=== PATIENT | female | born 1975 | race Caucasian/White ===

== ENCOUNTER 2022-11-07 12:28 | Outpatient (OUT) | payer MEDICARE, OTHER, SELFPAY ==
[2022-11-07 13:04] LABS: Basophils Absolute Auto 0.1 10^3/uL (0.0-0.1); Basophils Percent Auto 0.6 % (0.2-2.0); Eosinophils Absolute Auto 0.1 10^3/uL (0.0-0.7); Eosinophils Percent Auto 1.5 % (0.9-7.0); Hematocrit 42.4 % (36.0-48.0); Hemoglobin 13.4 g/dL (12.0-16.0); Immature Granulocytes Abs Auto 0.03 10^3/uL (0.00-0.03); Immature Granulocytes Pct Auto 0.4 % (0.0-0.5); Lymphocytes Absolute Auto 2.4 10^3/uL (1.2-3.8); Lymphocytes Percent Auto 30.2 % (20.5-60.0); Mean Corpuscular HGB Conc 31.6 g/dL (29.9-35.2); Mean Corpuscular Hemoglobin 27.7 pg (26.7-34.0); Mean Corpuscular Volume 87.6 fL (81.0-99.0); Mean Platelet Volume 9.4 fL (9.5-13.5); Monocytes Absolute Auto 0.6 10^3/uL (0.3-0.8); Neutrophils Absolute Auto 4.8 10^3/uL (1.4-6.5); Neutrophils Percent Auto 59.3 % (43.0-75.0); Platelet Count 272 10^3/uL (150-450); Red Blood Count 4.84 10^6/uL (4.20-5.40); Red Cell Distribution Width 13.1 % (11.0-15.0); White Blood Count 8.1 10^3/uL (4.0-11.0)
[2022-11-07 13:19] LABS: INR 0.94
== END 2022-11-07 12:29 | disposition home or self-care (01) ==
LOC: LAB 12:34
PROVIDERS: PCP Family Medicine; Visit Provider Personal Emergency Response Attendant
DX: D64.9 Anemia, unspecified (principal)
CPT/HCPCS: 36415; 85025; 85610

== ENCOUNTER 2023-03-06 16:30 | Outpatient (OUT) | payer OTHER, SELFPAY ==
--- NOTE | 2023-03-06 | MM_ITS ---
Patient Name: HARINDER CARROLL MR#: [id number] : 1975 Exam Date: 03/06/2023 Ordering Doctor: DR OLIVER BURROWS RADIOLOGY REPORT PROCEDURE: MM TOMOSYNTHESIS SCREENING BI COMPARISON: MG MAMM SCREEN 3D BHANU CAD, 06/03/2021. INDICATIONS: Screening for malignant neoplasm Calculator Name NCI Breast Cancer Risk Assessment Tool 5 Year Breast Cancer Risk 0.90% Lifetime Breast Cancer Risk 9.20% Personal Breast Cancer No Personal Ovarian Cancer No Treatments None Family Cancers None LOCATION: [facility] BREAST COMPOSITION: Scattered areas fibroglandular density. FINDINGS: DIAGNOSTIC CATEGORY 2--BENIGN FINDING. NO CHANGE FROM COMPARISON. Scattered benign-appearing calcifications are present. Scattered benign-appearing lymph nodes are present. RIGHT BREAST: No significant suspicious finding. LEFT BREAST: No significant suspicious finding. RECOMMENDATIONS: ROUTINE MAMMOGRAM AND CLINICAL EVALUATION IN 12 MONTHS. PLEASE NOTE: A NORMAL MAMMOGRAM DOES NOT EXCLUDE THE POSSIBILITY OF BREAST CANCER. A CLINICALLY SUSPICIOUS PALPABLE LUMP SHOULD BE BIOPSIED. Dictated by: Cl Mustafa MD on 03/07/2023 at 08:04 Approved by: Cl Mustafa MD on 03/07/2023 at 08:06
== END 2023-03-06 16:31 | disposition home or self-care (01) ==
LOC: MAMMO 16:30
PROVIDERS: PCP Family Medicine; Visit Provider Family Medicine
DX: Z12.31 Encounter for screening mammogram for malignant neoplasm of breast (principal)
CPT/HCPCS: 77063; 77067

== ENCOUNTER 2023-10-14 02:18 | Emergency (ER) | payer OTHER, SELFPAY ==
[2023-10-14 02:27] VITALS: BP 154/74; PULSE 99; TEMP 36.7; O2SAT 100; BMI 30.9
--- OUTSIDE RECORDS SUMMARY | 2023-10-14 02:27 | XMS_ITS ---
Patient Summarization (C-CDA 2.1 CCD) Created on: October 14, 2023 Harinder Carroll : 1975 Sex: Female Author Organization Sample organization Care Team Providers Care Director E Learning Name Role Phone Lakia Rizo Unavailable Unavailable Unavailable Tariq Sánchez Unavailable Jose Pena Unavailable Tariq Sánchez Unavailable Long Service - General Unavailable Unavail able Alexandria Encinas Unavailable Endoscopy Service-Surgery Unavailable Unavai Abel Nguyen Unavailable Unavailable Unavailable PAY, DR GIRARD Attending Unavailable PAY, DR GIRARD Admitting Unavailable NADERESid, DR TARIQ Raimres Primary Care Unavailable ROD, ODESSA SILVERMAN Consulting Unavailable GIULIANO RITTER Consulting Unavailable NADERESid, DR TARIQ Ramires Primary Care Unavailable GARCIA, DR EVANS Admitting Unavailable GARCIA, DR EVANS Attending Unavailable GARCIA, DR EVANS Consulting Unavailable NADERER, DR TARIQ Ramires Admitting Unavailable NADERER, DR TARIQ Ramires Attending Unavailable NADERER, DR TARIQ Ramires Consulting Unavailable NADERER, DR TARIQ Ramires Primary Care Unavailable NADERER, DR TARIQ Ramires Admitting Unavailable NADERER, DR TARIQ Ramires Attending Unavailable NADERER, DR TARIQ Ramires Consulting Unavailable NADERER, DR TARIQ Ramires Primary Care Unavailable Stanfield, DR Smallwood Consulting Unavailable NADERER, DR TARIQ Ramires Admitting Unavailable NADERER, DR TARIQ Ramires Attending Unavailable NADERER, DR TARIQ Ramires Primary Care Unavailable NADERER, DR TARIQ Ramires Consulting Unavailable NADERER, DR TARIQ Ramires Primary Care Unavailable GARCIA, DR EVANS Admitting Unavailable GARCIA, DR EVANS Attending Unavailable GARCIA, DR EVANS Consulting Unavailable KHADRA, DR GAGE Lau Consulting Unavailable NADERER, DR TARIQ Ramires Primary Care Unavailable MARSHALL ECHEVERRIA Admitting Unavailable MARSHALL ECHEVERRIA Attending Unavailable GREODESSA WALLACE Consulting Unavailable Luiza Khan Unavailable JERARDO HARDING Attending Unavailable [facility] Referring Lionel Mar Attending Lionel Mar Admitting Sarah radha OsirissidTariq Primary Care Unavailable Allergies Allergy Classification Reported Allergen(s) Allergy Type Date of Onset Reaction(s) Facility (12 sources) Cefaclor; Translations: [Ceclor] Drug Allergy RU-Uwbhbau-Gmry ell 2100 Work Phone: (13 sources) diazePAM; Translations: [Valium] Drug Allergy stop breathing RE-Ajhrprr-Lupp ell 2100 Work Phone: (20 sources) Penicillins; Translations: [Penicillins] Allergy to drug (finding) 05-14-19 Unknown, Anaphylaxis VL-Inpnees-Puqh ell 2100 Work Phone: Comment on above: Patient has had card iac arrest after penicillin admiistration (9 sources) Cefaclor Drug Allergy 05-14-19 Unknown, stop breathing, Anaphylaxis [facility] (7 sources) diazePAM Drug Allergy Unknown [facility] (1 source) Cefaclor Drug Allergy 03-10-20 19 [facility] (1 source) diazePAM Drug Allergy 03-10-20 19 [facility] (1 source) Penicillin Drug Allergy 03-10-20 19 [facility] (1 source) Penicillin G Drug Allergy stop breathing [facility] Other (1 source) Celcor Propensity to adverse reactions stop breathing [facility] Other (2 sources) diazePAM; Translations: [diazepam] Drug Allergy 05-14-19 Anaphylaxis [facility] (1 source) Cefaclor Drug Allergy 05-14-19 [facility] (1 source) Penicillins Drug allergy (disorder) 05-14-19 [facility] Encounters Encounter Date Encounter Type Care Provider Facility Start: 05-15-2023 End: 05-15-2023 ambulatory Lionel Figueroa Facility:[facility] Start: 05-15-2023 Non-patient / Non-visit [facility] Work Phone: Start: 04-12-2023 End: 04-12-2023 ambulatory JERARDO HARDING Not Available Start: 04-03-2022 End: 04-03-2022 ambulatory Luiza Bill Other [facility] Other Start: 04-03-2022 Office outpatient vi sit 15 minutes Luiza Khan [facility] Start: 02-10-2022 Patient encounter procedure Abel Ice Work Phone: SU-Sghjberjin-Lbyejv 13 MD Work Phone: Start: 12-30-2021 Encounter for preprocedural laboratory examination DR CRISTINA GARCIA [facility] Start: 12-27-2021 End: 12-28-[address] TARIQ SÁNCHEZ Facility:[facility] Start: 12-27-2021 End: 12-28-2021 Encounter for preprocedural laboratory examination DR TARIQ SÁNCHEZ Facility:[facility] Start: 12-15-2021 End: 12-16-[address] TARIQ SÁNCHEZ Facility:[facility] Start: 12-09-2021 Office outpatient vi sit 25 minutes Abel Ice Work Phone: BI-Udesvksimx-Ccobjw 13 MD Work Phone: Start: 10-21-2021 Office outpatient vi sit 25 minutes Abel Ice Work Phone: QR-Gmzkzhgmot-Nmhems 13th MD Work Phone: Start: 08-15-2021 Chart Update Abel Ice Work Phone: [address] Work Phone: Start: 06-13-2021 End: 06-13-[address] GAGE GAVIRIA Facility:[facility] Start: 06-10-2021 End: 06-11-[address] JOSE CABALLERO Facility:[facility] Start: 06-03-2021 End: 06-04-[address] Cl Mustafa Facility:[facility] Start: 06-02-2021 Office outpatient ne w 45 minutes Abel Ice Work Phone: [facility] 1057 Work Phone: Start: 05-30-2021 End: 05-31-[address] TARIQ SÁNCHEZ Facility:[facility] Start: 05-20-2021 [facility], Provider: Jose Pena, Status: Pen, Time: 11:00 AM Tariq Sánchez Work Phone: [facility] Work Phone: Start: 05-17-2021 AUDIT Tariq Sánchez Work Phone: [facility] Work Phone: Start: 05-16-2021 End: 05-24-2021 Evaluation and management of inpatient Jose Pena [facility]06 Rm [id number] Start: 04-19-2021 [facility], Provider: Jose Pena, Status: Pen, Time: 8:00 AM Tariq Sánchez Work Phone: [facility] [address] [facility] Work Phone: Start: 04-18-2021 End: 04-21-2021 Evaluation and management of inpatient Jose Puckett 5 Rm [id number] Start: 04-18-2021 Postop follow up vis it related to original px Tariq Sánchez Work Phone: [facility] [address] [facility] Work Phone: Start: 03-28-2021 End: 04-05-2021 Evaluation and management of inpatient Jose Puckett 5 Rm [id number] Start: 03-25-2021 AUDIT Tariq Sánchez Work Phone: TX-Dthbfrm-Xpwcojg 2100 Work Phone: Start: 03-20-2021 End: 03-25-2021 Evaluation and management of inpatient Jose Pena [facility]06 Rm [id number] Start: 03-07-2021 Postop follow up vis it related to original px Tariq Sánchez Work Phone: [facility] DO NOT USE Work Phone: Start: 02-18-2021 End: 02-25-2021 Evaluation and management of inpatient Jose Pool TT03 Rm [id number] Start: 02-15-2021 End: 02-15-[address] TARIQ SÁNCHEZ Facility:[facility]1 Start: 02-11-2021 AUDIT Lakia Rizo Work Phone: VR-Jklofwbbstdtlp-Urx for Perioperative Med Work Phone: Start: 12-16-2020 Office outpatient vi sit 40 minutes Lakia Rizo Work Phone: QA-Txmlbnj-Ybqgdsp 2100 Work Phone: Start: 11-03-2020 AUDIT Lakia Rizo Work Phone: [facility] Work Phone: Start: 10-28-2020 Patient encounter procedure Lakia Rizo Work Phone: YS-Yokzccu-Zvcfece 2100 Work Phone: Start: 10-28-2020 Phys/qhp telephone evaluation 21-30 min Lakia Rizo Work Phone: OX-Iitilhm-Nrskprm 2100 Work Phone: Medical Equipment Procedure Code Equipment Code Equipment Original Text Equipment Identifier Dates EGD, with Kaplan pH monitoring device placement Gastrointestinal telemetric monitoring system [id number] [facility] Start: 12-01-2020 Immunizations Immunization Date Immunization Notes Care Provider Fa [facility] 04-03-2022 tetanus toxoid, reduced diphtheria toxoid, and acellular pertussis vaccine, adsorbed Luiza Khan Other [employer] Other 05-23-2021 influenza, injectabl e, quadrivalent, preservative free Tariq Sánchez Other Phone: [facility] 06-27-2019 tetanus toxoid, reduced diphtheria toxoid, and acellular pertussis vaccine, adsorbed Lakia Rizo Work Phone: SD-Ahlymsj-Djrbhvd 2100 Work Phone: Medications Current Medications Medication Drug Class(es) Dates Sig (Normalized) Sig (Original) acetaminophen 650 mg oral tablet (12 sources) Start: 04-05-2021 take 650 mg by mouth every six hours as needed acetaminophen ; 650 milligram(s) orally every 6 hours, As Needed mild pain Quantity: 0 Refills: 0 Ordered: 18-Apr-2021 Bereket Kaur Start: 05-Apr-2021 Generic Substitution Allowed Start: 04-05-2021 take 650 mg by mouth every four hours acetaminophen ; 650 milligram(s) orally every 4 hours Quantity: 0 Refills: 0 Ordered: 05-Apr-2021 Herve Longo Start: 05-Apr-2021 Generic Substitution Allowed Start: 02-25-2021 End: 03-01-2021 take 20.31 mL by mouth every six hours acetaminophen 160 mg/5 mL oral liquid ; 20.31 milliliter(s) orally every 6 hours -.Meds to Beds Quantity: 450 Refills: 0 Ordered: 25-Feb-2021 Debbie Antonio Start: 25-Feb-2021 End: 01-Mar-2021 Status: Discontinued Generic Substitution Allowed amLODIPine 5 mg oral tablet (7 sources) Dihydropyridine Calcium Channel Ashley take 1 tablet by mouth once daily Norvasc 5 mg oral tablet ; 1 tab(s) oral once a day Quantity: 0 Refills: 0 Ordered: 10-Feb-2021 Luiza Billings Status: Discontinued Generic Substitution Allowed atorvastatin 20 mg oral tablet (7 sources) HMG-CoA Reductase Inhibitor take 1 tablet by mouth once daily Lipitor 20 mg oral tablet ; 1 tab(s) oral once a day Quantity: 0 Refills: 0 Ordered: 10-Feb-2021 Luiza Billings Status: Discontinued Generic Substitution Allowed CT abdomen and pelvis with oral contrast (6 sources) Start: CT abdomen and pelvis with oral contrast ; 1 each orally once Quantity: 1 Refills: 0 Ordered: 25-Mar-2021 Herve Longo Start: 25-Mar-2021 Status: Discontinued Generic Substitution Allowed dexlansoprazole 60 mg delayed release oral capsule (7 sources) Proton Pump Inhibitor take 1 tablet by mouth once daily Dexilant 60 mg oral delayed release capsule ; 1 tab(s) oral once a day Quantity: 0 Refills: 0 Ordered: 10-Feb-2021 Luiza Billings Status: Discontinued Generic Substitution Allowed doxycycline monohydrate 100 mg oral capsule (1 source) Tetracycline-class Drug Start: take 1 capsule by mouth every twelve hours Doxycycline Monohydrate 100 MG 1 tablet Orally Twice a day for 7 days Mar, Active gemfibrozil 600 mg oral tablet (7 sources) Peroxisome Proliferator Receptor alpha Agonist take 1 tablet by mouth once daily gemfibrozil 600 mg oral tablet ; 1 tab(s) oral once a day Quantity: 0 Refills: 0 Ordered: 10-Feb-2021 Luiza Billings Status: Discontinued Generic Substitution Allowed hydrocortisone 5 mg/ml topical cream (6 sources) Corticosteroid Start: hydrocortisone 0.5% topical cream ; Apply topically to affected area 2 times a day, As Needed -Itching - .Meds to Beds Quantity: 1 Refills: 0 Ordered: 24-May-2021 Rosa Hurst Start: 24-May-2021 Generic Substitution Allowed Start: 03-25-2021 hydrocortisone 0.5% topical cream ; 1 application topically 2 times a day, As needed, Itching - to Arm Quantity: 1 Refills: 0 Ordered: 25-Mar-2021 Herve Longo Start: 25-Mar-2021 Generic Substitution Allowed Lidocaine (1 source) Antiarrhythmic, Amide Local Anesthetic Lidocaine Active 24 hr metoprolol succinate 50 mg extended release oral tablet (7 sources) beta-Adrenergic Ashley take 1 tablet by mouth once daily Toprol-XL 50 mg oral tablet, extended release ; 1 tab(s) oral once a day Quantity: 0 Refills: 0 Ordered: 10-Feb-2021 Luiza Billings Status: Discontinued Generic Substitution Allowed Multivitamin preparation (7 sources) take 1 tablet by mouth once daily multivitamin Multiple Vitamins oral capsule ; 1 tab(s) oral once a day Quantity: 0 Refills: 0 Ordered: 10-Feb-2021 Luiza Billings Generic Substitution Allowed ondansetron 4 mg oral tablet (6 sources) Serotonin-3 Receptor Antagonist Start: 05-14-19 Ondansetron Hcl Active 4 MG PO every 6 to 8 hours May 14, 2023 12:00am Start: 05-24-2021 End: 06-06-2021 take 1 tablet by mouth twice daily as needed for nausea Zofran 8 mg oral tablet ; 1 tab(s) orall y 2 times a day only as needed for nausea/vomiting)-.Meds to Beds Quantity: 28 Refills: 0 Ordered: 24-May-2021 Rosa Hurst Start: 24-May-2021 End: 06-Jun-2021 Generic Substitution Allowed Start: 04-21-2021 End: 05-04-2021 take 1 tablet by mouth twice daily Zofran 8 mg oral tablet ; 1 tab(s) orall y 2 times a day Quantity: 28 Refills: 0 Ordered: 21-Apr-2021 Daija Lawson Start: 21-Apr-2021 End: 04-May-2021 Generic Substitution Allowed Zofran 4 MG TABS Quantity: 0 Refills: 0 Ordered: 18-Apr-2021 DO Active pantoprazole 40 mg delayed release oral tablet (17 sources) Proton Pump Inhibitor Start: 05-24-2021 End: 07-22-2021 take 1 tablet by mouth once daily pantoprazole 40 mg oral delayed release tablet ; 1 tab(s) orally once a day -.Meds to Beds for 6 weeks. Quantity: 30 Refills: 1 Ordered: 24-May-2021 Rosa Hurst Start: 24-May-2021 End: 22-Jul-2021 Generic Substitution Allowed Start: 02-25-2021 Pantoprazole S odium 40 MG Oral Tablet Delayed Release Quantity: 30 Refills: 0 Ordered: 25-Feb-2021 DO Start : 25-Feb-2021 Active Start: 02-25-2021 End: 04-25-2021 take 1 tablet by mouth once daily pantoprazole 40 mg oral delayed release tablet ; 1 tab(s) orally once a day for 6 weeks. Quantity: 30 Refills: 1 Ordered: 25-Feb-2021 Debbie Antonio Start: 25-Feb-2021 End: 25-Apr-2021 Generic Substitution Allowed polyethylene glycol 3350 57260 mg powder for oral solution (1 source) Osmotic Laxative Start: 05-24-2021 polyethylene glycol 3350 oral powder for reconstitution ; 17 gram(s) orally 1 to 3 times a day as needed in order to have one bowel movement a day -.Meds to Beds Quantity: 714 Refills: 0 Ordered: 24-May-2021 Rosa Hurst Start: 24-May-2021 Generic Substitution Allowed predniSONE (1 source) predniSONE Activ e 0.5 ml SUMAtriptan 12 mg/ml auto-injector (20 sources) Serotonin-1b and Serotonin-1d Receptor Agonist Start: 09-16-2020 Sumatriptan Succinat e (Imitrex Statdose Pen) 6 mg/0.5 mL pen injector Active 6 MG SUBCUT Daily November 28, 2020 11:00pm SUMAtriptan Acti ve SUMAtriptan 6 mg /0.5 mL subcutaneous solution ; 1 dose subcutaneous prn Quantity: 0 Refills: 0 Ordered: 11-Feb-2021 Luiza Billings Generic Substitution Allowed traZODone (1 source) Serotonin Reuptake Inhibitor traZODone HCl Active 24 hr venlafaxine 75 mg extended release oral capsule (7 sources) Serotonin and Norepinephrine Reuptake Inhibitor take 1 tablet by mouth once daily Effexor XR 75 mg oral capsule, extended release ; 1 tab(s) oral once a day Quantity: 0 Refills: 0 Ordered: 10-Feb-2021 Luiza Billings Status: Discontinued Generic Substitution Allowed Completed/Discontinued Medications Medication Drug Class(es) Dates Sig (Normalized) Sig (Original) [id number] 200 actuat albuterol 0.09 mg/actuat metered dose inhaler (7 sources) beta2-Adrenergic Agonist Start: 05-05-2021 Albuterol Sulfate HFA 108 (90 Base) MCG/ACT Inhalation Aerosol Solution Quantity: 6 Refills: 0 Ordered: 05-May-2021 DO Start : 05-May-2021 Active Start: 05-05-2021 Albuterol Sulf ate HFA 108 (90 Base) MCG/ACT Inhalation Aerosol Solution Quantity: 6 Refills: 0 Ordered: 05-May-2021 DO Start : 05-May-2021 Active chlorhexidine gluconate 40 mg/ml medicated liquid soap (2 sources) Start: 02-11-2021 End: 03-07-2021 Jeerlmateusz 4 % External Liquid USE DIRECTED as preop shower Quantity: 1 Refills: 0 Ordered: 11-Feb-2021 beau NUNU Christina Start : 11-Feb-2021 End : 07-Mar-2021 Complete escitalopram 5 mg oral tablet (4 sources) Serotonin Reuptake Inhibitor Start: 09-29-2021 take 1 tablet by mouth once daily Escitalopram Oxalate 5 MG Oral Tablet TAKE ONE TABLET BY MOUTH EVERY DAY Quantity: 30 Refills: 2 Ordered: 09-Dec-2021 Alexandria Encinas MD Start : 29-Sep-2021 Active gabapentin 50 mg/ml oral solution (9 sources) Anti-epileptic Agent Start: 04-21-2021 End: 05-04-2021 take 2 mL by mouth every eight hours gabapentin 250 mg/5 mL oral solution ; 2 milliliter(s) orally every 8 hours Quantity: 84 Refills: 0 Ordered: 21-Apr-2021 Daija Lawson Start: 21-Apr-2021 End: 04-May-2021 Generic Substitution Allowed Start: 03-25-2021 End: 03-29-2021 take 2 mL by mouth every eight hours gabapentin 250 mg/5 mL oral solution ; 2 milliliter(s) orally every 8 hours Quantity: 30 Refills: 0 Ordered: 25-Mar-2021 Cherry Turpin Start: 25-Mar-2021 End: 29-Mar-2021 Generic Substitution Allowed Start: 02-25-2021 Gabapentin 250 MG/5ML Oral Solution Quantity: 30 Refills: 0 Ordered: 28-Feb-2021 DO Start : 25-Feb-2021 Active Start: 02-25-2021 End: 03-01-2021 take 2 mL by mouth every eight hours gabapentin 250 mg/5 mL oral solution ; 2 milliliter(s) orally every 8 hours -.Meds to Beds Quantity: 30 Refills: 0 Ordered: 25-Feb-2021 Debbie Antonio Start: 25-Feb-2021 End: 01-Mar-2021 Generic Substitution Allowed ibuprofen 20 mg/ml oral suspension (11 sources) Nonsteroidal Anti-inflammatory Drug Start: 02-25-2021 Ibuprofen 100 MG/5ML Oral Suspension Quantity: 450 Refills: 0 Ordered: 25-Feb-2021 DO Start : 25-Feb-2021 Active Start: 02-25-2021 End: 03-01-2021 take 30 mL by mouth every eight hours ibuprofen 100 mg/5 mL oral suspension ; 30 milliliter(s) orally every 8 hours -.Meds to Beds Quantity: 450 Refills: 0 Ordered: 25-Feb-2021 Debbie Antonio Start: 25-Feb-2021 End: 01-Mar-2021 Status: Discontinued Generic Substitution Allowed levothyroxine sodium 0.15 mg oral tablet (20 sources) l-Thyroxine Start: 11-29-2020 Euthyrox 150 M CG Oral Tablet Quantity: 30 Refills: 0 Ordered: 30-Nov-2020 DO Start : 29-Nov-2020 Active Start: 11-29-2020 take 1 tablet by peace th once daily Levothyroxine (Synthroid) 125 mcg Tablet Active 125 MCG PO Daily November 28, 2020 11:00pm Levothyroxine So dium Active take 1 tablet by peace th once daily Synthroid 150 mcg (0.15 mg) oral tablet ; 1 tab(s) oral once a day Quantity: 0 Refills: 0 Ordered: 11-Feb-2021 Luiza Billings Generic Substitution Allowed metoclopramide 10 mg oral tablet (3 sources) Dopamine-2 Receptor Antagonist Start: 09-05-2021 Metoclopramide HCl - 10 MG Oral Tablet Quantity: 120 Refills: 0 Ordered: 03-Oct-2021 DO Start : 05-Sep-2021 Active mirtazapine 15 mg oral tablet (3 sources) Start: 10-21-2021 take 1 tablet by mouth once daily at bedtime Mirtazapine 15 MG Oral Tablet TAKE 1 TABLET BY MOUTH EVERY NIGHT AT BEDTIME Quantity: 30 Refills: 2 Ordered: 09-Dec-2021 Alexandria Encinas MD Start : 21-Oct-2021 Active Start: 10-21-2021 take 1 tablet by peace th at bedtime Mirtazapine 7.5 MG Oral Tablet TAKE 1 TABLET AT BEDTIME. Quantity: 30 Refills: 2 Ordered: 21-Oct-2021 Alexandria Encinas MD Start : 21-Oct-2021 Active mupirocin 0.02 mg/mg topical ointment (2 sources) RNA Synthetase Inhibitor Antibacterial Start: 02-11-2021 End: 03-07-2021 Mupirocin 2 % External Ointment Use intranasally twice daily 5 days prior to surgery. Quantity: 1 Refills: 0 Ordered: 11-Feb-2021 Yanique CASTANEDAMONTYChristina Start : 11-Feb-2021 End : 07-Mar-2021 Complete omeprazole 40 mg delayed release oral capsule (1 source) Proton Pump Inhibitor Start: 11-29-2020 End: 05-14-2023 take 40 mg by mouth once daily Omeprazole Discontinued 40 MG PO Daily November 28, 2020 11:00pm May 14, 2023 1:54pm oxyCODONE hydrochloride 1 mg/ml oral solution (11 sources) Opioid Agonist Start: 03-25-2021 End: 03-29-2021 take 15 mL by mouth every four hours as needed oxyCODONE 5 mg/5 mL oral solution ; 15 milliliter(s) orally every 4 hours, As Needed -Pain - Severe (7-10) Quantity: 450 Refills: 0 Ordered: 25-Mar-2021 Herve Longo Start: 25-Mar-2021 End: 29-Mar-2021 Status: Discontinued Generic Substitution Allowed Start: 02-25-2021 oxyCODONE HCl - 5 MG/5ML Oral Solution Quantity: 450 Refills: 0 Ordered: 25-Feb-2021 DO Start : 25-Feb-2021 Active Start: 02-25-2021 End: 03-01-2021 take 15 mL by mouth every four hours as needed oxyCODONE 5 mg/5 mL oral solution ; 15 milliliter(s) orally every 4 hours, As Needed -Pain - Severe (7-10) - .Meds to Beds Quantity: 450 Refills: 0 Ordered: 25-Feb-2021 Debbie Antonio Start: 25-Feb-2021 End: 01-Mar-2021 Generic Substitution Allowed prochlorperazine 5 mg oral tablet (6 sources) Phenothiazine Start: 04-21-2021 End: 05-04-2021 take 1 tablet by mouth every six hours prochlorperazine 5 mg oral tablet ; 1 tab(s) orally every 6 hours Quantity: 56 Refills: 0 Ordered: 21-Apr-2021 Daija Lawson Start: 21-Apr-2021 End: 04-May-2021 Generic Substitution Allowed Comments: Avoid prolonged or excessive exposure to direct and/or artificial sunlight while taking this medication.It is very important that you take or use this exactly as directed. Do not skip doses or discontinue unless directed by your doctor.May cause drowsiness or dizziness.Obtain medical advice before taking any non-prescription drugs as some may affect the action of this medication. Start: 03-25-2021 End: 04-13-2021 take 1 tablet by mouth every six hours prochlorperazine 5 mg oral tablet ; 1 tab(s) orally every 6 hours Quantity: 80 Refills: 0 Ordered: 25-Mar-2021 Herve Longo Start: 25-Mar-2021 End: 13-Apr-2021 Generic Substitution Allowed Comments: Avoid prolonged or excessive exposure to direct and/or artificial sunlight while taking this medication.It is very important that you take or use this exactly as directed. Do not skip doses or discontinue unless directed by your doctor.May cause drowsiness or dizziness.Obtain medical advice before taking any non-prescription drugs as some may affect the action of this medication. Comment on above: Avoid prolonged or e xcessive exposure to direct and/or artificial sunlight while taking this medication.It is very important that you take or use this exactly as directed. Do not skip doses or discontinue unless directed by your doctor.May cause drowsiness or dizziness.Obtain medical advice before taking any non-prescription drugs as some may affect the action of this medication. rimegepant 75 mg disintegrating oral tablet (6 sources) Start: 022 take 1 tablet by mouth every twenty-four hours as needed Nurtec 75 MG Oral Tablet Disintegrating TAKE 1 TABLET BY MOUTH AT AN ONSET OF A HEADACHE EVERY 24 HOURS NEEDED Quantity: 8 Refills: 1 Ordered: 02-Jun-2021 Abel Santacruz DO Start : 02-Jun-2021 Active semaglutide (7 sources) Ozempic (0.25 mg or 0.5 mg dose) 2 mg/1.5 mL subcutaneous solution ; 1 dose subcutaneous once a week Quantity: 0 Refills: 0 Ordered: 10-Feb-2021 Luiza Billings Status: Discontinued Generic Substitution Allowed simethicone 80 mg chewable tablet (12 sources) Start: End: 022 [facility] Gas Relief 80 MG Oral Tablet Chewable Quantity: 56 Refills: 0 Ordered: 23-Apr-2021 DO Start : 21-Apr-2021 Active Start: 04-05-2021 take 1 tablet by peace th four times daily at bedtime simethicone 80 mg oral tablet, chewable ; 1 tab(s) orally 4 times a day (after meals and at bedtime) Quantity: 0 Refills: 0 Ordered: 05-Apr-2021 Herve Longo Start: 05-Apr-2021 Generic Substitution Allowed sucralfate 100 mg/ml oral suspension (1 source) Aluminum Complex Start: 05-24-2021 take 10 mL by mouth once daily after mealtime Carafate 1 g/10 mL oral suspension ; 10 milliliter(s) orally once a day for 5 days -.Meds to Beds Quantity: 50 Refills: 0 Ordered: 24-May-2021 Rosa Hurst Start: 24-May-2021 Generic Substitution Allowed Comments: Do not take dairy products, antacids, or iron preparations within one hour of this medication.It is very important that you take or use this exactly as directed. Do not skip doses or discontinue unless directed by your doctor.Shake well before use.Take medication on an empty stomach 1 hour before or 2 to 3 hours after a meal unless otherwise directed by your doctor. Comment on above: Do not take dairy pr oducts, antacids, or iron preparations within one hour of this medication.It is very important that you take or use this exactly as directed. Do not skip doses or discontinue unless directed by your doctor.Shake well before use.Take medication on an empty stomach 1 hour before or 2 to 3 hours after a meal unless otherwise directed by your doctor. Payers Date Payer Category Payer Lilliana fajardo [facility] [facility] and others) [id number] 3.19 2023 Self-pay [id number] 2023 Unknown [id number] 2009 Unknown 1975 Unknown [id number] 1975 Unknown [id number] 1975 Unknown [id number] 1975 Unknown [id number] 1975 Unknown [id number] 1975 Unknown [id number] 1975 Unknown [id number] 1975 Unknown [id number] 1959 Department of [facility] e ( and others) [id number] 1959 Medicare [id number] Unknown [id number] Plan of Treatment Date Care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 above: Performed By: #### C BC ####[id number] [place] [address] RBC 4.01 x10E12/L Normal 4.00 - 5.20 [facility] Comment on above: Performed By: #### C BC ####[id number] [place] [address] WBC (Bld) [#/Vol] 7.5 10*3/uL Normal 4.4 - 11.3 [facility] Comment on above: Performed By: #### C BC ####[id number] [place] [address] Daily Progress Note-Surgeryo n 05-23-2021 Daily Progress Note-Surgery Normal [facility] Discharge [id number] 022 Discharge Profile2 Normal [facility] Laboratory - Hematology and Cell countson 05-23-2021 Erythrocyte distribution width (RBC) [Ratio] 16.2 % above high threshold See Below MP-[facility] [address] Work Phone: Comment on above: Reference Range: 11. 5 - 14.5 Hematocrit (Bld) [Volume fraction] 36.2 % See Below [place] [address] Work Phone: Comment on above: Reference Range: 36. 0 - 46.0 Hemoglobin (Bld) [Mass/Vol] 11.3 g/dL below low threshold See Below [address] [place] [address] Work Phone: Comment on above: Reference Range: 12. 0 - 16.0 MCHC (RBC) [Mass/Vol] 31.2 g/dL below low threshold See Below [address] [place] [address] Work Phone: Comment on above: Reference Range: 32. 0 - 36.0 MCV (RBC) [Entitic vol] 90 fL 80 - 100 [address] [place] [address] Work Phone: Platelets (Bld) [#/Vol] 262 10*3/uL 150 - 450 [address] [place] [address] Work Phone: RBC (Bld) [#/Vol] 4.01 {x10E12/L} See Below [address] [address] Work Phone: Comment on above: Reference Range: 4.0 0 - 5.20 WBC (Bld) [#/Vol] 7.5 10*3/uL 4.4 - 11.3 [address] [place] [address] Work Phone: MAGNESIUMon 05-23-2021 Magnesium [Mass/Vol] 2.10 mg/dL Normal 1.60 - 2.40 [facility] Comment on above: Performed By: #### M G ####[id number] [place] [address] Magnesium, Serumon 2 Magnesium [Mass/Vol] 2.10 mg/dL [address] [address] Work Phone: Comment on above: Reference Range: 1.6 0 - 2.40 No Panel Informationon 05-23 0.0 {/100_WBC} 0.0-0.0 [facility] [address] Work Phone: Order Reconciliationon 05-23 Order Reconciliation Normal [facility] PT Evaluation v2-physical th erapyon 05-23-2021 PT Evaluation v2-physical therapy Normal [facility] RENAL FUNCTION PANELon 05-23 Albumin [Mass/Vol] 3.3 g/dL Low 3.4 - 5.0 [facility] Comment on above: Performed By: #### R ENAL ####[id number] [place] [address] Anion gap [Moles/Vol] 11 mmol/L Normal 10 - 20 [facility] Comment on above: Performed By: #### R ENAL ####[id number] [place] [address] Calcium [Mass/Vol] 7.9 mg/dL Low 8.6 - 10.6 [facility] Comment on above: Performed By: #### R ENAL ####[id number] [place] [address] Chloride [Moles/Vol] 100 mmol/L Normal 98 - 107 [facility] Comment on above: Performed By: #### R ENAL ####[id number] [place] [address] Creatinine [Mass/Vol] 0.87 mg/dL Normal 0.50 - 1.05 [facility] Comment on above: Performed By: #### R ENAL ####[id number] [place] [address] GFR/1.73 sq M.predicted among non-blacks MDRD (S/P/Bld) [Vol rate/Area] 83 mL/min/{1.73_m2} Normal >90 [facility] Comment on above: Result Comment: CALC ULATIONS OF ESTIMATED GFR ARE PERFORMED USING THE 2020 CKD-EPI STUDY REFIT EQUATION WITHOUT THE RACE VARIABLE FOR THE IDMS-TRACEABLE CREATININE METHODS.https://jasn.asnjournals.org/content/early//ASN .0682063845 Performed By: #### R ENAL ####[id number] [place] [address] Glucose [Mass/Vol] 117 mg/dL High 74 - 99 [facility] Comment on above: Performed By: #### R ENAL ####[id number] [place] [address] HCO3 (Bld) [Moles/Vol] 25 mmol/L Normal 21 - 32 [facility] Comment on above: Performed By: #### R ENAL ####[id number] [place] [address] Phosphate [Mass/Vol] 2.8 mg/dL Normal 2.5 - 4.9 [facility] Comment on above: Result Comment: The performance characteristics of phosphorus testing in heparinized plasma have been validated by the individual laboratory site where testing is performed. Testing on heparinized plasma is not approved by the FDA; however, such approval is not necessary. Performed By: #### R ENAL ####[id number] [place] [address] Potassium [Moles/Vol] 3.4 mmol/L Low 3.5 - 5.3 [facility] Comment on above: Performed By: #### R ENAL ####[id number] [place] [address] Sodium [Moles/Vol] 133 mmol/L Low 136 - 145 [facility] Comment on above: Performed By: #### R ENAL ####[id number] [place] [address] Urea nitrogen [Mass/Vol] 9 mg/dL Normal 6 - 23 [facility] Comment on above: Performed By: #### R ENAL ####[id number] [place] [address] Renal Function Panelon 05-23 Albumin BCP dye [Mass/Vol] 3.3 g/dL below low threshold 3.4 - 5.0 -[facility] [address] Work Phone: Anion gap [Moles/Vol] 11 mmol/L 10 - 20 [place] [address] Work Phone: Calcium [Mass/Vol] 7.9 mg/dL below low threshold 8.6 - 10.6 [address] [place] [address] Work Phone: Chloride [Moles/Vol] 100 mmol/L 98 - 107 [address] [address] Work Phone: CO2 [Moles/Vol] 25 mmol/L 21 - 32 [address] [place] [address] Work Phone: Creatinine [Mass/Vol] 0.87 mg/dL See Below [address] [place] [address] Work Phone: Comment on above: Reference Range: 0.5 0 - 1.05 Glucose [Mass/Vol] 117 mg/dL above high threshold 74 - 99 [address] [place] [address] Work Phone: Phosphate [Mass/Vol] 2.8 mg/dL 2.5 - 4.9 [address] [place] [address] Work Phone: Comment on above: The performance leonel acteristics of phosphorus testing in heparinized plasma have been validated by the individual laboratory site where testing is performed. Testing on heparinized plasma is not approved by the FDA; however, such approval is not necessary. Potassium [Moles/Vol] 3.4 mmol/L below low threshold 3.5 - 5.3 [address] [place] [address] Work Phone: Sodium [Moles/Vol] 133 mmol/L below low threshold 136 - 145 [address] [place] [address] Work Phone: Urea nitrogen [Mass/Vol] 9 mg/dL 6 - 23 [address] [place] [address] Work Phone: Renal Function Panel 83 {mL/min/1.73m2} >90 [address] [place] [address] Work Phone: Comment on above: CALCULATIONS OF IZZY MATED GFR ARE PERFORMED USING THE 2020 CKD-EPI STUDY REFIT EQUATION WITHOUT THE RACE VARIABLE FOR THE IDMS-TRACEABLE CREATININE METHODS.https://jasn.asnjournals.org/content//ASN .9889422100 Daily Progress Note-Surgeryo n 05-22-2021 Daily Progress Note-Surgery Normal [facility] CBCon 05-21-2021 Erythrocyte distribution width (RBC) [Ratio] 15.9 % High 11.5 - 14.5 [facility] Comment on above: Performed By: #### C BC ####[id number] [place] [address] HCT Canceled Normal 36.0 - 46.0 [facility] Comment on above: Order Comment: TEST CBC WAS CANCELLED, 05/21/2021 08:25 QNS, PLEASE RESUBMIT.. Result Comment: This is a corrected result. Previous value was 47.6, verified at 208:20 Performed By: #### C BC ####[id number] [place] [address] Hematocrit (Bld) [Volume fraction] 39.2 % Normal 36.0 - 46.0 [facility] Comment on above: Performed By: #### C BC ####[id number] [place] [address] Hemoglobin (Bld) [Mass/Vol] 12.3 g/dL Normal 12.0 - 16.0 [facility] Comment on above: Performed By: #### C BC ####[id number] [place] [address] HGB Canceled Normal 12.0 - 16.0 [facility] Comment on above: Order Comment: TEST CBC WAS CANCELLED, 05/21/2021 08:25 QNS, PLEASE RESUBMIT.. Result Comment: This is a corrected result. Previous value was 14.1, verified at :20 Performed By: #### C BC ####[id number] [place] [address] MCHC Canceled Normal 32.0 - 36.0 [facility] Comment on above: Order Comment: TEST CBC WAS CANCELLED, 05/21/2021 08:25 QNS, PLEASE RESUBMIT.. Result Comment: This is a corrected result. Previous value was 29.6, verified at :20 Performed By: #### C BC ####[id number] [place] [address] MCHC (RBC) [Mass/Vol] 31.4 g/dL Low 32.0 - 36.0 [facility] Comment on above: Performed By: #### C BC ####[id number] [place] [address] MCV Canceled Normal 80 - 100 [facility] Comment on above: Order Comment: TEST CBC WAS CANCELLED, 05/21/2021 08:25 QNS, PLEASE RESUBMIT.. Result Comment: This is a corrected result. Previous value was 96, verified at :20 Performed By: #### C BC ####[id number] [place] [address] MCV (RBC) [Entitic vol] 89 fL Normal 80 - 100 [facility] Comment on above: Performed By: #### C BC ####[id number] [place] [address] NUCLEATED RBC Canceled Normal 0.0-0.0 [facility] Comment on above: Order Comment: TEST CBC WAS CANCELLED, 05/21/2021 08:25 QNS, PLEASE RESUBMIT.. Result Comment: This is a corrected result. Previous value was 0.0, verified at :20 Performed By: #### C BC ####[id number] [place] [address] NUCLEATED RBC 0.0 /100 WBC Normal 0.0-0.0 [facility] Comment on above: Performed By: #### C BC ####[id number] [place] [address] Platelets (Bld) [#/Vol] 322 10*3/uL Normal 150 - 450 [facility] Comment on above: Performed By: #### C BC ####[id number] [place] [address] PLT Canceled Normal 150 - 450 [facility] Comment on above: Order Comment: TEST CBC WAS CANCELLED, 05/21/2021 08:25 QNS, PLEASE RESUBMIT.. Result Comment: This is a corrected result. Previous value was 255, verified at :20 Performed By: #### C BC ####[id number] [place] [address] RBC Canceled Normal 4.00 - 5.20 [facility] Comment on above: Order Comment: TEST CBC WAS CANCELLED, 05/21/2021 08:25 QNS, PLEASE RESUBMIT.. Result Comment: This is a corrected result. Previous value was 4.95, verified at :20 Performed By: #### C BC ####[id number] [place] [address] RBC 4.41 x10E12/L Normal 4.00 - 5.20 [facility] Comment on above: Performed By: #### C BC ####[id number] [place] [address] RDW-CV Canceled Normal 11.5 - 14.5 [facility] Comment on above: Order Comment: TEST CBC WAS CANCELLED, 05/21/2021 08:25 QNS, PLEASE RESUBMIT.. Result Comment: This is a corrected result. Previous value was 15.9, verified at :20 Performed By: #### C BC ####[id number] [place] [address] WBC Canceled Normal 4.4 - 11.3 [facility] Comment on above: Order Comment: TEST CBC WAS CANCELLED, 05/21/2021 08:25 QNS, PLEASE RESUBMIT.. Result Comment: This is a corrected result. Previous value was 13.6, verified at :20 Performed By: #### C BC ####[id number] [place] [address] WBC (Bld) [#/Vol] 11.7 10*3/uL High 4.4 - 11.3 [facility] [place] Comment on above: Performed By: #### C BC ####[id number] [place] [address] Daily Progress Note-Surgeryo n 05-21-2021 Daily Progress Note-Surgery Normal [facility] Laboratory - Hematology and Cell countson 05-21-2021 Erythrocyte distribution width (RBC) [Ratio] 15.9 % above high threshold See Below [place] [address] Work Phone: Comment on above: Reference Range: 11. 5 - 14.5 Hematocrit (Bld) [Volume fraction] Canceled See Below [address] [place] [address] Work Phone: Comment on above: Reference Range: 36. 0 - 46.0This is a corrected result. Previous value was 47.6, verified at 05/21/2021 08:20 Hematocrit (Bld) [Volume fraction] 39.2 % See Below [address] [place] [address] Work Phone: Comment on above: Reference Range: 36. 0 - 46.0 Hemoglobin (Bld) [Mass/Vol] Canceled See Below [address] [place] [address] Work Phone: Comment on above: Reference Range: 12. 0 - 16.0This is a corrected result. Previous value was 14.1, verified at 05/21/2021 08:20 Hemoglobin (Bld) [Mass/Vol] 12.3 g/dL See Below [address] [place] [address] Work Phone: Comment on above: Reference Range: 12. 0 - 16.0 MCHC (RBC) [Mass/Vol] 31.4 g/dL below low threshold See Below [address] [place] [address] Work Phone: Comment on above: Reference Range: 32. 0 - 36.0 MCV (RBC) [Entitic vol] 89 fL 80 - 100 [place] [address] Work Phone: Platelets (Bld) [#/Vol] Canceled 150 - 450 [place] [address] Work Phone: Comment on above: This is a corrected result. Previous value was 255, verified at 05/21/2021 08:20 Platelets (Bld) [#/Vol] 322 10*3/uL 150 - 450 [place] [address] Work Phone: RBC (Bld) [#/Vol] Canceled See Below [address] [place] [address] Work Phone: Comment on above: Reference Range: 4.0 0 - 5.20This is a corrected result. Previous value was 4.95, verified at 05/21/2021 08:20 RBC (Bld) [#/Vol] 4.41 {x10E12/L} See Below [address] [place] [address] Work Phone: Comment on above: Reference Range: 4.0 0 - 5.20 WBC (Bld) [#/Vol] 11.7 10*3/uL above high threshold 4.4 - 11.3 [place] [address] Work Phone: MAGNESIUMon 05-21-2021 Magnesium [Mass/Vol] 2.30 mg/dL Normal 1.60 - 2.40 [facility] Comment on above: Performed By: #### M G ####[id number] [place] [address] Magnesium, Serumon 2 Magnesium [Mass/Vol] 2.30 mg/dL See Below [address] [place] [address] Work Phone: Comment on above: Reference Range: 1.6 0 - 2.40 No Panel Informationon 05-21 Canceled 4.4 - 11.3 [place] [address] Work Phone: Comment on above: Reference Range: 11. 5 - 14.5This is a corrected result. Previous value was 15.9, verified at 05/21/2021 08:20 Reference Range: 32. 0 - 36.0This is a corrected result. Previous value was 29.6, verified at 05/21/2021 08:20 This is a corrected result. Previous value was 96, verified at 05/21/2021 08:20 This is a corrected result. Previous value was 0.0, verified at 05/21/2021 08:20 This is a corrected result. Previous value was 13.6, verified at 05/21/2021 08:20 0.0 {/100_WBC} 0.0-0.0 [facility] [address] Work Phone: RENAL FUNCTION PANELon 05-21 Albumin [Mass/Vol] 3.8 g/dL Normal 3.4 - 5.0 [facility] Comment on above: Performed By: #### R ENAL ####[id number] [place] [address] Anion gap [Moles/Vol] 26 mmol/L High 10 - 20 [facility] Comment on above: Performed By: #### R ENAL ####[id number] [place] [address] Calcium [Mass/Vol] 8.9 mg/dL Normal 8.6 - 10.6 [facility] Comment on above: Performed By: #### R ENAL ####[id number] [place] [address] Chloride [Moles/Vol] 101 mmol/L Normal 98 - 107 [facility] Comment on above: Performed By: #### R ENAL ####[id number] [place] [address] Creatinine [Mass/Vol] 0.97 mg/dL Normal 0.50 - 1.05 [facility] Comment on above: Performed By: #### R ENAL ####[id number] [place] [address] GFR/1.73 sq M.predicted among non-blacks MDRD (S/P/Bld) [Vol rate/Area] 73 mL/min/{1.73_m2} Normal >90 [facility] Comment on above: Result Comment: CALC ULATIONS OF ESTIMATED GFR ARE PERFORMED USING THE 2020 CKD-EPI STUDY REFIT EQUATION WITHOUT THE RACE VARIABLE FOR THE IDMS-TRACEABLE CREATININE METHODS.https://jasn.asnjournals.org/content//ASN .9131238459 Performed By: #### R ENAL ####[id number] [place] [address] Glucose [Mass/Vol] 87 mg/dL Normal 74 - 99 [facility] Comment on above: Performed By: #### R ENAL ####[id number] [place] [address] HCO3 (Bld) [Moles/Vol] 14 mmol/L Low 21 - 32 [facility] Comment on above: Performed By: #### R ENAL ####[id number] [place] [address] Phosphate [Mass/Vol] 4.4 mg/dL Normal 2.5 - 4.9 [facility] Comment on above: Result Comment: The performance characteristics of phosphorus testing in heparinized plasma have been validated by the individual laboratory site where testing is performed. Testing on heparinized plasma is not approved by the FDA; however, such approval is not necessary.MILD HEMOLYSIS DETECTED. The result may be falsely elevated due tohemolysis or other interferents. Clinical correlation is recommended.Repeat testing may be considered. Performed By: #### R ENAL ####[id number] [place] [address] Potassium [Moles/Vol] 4.1 mmol/L Normal 3.5 - 5.3 [facility] Comment on above: Result Comment: MILD HEMOLYSIS DETECTED. The result may be falsely elevated due tohemolysis or other interferents. Clinical correlation is recommended.Repeat testing may be considered. Performed By: #### R ENAL ####[id number] [place] [address] Sodium [Moles/Vol] 137 mmol/L Normal 136 - 145 [facility] Comment on above: Performed By: #### R ENAL ####[id number] [place] [address] Urea nitrogen [Mass/Vol] 8 mg/dL Normal 6 - 23 [facility] Comment on above: Performed By: #### R ENAL ####[id number] [place] [address] Renal Function Panelon 05-21 Albumin BCP dye [Mass/Vol] 3.8 g/dL 3.4 - 5.0 [place] [address] Work Phone: Anion gap [Moles/Vol] 26 mmol/L above high threshold 10 - 20 [place] [address] Work Phone: Calcium [Mass/Vol] 8.9 mg/dL 8.6 - 10.6 [place] [address] Work Phone: Chloride [Moles/Vol] 101 mmol/L 98 - 107 -[place] [address] Work Phone: CO2 [Moles/Vol] 14 mmol/L below low threshold 21 - 32 [place] [address] Work Phone: Creatinine [Mass/Vol] 0.97 mg/dL See Below [place] [address] Work Phone: Comment on above: Reference Range: 0.5 0 - 1.05 Glucose [Mass/Vol] 87 mg/dL 74 - 99 [place] [address] Work Phone: Phosphate [Mass/Vol] 4.4 mg/dL 2.5 - 4.9 -[facility] [place] [address] Work Phone: Comment on above: The performance leonel acteristics of phosphorus testing in heparinized plasma have been validated by the individual laboratory site where testing is performed. Testing on heparinized plasma is not approved by the FDA; however, such approval is not necessary.MILD HEMOLYSIS DETECTED. The result may be falsely elevated due tohemolysis or other interferents. Clinical correlation is recommended.Repeat testing may be considered. Potassium [Moles/Vol] 4.1 mmol/L 3.5 - 5.3 [place] [address] Work Phone: Comment on above: MILD HEMOLYSIS DETEC DA. The result may be falsely elevated due tohemolysis or other interferents. Clinical correlation is recommended.Repeat testing may be considered. Sodium [Moles/Vol] 137 mmol/L 136 - 145 [place] [address] Work Phone: Urea nitrogen [Mass/Vol] 8 mg/dL 6 - 23 [place] [address] Work Phone: Renal Function Panel 73 {mL/min/1.73m2} >90 [place] [address] Work Phone: Comment on above: CALCULATIONS OF IZZY MATED GFR ARE PERFORMED USING THE 2020 CKD-EPI STUDY REFIT EQUATION WITHOUT THE RACE VARIABLE FOR THE IDMS-TRACEABLE CREATININE METHODS.https://jasn.asnjournals.org/content//ASN .3428232685 [facility] Erythrocyte distribution width (RBC) [Ratio] 15.9 % High 11.5 - 14.5 [place] [address] Work Phone: Comment on above: Reference Range: 11. 5 - 14.5 Performed By: #### C BC ####[id number] [place] [address] Hematocrit (Bld) [Volume fraction] 39.9 % Normal 36.0 - 46.0 [place] [address] Work Phone: Comment on above: Reference Range: 36. 0 - 46.0 Performed By: #### C BC ####[id number] [place] [address] Hemoglobin (Bld) [Mass/Vol] 12.6 g/dL Normal 12.0 - 16.0 [place] [address] Work Phone: Comment on above: Reference Range: 12. 0 - 16.0 Performed By: #### C BC ####[id number] [place] [address] MCHC (RBC) [Mass/Vol] 31.6 g/dL Low 32.0 - 36.0 [place] [address] Work Phone: Comment on above: Reference Range: 32. 0 - 36.0 Performed By: #### C BC ####[id number] [place] [address] MCV (RBC) [Entitic vol] 87 fL Normal 80 - 100 [place] [address] Work Phone: Comment on above: Performed By: #### C BC ####[id number] [address] NUCLEATED RBC 0.0 /100 WBC Normal 0.0-0.0 [facility] Comment on above: Performed By: #### C BC ####[id number] [place] [address] Platelets (Bld) [#/Vol] 303 10*3/uL Normal 150 - 450 [place] [address] Work Phone: Comment on above: Performed By: #### C BC ####[id number] [place] [address] RBC 4.57 x10E12/L Normal 4.00 - 5.20 [facility] Comment on above: Performed By: #### C BC ####[id number] [place] [address] WBC (Bld) [#/Vol] 9.7 10*3/uL Normal 4.4 - 11.3 [place] [address] Work Phone: Comment on above: Performed By: #### C BC ####[id number] [place] [address] COAGULATION SCREENon 022 APTT Canceled Normal [facility] Comment on above: Order Comment: TEST COAGULATION SCREEN WAS CANCELLED, 05/20/2021 10:14 QNS, PLEASE RESUBMIT.. Result Comment: Note new reference range as of 03/22/2021 at 10:00am. Performed By: #### C OAGS ####[id number] [place] [address] PROTHROMBIN TIME Canceled Normal [facility] Comment on above: Order Comment: TEST COAGULATION SCREEN WAS CANCELLED, 05/20/2021 10:14 QNS, PLEASE RESUBMIT.. Result Comment: Note new reference range as of 03/22/2021 at 10:00am. Performed By: #### C OAGS ####[id number] [place] [address] PT, INR Canceled Normal [facility] Comment on above: Order Comment: TEST COAGULATION SCREEN WAS CANCELLED, 05/20/2021 10:14 QNS, PLEASE RESUBMIT.. Performed By: #### C OAGS ####[id number] [place] [address] Laboratory - Blood bankon ABO group Nom (Bld) O [place] [address] Work Phone: Blood group antibody screen Ql Negative [place] [address] Work Phone: Rh immune globulin screen (Bld) [Interp] Positive [place] [address] Work Phone: Laboratory - Coagulationon 0 05-20-2021 aPTT Coag (PPP) [Time] Canceled [place] [address] Work Phone: Comment on above: Note new reference r deon as of 03/22/2021 at 10:00am. INR Coag (PPP) [Relative time] Canceled [place] [address] Work Phone: PT Coag (PPP) [Time] Canceled [place] [address] Work Phone: Comment on above: Note new reference sid chavarria as of 03/22/2021 at 10:00am. Laboratory - Hematology and Cell countson 05-20-2021 RBC (Bld) [#/Vol] 4.57 {x10E12/L} See Below [place] [address] Work Phone: Comment on above: Reference Range: 4.0 0 - 5.20 MAGNESIUMon 05-20-2021 Magnesium [Mass/Vol] 2.12 mg/dL Normal 1.60 - 2.40 [facility] Comment on above: Performed By: #### M G ####[id number] [place] [address] Magnesium, Serumon Magnesium [Mass/Vol] 2.12 mg/dL See Below [place] [address] Work Phone: Comment on above: Reference Range: 1.6 0 - 2.40 No Panel Informationon 05-20 0.0 {/100_WBC} 0.0-0.0 [place] [address] Work Phone: Operative Reports - CMCon Operative Reports - CMC Normal [facility] Order Reconciliationon 05-20 Order Reconciliation Normal [facility] Preop Checkliston 05-20-2021 Preop Checklist Normal [facility] RENAL FUNCTION PANELon 05-20 Albumin [Mass/Vol] 3.7 g/dL Normal 3.4 - 5.0 [facility] Comment on above: Performed By: #### R ENAL ####[id number] [place] [address] Anion gap [Moles/Vol] 19 mmol/L Normal 10 - 20 [facility] Comment on above: Performed By: #### R ENAL ####[id number] [place] [address] Calcium [Mass/Vol] 8.5 mg/dL Low 8.6 - 10.6 [facility] Comment on above: Performed By: #### R ENAL ####[id number] [place] [address] Chloride [Moles/Vol] 100 mmol/L Normal 98 - 107 [facility] Comment on above: Performed By: #### R ENAL ####[id number] [place] [address] Creatinine [Mass/Vol] 0.99 mg/dL Normal 0.50 - 1.05 [facility] Comment on above: Performed By: #### R ENAL ####[id number] [place] [address] GFR/1.73 sq M.predicted among non-blacks MDRD (S/P/Bld) [Vol rate/Area] 71 mL/min/{1.73_m2} Normal >90 [facility] Comment on above: Result Comment: CALC ULATIONS OF ESTIMATED GFR ARE PERFORMED USING THE 2020 CKD-EPI STUDY REFIT EQUATION WITHOUT THE RACE VARIABLE FOR THE IDMS-TRACEABLE CREATININE METHODS.https://jasn.asnjournals.org/content//ASN .0649187099 Performed By: #### R ENAL ####[id number] [place] [address] Glucose [Mass/Vol] 78 mg/dL Normal 74 - 99 [facility] Comment on above: Performed By: #### R ENAL ####[id number] [place] [address] HCO3 (Bld) [Moles/Vol] 21 mmol/L Normal 21 - 32 [facility] Comment on above: Performed By: #### R ENAL ####[id number] [place] [address] Phosphate [Mass/Vol] 3.6 mg/dL Normal 2.5 - 4.9 [facility] Comment on above: Result Comment: The performance characteristics of phosphorus testing in heparinized plasma have been validated by the individual laboratory site where testing is performed. Testing on heparinized plasma is not approved by the FDA; however, such approval is not necessary. Performed By: #### R ENAL ####[id number] [place] [address] Potassium [Moles/Vol] 3.6 mmol/L Normal 3.5 - 5.3 [facility] Comment on above: Performed By: #### R ENAL ####[id number] [place] [address] Sodium [Moles/Vol] 136 mmol/L Normal 136 - 145 [facility] Comment on above: Performed By: #### R ENAL ####[id number] [place] [address] Urea nitrogen [Mass/Vol] 8 mg/dL Normal 6 - 23 [facility] Comment on above: Performed By: #### R ENAL ####[id number] [place] [address] Renal Function Panelon 05-20 Albumin BCP dye [Mass/Vol] 3.7 g/dL 3.4 - 5.0 [place] [address] Work Phone: Anion gap [Moles/Vol] 19 mmol/L 10 - 20 [place] [address] Work Phone: Calcium [Mass/Vol] 8.5 mg/dL below low threshold 8.6 - 10.6 [place] [address] Work Phone: Chloride [Moles/Vol] 100 mmol/L 98 - 107 -[place] [address] Work Phone: CO2 [Moles/Vol] 21 mmol/L 21 - 32 [place] [address] Work Phone: Creatinine [Mass/Vol] 0.99 mg/dL See Below [place] [address] Work Phone: Comment on above: Reference Range: 0.5 0 - 1.05 Glucose [Mass/Vol] 78 mg/dL 74 - 99 [place] [address] Work Phone: Phosphate [Mass/Vol] 3.6 mg/dL 2.5 - 4.9 -[place] [address] Work Phone: Comment on above: The performance leonel acteristics of phosphorus testing in heparinized plasma have been validated by the individual laboratory site where testing is performed. Testing on heparinized plasma is not approved by the FDA; however, such approval is not necessary. Potassium [Moles/Vol] 3.6 mmol/L 3.5 - 5.3 [place] [address] Work Phone: Sodium [Moles/Vol] 136 mmol/L 136 - 145 [place] [address] Work Phone: Urea nitrogen [Mass/Vol] 8 mg/dL 6 - 23 [place] [address] Work Phone: Renal Function Panel 71 {mL/min/1.73m2} >90 [place] [address] Work Phone: Comment on above: CALCULATIONS OF IZZY MATED GFR ARE PERFORMED USING THE 2020 CKD-EPI STUDY REFIT EQUATION WITHOUT THE RACE VARIABLE FOR THE IDMS-TRACEABLE CREATININE METHODS.https://jasn.asnjournals.org/content/early/ASN .7893126615 TYPE + SCREENon 05-20-2021 ABO TYPE O Normal [facility] Comment on above: Performed By: #### T +S ####[id number] [place] [address] RH TYPE Positive Normal [facility] Comment on above: Performed By: #### T +S ####[id number] [place] [address] BASIC METABOLIC PANELon 04-24 Anion gap [Moles/Vol] 23 mmol/L High 10 - 20 [facility] Comment on above: Order Comment: GLU C LULA TO RB CYNDIE RODRIGUEZ , 05/19/2021 13:30 Performed By: #### B MP ####[id number] [place] [address] Calcium [Mass/Vol] 8.9 mg/dL Normal 8.6 - 10.6 [facility] Comment on above: Order Comment: GLU C ALLED TO RB CYNDIE KASPUTIS , 05/19/2021 13:30 Performed By: #### B MP ####[id number] [place] [address] Chloride [Moles/Vol] 99 mmol/L Normal 98 - 107 [facility] Comment on above: Order Comment: GLU C ALLED TO RB CYNDIE KASPUTIS , 05/19/2021 13:30 Performed By: #### B MP ####[id number] [place] [address] Creatinine [Mass/Vol] 1.10 mg/dL High 0.50 - 1.05 [facility] Comment on above: Order Comment: GLU C ALLED TO RB CYNDIE KASPUTIS , 05/19/2021 13:30 Performed By: #### B MP ####[id number] [place] [address] GFR/1.73 sq M.predicted among non-blacks MDRD (S/P/Bld) [Vol rate/Area] 63 mL/min/{1.73_m2} Normal >90 [facility] Comment on above: Order Comment: GLU C ALLED TO RB CYNDIE KASPUTIS , 05/19/2021 13:30 Result Comment: CALC ULATIONS OF ESTIMATED GFR ARE PERFORMED USING THE 2020 CKD-EPI STUDY REFIT EQUATION WITHOUT THE RACE VARIABLE FOR THE IDMS-TRACEABLE CREATININE METHODS.https://jasn.asnjournals.org/content/early/ASN .3396623711 Performed By: #### B MP ####[id number] [place] [address] Glucose [Mass/Vol] 51 mg/dL Critically low 74 - 99 [facility] Comment on above: Order Comment: GLU C ALLED TO RB CYNDIE KASPUTIS , 05/19/2021 13:30 Result Comment: GLU CALLED TO RB CYNDIE KASPUTIS , 05/19/2021 13:30 Performed By: #### B MP ####[id number] [place] [address] HCO3 (Bld) [Moles/Vol] 14 mmol/L Low 21 - 32 [facility] Comment on above: Order Comment: GLU C ALLED TO RB CYNDIE KASPUTIS , 05/19/2021 13:30 Performed By: #### B MP ####[id number] [place] [address] Potassium [Moles/Vol] 3.7 mmol/L Normal 3.5 - 5.3 [facility] Comment on above: Order Comment: GLU C ALLED TO RB CYNDIE KASPUTIS , 05/19/2021 13:30 Performed By: #### B MP ####[id number] [place] [address] Sodium [Moles/Vol] 132 mmol/L Low 136 - 145 [facility] Comment on above: Order Comment: GLU C ALLED TO RB CYNDIE KASPUTIS , 05/19/2021 13:30 Performed By: #### B MP ####[id number] [place] [address] Urea nitrogen [Mass/Vol] 11 mg/dL Normal 6 - 23 [facility] Comment on above: Order Comment: GLU C ALLED TO RB CYNDIE KASPUTIS , 05/19/2021 13:30 Performed By: #### B MP ####[id number] [place] [address] CBCon 05-19-2021 Erythrocyte distribution width (RBC) [Ratio] 15.7 % High 11.5 - 14.5 [facility] Comment on above: Performed By: #### C BC ####[id number] [place] [address] Hematocrit (Bld) [Volume fraction] 40.6 % Normal 36.0 - 46.0 [facility] Comment on above: Performed By: #### C BC ####[id number] [place] [address] Hemoglobin (Bld) [Mass/Vol] 13.3 g/dL Normal 12.0 - 16.0 [facility] Comment on above: Performed By: #### C BC ####[id number] [place] [address] MCHC (RBC) [Mass/Vol] 32.8 g/dL Normal 32.0 - 36.0 [facility] Comment on above: Performed By: #### C BC ####[id number] [place] [address] MCV (RBC) [Entitic vol] 85 fL Normal 80 - 100 [facility] Comment on above: Performed By: #### C BC ####[id number] [place] [address] NUCLEATED RBC 0.0 /100 WBC Normal 0.0-0.0 [facility] Comment on above: Performed By: #### C BC ####[id number] [place] [address] Platelets (Bld) [#/Vol] 249 10*3/uL Normal 150 - 450 [facility] Comment on above: Performed By: #### C BC ####[id number] [place] [address] RBC 4.78 x10E12/L Normal 4.00 - 5.20 [facility] Comment on above: Performed By: #### C BC ####[id number] [place] [address] WBC (Bld) [#/Vol] 8.7 10*3/uL Normal 4.4 - 11.3 [facility] Comment on above: Performed By: #### C BC ####[id number] [place] [address] Clinical Event Note-Gastric Emptying Study Resultson 05-19-2021 Clinical Event Note-Gastric Emptying Study Results Normal [facility] Daily Progress Note-Surgeryo n 05-19-2021 Daily Progress Note-Surgery Normal [facility] GASTRIC EMPTY SOLID ONLYon 0 05-19-2021 GASTRIC EMPTY SOLID ONLY Normal [facility] GLUCOSE-POCTon 05-19-2021 Glucose [Mass/Vol] 58 mg/dL Low 74 - 99 [facility] Comment on above: Performed By: #### G JOSSELINE ####[id number] [place] [address] Glucose [Mass/Vol] 53 mg/dL Low 74 - 99 [facility] Comment on above: Performed By: #### G JOSSELINE ####[id number] [place] [address] Glucose [Mass/Vol] 155 mg/dL High 74 - 99 [facility] Comment on above: Performed By: #### G JOSSELINE ####[id number] [place] [address] Laboratory - Chemistry and C hemistry - challengeon 05-19-2021 Anion gap [Moles/Vol] 23 mmol/L above high threshold 10 - 20 [facility] Work Phone: [phone] Calcium [Mass/Vol] 8.9 mg/dL 8.6 - 10.6 [facility] Work Phone: Chloride [Moles/Vol] 99 mmol/L 98 - 107 [facility] Work Phone: [phone] CO2 [Moles/Vol] 14 mmol/L below low threshold 21 - 32 [facility] Work Phone: Creatinine [Mass/Vol] 1.10 mg/dL above high threshold See Below [facility] Work Phone: Comment on above: Reference Range: 0.5 0 - 1.05 Glucose [Mass/Vol] 51 mg/dL Critically low 74 - 99 [facility] Work Phone: Comment on above: GLU CALLED TO TOMASZ RODRIGUEZ , 05/19/2021 13:30 Glucose [Mass/Vol] 58 mg/dL below low threshold 74 - 99 [facility] Work Phone: Glucose [Mass/Vol] 53 mg/dL below low threshold 74 - 99 [facility] Work Phone: [phone] Glucose [Mass/Vol] 155 mg/dL above high threshold 74 - 99 [facility] Work Phone: [phone] Potassium [Moles/Vol] 3.7 mmol/L 3.5 - 5.3 [facility] Work Phone: [phone] Sodium [Moles/Vol] 132 mmol/L below low threshold 136 - 145 [facility] Work Phone: [phone] Urea nitrogen [Mass/Vol] 11 mg/dL 6 - 23 [facility] Work Phone: [phone] Laboratory - Hematology and Cell countson 05-19-2021 Erythrocyte distribution width (RBC) [Ratio] 15.7 % above high threshold See Below [facility] Work Phone: [phone] Comment on above: Reference Range: 11. 5 - 14.5 Hematocrit (Bld) [Volume fraction] 40.6 % See Below [facility] Work Phone: [phone] Comment on above: Reference Range: 36. 0 - 46.0 Hemoglobin (Bld) [Mass/Vol] 13.3 g/dL See Below [facility] Work Phone: Comment on above: Reference Range: 12. 0 - 16.0 MCHC (RBC) [Mass/Vol] 32.8 g/dL See Below [facility] Work Phone: [phone] Comment on above: Reference Range: 32. 0 - 36.0 MCV (RBC) [Entitic vol] 85 fL 80 - 100 [facility] Work Phone: [phone] Platelets (Bld) [#/Vol] 249 10*3/uL 150 - 450 [facility] Work Phone: RBC (Bld) [#/Vol] 4.78 {x10E12/L} See Below [facility] Work Phone: [phone] Comment on above: Reference Range: 4.0 0 - 5.20 WBC (Bld) [#/Vol] 8.7 10*3/uL 4.4 - 11.3 [facility] Work Phone: [phone] Gastric Empty Solid Onlyo n 05-19-2021 NM Stomach Views for gastric emptying solid phase W Tc-99m SC PO Normal [facility] Work Phone: [phone] Panel Informationon 05-19 63 {mL/min/1.73m2} >90 [facility] Work Phone: Comment on above: CALCULATIONS OF IZZY MATED GFR ARE PERFORMED USING THE 2020 CKD-EPI STUDY REFIT EQUATION WITHOUT THE RACE VARIABLE FOR THE IDMS-TRACEABLE CREATININE METHODS.https://jasn.asnjournals.org/content/early/ASN .2094181072 0.0 {/100_WBC} 0.0-0.0 [facility] Work Phone: BASIC METABOLIC PANELon 04-24 Anion gap [Moles/Vol] 17 mmol/L Normal 10 - 20 [facility] Comment on above: Performed By: #### B MP ####[id number] [place] [address] Calcium [Mass/Vol] 8.5 mg/dL Low 8.6 - 10.6 [facility] Comment on above: Performed By: #### B MP ####[id number] [place] [address] Chloride [Moles/Vol] 103 mmol/L Normal 98 - 107 [facility] Comment on above: Performed By: #### B MP ####[id number] [place] [address] Creatinine [Mass/Vol] 1.06 mg/dL High 0.50 - 1.05 [facility] Comment on above: Performed By: #### B MP ####[id number] [place] [address] GFR/1.73 sq M.predicted among non-blacks MDRD (S/P/Bld) [Vol rate/Area] 66 mL/min/{1.73_m2} Normal >90 [facility] Comment on above: Result Comment: CALC ULATIONS OF ESTIMATED GFR ARE PERFORMED USING THE 2020 CKD-EPI STUDY REFIT EQUATION WITHOUT THE RACE VARIABLE FOR THE IDMS-TRACEABLE CREATININE METHODS.https://jasn.asnjournals.org/content/early/ASN .9261396758 Performed By: #### B MP ####[id number] [place] [address] Glucose [Mass/Vol] 67 mg/dL Low 74 - 99 [facility] Comment on above: Performed By: #### B MP ####[id number] [place] [address] HCO3 (Bld) [Moles/Vol] 21 mmol/L Normal 21 - 32 [facility] Comment on above: Performed By: #### B MP ####[id number] [place] [address] Potassium [Moles/Vol] 4.1 mmol/L Normal 3.5 - 5.3 [facility] Comment on above: Result Comment: MILD HEMOLYSIS DETECTED. The result may be falsely elevated due tohemolysis or other interferents. Clinical correlation is recommended.Repeat testing may be considered. Performed By: #### B MP ####[id number] [place] [address] Sodium [Moles/Vol] 137 mmol/L Normal 136 - 145 [facility] Comment on above: Performed By: #### B MP ####[id number] [place] [address] Urea nitrogen [Mass/Vol] 10 mg/dL Normal 6 - 23 [facility] Comment on above: Performed By: #### B MP ####[id number] [place] [address] CBCon 05-18-2021 Erythrocyte distribution width (RBC) [Ratio] 16.1 % High 11.5 - 14.5 [facility] Comment on above: Performed By: #### C BC ####[id number] [place] [address] Hematocrit (Bld) [Volume fraction] 37.5 % Normal 36.0 - 46.0 [facility] Comment on above: Performed By: #### C BC ####[id number] [place] [address] Hemoglobin (Bld) [Mass/Vol] 12.0 g/dL Normal 12.0 - 16.0 [facility] Comment on above: Performed By: #### C BC ####[id number] [place] [address] MCHC (RBC) [Mass/Vol] 32.0 g/dL Normal 32.0 - 36.0 [facility] Comment on above: Performed By: #### C BC ####[id number] [place] [address] MCV (RBC) [Entitic vol] 87 fL Normal 80 - 100 [facility] Comment on above: Performed By: #### C BC ####[id number] [place] [address] NUCLEATED RBC 0.5 /100 WBC Normal 0.0-0.0 [facility] Comment on above: Performed By: #### C BC ####[id number] [place] [address] Platelets (Bld) [#/Vol] 290 10*3/uL Normal 150 - 450 [facility] Comment on above: Performed By: #### C BC ####[id number] [place] [address] RBC 4.30 x10E12/L Normal 4.00 - 5.20 [facility] Comment on above: Performed By: #### C BC ####[id number] [place] [address] WBC (Bld) [#/Vol] 10.7 10*3/uL Normal 4.4 - 11.3 [facility] [place] Comment on above: Performed By: #### C BC ####[id number] [place] [address] Clinical Event Note-Post EGD and ERCP Noteon 05-18-2021 Clinical Event Note-Post EGD and ERCP Note Normal [facility] Daily Progress Note-Surgeryo n 05-18-2021 Daily Progress Note-Surgery Normal [facility] Laboratory - Chemistry and C hemistry - challengeon 05-18-2021 Anion gap [Moles/Vol] 17 mmol/L 10 - 20 [facility] Work Phone: Calcium [Mass/Vol] 8.5 mg/dL below low threshold 8.6 - 10.6 [facility] Work Phone: Chloride [Moles/Vol] 103 mmol/L 98 - 107 [facility] Work Phone: [phone] CO2 [Moles/Vol] 21 mmol/L 21 - 32 [facility] Work Phone: [phone] Creatinine [Mass/Vol] 1.06 mg/dL above high threshold See Below [facility] Work Phone: Comment on above: Reference Range: 0.5 0 - 1.05 Glucose [Mass/Vol] 67 mg/dL below low threshold 74 - 99 [facility] Work Phone: [phone] Potassium [Moles/Vol] 4.1 mmol/L 3.5 - 5.3 [facility] Work Phone: [phone] Comment on above: MILD HEMOLYSIS DETEC DA. The result may be falsely elevated due tohemolysis or other interferents. Clinical correlation is recommended.Repeat testing may be considered. Sodium [Moles/Vol] 137 mmol/L 136 - 145 [facility] Work Phone: Urea nitrogen [Mass/Vol] 10 mg/dL 6 - 23 [facility] Work Phone: [phone] Laboratory - Hematology and Cell countson 05-18-2021 Erythrocyte distribution width (RBC) [Ratio] 16.1 % above high threshold See Below [facility] Work Phone: Comment on above: Reference Range: 11. 5 - 14.5 Hematocrit (Bld) [Volume fraction] 37.5 % See Below [facility] Work Phone: Comment on above: Reference Range: 36. 0 - 46.0 Hemoglobin (Bld) [Mass/Vol] 12.0 g/dL See Below [facility] Work Phone: Comment on above: Reference Range: 12. 0 - 16.0 MCHC (RBC) [Mass/Vol] 32.0 g/dL See Below [facility] Work Phone: Comment on above: Reference Range: 32. 0 - 36.0 MCV (RBC) [Entitic vol] 87 fL 80 - 100 [facility] Work Phone: Platelets (Bld) [#/Vol] 290 10*3/uL 150 - 450 [facility] Work Phone: RBC (Bld) [#/Vol] 4.30 {x10E12/L} See Below Un [facility] Work Phone: Comment on above: Reference Range: 4.0 0 - 5.20 WBC (Bld) [#/Vol] 10.7 10*3/uL 4.4 - 11.3 [facility] Work Phone: No Panel Informationon 05-18 66 {mL/min/1.73m2} >90 [facility] Work Phone: Comment on above: CALCULATIONS OF IZZY MATED GFR ARE PERFORMED USING THE 2020 CKD-EPI STUDY REFIT EQUATION WITHOUT THE RACE VARIABLE FOR THE IDMS-TRACEABLE CREATININE METHODS.https://jasn.asnjournals.org/content/early//ASN .0554857991 0.5 {/100_WBC} 0.0-0.0 [facility] Work Phone: [email or web address] [facility] Work Phone: [facility] Work Phone: [facility] Surgical Pathology Depar tmenton 05-18-2021 [facility] Surgical Pathology Department Normal [facility] Comment on above: Performed By: #### U HCS ####[facility] Surgical Pathology [id number] [place] [address] URINALYSISon 05-18-2021 Appearance (U) CLEAR Normal CLEAR [facility] Comment on above: Performed By: #### U A ####[id number] [place] [address] Bilirubin Ql (U) Negative Normal NEGATIVE [facility] Comment on above: Performed By: #### U A ####[id number] [place] [address] Color (U) YELLOW Normal STRAW,YELLO W [facility] Comment on above: Performed By: #### U A ####[id number] [place] [address] Glucose Ql (U) Negative Normal NEGATIVE [facility] Comment on above: Performed By: #### U A ####[id number] [place] [address] Hemoglobin Ql (U) Negative Normal NEGATIVE [facility] Comment on above: Performed By: #### U A ####[id number] [place] [address] Ketones Ql (U) 5 (TRACE) Abnormal NEGATIVE [facility] Comment on above: Performed By: #### U A ####[id number] [place] [address] Leukocyte esterase Test strip Ql (U) Negative Normal NEGATIVE [facility] Comment on above: Performed By: #### U A ####[id number] [place] [address] Nitrite Ql (U) Negative Normal NEGATIVE [facility] Comment on above: Performed By: #### U A ####[id number] [place] [address] pH (U) 5.0 [pH] Normal 5.0 - 8.0 [facility] Comment on above: Performed By: #### U A ####[id number] [place] [address] Protein Ql (U) Negative Normal NEGATIVE [facility] Comment on above: Performed By: #### U A ####[id number] [place] [address] Specific gravity (U) [Rel density] 1.023 Normal 1.005 - 1.035 [facility] Comment on above: Performed By: #### U A ####[id number] [place] [address] Urobilinogen (U) [Mass/Vol] mg/dL Normal 0.0 - 1.9 [facility] Comment on above: Performed By: #### U A ####[id number] [place] [address] Urinalysison 05-18-2021 Color (U) YELLOW See Below [facility] Work Phone: Comment on above: Reference Range: STR AW,YELLOW Glucose Ql (U) Negative NEGATIVE [facility] Work Phone: [phone] Ketones Ql (U) 5 (TRACE) Abnormal NEGATIVE [facility] Work Phone: [phone] Leukocyte esterase Test strip Ql (U) Negative NEGATIVE [facility] Work Phone: [phone] pH (U) 5.0 [pH] 5.0 - 8.0 [facility] Work Phone: [phone] Protein (U) [Mass/Vol] Negative NEGATIVE [facility] Work Phone: [phone] RBC (U) [#/Vol] Negative NEGATIVE [facility] Work Phone: [phone] Specific gravity (U) [Rel density] 1.023 1 See Below [facility] Work Phone: [phone] Comment on above: Reference Range: 1.0 05 - 1.035 Urinalysis Negative NEGATIVE [facility] Work Phone: [phone] Urinalysis <2.0 0.0 - 1.9 [facility] Work Phone: [phone] Urinalysis CLEAR CLEAR [facility] Work Phone: [phone] Admission Risk Screen - Adul ton 05-17-2021 Admission Risk Screen - Adult Normal [facility] Clinical Event Note-PICC- bl ood cultures pendingon 05-17-2021 Clinical Event Note-PICC- blood cultures pending Normal [facility] Daily Progress Note-Surgeryo n 05-17-2021 Daily Progress Note-Surgery Normal [facility] Discharge Planning [id number] 0 05-17-2021 Discharge Planning Note2 Normal [facility] LACTATEon 05-17-2021 LACTATE Canceled Normal [facility] Comment on above: Order Comment: TEST LACTATE WAS CANCELLED, 05/17/2021 20:13 NO SPECIMEN RECEIVED IN LAB. Result Comment: Radha puncture immediately after or during the administration of Metamizole may lead to falsely low results. Testing should be performed immediately prior to Metamizole dosing. Performed By: #### L ACT ####[id number] [place] [address] Nutrition Therapy-Assessment on 05-17-2021 Nutrition Therapy-Assessment Normal [facility] Patient Profile - Adult v2on 05-17-2021 Patient Profile - Adult v2 Normal [facility] TH CHEST 1 VIEWon 05-17-2021 TH CHEST 1 VIEW Normal [facility] URINALYSIS WITH CULTURE IF I NDICATEDon 05-17-2021 Appearance (U) Canceled Normal [facility] Comment on above: Order Comment: TEST URINALYSIS WITH CULTURE IF INDICATED WAS CANCELLED, 05/17/2021 09:57 NOSPECIMEN RECEIVED IN LAB. Performed By: #### U ARFX ####[id number] [place] [address] ASCORBIC ACID Canceled Normal [facility] Comment on above: Order Comment: TEST URINALYSIS WITH CULTURE IF INDICATED WAS CANCELLED, 05/17/2021 09:57 NOSPECIMEN RECEIVED IN LAB. Result Comment: Conc entrations > = 20 mg/dL of ascorbic acid can be expected to cause stronginterference in the reactions testing for glucose, nitrite and blood. It isrecommended to discontinue Vitamin C administration and retest in 10 hours. Performed By: #### U ARFX ####[id number] [place] [address] Bilirubin Ql (U) Canceled Normal [facility] Comment on above: Order Comment: TEST URINALYSIS WITH CULTURE IF INDICATED WAS CANCELLED, 05/17/2021 09:57 NOSPECIMEN RECEIVED IN LAB. Performed By: #### U ARFX ####[id number] [place] [address] Color (U) Canceled Normal [facility] Comment on above: Order Comment: TEST URINALYSIS WITH CULTURE IF INDICATED WAS CANCELLED, 05/17/2021 09:57 NOSPECIMEN RECEIVED IN LAB. Performed By: #### U ARFX ####[id number] [place] [address] Glucose Ql (U) Canceled Normal [facility] Comment on above: Order Comment: TEST URINALYSIS WITH CULTURE IF INDICATED WAS CANCELLED, 05/17/2021 09:57 NOSPECIMEN RECEIVED IN LAB. Performed By: #### U ARFX ####[id number] [place] [address] Hemoglobin Ql (U) Canceled Normal [facility] Comment on above: Order Comment: TEST URINALYSIS WITH CULTURE IF INDICATED WAS CANCELLED, 05/17/2021 09:57 NOSPECIMEN RECEIVED IN LAB. Performed By: #### U ARFX ####[id number] [place] [address] Ketones Ql (U) Canceled Normal [facility] Comment on above: Order Comment: TEST URINALYSIS WITH CULTURE IF INDICATED WAS CANCELLED, 05/17/2021 09:57 NOSPECIMEN RECEIVED IN LAB. Performed By: #### U ARFX ####[id number] [place] [address] Leukocyte esterase Test strip Ql (U) Canceled Normal [facility] Comment on above: Order Comment: TEST URINALYSIS WITH CULTURE IF INDICATED WAS CANCELLED, 05/17/2021 09:57 NOSPECIMEN RECEIVED IN LAB. Performed By: #### U ARFX ####[id number] [place] [address] Nitrite Ql (U) Canceled Normal [facility] Comment on above: Order Comment: TEST URINALYSIS WITH CULTURE IF INDICATED WAS CANCELLED, 05/17/2021 09:57 NOSPECIMEN RECEIVED IN LAB. Performed By: #### U ARFX ####[id number] [place] [address] pH Canceled Normal [facility] Comment on above: Order Comment: TEST URINALYSIS WITH CULTURE IF INDICATED WAS CANCELLED, 05/17/2021 09:57 NOSPECIMEN RECEIVED IN LAB. Performed By: #### U ARFX ####[id number] [place] [address] Protein Ql (U) Canceled Normal [facility] Comment on above: Order Comment: TEST URINALYSIS WITH CULTURE IF INDICATED WAS CANCELLED, 05/17/2021 09:57 NOSPECIMEN RECEIVED IN LAB. Performed By: #### U ARFX ####[id number] [place] [address] Specific gravity (U) [Rel density] Canceled Normal [facility] Comment on above: Order Comment: TEST URINALYSIS WITH CULTURE IF INDICATED WAS CANCELLED, 05/17/2021 09:57 NOSPECIMEN RECEIVED IN LAB. Performed By: #### U ARFX ####[id number] [place] [address] UROBILINOGEN Canceled Normal [facility] Comment on above: Order Comment: TEST URINALYSIS WITH CULTURE IF INDICATED WAS CANCELLED, 05/17/2021 09:57 NOSPECIMEN RECEIVED IN LAB. Performed By: #### U ARFX ####[id number] [place] [address] CHEST ABDOMEN PELVIS W IV CONTRASTon 05-16-[address] CHEST ABDOMEN PELVIS W IV CONTRAST Normal [facility] BLOOD CULTURE, BACTERIALon 0 05-16-2021 BLOOD CULTURE, BACTERIAL Normal [facility] Comment on above: Performed By: #### B LDC ####[id number] [place] [address] CBC AND DIFFERENTIALon 05-16 % AUTOMATED IMMATURE GRAN 0.8 % Normal 0.0 - 0.9 [facility] Comment on above: Result Comment: Sheila ture Granulocyte Count (IG) includes promyelocytes, myelocytes and metamyelocytes but does not include bands. Percent differential counts (%) should be interpreted in the context of the absolute cell counts (cells/L). Performed By: #### C BCDF ####[id number] [place] [address] Basophils (Bld) [#/Vol] 0.04 10*3/uL Normal 0.00 - 0.10 [facility] Comment on above: Performed By: #### C BCDF ####[id number] [place] [address] Basophils/100 WBC (Bld) 0.4 % Normal 0.0 - 2.0 [facility] Comment on above: Performed By: #### C BCDF ####[id number] [place] [address] Eosinophils (Bld) [#/Vol] 0.00 10*3/uL Normal 0.00 - 0.70 [facility] Comment on above: Performed By: #### C BCDF ####[id number] [place] [address] Eosinophils/100 WBC (Bld) 0.0 % Normal 0.0 - 6.0 [facility] Comment on above: Performed By: #### C BCDF ####[id number] [place] [address] Erythrocyte distribution width (RBC) [Ratio] 15.9 % High 11.5 - 14.5 [facility] Comment on above: Performed By: #### C BCDF ####[id number] [place] [address] Hematocrit (Bld) [Volume fraction] 38.2 % Normal 36.0 - 46.0 [facility] Comment on above: Performed By: #### C BCDF ####[id number] [place] [address] Hemoglobin (Bld) [Mass/Vol] 12.7 g/dL Normal 12.0 - 16.0 [facility] Comment on above: Performed By: #### C BCDF ####[id number] [place] [address] Lymphocytes (Bld) [#/Vol] 1.95 10*3/uL Normal 1.20 - 4.80 [facility] Comment on above: Performed By: #### C BCDF ####[id number] [place] [address] Lymphocytes/100 WBC (Bld) 18.5 % Normal 13.0 - 44.0 [facility] Comment on above: Performed By: #### C BCDF ####[id number] [place] [address] MCHC (RBC) [Mass/Vol] 33.2 g/dL Normal 32.0 - 36.0 [facility] Comment on above: Performed By: #### C BCDF ####[id number] [place] [address] MCV (RBC) [Entitic vol] 83 fL Normal 80 - 100 [facility] Comment on above: Performed By: #### C BCDF ####[id number] [place] [address] Monocytes (Bld) [#/Vol] 0.77 10*3/uL Normal 0.10 - 1.00 [facility] Comment on above: Performed By: #### C BCDF ####[id number] [place] [address] Monocytes/100 WBC (Bld) 7.3 % Normal 2.0 - 10.0 [facility] Comment on above: Performed By: #### C BCDF ####[id number] [place] [address] Neutrophils (Bld) [#/Vol] 7.71 10*3/uL High 1.20 - 7.70 [facility] Comment on above: Performed By: #### C BCDF ####[id number] [place] [address] Neutrophils/100 WBC (Bld) 73.0 % Normal 40.0 - 80.0 [facility] Comment on above: Performed By: #### C BCDF ####[id number] [place] [address] NUCLEATED RBC 0.0 /100 WBC Normal 0.0-0.0 [facility] Comment on above: Performed By: #### C BCDF ####[id number] [place] [address] Platelets (Bld) [#/Vol] 361 10*3/uL Normal 150 - 450 [facility] Comment on above: Performed By: #### C BCDF ####[id number] [place] [address] RBC 4.60 x10E12/L Normal 4.00 - 5.20 [facility] Comment on above: Performed By: #### C BCDF ####[id number] [place] [address] WBC (Bld) [#/Vol] 10.6 10*3/uL Normal 4.4 - 11.3 [facility] [place] Comment on above: Performed By: #### C BCDF ####[id number] [place] [address] COMPREHENSIVE PANELon 2021 Albumin [Mass/Vol] 4.9 g/dL Normal 3.4 - 5.0 [facility] Comment on above: Performed By: #### C MP ####[id number] [place] [address] ALP [Catalytic activity/Vol] 86 U/L Normal 33 - 110 [facility] Comment on above: Performed By: #### C MP ####[id number] [place] [address] ALT [Catalytic activity/Vol] 20 U/L Normal 7 - 45 [facility] Comment on above: Result Comment: Isabel ents treated with Sulfasalazine may generate falsely decreased results for ALT. Performed By: #### C MP ####[id number] [place] [address] Anion gap [Moles/Vol] 21 mmol/L High 10 - 20 [facility] Comment on above: Performed By: #### C MP ####[id number] [place] [address] AST [Catalytic activity/Vol] 29 U/L Normal 9 - 39 [facility] Comment on above: Result Comment: MILD HEMOLYSIS DETECTED. The result may be falsely elevated due tohemolysis or other interferents. Clinical correlation is recommended.Repeat testing may be considered. Performed By: #### C MP ####[id number] [place] [address] Bilirubin [Mass/Vol] 1.8 mg/dL High 0.0 - 1.2 [facility] Comment on above: Performed By: #### C MP ####[id number] [place] [address] Calcium [Mass/Vol] 9.7 mg/dL Normal 8.6 - 10.6 [facility] Comment on above: Performed By: #### C MP ####[id number] [place] [address] Chloride [Moles/Vol] 102 mmol/L Normal 98 - 107 [facility] Comment on above: Performed By: #### C MP ####[id number] [place] [address] Creatinine [Mass/Vol] 1.01 mg/dL Normal 0.50 - 1.05 [facility] Comment on above: Performed By: #### C MP ####[id number] [place] [address] GFR/1.73 sq M.predicted among non-blacks MDRD (S/P/Bld) [Vol rate/Area] 70 mL/min/{1.73_m2} Normal >90 [facility] Comment on above: Result Comment: CALC ULATIONS OF ESTIMATED GFR ARE PERFORMED USING THE 2020 CKD-EPI STUDY REFIT EQUATION WITHOUT THE RACE VARIABLE FOR THE IDMS-TRACEABLE CREATININE METHODS.https://jasn.asnjournals.org/content//ASN .9674017070 Performed By: #### C MP ####[id number] [place] [address] Glucose [Mass/Vol] 114 mg/dL High 74 - 99 [facility] Comment on above: Performed By: #### C MP ####[id number] [place] [address] HCO3 (Bld) [Moles/Vol] 18 mmol/L Low 21 - 32 [facility] Comment on above: Performed By: #### C MP ####[id number] [place] [address] Potassium [Moles/Vol] 4.2 mmol/L Normal 3.5 - 5.3 [facility] Comment on above: Result Comment: MILD HEMOLYSIS DETECTED. The result may be falsely elevated due tohemolysis or other interferents. Clinical correlation is recommended.Repeat testing may be considered. Performed By: #### C MP ####[id number] [place] [address] Protein [Mass/Vol] 8.1 g/dL Normal 6.4 - 8.2 [facility] Comment on above: Performed By: #### C MP ####[id number] [id number] Sodium [Moles/Vol] 137 mmol/L Normal 136 - 145 [facility] Comment on above: Performed By: #### C MP ####[id number] [id number] Urea nitrogen [Mass/Vol] 14 mg/dL Normal 6 - 23 [facility] Comment on above: Performed By: #### C MP ####[id number] [id number] CORONAVIRUS 2019 BY PCRon DATE OF SYMPTOM ONSET [YYYYMMDD]? [id number] Normal [facility] Comment on above: Performed By: #### C OV19 ####[id number] [id number] Lab Specimen Source Nasal, Nasopharyngeal Normal [facility] Comment on above: Performed By: #### C OV19 ####[id number] [id number] SARS-CoV-2 (COVID-19) RNA REGINA+probe Ql (Unsp spec) Not detected Normal Not Detected [facility] Comment on above: Result Comment: .Thi s test has received FDA Emergency Use Authorization (EUA) and has beenverified by [facility] ([facility]). This testis only authorized for the duration of time that circumstances exist tojustify the authorization of the emergency use of in vitro diagnostic testsfor the detection of SARS-CoV-2 virus and/or diagnosis of COVID-19 infectionunder section 564(b)(1) of the Act, 21 U.S.C. 360bbb-3(b)(1), unless theauthorization is terminated or revoked sooner.[facility] is certified under CLIA-88 asqualified to perform high complexity testing. Testing is performed in [facility] located at [address] [place] [address].SARS-CoV-2/Flu/RSV Multiplex Test:Fact sheet for providers: https://www.fda.gov/media/607865/downloadFact sheet for patients: https://www.fda.gov/media/311971/download Performed By: #### C OV19 ####[id number] [place] [address] CT Chest Abdomen Pelvis with IV Contraston 05-16-2021 CT Chest and Abdomen and Pelvis W contrast IV Normal [facility] Work Phone: Complete Blood Count + Diffe rentialon 05-16-2021 Basophils/100 WBC (Bld) 0.4 % 0.0 - 2.0 [facility] Work Phone: [phone] Erythrocyte distribution width (RBC) [Ratio] 15.9 % above high threshold See Below [facility] Work Phone: [phone] Comment on above: Reference Range: 11. 5 - 14.5 Hematocrit (Bld) [Volume fraction] 38.2 % See Below [facility] Work Phone: Comment on above: Reference Range: 36. 0 - 46.0 Hemoglobin (Bld) [Mass/Vol] 12.7 g/dL See Below [facility] Work Phone: Comment on above: Reference Range: 12. 0 - 16.0 Lymphocytes/100 WBC (Bld) 18.5 % See Below [facility] Work Phone: Comment on above: Reference Range: 13. 0 - 44.0 MCHC (RBC) [Mass/Vol] 33.2 g/dL See Below [facility] Work Phone: Comment on above: Reference Range: 32. 0 - 36.0 MCV (RBC) [Entitic vol] 83 fL 80 - 100 [facility] Work Phone: [phone] Monocytes/100 WBC (Bld) 7.3 % 2.0 - 10.0 [facility] Work Phone: [phone] Neutrophils/100 WBC (Bld) 73.0 % See Below [facility] Work Phone: [phone] Comment on above: Reference Range: 40. 0 - 80.0 Platelets (Bld) [#/Vol] 361 10*3/uL 150 - 450 [facility] Work Phone: RBC (Bld) [#/Vol] 4.60 {x10E12/L} See Below [facility] Work Phone: [phone] Comment on above: Reference Range: 4.0 0 - 5.20 WBC (Bld) [#/Vol] 10.6 10*3/uL 4.4 - 11.3 [facility] Work Phone: Complete Blood Count + Differential 0.04 {x10E9/L} See Below [facility] Work Phone: Comment on above: Reference Range: 0.0 0 - 0.10 Complete Blood Count + Differential 0.00 {x10E9/L} See Below [facility] Work Phone: [phone] Comment on above: Reference Range: 0.0 0 - 0.70 Complete Blood Count + Differential 0.77 {x10E9/L} See Below [facility] Work Phone: Comment on above: Reference Range: 0.1 0 - 1.00 Complete Blood Count + Differential 1.95 {x10E9/L} See Below [facility] Work Phone: [phone] Comment on above: Reference Range: 1.2 0 - 4.80 Complete Blood Count + Differential 7.71 {x10E9/L} above high threshold See Below [facility] Work Phone: [phone] Comment on above: Reference Range: 1.2 0 - 7.70 Complete Blood Count + Differential 0.0 % 0.0 - 6.0 [facility] Work Phone: Complete Blood Count + Differential 0.8 % 0.0 - 0.9 [facility] Work Phone: Comment on above: Immature Granulocyte Count (IG) includes promyelocytes, myelocytes and metamyelocytes but does not include bands. Percent differential counts (%) should be interpreted in the context of the absolute cell counts (cells/L). Complete Blood Count + Differential 0.0 {/100_WBC} 0.0-0.0 [facility] Work Phone: Coronavirus 2019 RNA by PCR, Symptomaticon 05-16-2021 Date and time of symptom onset [id number] [facility] Work Phone: Coronavirus 2019 RNA by PCR, Symptomatic Not detected Normal See Below [facility] Work Phone: Comment on above: SOURCE: Nasal, Nasop haryngealReference Range: Not Detected.This test has received [facility] Emergency Use Authorization (EUA) and has been verified by [facility] ([facility]). This test is only authorized for the duration of time that circumstances exist to justify the authorization of the emergency use of in vitro diagnostic tests for the detection of SARS-CoV-2 virus and/or diagnosis of COVID-19 infection under section 564(b)(1) of the Act, 21 U.S.C. 360bbb-3(b)(1), unless the authorization is terminated or revoked sooner. [facility] is certified under CLIA-88 as qualified to perform high complexity testing. Testing is performed in the [facility] located at [address] [place] [address].SARS-CoV-2/Flu/RSV Multiplex Test: Fact sheet for providers: https://www.fda.gov/media/758946/downloadFact sheet for patients: https://www.fda.gov/media/194378/download Covid 19 Resultson 2 SARS-CoV-2 (COVID-19) RNA REGINA+probe Ql (Unsp spec) Normal [facility] Cult, Bloodon 05-16-2021 Bacteria identified Cx Nom (Bld) [facility] Work Phone: LACTATEon 05-16-2021 Lactate [Moles/Vol] 2.6 mmol/L High 0.4 - 2.0 [facility] [place] Comment on above: Result Comment: Radha puncture immediately after or during the administration of Metamizole may lead to falsely low results. Testing should be performed immediately prior to Metamizole dosing. Performed By: #### L ACT ####[id number] [place] [address] LIPASEon 05-16-2021 Lipase [Catalytic activity/Vol] 18 U/L Normal 9 - 82 [facility] Comment on above: Result Comment: Radha puncture immediately after or during the administration of Metamizole may lead to falsely low results. Testing should be performed immediately prior to Metamizole dosing. G-siigbf-q-benzoquinone imine (metabolite of Acetaminophen) will generate erroneously low results in samples for patients that have taken toxic doses of acetaminophen. Performed By: #### L IPAS ####[id number] [place] [address] Laboratory - Chemistry and C hemistry - challengeon 05-16-2021 Albumin BCP dye [Mass/Vol] 4.9 g/dL 3.4 - 5.0 [facility] Work Phone: [phone] ALP [Catalytic activity/Vol] 86 U/L 33 - 110 [facility] Work Phone: [phone] ALT With P-5'-P [Catalytic activity/Vol] 20 U/L 7 - 45 [facility] Work Phone: [phone] Comment on above: Patients treated wit h Sulfasalazine may generate falsely decreased results for ALT. Anion gap [Moles/Vol] 21 mmol/L above high threshold 10 - 20 [facility] Work Phone: AST With P-5'-P [Catalytic activity/Vol] 29 U/L 9 - 39 [facility] Work Phone: [phone] Comment on above: MILD HEMOLYSIS DETEC DA. The result may be falsely elevated due tohemolysis or other interferents. Clinical correlation is recommended.Repeat testing may be considered. Bilirubin [Mass/Vol] 1.8 mg/dL above high threshold 0.0 - 1.2 [facility] Work Phone: Calcium [Mass/Vol] 9.7 mg/dL 8.6 - 10.6 [facility] Work Phone: [phone] Chloride [Moles/Vol] 102 mmol/L 98 - 107 [facility] Work Phone: [phone] CO2 [Moles/Vol] 18 mmol/L below low threshold 21 - 32 [facility] Work Phone: [phone] Creatinine [Mass/Vol] 1.01 mg/dL See Below [facility] Work Phone: [phone] Comment on above: Reference Range: 0.5 0 - 1.05 Glucose [Mass/Vol] 114 mg/dL above high threshold 74 - 99 [facility] Work Phone: [phone] Potassium [Moles/Vol] 4.2 mmol/L 3.5 - 5.3 [facility] Work Phone: [phone] Comment on above: MILD HEMOLYSIS DETEC DA. The result may be falsely elevated due tohemolysis or other interferents. Clinical correlation is recommended.Repeat testing may be considered. Protein [Mass/Vol] 8.1 g/dL 6.4 - 8.2 [facility] Work Phone: [phone] Sodium [Moles/Vol] 137 mmol/L 136 - 145 [facility] Work Phone: [phone] Urea nitrogen [Mass/Vol] 14 mg/dL 6 - 23 [facility] Work Phone: [phone] Lactate, Levelon 05-16-2021 Lactate [Moles/Vol] 2.6 mmol/L above high threshold 0.4 - 2.0 [facility] Work Phone: [phone] Comment on above: Venipuncture immedia tely after or during the administration of Metamizole may lead to falsely low results. Testing should be performed immediately prior to Metamizole dosing. Lipase, Serumon 05-16-2021 Lipase [Catalytic activity/Vol] 18 U/L 9 - 82 [facility] Work Phone: Comment on above: Venipuncture immedia tely after or during the administration of Metamizole may lead to falsely low results. Testing should be performed immediately prior to Metamizole dosing. J-sprtoo-d-benzoquinone imine (metabolite of Acetaminophen) will generate erroneously low results in samples for patients that have taken toxic doses of acetaminophen. No Panel Informationon 05-16 Please click on the link to view the study images [facility] Work Phone: 70 {mL/min/1.73m2} >90 [facility] Work Phone: Comment on above: CALCULATIONS OF IZZY MATED GFR ARE PERFORMED USING THE 2020 CKD-EPI STUDY REFIT EQUATION WITHOUT THE RACE VARIABLE FOR THE IDMS-TRACEABLE CREATININE METHODS.https://jasn.asnjournals.org/content//ASN .9238100924 Order Reconciliationon 05-16 Order Reconciliation [facility] Post Op (General Surgery)on 05-16-2021 Post Op (General Surgery) Diagnoses/Problems Bile leak (576.9) (K83.9) Hiatal hernia (553.3) (K44.9) Orders Bile leak, Hiatal hernia Follow-up PRN Outpatient Follow-up Status: Active Requested for: [id number] Ordered Stat;For: Bile leak, Hiatal hernia; Ordered By: Jose Pena Performed: Due: [id number] Patient Discussion/Summary Due to the patient's inability to tolerate tube feedings and suspected dehydration, she was sent to ER for CT scan to rule out intra-abdominal pathology and to evaluate the prior biloma. Based on results of these studies, we will consider removal of the drain as well as eventual endoscopic removal of the biliary stent. I believe that some of her presenting symptoms are related to underlying supratentorial process and underlying anxiety related to her PTSD. Once organic sources have been treated for her symptoms, [facility] induced [facility]. Provider Impressions Due to the patient's inability to tolerate tube feedings and suspected dehydration, she was sent to ER for CT scan to rule out intra-abdominal pathology and to evaluate the prior biloma. Based on results of these studies, we will consider removal of the drain as well as eventual endoscopic removal of the biliary stent. I believe that some of her presenting symptoms are related to underlying supratentorial process and underlying anxiety related to her PTSD. Once organic sources have been treated for her symptoms, we will [facility] and treatment of [facility] induced symptoms. Chief Complaint POV History of Present IllnessMsSaira Carroll is here today s/p laparoscopic CAMILLA, reduction of paraesophageal hernia with Toupet fundoplication, reduction of incisional hernias and EGD on 02/18/21. She underwent ERCP with stent placement on 04/19/21 for a bile leak. The past 2 days she is not tolerating her tube feedings and has had bilious emesis as well as emesis of the PEG feeding she states. She also has significant abdominal pain. She reports having a fever. She has had minimal drainage out of the IR drain. Active Problems Bile leak (576.9) (K83.9) Dysphagia (787.20) (R13.10) GERD (gastroesophageal reflux disease) (530.81) (K21.9) Hiatal hernia (553.3) (K44.9) Surgical History History of Ankle surgery History of Appendectomy History of Eye surgery History of Gallbladder surgery History of Hernia repair History of Knee surgery History of Liver surgery History of Wrist surgery Social History No tobacco/smoke exposure Allergies Ceclor Recorded By: Sully Garces; 12/16/2020 12:21:59 PM Penicillins Recorded By: Sully Garces; 12/16/2020 12:21:59 PM Valium Recorded By: Sully Garces; 12/16/2020 12:21:59 PM Current Meds Medication NameInstruction Albuterol Sulfate HFA 108 (90 Base) MCG/ACT Inhalation Aerosol Solution [facility]S Gas Relief 80 MG Oral Tablet Chewable Euthyrox 150 MCG Oral Tablet Ibuprofen 100 MG/5ML Oral Suspension oxyCODONE HCl - 5 MG/5ML Oral Solution Pantoprazole Sodium 40 MG Oral Tablet Delayed Release SUMAtriptan Succinate 6 MG/0.5ML Subcutaneous Solution Auto-injector Vitals Vital Signs Recorded: 16May2021 12:07PM Yakzdjdlngu10.5 F Heart Rate70 Twzpindf833 Dykftqygl24 Metxwb022 lb 2 oz BMI Qnrqhaqlge54.58 kg/m2 BSA Calculated1.86 Tobacco Useb) No Fall Screeninga) No falls within the last year Pain Scale9 Physical Exam Patient appears uncomfortable and has an emesis basin with a small amount of bilious fluid in. She is afebrile with stable vital signs. There is no icterus or jaundice. Abdomen is nondistended. She has tenderness in the mid and right lower abdomen. There is no rectus spasm no evidence of peritonitis. There is a small amount of serous fluid in the drain. Signatures Electronically signed by : Jose Pena MD; May 17 2021 1:34AM EST (Author) [facility] Provider Note - ED Care Jackson sitionon 05-16-2021 Provider Note - ED Care Transition Normal [facility] Provider Note - ED v3on 04-24 Provider Note - ED v3 Normal [facility] Radiologyon 05-16-2021 XR Chest Single view Normal [facility] Work Phone: Risk Screen - Adult Emergenc yon 05-16-2021 Risk Screen - Adult Emergency Normal [facility] Tobacco Screening.on 022 Fall risk assessment a) No falls within the last year [facility] Work Phone: Tobacco use status CPHS b) No [facility] Work Phone: Triage - EDon 05-16-2021 Triage - ED Normal [facility] AMB - Narrative Note-Music T herapyon 05-10-2021 AMB - Narrative Note-Music Therapy Normal [facility] AMB - Narrative Note-Music T herapyon 05-03-2021 AMB - Narrative Note-Music Therapy Normal [facility] AMB - Narrative Note-Music T herapyon 04-29-2021 AMB - Narrative Note-Music Therapy Normal [facility] CBCon 04-21-2021 Erythrocyte distribution width (RBC) [Ratio] 14.9 % High 11.5 - 14.5 [facility] Comment on above: Performed By: #### C BC ####[id number] [place] [address] Hematocrit (Bld) [Volume fraction] 38.0 % Normal 36.0 - 46.0 [facility] Comment on above: Performed By: #### C BC ####[id number] [place] [address] Hemoglobin (Bld) [Mass/Vol] 11.1 g/dL Low 12.0 - 16.0 [facility] Comment on above: Performed By: #### C BC ####[id number] [place] [address] MCHC (RBC) [Mass/Vol] 29.2 g/dL Low 32.0 - 36.0 [facility] Comment on above: Performed By: #### C BC ####[id number] [place] [address] MCV (RBC) [Entitic vol] 95 fL Normal 80 - 100 [facility] Comment on above: Performed By: #### C BC ####[id number] [place] [address] NUCLEATED RBC 0.0 /100 WBC Normal 0.0-0.0 [facility] Comment on above: Performed By: #### C BC ####[id number] [place] [address] Platelets (Bld) [#/Vol] 257 10*3/uL Normal 150 - 450 [facility] Comment on above: Performed By: #### C BC ####[id number] [place] [address] RBC 4.02 x10E12/L Normal 4.00 - 5.20 [facility] Comment on above: Performed By: #### C BC ####[id number] [place] [address] WBC (Bld) [#/Vol] 10.8 10*3/uL Normal 4.4 - 11.3 [facility] [place] Comment on above: Performed By: #### C BC ####[id number] [place] [address] COMPREHENSIVE PANELon 2020 Albumin [Mass/Vol] 3.3 g/dL Low 3.4 - 5.0 [facility] Comment on above: Performed By: #### C MP ####[id number] [place] [address] ALP [Catalytic activity/Vol] 82 U/L Normal 33 - 110 [facility] Comment on above: Performed By: #### C MP ####[id number] [place] [address] ALT [Catalytic activity/Vol] 15 U/L Normal 7 - 45 [facility] Comment on above: Result Comment: Isabel ents treated with Sulfasalazine may generate falsely decreased results for ALT. Performed By: #### C MP ####[id number] [place] [address] Anion gap [Moles/Vol] 13 mmol/L Normal 10 - 20 [facility] Comment on above: Performed By: #### C MP ####[id number] [place] [address] AST [Catalytic activity/Vol] 19 U/L Normal 9 - 39 [facility] Comment on above: Performed By: #### C MP ####[id number] [place] [address] Bilirubin [Mass/Vol] 0.7 mg/dL Normal 0.0 - 1.2 [facility] Comment on above: Performed By: #### C MP ####[id number] [place] [address] Calcium [Mass/Vol] 8.6 mg/dL Normal 8.6 - 10.6 [facility] Comment on above: Performed By: #### C MP ####[id number] [place] [address] Chloride [Moles/Vol] 107 mmol/L Normal 98 - 107 [facility] Comment on above: Performed By: #### C MP ####[id number] [place] [address] Creatinine [Mass/Vol] 0.92 mg/dL Normal 0.50 - 1.05 [facility] Comment on above: Performed By: #### C MP ####[id number] [place] [address] GFR- AM. >60 Normal >60 [facility] Comment on above: Result Comment: CALC ULATIONS OF ESTIMATED GFR ARE PERFORMED USING THE MDRD STUDY EQUATION FOR THE IDMS-TRACEABLE CREATININE METHODS. CLIN CHEM 2007;53:766-72 Performed By: #### C MP ####[id number] [place] [address] GFR-NON AM. >60 Normal >60 [facility] [place] Comment on above: Performed By: #### C MP ####[id number] [place] [address] Glucose [Mass/Vol] 86 mg/dL Normal 74 - 99 [facility] Comment on above: Performed By: #### C MP ####[id number] [place] [address] HCO3 (Bld) [Moles/Vol] 19 mmol/L Low 21 - 32 [facility] Comment on above: Performed By: #### C MP ####[id number] [place] [address] Potassium [Moles/Vol] 3.5 mmol/L Normal 3.5 - 5.3 [facility] Comment on above: Performed By: #### C MP ####[id number] [place] [address] Protein [Mass/Vol] 5.4 g/dL Low 6.4 - 8.2 [facility] Comment on above: Performed By: #### C MP ####[id number] [place] [address] Sodium [Moles/Vol] 135 mmol/L Low 136 - 145 [facility] Comment on above: Performed By: #### C MP ####[id number] [place] [address] Urea nitrogen [Mass/Vol] 12 mg/dL Normal 6 - 23 [facility] Comment on above: Performed By: #### C MP ####[id number] [place] [address] Daily Progress Note-Surgeryo n 04-21-2021 Daily Progress Note-Surgery Normal [facility] Laboratory - Chemistry and C hemistry - challengeon 04-21-2021 Albumin BCP dye [Mass/Vol] 3.3 g/dL below low threshold 3.4 - 5.0 [facility] Work Phone: ALP [Catalytic activity/Vol] 82 U/L 33 - 110 [facility] Work Phone: [phone] ALT With P-5'-P [Catalytic activity/Vol] 15 U/L 7 - 45 [facility] Work Phone: [phone] Comment on above: Patients treated wit h Sulfasalazine may generate falsely decreased results for ALT. Anion gap [Moles/Vol] 13 mmol/L 10 - 20 [facility] Work Phone: [phone] AST With P-5'-P [Catalytic activity/Vol] 19 U/L 9 - 39 [facility] Work Phone: [phone] Bilirubin [Mass/Vol] 0.7 mg/dL 0.0 - 1.2 [facility] Work Phone: [phone] Calcium [Mass/Vol] 8.6 mg/dL 8.6 - 10.6 [facility] Work Phone: [phone] Chloride [Moles/Vol] 107 mmol/L 98 - 107 [facility] Work Phone: [phone] CO2 [Moles/Vol] 19 mmol/L below low threshold 21 - 32 [facility] Work Phone: [phone] Creatinine [Mass/Vol] 0.92 mg/dL See Below [facility] Work Phone: [phone] Comment on above: Reference Range: 0.5 0 - 1.05 Glucose [Mass/Vol] 86 mg/dL 74 - 99 [facility] Work Phone: [phone] Potassium [Moles/Vol] 3.5 mmol/L 3.5 - 5.3 [facility] Work Phone: [phone] Protein [Mass/Vol] 5.4 g/dL below low threshold 6.4 - 8.2 [facility] Work Phone: [phone] Sodium [Moles/Vol] 135 mmol/L below low threshold 136 - 145 [facility] Work Phone: [phone] Urea nitrogen [Mass/Vol] 12 mg/dL 6 - 23 [facility] Work Phone: [phone] Laboratory - Hematology and Cell countson 04-21-2021 Erythrocyte distribution width (RBC) [Ratio] 14.9 % above high threshold See Below [facility] Work Phone: [phone] Comment on above: Reference Range: 11. 5 - 14.5 Hematocrit (Bld) [Volume fraction] 38.0 % See Below [facility] Work Phone: [phone] Comment on above: Reference Range: 36. 0 - 46.0 Hemoglobin (Bld) [Mass/Vol] 11.1 g/dL below low threshold See Below [facility] Work Phone: [phone] Comment on above: Reference Range: 12. 0 - 16.0 MCHC (RBC) [Mass/Vol] 29.2 g/dL below low threshold See Below [facility] Work Phone: [phone] Comment on above: Reference Range: 32. 0 - 36.0 MCV (RBC) [Entitic vol] 95 fL 80 - 100 [facility] Work Phone: ) Platelets (Bld) [#/Vol] 257 10*3/uL 150 - 450 [facility] Work Phone: ) RBC (Bld) [#/Vol] 4.02 {x10E12/L} See Below [facility] Work Phone: [phone] Comment on above: Reference Range: 4.0 0 - 5.20 WBC (Bld) [#/Vol] 10.8 10*3/uL 4.4 - 11.3 [facility] Work Phone: [phone] MAGNESIUMon 04-21-2021 Magnesium [Mass/Vol] 2.14 mg/dL Normal 1.60 - 2.40 [facility] Comment on above: Performed By: #### M G ####[id number] [place] [address] Magnesium, Serumon Magnesium [Mass/Vol] 2.14 mg/dL See Below [facility] Work Phone: [phone] Comment on above: Reference Range: 1.6 0 - 2.40 No Panel Informationon 04-21 0.0 {/100_WBC} 0.0-0.0 [facility] Work Phone: >[phone] >60 [facility] Work Phone: Comment on above: CALCULATIONS OF IZZY MATED GFR ARE PERFORMED USING THE MDRD STUDY EQUATION FOR THE IDMS-TRACEABLE CREATININE METHODS. CLIN CHEM 2007;53:766-72 PHOSPHORUSon 04-21-2021 Phosphate [Mass/Vol] 3.5 mg/dL Normal 2.5 - 4.9 [facility] Comment on above: Result Comment: The performance characteristics of phosphorus testing in heparinized plasma have been validated by the individual laboratory site where testing is performed. Testing on heparinized plasma is not approved by the FDA; however, such approval is not necessary. Performed By: #### P HOS ####[id number] [place] [address] Phosphorus, Serumon 04-21-20 Phosphate [Mass/Vol] 3.5 mg/dL 2.5 - 4.9 [facility] Work Phone: Comment on above: The performance leonel acteristics of phosphorus testing in heparinized plasma have been validated by the individual laboratory site where testing is performed. Testing on heparinized plasma is not approved by the FDA; however, such approval is not necessary. BD CT ABDOMEN AND PELVIS W I V CONTRASTon 04-20-[address] ABDOMEN AND PELVIS W IV CONTRAST Normal [facility] CBCon 04-20-2021 Erythrocyte distribution width (RBC) [Ratio] 14.9 % High 11.5 - 14.5 [facility] Comment on above: Performed By: #### C BC ####[id number] [place] [address] Hematocrit (Bld) [Volume fraction] 32.3 % Low 36.0 - 46.0 [facility] Comment on above: Performed By: #### C BC ####[id number] [place] [address] Hemoglobin (Bld) [Mass/Vol] 10.9 g/dL Low 12.0 - 16.0 [facility] Comment on above: Performed By: #### C BC ####[id number] [place] [address] MCHC (RBC) [Mass/Vol] 33.7 g/dL Normal 32.0 - 36.0 [facility] Comment on above: Performed By: #### C BC ####[id number] [place] [address] MCV (RBC) [Entitic vol] 82 fL Normal 80 - 100 [facility] Comment on above: Performed By: #### C BC ####[id number] [place] [address] NUCLEATED RBC 0.0 /100 WBC Normal 0.0-0.0 [facility] Comment on above: Performed By: #### C BC ####[id number] [place] [address] Platelets (Bld) [#/Vol] 314 10*3/uL Normal 150 - 450 [facility] Comment on above: Performed By: #### C BC ####[id number] [place] [address] RBC 3.94 x10E12/L Low 4.00 - 5.20 [facility] Comment on above: Performed By: #### C BC ####[id number] [place] [address] WBC (Bld) [#/Vol] 11.4 10*3/uL High 4.4 - 11.3 [facility] [place] Comment on above: Performed By: #### C BC ####[id number] [place] [address] CT Abdomen and Pelvis with I V Contraston 04-20-2021 CT Abdomen and Pelvis W contrast IV Normal [facility] Work Phone: Daily Progress Note-Surgeryo n 04-20-2021 Daily Progress Note-Surgery Normal [facility] Discharge Obersve2bq 021 Discharge Profile2 Normal [facility] HEPATIC FUNCTION PANELon ALP [Catalytic activity/Vol] 85 U/L Normal 33 - 110 [facility] Comment on above: Performed By: #### H EPFP ####[id number] [place] [address] ALT [Catalytic activity/Vol] 20 U/L Normal 7 - 45 [facility] Comment on above: Result Comment: Isabel ents treated with Sulfasalazine may generate falsely decreased results for ALT. Performed By: #### H EPFP ####[id number] [place] [address] AST [Catalytic activity/Vol] 32 U/L Normal 9 - 39 [facility] Comment on above: Result Comment: MILD HEMOLYSIS DETECTED. The result may be falsely elevated due tohemolysis or other interferents. Clinical correlation is recommended.Repeat testing may be considered. Performed By: #### H EPFP ####[id number] [place] [address] Bilirubin [Mass/Vol] 1.1 mg/dL Normal 0.0 - 1.2 [facility] Comment on above: Performed By: #### H EPFP ####[id number] [place] [address] Bilirubin.indirect [Mass/Vol] 0.2 mg/dL Normal 0.0 - 0.3 [facility] Comment on above: Result Comment: MILD HEMOLYSIS DETECTED. The result may be falsely decreased due tohemolysis or other interferents. Clinical correlation is recommended.Repeat testing may be considered. Performed By: #### H EPFP ####[id number] [place] [address] Protein [Mass/Vol] 5.8 g/dL Low 6.4 - 8.2 [facility] Comment on above: Performed By: #### H EPFP ####[id number] [place] [address] Hepatic Function Panelon Albumin BCP dye [Mass/Vol] 3.5 g/dL 3.4 - 5.0 [facility] Work Phone: ALP [Catalytic activity/Vol] 85 U/L 33 - 110 [facility] Work Phone: ALT With P-5'-P [Catalytic activity/Vol] 20 U/L 7 - 45 [facility] Work Phone: Comment on above: Patients treated wit h Sulfasalazine may generate falsely decreased results for ALT. AST With P-5'-P [Catalytic activity/Vol] 32 U/L 9 - 39 [facility] Work Phone: Comment on above: MILD HEMOLYSIS DETEC DA. The result may be falsely elevated due tohemolysis or other interferents. Clinical correlation is recommended.Repeat testing may be considered. Bilirubin [Mass/Vol] 1.1 mg/dL 0.0 - 1.2 [facility] Work Phone: [phone] Bilirubin.direct [Mass/Vol] 0.2 mg/dL 0.0 - 0.3 [facility] Work Phone: [phone] Comment on above: MILD HEMOLYSIS DETEC DA. The result may be falsely decreased due tohemolysis or other interferents. Clinical correlation is recommended.Repeat testing may be considered. Protein [Mass/Vol] 5.8 g/dL below low threshold 6.4 - 8.2 [facility] Work Phone: [phone] Laboratory - Hematology and Cell countson 04-20-2021 Erythrocyte distribution width (RBC) [Ratio] 14.9 % above high threshold See Below [facility] Work Phone: [phone] Comment on above: Reference Range: 11. 5 - 14.5 Hematocrit (Bld) [Volume fraction] 32.3 % below low threshold See Below [facility] Work Phone: [phone] Comment on above: Reference Range: 36. 0 - 46.0 Hemoglobin (Bld) [Mass/Vol] 10.9 g/dL below low threshold See Below [facility] Work Phone: [phone] Comment on above: Reference Range: 12. 0 - 16.0 MCHC (RBC) [Mass/Vol] 33.7 g/dL See Below [facility] Work Phone: [phone] Comment on above: Reference Range: 32. 0 - 36.0 MCV (RBC) [Entitic vol] 82 fL 80 - 100 [facility] Work Phone: [phone] Platelets (Bld) [#/Vol] 314 10*3/uL 150 - 450 [facility] Work Phone: [phone] RBC (Bld) [#/Vol] 3.94 {x10E12/L} below low threshold See Below [facility] Work Phone: Comment on above: Reference Range: 4.0 0 - 5.20 WBC (Bld) [#/Vol] 11.4 10*3/uL above high threshold 4.4 - 11.3 [facility] Work Phone: MAGNESIUMon 04-20-2021 Magnesium [Mass/Vol] 2.07 mg/dL Normal 1.60 - 2.40 [facility] Comment on above: Performed By: #### M G ####[id number] [place] [address] Magnesium, Serumon Magnesium [Mass/Vol] 2.07 mg/dL See Below [facility] Work Phone: Comment on above: Reference Range: 1.6 0 - 2.40 No Panel Informationon 04-20 0.0 {/100_WBC} 0.0-0.0 [facility] Work Phone: Order Reconciliationon 04-20 Order Reconciliation Normal [facility] RENAL FUNCTION PANELon 04-20 Albumin [Mass/Vol] 3.5 g/dL Normal 3.4 - 5.0 [facility] Comment on above: Performed By: #### R ENAL ####[id number] [place] [address] Performed By: #### H EPFP ####[id number] [place] [address] Anion gap [Moles/Vol] 13 mmol/L Normal 10 - 20 [facility] Comment on above: Performed By: #### R ENAL ####[id number] [place] [address] Calcium [Mass/Vol] 9.0 mg/dL Normal 8.6 - 10.6 [facility] Comment on above: Performed By: #### R ENAL ####[id number] [place] [address] Chloride [Moles/Vol] 106 mmol/L Normal 98 - 107 [facility] Comment on above: Performed By: #### R ENAL ####[id number] [place] [address] Creatinine [Mass/Vol] 0.89 mg/dL Normal 0.50 - 1.05 [facility] Comment on above: Performed By: #### R ENAL ####[id number] [place] [address] GFR- AM. >60 Normal >60 [facility] Comment on above: Result Comment: CALC ULATIONS OF ESTIMATED GFR ARE PERFORMED USING THE MDRD STUDY EQUATION FOR THE IDMS-TRACEABLE CREATININE METHODS. CLIN CHEM 2007;53:766-72 Performed By: #### R ENAL ####[id number] [place] [address] GFR-NON AM. >60 Normal >60 [facility] [place] Comment on above: Performed By: #### R ENAL ####[id number] [place] [address] Glucose [Mass/Vol] 108 mg/dL High 74 - 99 [facility] Comment on above: Performed By: #### R ENAL ####[id number] [place] [address] HCO3 (Bld) [Moles/Vol] 21 mmol/L Normal 21 - 32 [facility] Comment on above: Performed By: #### R ENAL ####[id number] [place] [address] Phosphate [Mass/Vol] 4.2 mg/dL Normal 2.5 - 4.9 [facility] Comment on above: Result Comment: The performance characteristics of phosphorus testing in heparinized plasma have been validated by the individual laboratory site where testing is performed. Testing on heparinized plasma is not approved by the FDA; however, such approval is not necessary.MILD HEMOLYSIS DETECTED. The result may be falsely elevated due tohemolysis or other interferents. Clinical correlation is recommended.Repeat testing may be considered. Performed By: #### R ENAL ####[id number] [place] [address] Potassium [Moles/Vol] 4.0 mmol/L Normal 3.5 - 5.3 [facility] Comment on above: Result Comment: MILD HEMOLYSIS DETECTED. The result may be falsely elevated due tohemolysis or other interferents. Clinical correlation is recommended.Repeat testing may be considered. Performed By: #### R ENAL ####[id number] [place] [address] Sodium [Moles/Vol] 136 mmol/L Normal 136 - 145 [facility] Comment on above: Performed By: #### R ENAL ####[id number] [place] [address] Urea nitrogen [Mass/Vol] 16 mg/dL Normal 6 - 23 [facility] Comment on above: Performed By: #### R ENAL ####[id number] [place] [address] Renal Function Panelon 04-20 Anion gap [Moles/Vol] 13 mmol/L - 20 [facility] Work Phone: Calcium [Mass/Vol] 9.0 mg/dL 8.6 - 10.6 [facility] Work Phone: Chloride [Moles/Vol] 106 mmol/L 98 - 107 [facility] Work Phone: CO2 [Moles/Vol] 21 mmol/L 21 - 32 [facility] Work Phone: Creatinine [Mass/Vol] 0.89 mg/dL See Below [facility] Work Phone: Comment on above: Reference Range: 0.5 0 - 1.05 Glucose [Mass/Vol] 108 mg/dL above high threshold 74 - 99 [facility] Work Phone: Phosphate [Mass/Vol] 4.2 mg/dL 2.5 - 4.9 [facility] Work Phone: Comment on above: The performance leonel acteristics of phosphorus testing in heparinized plasma have been validated by the individual laboratory site where testing is performed. Testing on heparinized plasma is not approved by the FDA; however, such approval is not necessary.MILD HEMOLYSIS DETECTED. The result may be falsely elevated due tohemolysis or other interferents. Clinical correlation is recommended.Repeat testing may be considered. Potassium [Moles/Vol] 4.0 mmol/L 3.5 - 5.3 [facility] Work Phone: Comment on above: MILD HEMOLYSIS DETEC DA. The result may be falsely elevated due tohemolysis or other interferents. Clinical correlation is recommended.Repeat testing may be considered. Sodium [Moles/Vol] 136 mmol/L 136 - 145 [facility] Work Phone: Urea nitrogen [Mass/Vol] 16 mg/dL 6 - 23 [facility] Work Phone: Renal Function Panel >60 >60 [facility] Work Phone: Comment on above: CALCULATIONS OF IZZY MATED GFR ARE PERFORMED USING THE MDRD STUDY EQUATION FOR THE IDMS-TRACEABLE CREATININE METHODS. CLIN CHEM 2007;53:766-72 Admission Risk Screen - Adul ton 04-19-2021 Admission Risk Screen - Adult Normal [facility] COAGULATION SCREENon 021 APTT Canceled Normal [facility] Comment on above: Order Comment: TEST COAGULATION SCREEN WAS CANCELLED, 04/18/2021 23:02 Result Comment: Note new reference range as of 03/22/2021 at 10:00am. Performed By: #### C OAGS ####[id number] [place] [address] PROTHROMBIN TIME Canceled Normal [facility] Comment on above: Order Comment: TEST COAGULATION SCREEN WAS CANCELLED, 04/18/2021 23:02 Result Comment: Note new reference range as of 03/22/2021 at 10:00am. Performed By: #### C OAGS ####[id number] [place] [address] PT, INR Canceled Normal [facility] Comment on above: Order Comment: TEST COAGULATION SCREEN WAS CANCELLED, 04/18/2021 23:02 Performed By: #### C OAGS ####[id number] [place] [address] CORONAVIRUS 2019 BY PCRon Lab Specimen Source Nasal, Nasopharyngeal Normal [facility] Comment on above: Performed By: #### C OV19 ####[id number] [place] [address] SARS-CoV-2 (COVID-19) RNA REGINA+probe Ql (Unsp spec) Not detected Normal Not Detected [facility] Comment on above: Result Comment: .Thi s test has received FDA Emergency Use Authorization (EUA) and has beenverified by [facility] ([facility]). This testis only authorized for the duration of time that circumstances exist tojustify the authorization of the emergency use of in vitro diagnostic testsfor the detection of SARS-CoV-2 virus and/or diagnosis of COVID-19 infectionunder section 564(b)(1) of the Act, 21 U.S.C. 360bbb-3(b)(1), unless theauthorization is terminated or revoked sooner.[facility] is certified under CLIA-88 asqualified to perform high complexity testing. Testing is performed in [facility] located at [id number] [place] [address].SARS-CoV-2/Flu/RSV Multiplex Test:Fact sheet for providers: https://www.fda.gov/media/787508/downloadFact sheet for patients: https://www.fda.gov/media/199189/download Performed By: #### C OV19 ####[id number] [place] [address] Covid 19 Resultson SARS-CoV-2 (COVID-19) RNA REGINA+probe Ql (Unsp spec) Normal [facility] Daily Progress Note-Surgeryo n 04-19-2021 Daily Progress Note-Surgery Normal [facility] GI CHOLANG OPERATIVEon 04-19 GI CHOLANG OPERATIVE Normal [facility] LACTATEon 04-19-2021 Lactate [Moles/Vol] 0.8 mmol/L Normal 0.4 - 2.0 [facility] [place] Comment on above: Result Comment: Radha puncture immediately after or during the administration of Metamizole may lead to falsely low results. Testing should be performed immediately prior to Metamizole dosing. Performed By: #### L ACT ####[id number] [place] [address] No Panel Informationon 04-19 [facility] Work Phone: Nutrition Therapy-Assessment on 04-19-2021 Nutrition Therapy-Assessment Normal [facility] Operative Reports - CMCon Operative Reports - [facility] Normal [facility] Operative Reports - [facility] This report has been cancelled. Normal [facility] Patient Profile - Adult v2on 04-19-2021 Patient Profile - Adult v2 Normal [facility] Preop Checkliston 04-19-2021 Preop Checklist Normal [facility] URINALYSISon 04-19-2021 Appearance (U) Canceled Normal [facility] Comment on above: Order Comment: TEST URINALYSIS WAS CANCELLED, 04/19/2021 08:55 NO SPECIMEN RECEIVED IN LAB. Performed By: #### U A ####[id number] [place] [address] ASCORBIC ACID Canceled Normal [facility] Comment on above: Order Comment: TEST URINALYSIS WAS CANCELLED, 04/19/2021 08:55 NO SPECIMEN RECEIVED IN LAB. Result Comment: Conc entrations > = 20 mg/dL of ascorbic acid can be expected to cause stronginterference in the reactions testing for glucose, nitrite and blood. It isrecommended to discontinue Vitamin C administration and retest in 10 hours. Performed By: #### U A ####[id number] [place] [address] Bilirubin Ql (U) Canceled Normal [facility] Comment on above: Order Comment: TEST URINALYSIS WAS CANCELLED, 04/19/2021 08:55 NO SPECIMEN RECEIVED IN LAB. Performed By: #### U A ####[id number] [place] [address] Color (U) Canceled Normal [facility] Comment on above: Order Comment: TEST URINALYSIS WAS CANCELLED, 04/19/2021 08:55 NO SPECIMEN RECEIVED IN LAB. Performed By: #### U A ####[id number] [place] [address] Glucose Ql (U) Canceled Normal [facility] Comment on above: Order Comment: TEST URINALYSIS WAS CANCELLED, 04/19/2021 08:55 NO SPECIMEN RECEIVED IN LAB. Performed By: #### U A ####[id number] [place] [address] Hemoglobin Ql (U) Canceled Normal [facility] Comment on above: Order Comment: TEST URINALYSIS WAS CANCELLED, 04/19/2021 08:55 NO SPECIMEN RECEIVED IN LAB. Performed By: #### U A ####[id number] [place] [address] Ketones Ql (U) Canceled Normal [facility] Comment on above: Order Comment: TEST URINALYSIS WAS CANCELLED, 04/19/2021 08:55 NO SPECIMEN RECEIVED IN LAB. Performed By: #### U A ####[id number] [place] [address] Leukocyte esterase Test strip Ql (U) Canceled Normal [facility] Comment on above: Order Comment: TEST URINALYSIS WAS CANCELLED, 04/19/2021 08:55 NO SPECIMEN RECEIVED IN LAB. Performed By: #### U A ####[id number] [place] [address] Nitrite Ql (U) Canceled Normal [facility] Comment on above: Order Comment: TEST URINALYSIS WAS CANCELLED, 04/19/2021 08:55 NO SPECIMEN RECEIVED IN LAB. Performed By: #### U A ####[id number] [place] [address] pH Canceled Normal [facility] Comment on above: Order Comment: TEST URINALYSIS WAS CANCELLED, 04/19/2021 08:55 NO SPECIMEN RECEIVED IN LAB. Performed By: #### U A ####[id number] [place] [address] Protein Ql (U) Canceled Normal [facility] Comment on above: Order Comment: TEST URINALYSIS WAS CANCELLED, 04/19/2021 08:55 NO SPECIMEN RECEIVED IN LAB. Performed By: #### U A ####[id number] [place] [address] Specific gravity (U) [Rel density] Canceled Normal [facility] Comment on above: Order Comment: TEST URINALYSIS WAS CANCELLED, 04/19/2021 08:55 NO SPECIMEN RECEIVED IN LAB. Performed By: #### U A ####[id number] [place] [address] UROBILINOGEN Canceled Normal [facility] Comment on above: Order Comment: TEST URINALYSIS WAS CANCELLED, 04/19/2021 08:55 NO SPECIMEN RECEIVED IN LAB. Performed By: #### U A ####[id number] [id number] AMYLASEon 04-18-2021 Amylase [Catalytic activity/Vol] 35 U/L Normal 29 - 103 [facility] Comment on above: Performed By: #### A MY ####[id number] [id number] CBCon 04-18-2021 Erythrocyte distribution width (RBC) [Ratio] 15.8 % High 11.5 - 14.5 [facility] Comment on above: Performed By: #### C BC ####[id number] [place] [address] Hematocrit (Bld) [Volume fraction] 38.8 % Normal 36.0 - 46.0 [facility] Comment on above: Performed By: #### C BC ####LOBIT[address] [id number] [place] [id number] Hemoglobin (Bld) [Mass/Vol] 12.5 g/dL Normal 12.0 - 16.0 [facility] Comment on above: Performed By: #### C BC ####LO[address] [id number] [place] [id number] MCHC (RBC) [Mass/Vol] 32.2 g/dL Normal 32.0 - 36.0 [facility] Comment on above: Performed By: #### C BC ####LOBITO [id number] [address] [address] MCV (RBC) [Entitic vol] 85 fL Normal 80 - 100 [facility] Comment on above: Performed By: #### C BC ####CHAGABHINAV [id number] [address] [address] Platelets (Bld) [#/Vol] 397 10*3/uL Normal 150 - 450 [facility] Comment on above: Performed By: #### C BC ####LOBITO [id number] [address] [address] RBC 4.56 x10E12/L Normal 4.00 - 5.20 [facility] Comment on above: Performed By: #### C BC ####LOBITO [id number] [address] [address] WBC (Bld) [#/Vol] 11.7 10*3/uL High 4.4 - 11.3 [facility] [place] Comment on above: Performed By: #### C BC ####LOBITO [id number] [address] [address] CBC AND DIFFERENTIALon 04-18 % AUTOMATED IMMATURE GRAN 0.6 % Normal 0.0 - 0.9 [facility] Comment on above: Result Comment: Sheila ture Granulocyte Count (IG) includes promyelocytes, myelocytes and metamyelocytes but does not include bands. Percent differential counts (%) should be interpreted in the context of the absolute cell counts (cells/L). Performed By: #### C BCDF ####[id number] [place] [address] Basophils (Bld) [#/Vol] 0.03 10*3/uL Normal 0.00 - 0.10 [facility] Comment on above: Performed By: #### C BCDF ####[id number] [place] [address] Basophils/100 WBC (Bld) 0.2 % Normal 0.0 - 2.0 [facility] Comment on above: Performed By: #### C BCDF ####[id number] [place] [address] Eosinophils (Bld) [#/Vol] 0.01 10*3/uL Normal 0.00 - 0.70 [facility] Comment on above: Performed By: #### C BCDF ####[id number] [place] [address] Eosinophils/100 WBC (Bld) 0.1 % Normal 0.0 - 6.0 [facility] Comment on above: Performed By: #### C BCDF ####[id number] [place] [address] Erythrocyte distribution width (RBC) [Ratio] 15.2 % High 11.5 - 14.5 [facility] Comment on above: Performed By: #### C BCDF ####[id number] [place] [address] Hematocrit (Bld) [Volume fraction] 39.3 % Normal 36.0 - 46.0 [facility] Comment on above: Performed By: #### C BCDF ####[id number] [place] [address] Hemoglobin (Bld) [Mass/Vol] 13.8 g/dL Normal 12.0 - 16.0 [facility] Comment on above: Performed By: #### C BCDF ####[id number] [place] [address] Lymphocytes (Bld) [#/Vol] 2.71 10*3/uL Normal 1.20 - 4.80 [facility] Comment on above: Performed By: #### C BCDF ####[id number] [place] [address] Lymphocytes/100 WBC (Bld) 21.9 % Normal 13.0 - 44.0 [facility] Comment on above: Performed By: #### C BCDF ####[id number] [place] [address] MCHC (RBC) [Mass/Vol] 35.1 g/dL Normal 32.0 - 36.0 [facility] Comment on above: Performed By: #### C BCDF ####[id number] [place] [address] MCV (RBC) [Entitic vol] 82 fL Normal 80 - 100 [facility] Comment on above: Performed By: #### C BCDF ####[id number] [place] [address] Monocytes (Bld) [#/Vol] 0.95 10*3/uL Normal 0.10 - 1.00 [facility] Comment on above: Performed By: #### C BCDF ####[id number] [place] [address] Monocytes/100 WBC (Bld) 7.7 % Normal 2.0 - 10.0 [facility] Comment on above: Performed By: #### C BCDF ####[id number] [place] [address] Neutrophils (Bld) [#/Vol] 8.62 10*3/uL High 1.20 - 7.70 [facility] Comment on above: Performed By: #### C BCDF ####[id number] [place] [address] Neutrophils/100 WBC (Bld) 69.5 % Normal 40.0 - 80.0 [facility] Comment on above: Performed By: #### C BCDF ####[id number] [place] [address] NUCLEATED RBC 0.0 /100 WBC Normal 0.0-0.0 [facility] Comment on above: Performed By: #### C BCDF ####[id number] [place] [address] Platelets (Bld) [#/Vol] 391 10*3/uL Normal 150 - 450 [facility] Comment on above: Performed By: #### C BCDF ####[id number] [place] [address] RBC 4.82 x10E12/L Normal 4.00 - 5.20 [facility] Comment on above: Performed By: #### C BCDF ####[id number] [place] [address] WBC (Bld) [#/Vol] 12.4 10*3/uL High 4.4 - 11.3 [facility] [place] Comment on above: Performed By: #### C BCDF ####[id number] [place] [address] COAGULATION SCREENon 021 aPTT Coag (Bld) [Time] 27 s Normal 26 - 39 [facility] Comment on above: Result Comment: Note new reference range as of 03/22/2021 at 10:00am. Performed By: #### C OAGS ####[id number] [place] [address] PT Coag (PPP) [Time] 11.4 s Normal 9.8 - 13.4 [facility] Comment on above: Result Comment: Note new reference range as of 03/22/2021 at 10:00am. Performed By: #### C OAGS ####[id number] [place] [address] PT, INR 1.0 Normal 0.9 - 1.1 [facility] Comment on above: Performed By: #### C OAGS ####[id number] [place] [address] COMPREHENSIVE PANELon 2020 Albumin [Mass/Vol] 4.6 g/dL Normal 3.4 - 5.0 [facility] Comment on above: Performed By: #### C MP ####[id number] [place] [address] Albumin [Mass/Vol] 5.0 g/dL Normal 3.4 - 5.0 [facility] Comment on above: Performed By: #### C MP ####[id number] [place] [address] ALP [Catalytic activity/Vol] 89 U/L Normal 33 - 110 [facility] Comment on above: Performed By: #### C MP ####[id number] [place] [address] ALP [Catalytic activity/Vol] 100 U/L Normal 33 - 110 [facility] Comment on above: Performed By: #### C MP ####[id number] [place] [address] ALT [Catalytic activity/Vol] 14 U/L Normal 7 - 45 [facility] Comment on above: Result Comment: Isabel ents treated with Sulfasalazine may generate falsely decreased results for ALT. Performed By: #### C MP ####[id number] [place] [address] ALT [Catalytic activity/Vol] 14 U/L Normal 7 - 45 [facility] Comment on above: Result Comment: Isabel ents treated with Sulfasalazine may generate falsely decreased results for ALT. Performed By: #### C MP ####[id number] [place] [address] Anion gap [Moles/Vol] 21 mmol/L High 10 - 20 [facility] Comment on above: Performed By: #### C MP ####[id number] [place] [address] Anion gap [Moles/Vol] 21 mmol/L High 10 - 20 [facility] Comment on above: Performed By: #### C MP ####[id number] [place] [address] AST [Catalytic activity/Vol] 18 U/L Normal 9 - 39 [facility] Comment on above: Performed By: #### C MP ####[id number] [place] [address] AST [Catalytic activity/Vol] 17 U/L Normal 9 - 39 [facility] Comment on above: Performed By: #### C MP ####[id number] [place] [address] Bilirubin [Mass/Vol] 1.5 mg/dL High 0.0 - 1.2 [facility] Comment on above: Performed By: #### C MP ####[id number] [place] [address] Bilirubin [Mass/Vol] 2.0 mg/dL High 0.0 - 1.2 [facility] Comment on above: Performed By: #### C MP ####[id number] [place] [address] Calcium [Mass/Vol] 10.1 mg/dL Normal 8.6 - 10.6 [facility] Comment on above: Performed By: #### C MP ####[id number] [place] [address] Calcium [Mass/Vol] 10.3 mg/dL Normal 8.6 - 10.6 [facility] Comment on above: Performed By: #### C MP ####[id number] [place] [address] Chloride [Moles/Vol] 103 mmol/L Normal 98 - 107 [facility] Comment on above: Performed By: #### C MP ####[id number] [place] [address] Chloride [Moles/Vol] 101 mmol/L Normal 98 - 107 [facility] Comment on above: Performed By: #### C MP ####[id number] [place] [address] Creatinine [Mass/Vol] 0.93 mg/dL Normal 0.50 - 1.05 [facility] Comment on above: Performed By: #### C MP ####[id number] [place] [address] Creatinine [Mass/Vol] 0.96 mg/dL Normal 0.50 - 1.05 [facility] Comment on above: Performed By: #### C MP ####[id number] [place] [address] GFR- AM. >60 Normal >60 [facility] Comment on above: Result Comment: CALC ULATIONS OF ESTIMATED GFR ARE PERFORMED USING THE MDRD STUDY EQUATION FOR THE IDMS-TRACEABLE CREATININE METHODS. CLIN CHEM 2007;53:766-72 Performed By: #### C MP ####[id number] [place] [address] GFR- AM. >60 Normal >60 [facility] Comment on above: Result Comment: CALC ULATIONS OF ESTIMATED GFR ARE PERFORMED USING THE MDRD STUDY EQUATION FOR THE IDMS-TRACEABLE CREATININE METHODS. CLIN CHEM 2007;53:766-72 Performed By: #### C MP ####[id number] [place] [address] GFR-NON AM. >60 Normal >60 [facility] [place] Comment on above: Performed By: #### C MP ####[id number] [place] [address] GFR-NON AM. >60 Normal >60 [facility] [place] Comment on above: Performed By: #### C MP ####[id number] [place] [address] Glucose [Mass/Vol] 107 mg/dL High 74 - 99 [facility] Comment on above: Performed By: #### C MP ####[id number] [place] [address] Glucose [Mass/Vol] 96 mg/dL Normal 74 - 99 [facility] Comment on above: Performed By: #### C MP ####[id number] [place] [address] HCO3 (Bld) [Moles/Vol] 16 mmol/L Low 21 - 32 [facility] Comment on above: Performed By: #### C MP ####[id number] [place] [address] HCO3 (Bld) [Moles/Vol] 17 mmol/L Low 21 - 32 [facility] Comment on above: Performed By: #### C MP ####[id number] [place] [address] Potassium [Moles/Vol] 3.8 mmol/L Normal 3.5 - 5.3 [facility] Comment on above: Performed By: #### C MP ####[id number] [place] [address] Potassium [Moles/Vol] 3.4 mmol/L Low 3.5 - 5.3 [facility] Comment on above: Performed By: #### C MP ####[id number] [place] [address] Protein [Mass/Vol] 7.5 g/dL Normal 6.4 - 8.2 [facility] Comment on above: Performed By: #### C MP ####[id number] [place] [address] Protein [Mass/Vol] 8.2 g/dL Normal 6.4 - 8.2 [facility] Comment on above: Performed By: #### C MP ####[id number] [place] [address] Sodium [Moles/Vol] 136 mmol/L Normal 136 - 145 [facility] Comment on above: Performed By: #### C MP ####[id number] [place] [address] Sodium [Moles/Vol] 136 mmol/L Normal 136 - 145 [facility] Comment on above: Performed By: #### C MP ####[id number] [place] [address] Urea nitrogen [Mass/Vol] 12 mg/dL Normal 6 - 23 [facility] Comment on above: Performed By: #### C MP ####[id number] [place] [address] Urea nitrogen [Mass/Vol] 12 mg/dL Normal 6 - 23 [facility] Comment on above: Performed By: #### C MP ####[id number] [place] [address] CORONAVIRUS 2019 BY PCRon DATE OF SYMPTOM ONSET [YYYYMMDD]? [id number] Normal [facility] Comment on above: Performed By: #### C OV19 ####[id number] [place] [address] Complete Blood Count + Diffe rentialon 04-18-2021 Basophils/100 WBC (Bld) 0.2 % 0.0 - 2.0 [id number] Work Phone: Erythrocyte distribution width (RBC) [Ratio] 15.2 % above high threshold See Below [id number]-D [address] Work Phone: [phone] Comment on above: Reference Range: 11. 5 - 14.5 Hematocrit (Bld) [Volume fraction] 39.3 % See Below [address] Work Phone: [phone] Comment on above: Reference Range: 36. 0 - 46.0 Hemoglobin (Bld) [Mass/Vol] 13.8 g/dL See Below [address] Work Phone: [phone] Comment on above: Reference Range: 12. 0 - 16.0 Lymphocytes/100 WBC (Bld) 21.9 % See Below [address] Work Phone: [phone] Comment on above: Reference Range: 13. 0 - 44.0 MCHC (RBC) [Mass/Vol] 35.1 g/dL See Below [address] Work Phone: [phone] Comment on above: Reference Range: 32. 0 - 36.0 MCV (RBC) [Entitic vol] 82 fL 80 - [address] Work Phone: 65 Monocytes/100 WBC (Bld) 7.7 % 2.0 - 10.[address] Work Phone: [phone] Neutrophils/100 WBC (Bld) 69.5 % See Below [address] Work Phone: [phone] Comment on above: Reference Range: 40. 0 - 80.0 Platelets (Bld) [#/Vol] 391 10*3/uL 150 - [address] Work Phone: [phone] RBC (Bld) [#/Vol] 4.82 {x10E12/L} See Below [address] Work Phone: [phone] Comment on above: Reference Range: 4.0 0 - 5.20 WBC (Bld) [#/Vol] 12.4 10*3/uL above high threshold 4.4 - 11.[address] Work Phone: Complete Blood Count + Differential 0.03 {x10E9/L} See Below [address] Work Phone: Comment on above: Reference Range: 0.0 0 - 0.10 Complete Blood Count + Differential 0.01 {x10E9/L} See Below [address] Work Phone: Comment on above: Reference Range: 0.0 0 - 0.70 Complete Blood Count + Differential 0.95 {x10E9/L} See Below [address] Work Phone: Comment on above: Reference Range: 0.1 0 - 1.00 Complete Blood Count + Differential 2.71 {x10E9/L} See Below [address] Work Phone: Comment on above: Reference Range: 1.2 0 - 4.80 Complete Blood Count + Differential 8.62 {x10E9/L} above high threshold See Below [address] Work Phone: Comment on above: Reference Range: 1.2 0 - 7.70 Complete Blood Count + Differential 0.1 % 0.0 - 6.[address] Work Phone: Complete Blood Count + Differential 0.6 % 0.0 - 0.[address] Work Phone: Comment on above: Immature Granulocyte Count (IG) includes promyelocytes, myelocytes and metamyelocytes but does not include bands. Percent differential counts (%) should be interpreted in the context of the absolute cell counts (cells/L). Complete Blood Count + Differential 0.0 {/100_WBC} 0.0-0.0 [facility] [address] Work Phone: Coronavirus 2019 RNA by PCR, Symptomaticon 04-18-2021 Date and time of symptom onset [id number] [facility] Work Phone: [phone] Coronavirus 2019 RNA by PCR, Symptomatic Not detected Normal See Below [facility] Work Phone: [phone] Comment on above: SOURCE: Nasal, Nasop haryngealReference Range: Not Detected.This test has received FDA Emergency Use Authorization (EUA) and has been verified by [facility] ([facility]). This test is only authorized for the duration of time that circumstances exist to justify the authorization of the emergency use of in vitro diagnostic tests for the detection of SARS-CoV-2 virus and/or diagnosis of COVID-19 infection under section 564(b)(1) of the Act, 21 U.S.C. 360bbb-3(b)(1), unless the authorization is terminated or revoked sooner. [facility] is certified under CLIA-88 as qualified to perform high complexity testing. Testing is performed in the [facility] located at [address] [place] [address].SARS-CoV-2/Flu/RSV Multiplex Test: Fact sheet for providers: https://www.fda.gov/media/645369/downloadFact sheet for patients: https://www.fda.gov/media/952951/download LACTATEon 04-18-2021 Lactate [Moles/Vol] 2.5 mmol/L High 0.4 - 2.0 [facility] [place], [facility] Comment on above: Result Comment: Radha puncture immediately after or during the administration of Metamizole may lead to falsely low results. Testing should be performed immediately prior to Metamizole dosing. Performed By: #### L ACT ####[id number] [place] [address] LIPASEon 04-18-2021 Lipase [Catalytic activity/Vol] 25 U/L Normal 9 - 82 [facility] Comment on above: Result Comment: Radha puncture immediately after or during the administration of Metamizole may lead to falsely low results. Testing should be performed immediately prior to Metamizole dosing. Performed By: #### L IPAS ####[id number] [place] [address] Laboratory - Coagulationon 1 06-19-2020 INR Coag (PPP) [Relative time] 1.0 {INR} 0.9 - 1.1 GF-Zozimze-N [facility] [address] [facility] Work Phone: PT Coag (PPP) [Time] 11.8 s 9.8 - 13.4 [facility] [address] [facility] Work Phone: Comment on above: Note new reference r deon as of 03/22/2021 at 10:00am. Lactate, Levelon 04-18-2021 Lactate [Moles/Vol] 0.8 mmol/L 0.4 - 2.0 [facility] Work Phone: Comment on above: Venipuncture immedia tely after or during the administration of Metamizole may lead to falsely low results. Testing should be performed immediately prior to Metamizole dosing. Order Reconciliationon 04-18 Order Reconciliation Normal [facility] PREALBUMINon 04-18-2021 Prealbumin [Mass/Vol] 29.3 mg/dL Normal 18.0 - 40.0 [facility] Comment on above: Performed By: #### P REAL ####[id number] [place] [address] PT/INRon 04-18-2021 PT Coag (PPP) [Time] 11.8 s Normal 9.8 - 13.4 [facility] Comment on above: Result Comment: Note new reference range as of 03/22/2021 at 10:00am. Performed By: #### P TINR ####[id number] [place] [address] PT, INR 1.0 Normal 0.9 - 1.1 [facility] Comment on above: Performed By: #### P TINR ####[id number] [place] [address] Post Op (General Surgery)on 04-18-2021 Post Op (General Surgery) Diagnoses/Problems Bile leak (576.9) (K83.9) GERD (gastroesophageal reflux disease) (530.81) (K21.9) Hiatal hernia (553.3) (K44.9) Orders Bile leak Amylase, Serum; Status:In Progress - Specimen/Data Collected; Done: 18Apr2021 Perform:Lab Services - Lab To Draw (Blood Test); Due:17Jul2021;Ordered; Stat; For:Bile leak; Ordered By:Jose Pena; Coagulation Screen; Status:In Progress - Specimen/Data Collected; Done: 18Apr2021 Perform:Lab Services - Lab To Draw (Blood Test); Due:17Jul2021;Ordered; Stat; For:Bile leak; Ordered By:Jose Pena; Complete Blood Count; Status:Resulted - Requires Verification,Retrospective Authorization; Done: 18Apr2021 12:14PM Performed:CHAG; Due:17Jul2021;Ordered; Stat; For:Bile leak; Ordered By:Jose Pena; Comprehensive Metabolic Panel; Status:In Progress - Specimen/Data Collected; Done: 18Apr2021 Perform:Lab Services - Lab To Draw (Blood Test); Due:17Jul2021;Ordered; Stat; For:Bile leak; Ordered By:Jose Pena; Lipase, Serum; Status:In Progress - Specimen/Data Collected; Done: 18Apr2021 Perform:Lab Services - Lab To Draw (Blood Test); Due:17Jul2021;Ordered; For:Bile leak; Ordered By:Jose Pena; Prealbumin, Serum; Status:In Progress - Specimen/Data Collected; Done: 18Apr2021 Perform:Lab Services - Lab To Draw (Blood Test); Due:17Jul2021;Ordered; For:Bile leak; Ordered By:Jose Pena; Bile leak, GERD (gastroesophageal reflux disease), Hiatal hernia Follow-up PRN Outpatient Follow-up Status: Active Requested for: 18Apr2021 Ordered Stat;For: Bile leak, GERD (gastroesophageal reflux disease), Hiatal hernia; Ordered By: Jose Pena Performed: Due: 17Jul2021 Unlinked Stop: Gabapentin 250 MG/5ML Oral Solution Dispense: 5 Days ; #:30; Refill: 0; TONY = N; Record; Last Updated By: Sully Garces; 04/18/2021 11:26:33 AM Patient Discussion/Summary 45 year old Female w/ hx of migraines, PTSD, hypothyroidism, and PSHx of paraesophageal hernia repair with mesh c/b bile leak from liver as well as persistent nausea/vomiting. She will be sent to the ED for admission as she requires ERCP tomorrow for management of her persistent bile leak. We counseled her that her nausea may not improve with ERCP as it is unclear what the source is, especially given that it is initiated by the smell of tube feeds. She will go to the ED for labs, COVID testing, and IVF. Plan: Admit from ED to Long surgery Check CBC, BMP, LFTs COVID test for admission/procedure Fluid resuscitation Ok to continue tube feeds today but hold after MN Plan for ERCP in AM in OR Bereket Kaur MD MS Flexible Endoscopy/Foregut Surgery Fellow [facility] Provider Impressions 45 year old Female w/ hx of migraines, PTSD, hypothyroidism, and PSHx of paraesophageal hernia repair with mesh c/b bile leak from liver as well as persistent nausea/vomiting. She will be sent to the ED for admission as she requires ERCP tomorrow for management of her persistent bile leak. We counseled her that her nausea may not improve with ERCP as it is unclear what the source is, especially given that it is initiated by the smell of tube feeds. She will go to the ED for labs, COVID testing, and IVF. Plan: Admit from ED to Long surgery Check CBC, BMP, LFTs COVID test for admission/procedure Fluid resuscitation Ok to continue tube feeds today but hold after MN Plan for ERCP in AM in OR Bereket Kaur MD MS Flexible Endoscopy/Foregut Surgery Fellow [facility] Chief Complaint POV History of Present Jgtrcnu85 year old Female w/ hx of migraines, PTSD, hypothyroidism, and PSHx of paraesophageal hernia repair with mesh. She recently had surgery for recurrent paraesophageal hernia repair w/ toupet fundoplication with Dr. Pena 02/16/21. A drain was placed at that time as there was a necessary cutting of the liver capsule to separate the esophagus and fundus from the liver due to extensive dense adhesions. She was discharged on 02/25/21. Patient returned to ED on 03/20 with severe abdominal pain, dry heaves/retching and small volume of emesis. Pt was admitted and had esophagram to assess for leak and had CT scan revealing anterior abdominal fluid collection in which IR placed a drain with return of bile. PEG tube placed on 03/23 and started on tube feeds for nutritional supplementation. Patient discharged to home on 03/25. Patient did well post discharge for a few days when abdominal pain worsened, she felt feverish and began retching/having emesis. Patient reports she did not tolerate bolus tube feeds well and switched back to continuous. She was admitted for pain control and nutrition optimization at that time. Over that admission, she improved and was tolerating cyclical tube feeds at night. Her drain continued to have bilious output, however. Patient tolerated her feeds well enough to be discharged to home with home care for tube feed and drain management in (more content not included)... Normal [facility] Provider Note - ED v3on 03-24 Provider Note - ED v3 Normal [facility] TYPE + SCREENon 04-18-2021 ABO TYPE O Normal [facility] Comment on above: Performed By: #### T +S ####[id number] [place] [address] RH TYPE Positive Normal [facility] Comment on above: Performed By: #### T +S ####[id number] [place] [address] Tobacco Screening.on 021 Tobacco use status CPHS b) No VN-Vtnmzel-W [facility] [address] [facility] Work Phone: Triage - EDon 04-18-2021 Triage - ED Normal [facility] AMB - Narrative Note-Music T herapyon 04-13-2021 AMB - Narrative Note-Music Therapy Normal [facility] GLUCOSE-POCTon 04-05-2021 Glucose [Mass/Vol] 110 mg/dL High 74 - 99 [facility] Comment on above: Performed By: #### G JOSSELINE ####[id number] [place] [address] Glucose [Mass/Vol] 94 mg/dL Normal 74 - 99 [facility] Comment on above: Performed By: #### G JOSSELINE ####[id number] [place] [address] Laboratory - Chemistry and C hemistry - challengeon 04-05-2021 Glucose [Mass/Vol] 94 mg/dL 74 - 99 MG-Nayeli [facility] [address] [facility] Work Phone: Order Reconciliationon 04-05 Order Reconciliation Normal [facility] Rehab Note-attemptedon 04-05 Rehab Note-attempted Normal [facility] CBCon 04-04-2021 Erythrocyte distribution width (RBC) [Ratio] 15.2 % High 11.5 - 14.5 [facility] Comment on above: Performed By: #### C BC ####[id number] [place] [address] Hematocrit (Bld) [Volume fraction] 32.3 % Low 36.0 - 46.0 [facility] Comment on above: Performed By: #### C BC ####[id number] [place] [address] Hemoglobin (Bld) [Mass/Vol] 10.1 g/dL Low 12.0 - 16.0 [facility] Comment on above: Performed By: #### C BC ####[id number] [place] [address] MCHC (RBC) [Mass/Vol] 31.3 g/dL Low 32.0 - 36.0 [facility] Comment on above: Performed By: #### C BC ####[id number] [place] [address] MCV (RBC) [Entitic vol] 89 fL Normal 80 - 100 [facility] Comment on above: Performed By: #### C BC ####[id number] [place] [address] NUCLEATED RBC 0.0 /100 WBC Normal 0.0-0.0 [facility] Comment on above: Performed By: #### C BC ####[id number] [place] [address] Platelets (Bld) [#/Vol] 274 10*3/uL Normal 150 - 450 [facility] Comment on above: Performed By: #### C BC ####[id number] [place] [address] RBC 3.64 x10E12/L Low 4.00 - 5.20 [facility] Comment on above: Performed By: #### C BC ####[id number] [place] [address] WBC (Bld) [#/Vol] 8.6 10*3/uL Normal 4.4 - 11.3 [facility] Comment on above: Performed By: #### C BC ####[id number] [place] [address] Daily Progress Note-Surgeryo n 04-04-2021 Daily Progress Note-Surgery Normal [facility] Discharge Yieabvu3ly 021 Discharge Profile2 Normal [facility] GLUCOSE-POCTon 04-04-2021 Glucose [Mass/Vol] 127 mg/dL High 74 - 99 [facility] Comment on above: Performed By: #### G JOSSELINE ####[id number] [place] [address] Glucose [Mass/Vol] 146 mg/dL High 74 - 99 [facility] Comment on above: Performed By: #### G JOSSELINE ####[id number] [place] [address] Laboratory - Chemistry and C hemistry - challengeon 04-04-2021 Glucose [Mass/Vol] 127 mg/dL above high threshold 74 - 99 [facility] [address] [facility] Work Phone: Glucose [Mass/Vol] 146 mg/dL above high threshold 74 - 99 [facility] [address] [facility] Work Phone: Glucose [Mass/Vol] 110 mg/dL above high threshold 74 - 99 TV-Eixrjxg-P [address] Work Phone: [phone] Laboratory - Hematology and Cell countson 04-04-2021 Erythrocyte distribution width (RBC) [Ratio] 15.2 % above high threshold See Below CW-Udzyrnf-Z [address] Work Phone: [phone] Comment on above: Reference Range: 11. 5 - 14.5 Hematocrit (Bld) [Volume fraction] 32.3 % below low threshold See Below RY-Ywcsqqv-Q [address] Work Phone: [phone] Comment on above: Reference Range: 36. 0 - 46.0 Hemoglobin (Bld) [Mass/Vol] 10.1 g/dL below low threshold See Below WD-Ntygcho-Z [address] Work Phone: [phone] Comment on above: Reference Range: 12. 0 - 16.0 MCHC (RBC) [Mass/Vol] 31.3 g/dL below low threshold See Below WK-Dvfased-R [address] Work Phone: [phone] Comment on above: Reference Range: 32. 0 - 36.0 MCV (RBC) [Entitic vol] 89 fL 80 - 100 RU-Coswucd-X[address] Work Phone: [phone] Platelets (Bld) [#/Vol] 274 10*3/uL 150 - 450 CV-Etwmpjr-Z[address] Work Phone: [phone] RBC (Bld) [#/Vol] 3.64 {x10E12/L} below low threshold See Below BL-Trvanwf-L [address] Work Phone: [phone] Comment on above: Reference Range: 4.0 0 - 5.20 WBC (Bld) [#/Vol] 8.6 10*3/uL 4.4 - 11.3 MG-Nayeli marilynn[address] Work Phone: [phone] MAGNESIUMon 04-04-2021 Magnesium [Mass/Vol] 2.31 mg/dL Normal 1.60 - 2.40 [facility] Comment on above: Performed By: #### M G ####[id number] [place] [address] Magnesium, Serumon Magnesium [Mass/Vol] 2.31 mg/dL See Below MG-S urgery-C [facility] [address] [facility] Work Phone: Comment on above: Reference Range: 1.6 0 - 2.40 No Panel Informationon 04-04 0.0 {/100_WBC} 0.0-0.0 MG-Surgery -C [facility] [address] Work Phone: RENAL FUNCTION PANELon 04-04 Albumin [Mass/Vol] 3.1 g/dL Low 3.4 - 5.0 [facility] Comment on above: Performed By: #### R ENAL ####[id number] [place] [address] Anion gap [Moles/Vol] 10 mmol/L Normal 10 - 20 [facility] Comment on above: Performed By: #### R ENAL ####[id number] [place] [address] Calcium [Mass/Vol] 8.3 mg/dL Low 8.6 - 10.6 [facility] Comment on above: Performed By: #### R ENAL ####[id number] [place] [address] Chloride [Moles/Vol] 105 mmol/L Normal 98 - 107 [facility] Comment on above: Performed By: #### R ENAL ####[id number] [place] [address] Creatinine [Mass/Vol] 0.73 mg/dL Normal 0.50 - 1.05 [facility] Comment on above: Performed By: #### R ENAL ####[id number] [place] [address] GFR- AM. >60 Normal >60 [facility] Comment on above: Result Comment: CALC ULATIONS OF ESTIMATED GFR ARE PERFORMED USING THE MDRD STUDY EQUATION FOR THE IDMS-TRACEABLE CREATININE METHODS. CLIN CHEM 2007;53:766-72 Performed By: #### R ENAL ####[id number] [place] [address] GFR-NON AM. >60 Normal >60 [facility] [place] Comment on above: Performed By: #### R ENAL ####[id number] [place] [address] Glucose [Mass/Vol] 89 mg/dL Normal 74 - 99 [facility] Comment on above: Performed By: #### R ENAL ####[id number] [place] [address] HCO3 (Bld) [Moles/Vol] 26 mmol/L Normal 21 - 32 [facility] Comment on above: Performed By: #### R ENAL ####[id number] [place] [address] Phosphate [Mass/Vol] 4.0 mg/dL Normal 2.5 - 4.9 [facility] Comment on above: Result Comment: The performance characteristics of phosphorus testing in heparinized plasma have been validated by the individual laboratory site where testing is performed. Testing on heparinized plasma is not approved by the FDA; however, such approval is not necessary. Performed By: #### R ENAL ####[id number] [place] [address] Potassium [Moles/Vol] 4.3 mmol/L Normal 3.5 - 5.3 [facility] Comment on above: Performed By: #### R ENAL ####[id number] [place] [address] Sodium [Moles/Vol] 137 mmol/L Normal 136 - 145 [facility] Comment on above: Performed By: #### R ENAL ####[id number] [place] [address] Urea nitrogen [Mass/Vol] 15 mg/dL Normal 6 - 23 [facility] Comment on above: Performed By: #### R ENAL ####[id number] [place] [address] Renal Function Panelon 04-04 Albumin BCP dye [Mass/Vol] 3.1 g/dL below low threshold 3.4 - 5.0 LY-Nlxdvfj-T [address] Work Phone: [phone] Anion gap [Moles/Vol] 10 mmol/L 10 - 20 SJ-Yafvjoh-D [address] Work Phone: [phone] Calcium [Mass/Vol] 8.3 mg/dL below low threshold 8.6 - 10.6 OY-Rmcwqlc-S [address] Work Phone: [phone] Chloride [Moles/Vol] 105 mmol/L 98 - 107 MG-S urgery-[address] Work Phone: [phone] CO2 [Moles/Vol] 26 mmol/L 21 - 32 MG-Surger y-C [address] Work Phone: [phone] Creatinine [Mass/Vol] 0.73 mg/dL See Below PM-Tkjfmeo-B [address] Work Phone: [phone] Comment on above: Reference Range: 0.5 0 - 1.05 Glucose [Mass/Vol] 89 mg/dL 74 - 99 MG-Nayeli marilynn-[address] Work Phone: [phone] Phosphate [Mass/Vol] 4.0 mg/dL 2.5 - 4.9 MG-S urgery-[address] Work Phone: [phone] Comment on above: The performance leonel acteristics of phosphorus testing in heparinized plasma have been validated by the individual laboratory site where testing is performed. Testing on heparinized plasma is not approved by the FDA; however, such approval is not necessary. Potassium [Moles/Vol] 4.3 mmol/L 3.5 - 5.3 MU-Aqwgazq-I [address] Work Phone: Sodium [Moles/Vol] 137 mmol/L 136 - 145 MG-Nayeli marilynn-[facility] [address] [facility] Work Phone: [phone] Urea nitrogen [Mass/Vol] 15 mg/dL 6 - 23 VX-Qwhcede-Q [facility] [address] [facility] Work Phone: Renal Function Panel >60 >60 [facility] [address] [facility] Work Phone: Comment on above: CALCULATIONS OF IZZY MATED GFR ARE PERFORMED USING THE MDRD STUDY EQUATION FOR THE IDMS-TRACEABLE CREATININE METHODS. CLIN CHEM 2007;53:766-72 [facility] 04-03-2021 Erythrocyte distribution width (RBC) [Ratio] 15.1 % High 11.5 - 14.5 [facility] Comment on above: Performed By: #### C BC ####[id number] [place] [address] Hematocrit (Bld) [Volume fraction] 34.3 % Low 36.0 - 46.0 [facility] Comment on above: Performed By: #### C BC ####[id number] [place] [address] Hemoglobin (Bld) [Mass/Vol] 11.0 g/dL Low 12.0 - 16.0 [facility] Comment on above: Performed By: #### C BC ####[id number] [place] [address] MCHC (RBC) [Mass/Vol] 32.1 g/dL Normal 32.0 - 36.0 [facility] Comment on above: Performed By: #### C BC ####[id number] [place] [address] MCV (RBC) [Entitic vol] 85 fL Normal 80 - 100 [facility] Comment on above: Performed By: #### C BC ####[id number] [place] [address] NUCLEATED RBC 0.0 /100 WBC Normal 0.0-0.0 [facility] Comment on above: Performed By: #### C BC ####[id number] [place] [address] Platelets (Bld) [#/Vol] 323 10*3/uL Normal 150 - 450 [facility] Comment on above: Performed By: #### C BC ####[id number] [place] [address] RBC 4.05 x10E12/L Normal 4.00 - 5.20 [facility] Comment on above: Performed By: #### C BC ####[id number] [place] [address] WBC (Bld) [#/Vol] 9.8 10*3/uL Normal 4.4 - 11.3 [facility] Comment on above: Performed By: #### C BC ####[id number] [place] [address] Daily Progress Note-Surgeryo n 04-03-2021 Daily Progress Note-Surgery Normal [facility] GLUCOSE-POCTon 04-03-2021 Glucose [Mass/Vol] 126 mg/dL High 74 - 99 [facility] Comment on above: Performed By: #### G JOSSELINE ####[id number] [place] [address] Glucose [Mass/Vol] 145 mg/dL High 74 - 99 [facility] Comment on above: Performed By: #### G JOSSELINE ####[id number] [place] [address] Glucose [Mass/Vol] 131 mg/dL High 74 - 99 [facility] Comment on above: Performed By: #### G JOSSELINE ####[id number] [place] [address] Glucose [Mass/Vol] 96 mg/dL Normal 74 - 99 [facility] Comment on above: Performed By: #### G JOSSELINE ####[id number] [place] [address] Laboratory - Chemistry and C hemistry - challengeon 04-03-2021 Glucose [Mass/Vol] 145 mg/dL above high threshold 74 - 99 ZA-Lgedges-L[address] Work Phone: [phone] Glucose [Mass/Vol] 131 mg/dL above high threshold 74 - 99 PI-Icvhbhb-P[address] Work Phone: [phone] Glucose [Mass/Vol] 96 mg/dL 74 - 99 MG-Nayeli marilynn[address] Work Phone: [phone] Laboratory - Hematology and Cell countson 04-03-2021 Erythrocyte distribution width (RBC) [Ratio] 15.1 % above high threshold See Below RB-Mlljxyo-X[address] Work Phone: [phone] Comment on above: Reference Range: 11. 5 - 14.5 Hematocrit (Bld) [Volume fraction] 34.3 % below low threshold See Below ME-Mvdtfpg-M[address] Work Phone: [phone] Comment on above: Reference Range: 36. 0 - 46.0 Hemoglobin (Bld) [Mass/Vol] 11.0 g/dL below low threshold See Below ND-Weplugc-E[address] Work Phone: [phone] Comment on above: Reference Range: 12. 0 - 16.0 MCHC (RBC) [Mass/Vol] 32.1 g/dL See Below KW-Tadzoxa-W[address] Work Phone: [phone] Comment on above: Reference Range: 32. 0 - 36.0 MCV (RBC) [Entitic vol] 85 fL 80 - 100 IL-Epnnffm-W[address] Work Phone: [phone] Platelets (Bld) [#/Vol] 323 10*3/uL 150 - 450 KR-Cwfkpax-B[address] Work Phone: [phone] RBC (Bld) [#/Vol] 4.05 {x10E12/L} See Below [facility] Work Phone: Comment on above: Reference Range: 4.0 0 - 5.20 WBC (Bld) [#/Vol] 9.8 10*3/uL 4.4 - 11.3 MG-Nayeli marilynn-[facility] [address] [facility] Work Phone: Magnesium, Serumon Magnesium [Mass/Vol] 2.17 mg/dL Normal 1.60 - 2.40 - [facility] [address] [facility] Work Phone: Comment on above: Reference Range: 1.6 0 - 2.40 Performed By: #### M G ####[id number] [place] [address] No Panel Informationon 04-03 0.0 {/100_WBC} 0.0-0.0 MG-[facility] [address] [facility] Work Phone: RENAL FUNCTION PANELon 04-03 Albumin [Mass/Vol] 3.5 g/dL Normal 3.4 - 5.0 [facility] Comment on above: Performed By: #### R ENAL ####[id number] [place] [address] GFR- AM. >60 Normal >60 [facility] Comment on above: Result Comment: CALC ULATIONS OF ESTIMATED GFR ARE PERFORMED USING THE MDRD STUDY EQUATION FOR THE IDMS-TRACEABLE CREATININE METHODS. CLIN CHEM 2007;53:766-72 Performed By: #### R ENAL ####[id number] [place] [address] GFR-NON AM. >60 Normal >60 [facility] [place] Comment on above: Performed By: #### R ENAL ####[id number] [place] [address] HCO3 (Bld) [Moles/Vol] 24 mmol/L Normal 21 - 32 [facility] Comment on above: Performed By: #### R ENAL ####[id number] [place] [address] Renal Function Panelon 04-03 Albumin BCP dye [Mass/Vol] 3.5 g/dL 3.4 - 5.0 XY-Oytprsv-X [address] Work Phone: [phone] Anion gap [Moles/Vol] 13 mmol/L Normal 10 - 20 MU-Wyszgnw-G [address] Work Phone: [phone] Comment on above: Performed By: #### R ENAL ####[id number] [place] [address] Calcium [Mass/Vol] 8.3 mg/dL Low 8.6 - 10.6 MG-Nayeli marilynn[address] Work Phone: [phone] Comment on above: Performed By: #### R ENAL ####[id number] [place] [address] Chloride [Moles/Vol] 103 mmol/L Normal 98 - 107 MG-S urgery[address] Work Phone: [phone] Comment on above: Performed By: #### R ENAL ####[id number] [place] [address] CO2 [Moles/Vol] 24 mmol/L 21 - 32 MG-Surger yC [address] Work Phone: [phone] Creatinine [Mass/Vol] 0.75 mg/dL Normal 0.50 - 1.05 UO-Zkusbmy-W[address] Work Phone: [phone] Comment on above: Reference Range: 0.5 0 - 1.05 Performed By: #### R ENAL ####[id number] [place] [address] Glucose [Mass/Vol] 108 mg/dL High 74 - 99 MG-Nayeli marilynn[address] Work Phone: [phone] Comment on above: Performed By: #### R ENAL ####[id number] [place] [address] Phosphate [Mass/Vol] 4.1 mg/dL Normal 2.5 - 4.9 MG-S [address] Work Phone: Comment on above: The performance leonel acteristics of phosphorus testing in heparinized plasma have been validated by the individual laboratory site where testing is performed. Testing on heparinized plasma is not approved by the FDA; however, such approval is not necessary. Result Comment: The performance characteristics of phosphorus testing in heparinized plasma have been validated by the individual laboratory site where testing is performed. Testing on heparinized plasma is not approved by the FDA; however, such approval is not necessary. Performed By: #### R ENAL ####[id number] [place] [address] Potassium [Moles/Vol] 3.6 mmol/L Normal 3.5 - 5.3 KE-Roexuhq-H [address] Work Phone: Comment on above: Performed By: #### R ENAL ####[id number] [place] [address] Sodium [Moles/Vol] 136 mmol/L Normal 136 - 145 MG-Nayeli marilynn[address] Work Phone: Comment on above: Performed By: #### R ENAL ####[id number] [place] [address] Urea nitrogen [Mass/Vol] 12 mg/dL Normal 6 - 23 JS-Vewhwtw-Y [address] Work Phone: Comment on above: Performed By: #### R ENAL ####[id number] [place] [address] Renal Function Panel >60 >60 MG-S [address] Work Phone: Comment on above: CALCULATIONS OF IZZY MATED GFR ARE PERFORMED USING THE MDRD STUDY EQUATION FOR THE IDMS-TRACEABLE CREATININE METHODS. CLIN CHEM 2007;53:766-72 CBCon 12-11-2021 Erythrocyte distribution width (RBC) [Ratio] 15.2 % High 11.5 - 14.5 [facility] Comment on above: Performed By: #### C BC ####[id number] [place] [address] Hematocrit (Bld) [Volume fraction] 36.9 % Normal 36.0 - 46.0 [facility] Comment on above: Performed By: #### C BC ####[id number] [place] [address] Hemoglobin (Bld) [Mass/Vol] 12.1 g/dL Normal 12.0 - 16.0 [facility] Comment on above: Performed By: #### C BC ####[id number] [place] [address] MCHC (RBC) [Mass/Vol] 32.8 g/dL Normal 32.0 - 36.0 [facility] Comment on above: Performed By: #### C BC ####[id number] [place] [address] MCV (RBC) [Entitic vol] 84 fL Normal 80 - 100 [facility] Comment on above: Performed By: #### C BC ####[id number] [place] [address] NUCLEATED RBC 0.0 /100 WBC Normal 0.0-0.0 [facility] Comment on above: Performed By: #### C BC ####[id number] [place] [address] Platelets (Bld) [#/Vol] 397 10*3/uL Normal 150 - 450 [facility] Comment on above: Performed By: #### C BC ####[id number] [place] [address] RBC 4.39 x10E12/L Normal 4.00 - 5.20 [facility] Comment on above: Performed By: #### C BC ####[id number] [place] [address] WBC (Bld) [#/Vol] 13.2 10*3/uL High 4.4 - 11.3 [facility] [place] Comment on above: Performed By: #### C BC ####[id number] [place] [address] Daily Progress Note-Surgeryo n 04-02-2021 Daily Progress Note-Surgery Normal [facility] GLUCOSE-POCTon 04-02-2021 Glucose [Mass/Vol] 114 mg/dL High 74 - 99 [facility] Comment on above: Performed By: #### G JOSSELINE ####[id number] [place] [address] Glucose [Mass/Vol] 115 mg/dL High 74 - 99 [facility] Comment on above: Performed By: #### G JOSSELINE ####[id number] [place] [address] Glucose [Mass/Vol] 106 mg/dL High 74 - 99 [facility] Comment on above: Performed By: #### G JOSSELINE ####[id number] [place] [address] Glucose [Mass/Vol] 102 mg/dL High 74 - 99 [facility] Comment on above: Performed By: #### G JOSSELINE ####[id number] [place] [address] Laboratory - Chemistry and C hemistry - challengeon 04-02-2021 Glucose [Mass/Vol] 115 mg/dL above high threshold 74 - 99 LM-Wsshhqn-D [facility] [address] [facility] Work Phone: Glucose [Mass/Vol] 106 mg/dL above high threshold 74 - 99 VL-Mmymwli-Q [facility] [address] [facility] Work Phone: Glucose [Mass/Vol] 102 mg/dL above high threshold 74 - 99 XS-Ydzsjpd-R [facility] [address] [facility] Work Phone: Glucose [Mass/Vol] 126 mg/dL above high threshold 74 - 99 PN-Wdjfppl-N [facility] [address] [facility] Work Phone: Laboratory - Hematology and Cell countson 04-02-2021 Erythrocyte distribution width (RBC) [Ratio] 15.2 % above high threshold See Below [address] Work Phone: [phone] Comment on above: Reference Range: 11. 5 - 14.5 Hematocrit (Bld) [Volume fraction] 36.9 % See Below [address] Work Phone: [phone] Comment on above: Reference Range: 36. 0 - 46.0 Hemoglobin (Bld) [Mass/Vol] 12.1 g/dL See Below [address] Work Phone: [phone] Comment on above: Reference Range: 12. 0 - 16.0 MCHC (RBC) [Mass/Vol] 32.8 g/dL See Below [address] Work Phone: [phone] Comment on above: Reference Range: 32. 0 - 36.0 MCV (RBC) [Entitic vol] 84 fL 80 - [address] Work Phone: [phone] Platelets (Bld) [#/Vol] 397 10*3/uL 150 - [address] Work Phone: [phone] RBC (Bld) [#/Vol] 4.39 {x10E12/L} See Below [address] Work Phone: [phone] Comment on above: Reference Range: 4.0 0 - 5.20 WBC (Bld) [#/Vol] 13.2 10*3/uL above high threshold 4.4 - 11.[address] Work Phone: [phone] MAGNESIUMon 04-02-2021 Magnesium [Mass/Vol] 2.32 mg/dL Normal 1.60 - 2.40 [facility] Comment on above: Performed By: #### M G ####[id number] [place] [address] Magnesium, Serumon Magnesium [Mass/Vol] 2.32 mg/dL See Below MG-S urgery-C [facility] [address] [facility] Work Phone: Comment on above: Reference Range: 1.6 0 - 2.40 No Panel Informationon 04-02 0.0 {/100_WBC} 0.0-0.0 MG-Surgery -C [facility] [address] [facility] Work Phone: RENAL FUNCTION PANELon 04-02 Albumin [Mass/Vol] 3.8 g/dL Normal 3.4 - 5.0 [facility] Comment on above: Performed By: #### R ENAL ####[id number] [place] [address] Anion gap [Moles/Vol] 15 mmol/L Normal 10 - 20 [facility] Comment on above: Performed By: #### R ENAL ####[id number] [place] [address] Calcium [Mass/Vol] 8.8 mg/dL Normal 8.6 - 10.6 [facility] Comment on above: Performed By: #### R ENAL ####[id number] [place] [address] Chloride [Moles/Vol] 100 mmol/L Normal 98 - 107 [facility] Comment on above: Performed By: #### R ENAL ####[id number] [place] [address] Creatinine [Mass/Vol] 0.72 mg/dL Normal 0.50 - 1.05 [facility] Comment on above: Performed By: #### R ENAL ####[id number] [place] [address] GFR- AM. >60 Normal >60 [facility] Comment on above: Result Comment: CALC ULATIONS OF ESTIMATED GFR ARE PERFORMED USING THE MDRD STUDY EQUATION FOR THE IDMS-TRACEABLE CREATININE METHODS. CLIN CHEM 2007;53:766-72 Performed By: #### R ENAL ####[id number] [place] [address] GFR-NON AM. >60 Normal >60 [facility] [place] Comment on above: Performed By: #### R ENAL ####[id number] [place] [address] Glucose [Mass/Vol] 103 mg/dL High 74 - 99 [facility] Comment on above: Performed By: #### R ENAL ####[id number] [place] [address] HCO3 (Bld) [Moles/Vol] 23 mmol/L Normal 21 - 32 [facility] Comment on above: Performed By: #### R ENAL ####[id number] [place] [address] Phosphate [Mass/Vol] 3.6 mg/dL Normal 2.5 - 4.9 [facility] Comment on above: Result Comment: The performance characteristics of phosphorus testing in heparinized plasma have been validated by the individual laboratory site where testing is performed. Testing on heparinized plasma is not approved by the FDA; however, such approval is not necessary. Performed By: #### R ENAL ####[id number] [place] [address] Potassium [Moles/Vol] 3.8 mmol/L Normal 3.5 - 5.3 [facility] Comment on above: Performed By: #### R ENAL ####[id number] [place] [address] Sodium [Moles/Vol] 134 mmol/L Low 136 - 145 [facility] Comment on above: Performed By: #### R ENAL ####[id number] [place] [address] Urea nitrogen [Mass/Vol] 11 mg/dL Normal 6 - 23 [facility] Comment on above: Performed By: #### R ENAL ####[id number] [place] [address] Renal Function Panelon 04-02 Albumin BCP dye [Mass/Vol] 3.8 g/dL 3.4 - 5.0 UQ-Yzpsmwr-S [address] Work Phone: [phone] Anion gap [Moles/Vol] 15 mmol/L 10 - 20 KN-Ywmzmel-H [address] Work Phone: [phone] Calcium [Mass/Vol] 8.8 mg/dL 8.6 - 10.6 MG-Nayeli marilynn-[address] Work Phone: [phone] Chloride [Moles/Vol] 100 mmol/L 98 - 107 MG-S urgery-[address] Work Phone: [phone] CO2 [Moles/Vol] 23 mmol/L 21 - 32 MG-Surger y-[address] Work Phone: [phone] Creatinine [Mass/Vol] 0.72 mg/dL See Below ZZ-Ahejudn-P [address] Work Phone: [phone] Comment on above: Reference Range: 0.5 0 - 1.05 Glucose [Mass/Vol] 103 mg/dL above high threshold 74 - 99 VY-Eujdbip-G[address] Work Phone: [phone] Phosphate [Mass/Vol] 3.6 mg/dL 2.5 - 4.9 [facility] Work Phone: [phone] Comment on above: The performance leonel acteristics of phosphorus testing in heparinized plasma have been validated by the individual laboratory site where testing is performed. Testing on heparinized plasma is not approved by the FDA; however, such approval is not necessary. Potassium [Moles/Vol] 3.8 mmol/L 3.5 - 5.3 QZ-Cwyieub-R [address] Work Phone: [phone] Sodium [Moles/Vol] 134 mmol/L below low threshold 136 - 145 IW-Wpuiiyn-N [address] Work Phone: [phone] Urea nitrogen [Mass/Vol] 11 mg/dL 6 - 23 EL-Injujzu-B [facility] [address] [facility] Work Phone: Renal Function Panel >60 >60 [facility] [address] [facility] Work Phone: Comment on above: CALCULATIONS OF IZZY MATED GFR ARE PERFORMED USING THE MDRD STUDY EQUATION FOR THE IDMS-TRACEABLE CREATININE METHODS. CLIN CHEM 2007;53:766-72 CBCon 04-01-2021 Erythrocyte distribution width (RBC) [Ratio] 15.0 % High 11.5 - 14.5 [facility] Comment on above: Performed By: #### C BC ####[id number] [place] [address] Hematocrit (Bld) [Volume fraction] 36.8 % Normal 36.0 - 46.0 [facility] Comment on above: Performed By: #### C BC ####[id number] [place] [address] Hemoglobin (Bld) [Mass/Vol] 12.4 g/dL Normal 12.0 - 16.0 [facility] Comment on above: Performed By: #### C BC ####[id number] [place] [address] MCHC (RBC) [Mass/Vol] 33.7 g/dL Normal 32.0 - 36.0 [facility] Comment on above: Performed By: #### C BC ####[id number] [place] [address] MCV (RBC) [Entitic vol] 83 fL Normal 80 - 100 [facility] Comment on above: Performed By: #### C BC ####[id number] [place] [address] NUCLEATED RBC 0.0 /100 WBC Normal 0.0-0.0 [facility] Comment on above: Performed By: #### C BC ####[id number] [place] [address] Platelets (Bld) [#/Vol] 443 10*3/uL Normal 150 - 450 [facility] Comment on above: Performed By: #### C BC ####[id number] [place] [address] RBC 4.43 x10E12/L Normal 4.00 - 5.20 [facility] Comment on above: Performed By: #### C BC ####[id number] [place] [address] WBC (Bld) [#/Vol] 16.5 10*3/uL High 4.4 - 11.3 [facility] [place] Comment on above: Performed By: #### C BC ####[id number] [place] [address] DIFFERENTIALon 04-01-2021 % AUTOMATED IMMATURE GRAN 0.8 % Normal 0.0 - 0.9 [facility] Comment on above: Result Comment: Sheila ture Granulocyte Count (IG) includes promyelocytes, myelocytes and metamyelocytes but does not include bands. Percent differential counts (%) should be interpreted in the context of the absolute cell counts (cells/L). Performed By: #### A DIFF ####[id number] [place] [address] Basophils (Bld) [#/Vol] 0.05 10*3/uL Normal 0.00 - 0.10 [facility] Comment on above: Performed By: #### A DIFF ####[id number] [place] [address] Basophils/100 WBC (Bld) 0.3 % Normal 0.0 - 2.0 [facility] Comment on above: Performed By: #### A DIFF ####[id number] [place] [address] Eosinophils (Bld) [#/Vol] 0.12 10*3/uL Normal 0.00 - 0.70 [facility] Comment on above: Performed By: #### A DIFF ####[id number] [place] [address] Eosinophils/100 WBC (Bld) 0.7 % Normal 0.0 - 6.0 [facility] Comment on above: Performed By: #### A DIFF ####[id number] [place] [address] Lymphocytes (Bld) [#/Vol] 2.56 10*3/uL Normal 1.20 - 4.80 [facility] Comment on above: Performed By: #### A DIFF ####[id number] [place] [address] Lymphocytes/100 WBC (Bld) 15.3 % Normal 13.0 - 44.0 [facility] Comment on above: Performed By: #### A DIFF ####[id number] [place] [address] Monocytes (Bld) [#/Vol] 1.57 10*3/uL High 0.10 - 1.00 [facility] Comment on above: Performed By: #### A DIFF ####[id number] [place] [address] Monocytes/100 WBC (Bld) 9.4 % Normal 2.0 - 10.0 [facility] Comment on above: Performed By: #### A DIFF ####[id number] [place] [address] Neutrophils (Bld) [#/Vol] 12.25 10*3/uL High 1.20 - 7.70 [facility] Comment on above: Performed By: #### A DIFF ####[id number] [place] [address] Neutrophils/100 WBC (Bld) 73.5 % Normal 40.0 - 80.0 [facility] Comment on above: Performed By: #### A DIFF ####[id number] [place] [address] Daily Progress Note-Surgeryo n 04-01-2021 Daily Progress Note-Surgery Normal [facility] Differential, Automaticon Basophils/100 WBC (Bld) 0.3 % 0.0 - 2.0 [facility] [address] [facility] Work Phone: Lymphocytes/100 WBC (Bld) 15.3 % See Below KX-Gphweti-I [address] Work Phone: [phone] Comment on above: Reference Range: 13. 0 - 44.0 Monocytes/100 WBC (Bld) 9.4 % 2.0 - 10.0 UV-Aoxevjw-V[address] Work Phone: [phone] Neutrophils/100 WBC (Bld) 73.5 % See Below BA-Fuhnmzx-Y [address] Work Phone: [phone] Comment on above: Reference Range: 40. 0 - 80.0 Differential, Automatic 0.05 {x10E9/L} See Below GA-Yvfmuoi-S[address] Work Phone: [phone] Comment on above: Reference Range: 0.0 0 - 0.10 Differential, Automatic 0.12 {x10E9/L} See Below BP-Wpgichk-Y[address] Work Phone: [phone] Comment on above: Reference Range: 0.0 0 - 0.70 Differential, Automatic 1.57 {x10E9/L} above high threshold See Below HY-Evzteco-L[address] Work Phone: [phone] Comment on above: Reference Range: 0.1 0 - 1.00 Differential, Automatic 2.56 {x10E9/L} See Below KN-Bpkbfpa-K[address] Work Phone: [phone] Comment on above: Reference Range: 1.2 0 - 4.80 Differential, Automatic 12.25 {x10E9/L} above high threshold See Below XJ-Dtjwlvj-A[address] Work Phone: [phone] Comment on above: Reference Range: 1.2 0 - 7.70 Differential, Automatic 0.7 % 0.0 - 6.0 LL-Wmblygx-H[address] Work Phone: [phone] Differential, Automatic 0.8 % 0.0 - 0.9 IB-Gctxodu-B[address] Work Phone: Comment on above: Immature Granulocyte Count (IG) includes promyelocytes, myelocytes and metamyelocytes but does not include bands. Percent differential counts (%) should be interpreted in the context of the absolute cell counts (cells/L). EMR ADDONon 04-01-2021 ADDON CONFIRMATION REQUEST REC'D Normal [facility] Comment on above: Performed By: #### E MRAD ####NO LOCATION NEEDED ADDON CONFIRMATION REQUEST REC'D Normal [facility] Comment on above: Performed By: #### E MRAD ####NO LOCATION NEEDED GLUCOSE-POCTon 04-01-2021 Glucose [Mass/Vol] 143 mg/dL High 74 - 99 [facility] Comment on above: Performed By: #### G JOSSELINE ####[id number] [place] [address] Glucose [Mass/Vol] 118 mg/dL High 74 - 99 [facility] Comment on above: Performed By: #### G JOSSELINE ####[id number] [place] [address] Glucose [Mass/Vol] 129 mg/dL High 74 - 99 [facility] Comment on above: Performed By: #### G JOSSELINE ####[id number] [place] [address] Glucose [Mass/Vol] 128 mg/dL High 74 - 99 [facility] Comment on above: Performed By: #### G JOSSELINE ####[id number] [place] [address] Laboratory - Chemistry and C hemistry - challengeon 04-01-2021 Glucose [Mass/Vol] 143 mg/dL above high threshold 74 - 99 TJ-Npqlnxe-L [facility] [address] [facility] Work Phone: Glucose [Mass/Vol] 118 mg/dL above high threshold 74 - 99 FM-Bklbghh-I [facility] [address] [facility] Work Phone: Glucose [Mass/Vol] 129 mg/dL above high threshold 74 - 99 RR-Ediwnfa-I [facility] [address] [facility] Work Phone: [phone] Glucose [Mass/Vol] 128 mg/dL above high threshold 74 - [address] Work Phone: [phone] Glucose [Mass/Vol] 114 mg/dL above high threshold 74 - [address] Work Phone: [phone] Laboratory - Hematology and Cell countson 04-01-2021 Erythrocyte distribution width (RBC) [Ratio] 15.0 % above high threshold See Below [address] Work Phone: [phone] Comment on above: Reference Range: 11. 5 - 14.5 Hematocrit (Bld) [Volume fraction] 36.8 % See Below [address] Work Phone: [phone] Comment on above: Reference Range: 36. 0 - 46.0 Hemoglobin (Bld) [Mass/Vol] 12.4 g/dL See Below [address] Work Phone: [phone] Comment on above: Reference Range: 12. 0 - 16.0 MCHC (RBC) [Mass/Vol] 33.7 g/dL See Below [address] Work Phone: [phone] Comment on above: Reference Range: 32. 0 - 36.0 MCV (RBC) [Entitic vol] 83 fL 80 - [address] Work Phone: [phone] Platelets (Bld) [#/Vol] 443 10*3/uL 150 - [address] Work Phone: [phone] RBC (Bld) [#/Vol] 4.43 {x10E12/L} See Below [address] Work Phone: [phone] Comment on above: Reference Range: 4.0 0 - 5.20 WBC (Bld) [#/Vol] 16.5 10*3/uL above high threshold 4.4 - 11.3 [facility] [address] [facility] Work Phone: MAGNESIUMon 04-01-2021 Magnesium [Mass/Vol] 2.23 mg/dL Normal 1.60 - 2.40 [facility] Comment on above: Performed By: #### M G ####[id number] [place] [address] Magnesium, Serumon 1 Magnesium [Mass/Vol] 2.23 mg/dL See Below [facility] [address] [facility] Work Phone: Comment on above: Reference Range: 1.6 0 - 2.40 No Panel Informationon 04-01 0.0 {/100_WBC} 0.0-0.[address] Work Phone: PREALBUMINon 04-01-2021 Prealbumin [Mass/Vol] 23.0 mg/dL Normal 18.0 - 40.0 [facility] Comment on above: Performed By: #### P REAL ####[id number] [place] [address] Prealbumin, Serumon 04-01-20 21 Prealbumin Nephelometry [Mass/Vol] 23.0 mg/dL See Below [address] Work Phone: Comment on above: Reference Range: 18. 0 - 40.0 RENAL FUNCTION PANELon 04-01 Albumin [Mass/Vol] 3.9 g/dL Normal 3.4 - 5.0 [facility] Comment on above: Performed By: #### R ENAL ####[id number] [place] [address] Anion gap [Moles/Vol] 15 mmol/L Normal - [facility] Comment on above: Performed By: #### R ENAL ####[id number] [place] [address] Calcium [Mass/Vol] 8.9 mg/dL Normal 8.6 - 10.6 [facility] Comment on above: Performed By: #### R ENAL ####[id number] [place] [address] Chloride [Moles/Vol] 99 mmol/L Normal 98 - 107 [facility] Comment on above: Performed By: #### R ENAL ####[id number] [place] [address] Creatinine [Mass/Vol] 0.74 mg/dL Normal 0.50 - 1.05 [facility] Comment on above: Performed By: #### R ENAL ####[id number] [place] [address] GFR- AM. >60 Normal >60 [facility] Comment on above: Result Comment: CALC ULATIONS OF ESTIMATED GFR ARE PERFORMED USING THE MDRD STUDY EQUATION FOR THE IDMS-TRACEABLE CREATININE METHODS. CLIN CHEM 2007;53:766-72 Performed By: #### R ENAL ####[id number] [place] [address] GFR-NON AM. >60 Normal >60 [facility] [place] Comment on above: Performed By: #### R ENAL ####[id number] [place] [address] Glucose [Mass/Vol] 116 mg/dL High 74 - 99 [facility] Comment on above: Performed By: #### R ENAL ####[id number] [place] [address] HCO3 (Bld) [Moles/Vol] 23 mmol/L Normal 21 - 32 [facility] Comment on above: Performed By: #### R ENAL ####[id number] [place] [address] Phosphate [Mass/Vol] 3.8 mg/dL Normal 2.5 - 4.9 [facility] Comment on above: Result Comment: The performance characteristics of phosphorus testing in heparinized plasma have been validated by the individual laboratory site where testing is performed. Testing on heparinized plasma is not approved by the FDA; however, such approval is not necessary. Performed By: #### R ENAL ####[id number] [place] [address] Potassium [Moles/Vol] 3.6 mmol/L Normal 3.5 - 5.3 [facility] Comment on above: Performed By: #### R ENAL ####[id number] [place] [address] Sodium [Moles/Vol] 133 mmol/L Low 136 - 145 [facility] Comment on above: Performed By: #### R ENAL ####[id number] [place] [address] Urea nitrogen [Mass/Vol] 7 mg/dL Normal 6 - 23 [facility] Comment on above: Performed By: #### R ENAL ####[id number] [place] [address] Renal Function Panelon 04-01 Albumin BCP dye [Mass/Vol] 3.9 g/dL 3.4 - 5.0 IH-Kjhraot-X [address] Work Phone: Anion gap [Moles/Vol] 15 mmol/L 10 - 20 LK-Fqkqjpw-D [address] Work Phone: [phone] Calcium [Mass/Vol] 8.9 mg/dL 8.6 - 10.6 MG-Nayeli marilynn-[address] Work Phone: [phone] Chloride [Moles/Vol] 99 mmol/L 98 - 107 MG-S urgery-[address] Work Phone: [phone] CO2 [Moles/Vol] 23 mmol/L 21 - 32 MG-Surger y-[address] Work Phone: Creatinine [Mass/Vol] 0.74 mg/dL See Below CB-Byzybrb-G [address] Work Phone: Comment on above: Reference Range: 0.5 0 - 1.05 Glucose [Mass/Vol] 116 mg/dL above high threshold 74 - 99 TG-Wozvgvq-U [address] Work Phone: Phosphate [Mass/Vol] 3.8 mg/dL 2.5 - 4.9 MG-S [address] Work Phone: Comment on above: The performance leonel acteristics of phosphorus testing in heparinized plasma have been validated by the individual laboratory site where testing is performed. Testing on heparinized plasma is not approved by the FDA; however, such approval is not necessary. Potassium [Moles/Vol] 3.6 mmol/L 3.5 - 5.3 QR-Sbgtprw-U[address] Work Phone: Sodium [Moles/Vol] 133 mmol/L below low threshold 136 - 145 SQ-Dbrhihy-H[address] Work Phone: Urea nitrogen [Mass/Vol] 7 mg/dL 6 - 23 VR-Oxprqej-E[address] Work Phone: Renal Function Panel >60 >60 MG-S [address] Work Phone: Comment on above: CALCULATIONS OF IZZY MATED GFR ARE PERFORMED USING THE MDRD STUDY EQUATION FOR THE IDMS-TRACEABLE CREATININE METHODS. CLIN CHEM 2007;53:766-72 CBCon 03-31-2021 Erythrocyte distribution width (RBC) [Ratio] 14.9 % High 11.5 - 14.5 [facility] Comment on above: Performed By: #### C BC ####[id number] [place] [address] Hematocrit (Bld) [Volume fraction] 35.2 % Low 36.0 - 46.0 [facility] Comment on above: Performed By: #### C BC ####[id number] [place] [address] Hemoglobin (Bld) [Mass/Vol] 11.8 g/dL Low 12.0 - 16.0 [facility] Comment on above: Performed By: #### C BC ####[id number] [place] [address] MCHC (RBC) [Mass/Vol] 33.5 g/dL Normal 32.0 - 36.0 [facility] Comment on above: Performed By: #### C BC ####[id number] [place] [address] MCV (RBC) [Entitic vol] 83 fL Normal 80 - 100 [facility] Comment on above: Performed By: #### C BC ####[id number] [place] [address] NUCLEATED RBC 0.0 /100 WBC Normal 0.0-0.0 [facility] Comment on above: Performed By: #### C BC ####[id number] [place] [address] Platelets (Bld) [#/Vol] 379 10*3/uL Normal 150 - 450 [facility] Comment on above: Performed By: #### C BC ####[id number] [place] [address] RBC 4.23 x10E12/L Normal 4.00 - 5.20 [facility] Comment on above: Performed By: #### C BC ####[id number] [place] [address] WBC (Bld) [#/Vol] 14.2 10*3/uL High 4.4 - 11.3 [facility] [place] Comment on above: Performed By: #### C BC ####[id number] [place] [address] Clinical Event Note-Family D iscussionon 03-31-2021 Clinical Event Note-Family Discussion This report has been cancelled. Normal [facility] Daily Progress Note-Surgeryo n 03-31-2021 Daily Progress Note-Surgery Normal [facility] Laboratory - Hematology and Cell countson 03-31-2021 Erythrocyte distribution width (RBC) [Ratio] 14.9 % above high threshold See Below FF-Elnzlhs-K [facility] [address] Work Phone: [phone] Comment on above: Reference Range: 11. 5 - 14.5 Hematocrit (Bld) [Volume fraction] 35.2 % below low threshold See Below [address] Work Phone: [phone] Comment on above: Reference Range: 36. 0 - 46.0 Hemoglobin (Bld) [Mass/Vol] 11.8 g/dL below low threshold See Below [address] Work Phone: [phone] Comment on above: Reference Range: 12. 0 - 16.0 MCHC (RBC) [Mass/Vol] 33.5 g/dL See Below [address] Work Phone: [phone] Comment on above: Reference Range: 32. 0 - 36.0 MCV (RBC) [Entitic vol] 83 fL 80 - [address] Work Phone: [phone] Platelets (Bld) [#/Vol] 379 10*3/uL 150 - [address] Work Phone: [phone] RBC (Bld) [#/Vol] 4.23 {x10E12/L} See Below [address] Work Phone: [phone] Comment on above: Reference Range: 4.0 0 - 5.20 WBC (Bld) [#/Vol] 14.2 10*3/uL above high threshold 4.4 - 11.[address] Work Phone: [phone] MAGNESIUMon 03-31-2021 Magnesium [Mass/Vol] 1.95 mg/dL Normal 1.60 - 2.40 [facility] Comment on above: Performed By: #### M G ####[id number] [place] [address] Magnesium, Serumon Magnesium [Mass/Vol] 1.95 mg/dL See Below MG-S urgery-C [facility] [address] Work Phone: Comment on above: Reference Range: 1.6 0 - 2.40 No Panel Informationon 03-31 0.0 {/100_WBC} 0.0-0.0 MG-Surgery -C [facility] [address] Work Phone: Nutrition Therapy-Noteon Nutrition Therapy-Note Normal [facility] OT Evaluation v2-occupationa l therapy - Seen with PT to maxion 03-31-2021 OT Evaluation v2-occupational therapy - Seen with PT to maxi Normal [facility] PT Evaluation v2-physical th erapy - co-tx with OT to maximizon 03-31-2021 PT Evaluation v2-physical therapy - co-tx with OT to maximiz Normal [facility] RENAL FUNCTION PANELon 03-31 Albumin [Mass/Vol] 3.8 g/dL Normal 3.4 - 5.0 [facility] Comment on above: Performed By: #### R ENAL ####[id number] [place] [address] Anion gap [Moles/Vol] 16 mmol/L Normal 10 - 20 [facility] Comment on above: Performed By: #### R ENAL ####[id number] [place] [address] Calcium [Mass/Vol] 8.7 mg/dL Normal 8.6 - 10.6 [facility] Comment on above: Performed By: #### R ENAL ####[id number] [place] [address] Chloride [Moles/Vol] 99 mmol/L Normal 98 - 107 [facility] Comment on above: Performed By: #### R ENAL ####[id number] [place] [address] Creatinine [Mass/Vol] 0.63 mg/dL Normal 0.50 - 1.05 [facility] Comment on above: Performed By: #### R ENAL ####[id number] [place] [address] GFR- AM. >60 Normal >60 [facility] Comment on above: Result Comment: CALC ULATIONS OF ESTIMATED GFR ARE PERFORMED USING THE MDRD STUDY EQUATION FOR THE IDMS-TRACEABLE CREATININE METHODS. CLIN CHEM 2007;53:766-72 Performed By: #### R ENAL ####[id number] [place] [address] GFR-NON AM. >60 Normal >60 [facility] [place] Comment on above: Performed By: #### R ENAL ####[id number] [place] [address] Glucose [Mass/Vol] 106 mg/dL High 74 - 99 [facility] Comment on above: Performed By: #### R ENAL ####[id number] [place] [address] HCO3 (Bld) [Moles/Vol] 21 mmol/L Normal 21 - 32 [facility] Comment on above: Performed By: #### R ENAL ####[id number] [place] [address] Phosphate [Mass/Vol] 3.9 mg/dL Normal 2.5 - 4.9 [facility] Comment on above: Result Comment: The performance characteristics of phosphorus testing in heparinized plasma have been validated by the individual laboratory site where testing is performed. Testing on heparinized plasma is not approved by the FDA; however, such approval is not necessary. Performed By: #### R ENAL ####[id number] [place] [address] Potassium [Moles/Vol] 3.8 mmol/L Normal 3.5 - 5.3 [facility] Comment on above: Performed By: #### R ENAL ####[id number] [place] [address] Sodium [Moles/Vol] 132 mmol/L Low 136 - 145 [facility] Comment on above: Performed By: #### R ENAL ####[id number] [place] [address] Urea nitrogen [Mass/Vol] 6 mg/dL Normal 6 - 23 [facility] Comment on above: Performed By: #### R LIUDMILA ####[id number] [place] [address] Renal Function Panelon 03-31 Albumin BCP dye [Mass/Vol] 3.8 g/dL 3.4 - 5.0 VI-Yulaogf-E [address] Work Phone: [phone] Anion gap [Moles/Vol] 16 mmol/L 10 - 20 YM-Kfodsgs-B [address] Work Phone: [phone] Calcium [Mass/Vol] 8.7 mg/dL 8.6 - 10.6 MG-Nayeli marilynn[address] Work Phone: [phone] Chloride [Moles/Vol] 99 mmol/L 98 - 107 [facility] Work Phone: [phone] CO2 [Moles/Vol] 21 mmol/L 21 - 32 MG-Surger y-[address] Work Phone: [phone] Creatinine [Mass/Vol] 0.63 mg/dL See Below VC-Mkiuyzy-I[address] Work Phone: [phone] Comment on above: Reference Range: 0.5 0 - 1.05 Glucose [Mass/Vol] 106 mg/dL above high threshold 74 - 99 DR-Ywpwfxa-I[address] Work Phone: [phone] Phosphate [Mass/Vol] 3.9 mg/dL 2.5 - 4.9 [facility] Work Phone: [phone] Comment on above: The performance leonel acteristics of phosphorus testing in heparinized plasma have been validated by the individual laboratory site where testing is performed. Testing on heparinized plasma is not approved by the FDA; however, such approval is not necessary. Potassium [Moles/Vol] 3.8 mmol/L 3.5 - 5.3 IT-Qxcamyw-H [facility] [address] [facility] Work Phone: Sodium [Moles/Vol] 132 mmol/L below low threshold 136 - 145 [facility] [address] [facility] Work Phone: Urea nitrogen [Mass/Vol] 6 mg/dL 6 - 23 [facility]kzfeyo[facility] [address] [facility] Work Phone: Renal Function Panel >60 >60 [facility] [address] [facility] Work Phone: Comment on above: CALCULATIONS OF IZZY MATED GFR ARE PERFORMED USING THE MDRD STUDY EQUATION FOR THE IDMS-TRACEABLE CREATININE METHODS. CLIN CHEM 2007;53:766-72 ARTERIAL FULL PANELon 2020 Anion gap [Moles/Vol] 13 mmol/L Normal 10 - 25 [facility] Comment on above: Performed By: #### A FPA3 ####[id number] [place] [address] BASE EXCESS-BLOOD -4.7 mmol/L Low -2.0 - 3.0 [facility] Comment on above: Performed By: #### A FPA3 ####[id number] [place] [address] BICARB, CALCULATED 19.2 mmol/L Low 22.0 - 26.0 [facility] Comment on above: Performed By: #### A FPA3 ####[id number] [place] [address] CALCIUM,IONIZED 1.14 mmol/L Normal 1.10 - 1.33 [facility] Comment on above: Performed By: #### A FPA3 ####[id number] [place] [address] Chloride [Moles/Vol] 103 mmol/L Normal 98 - 107 [facility] Comment on above: Performed By: #### A FPA3 ####[id number] [place] [address] Glucose [Mass/Vol] 115 mg/dL High 74 - 99 [facility] Comment on above: Performed By: #### A FPA3 ####[id number] [place] [address] Hematocrit (Bld) [Volume fraction] 35.0 % Low 36.0 - 46.0 [facility] Comment on above: Performed By: #### A FPA3 ####[id number] [place] [address] HGB,CALCULATED 11.9 g/dL Low 12.0 - 16.0 [facility] Comment on above: Performed By: #### A FPA3 ####[id number] [place] [address] Lactate [Moles/Vol] 1.0 mmol/L Normal 0.4 - 2.0 [facility] [place] Comment on above: Performed By: #### A FPA3 ####[id number] [place] [address] Oxygen (Bld) [Partial pressure] 127 mm[Hg] High 85 - 95 [facility] Comment on above: Performed By: #### A FPA3 ####[id number] [place] [address] PATIENT TEMPERATURE 37.0 degrees C Normal [facility] Comment on above: Result Comment: NOTE : PATIENT RESULTS ARE NOT CORRECTED FOR TEMPERATURE. Performed By: #### A FPA3 ####[id number] [place] [address] PCO2 31 mmHg Low 38 - 42 [facility] Comment on above: Performed By: #### A FPA3 ####[id number] [place] [address] pH (Bld) 7.40 [pH] Normal 7.38 - 7.42 [facility] Comment on above: Performed By: #### A FPA3 ####[id number] [place] [address] Potassium [Moles/Vol] 3.9 mmol/L Normal 3.5 - 5.3 [facility] Comment on above: Performed By: #### A FPA3 ####[id number] [place] [address] SO2 100 % Normal 94 - 100 [facility] Comment on above: Performed By: #### A FPA3 ####[id number] [place] [address] Sodium [Moles/Vol] 131 mmol/L Low 136 - 145 [facility] Comment on above: Performed By: #### A FPA3 ####[id number] [place] [address] CBCon 03-30-2021 Erythrocyte distribution width (RBC) [Ratio] 15.3 % High 11.5 - 14.5 [facility] Comment on above: Performed By: #### C BC ####[id number] [place] [address] HCT Canceled Normal [facility] Comment on above: Order Comment: TEST CBC WAS CANCELLED, 03/30/2021 07:31 clotted. Performed By: #### C BC ####[id number] [place] [address] Hematocrit (Bld) [Volume fraction] 35.0 % Low 36.0 - 46.0 [facility] Comment on above: Performed By: #### C BC ####[id number] [place] [address] Hemoglobin (Bld) [Mass/Vol] 12.1 g/dL Normal 12.0 - 16.0 [facility] Comment on above: Performed By: #### C BC ####[id number] [place] [address] HGB Canceled Normal [facility] Comment on above: Order Comment: TEST CBC WAS CANCELLED, 03/30/2021 07:31 clotted. Performed By: #### C BC ####[id number] [place] [address] MCHC Canceled Normal [facility] Comment on above: Order Comment: TEST CBC WAS CANCELLED, 03/30/2021 07:31 clotted. Performed By: #### C BC ####[id number] [place] [address] MCHC (RBC) [Mass/Vol] 34.6 g/dL Normal 32.0 - 36.0 [facility] Comment on above: Performed By: #### C BC ####[id number] [place] [address] MCV Canceled Normal [facility] Comment on above: Order Comment: TEST CBC WAS CANCELLED, 03/30/2021 07:31 clotted. Performed By: #### C BC ####[id number] [place] [address] MCV (RBC) [Entitic vol] 81 fL Normal 80 - 100 [facility] Comment on above: Performed By: #### C BC ####[id number] [place] [address] NUCLEATED RBC 0.0 /100 WBC Normal 0.0-0.0 [facility] Comment on above: Performed By: #### C BC ####[id number] [place] [address] NUCLEATED RBC Canceled Normal [facility] Comment on above: Order Comment: TEST CBC WAS CANCELLED, 03/30/2021 07:31 clotted. Performed By: #### C BC ####[id number] [place] [address] Platelets (Bld) [#/Vol] 377 10*3/uL Normal 150 - 450 [facility] Comment on above: Performed By: #### C BC ####[id number] [place] [address] PLT Canceled Normal [facility] Comment on above: Order Comment: TEST CBC WAS CANCELLED, 03/30/2021 07:31 clotted. Performed By: #### C BC ####[id number] [place] [address] RBC 4.32 x10E12/L Normal 4.00 - 5.20 [facility] Comment on above: Performed By: #### C BC ####[id number] [place] [address] RBC Canceled Normal [facility] Comment on above: Order Comment: TEST CBC WAS CANCELLED, 03/30/2021 07:31 clotted. Performed By: #### C BC ####[id number] [place] [address] RDW-CV Canceled Normal [facility] Comment on above: Order Comment: TEST CBC WAS CANCELLED, 03/30/2021 07:31 clotted. Performed By: #### C BC ####[id number] [place] [address] WBC Canceled Normal [facility] Comment on above: Order Comment: TEST CBC WAS CANCELLED, 03/30/2021 07:31 clotted. Performed By: #### C BC ####[id number] [place] [address] WBC (Bld) [#/Vol] 14.9 10*3/uL High 4.4 - 11.3 [facility] [place] Comment on above: Performed By: #### C BC ####[id number] [place] [address] Clinical Event Note-Cancelle d BATon 03-30-2021 Clinical Event Note-Cancelled BAT Normal [facility] Clinical Event Note-Code whi amberly 03-30-2021 Clinical Event Note-Code white Normal [facility] Consult - Psychiatryon 03-30 Consult - Psychiatry Normal [facility] Daily Progress Note-Surgeryo n 03-30-2021 Daily Progress Note-Surgery Normal [facility] GLUCOSE-POCTon 03-30-2021 Glucose [Mass/Vol] 104 mg/dL High 74 - 99 [facility] Comment on above: Performed By: #### G JOSSELINE ####[id number] [place] [address] LACTATEon 03-30-2021 Lactate [Moles/Vol] 1.7 mmol/L Normal 0.4 - 2.0 [facility] [place] Comment on above: Result Comment: Radha puncture immediately after or during the administration of Metamizole may lead to falsely low results. Testing should be performed immediately prior to Metamizole dosing. Performed By: #### L ACT ####[id number] [place] [id number] Laboratory - Chemistry and C hemistry - challengeon 03-30-2021 Anion gap (Bld) [Moles/Vol] 13 mmol/L 10 - 25 DY-Zhgqedd-S [address] Work Phone: [phone] Calcium.ionized (Bld) [Moles/Vol] 1.14 mmol/L See Below ZP-Liwzdtw-K [address] Work Phone: [phone] Comment on above: Reference Range: 1.1 0 - 1.33 Chloride [Moles/Vol] 103 mmol/L 98 - 107 MG-S urgery[address] Work Phone: [phone] CO2 (Bld) [Partial pressure] 31 mm[Hg] below low threshold 38 - 42 OT-Dbpcwue-K[address] Work Phone: [phone] Glucose [Mass/Vol] 115 mg/dL above high threshold 74 - 99 DP-Kxmthbr-D[address] Work Phone: [phone] HCO3 (Bld) [Moles/Vol] 19.2 mmol/L below low threshold See Below EE-Xgwaxun-U [address] Work Phone: [phone] Comment on above: Reference Range: 22. 0 - 26.0 Lactate [Moles/Vol] 1.0 mmol/L 0.4 - 2.0 MG-Briseno ery[address] Work Phone: [phone] Oxygen (Bld) [Partial pressure] 127 mm[Hg] above high threshold 85 - 95 GW-Qnliunn-R[address] Work Phone: [phone] pH (Bld) 7.40 [pH] See Below LY-Bdxypay-R [address] Work Phone: [phone] Comment on above: Reference Range: 7.3 8 - 7.42 Sodium [Moles/Vol] 131 mmol/L below low threshold 136 - [address] Work Phone: [phone] Laboratory - Hematology and Cell countson 03-30-2021 Erythrocyte distribution width (RBC) [Ratio] 15.3 % above high threshold See Below [address] Work Phone: [phone] Comment on above: Reference Range: 11. 5 - 14.5 Hematocrit (Bld) [Volume fraction] 35.0 % below low threshold See Below [address] Work Phone: [phone] Comment on above: Reference Range: 36. 0 - 46.0 Hematocrit (Bld) [Volume fraction] Canceled [address] Work Phone: [phone] Hemoglobin (Bld) [Mass/Vol] 11.9 g/dL below low threshold See Below [address] Work Phone: [phone] Comment on above: Reference Range: 12. 0 - 16.0 Hemoglobin (Bld) [Mass/Vol] 12.1 g/dL See Below [address] Work Phone: [phone] Comment on above: Reference Range: 12. 0 - 16.0 Hemoglobin (Bld) [Mass/Vol] Canceled [address] Work Phone: MCHC (RBC) [Mass/Vol] 34.6 g/dL See Below [address] Work Phone: [phone] Comment on above: Reference Range: 32. 0 - 36.0 MCV (RBC) [Entitic vol] 81 fL 80 - [address] Work Phone: [phone] Platelets (Bld) [#/Vol] 377 10*3/uL 150 - 450 LJ-Luyyquw-R [address] Work Phone: [phone] Platelets (Bld) [#/Vol] Canceled GA-Ewtvffm-Z [address] Work Phone: [phone] RBC (Bld) [#/Vol] 4.32 {x10E12/L} See Below MG -Surgery-C [address] Work Phone: [phone] Comment on above: Reference Range: 4.0 0 - 5.20 RBC (Bld) [#/Vol] Canceled MG-Surg mike-C [address] Work Phone: [phone] WBC (Bld) [#/Vol] 14.9 10*3/uL above high threshold 4.4 - 11.3 GZ-Nxtbdby-B[address] Work Phone: [phone] Lactate, Levelon 03-30-2021 Lactate [Moles/Vol] 1.7 mmol/L 0.4 - 2.0 MG-Briseno rgery[address] Work Phone: [phone] Comment on above: Venipuncture immedia tely after or during the administration of Metamizole may lead to falsely low results. Testing should be performed immediately prior to Metamizole dosing. MAGNESIUMon 03-30-2021 Magnesium [Mass/Vol] 2.01 mg/dL Normal 1.60 - 2.40 [facility] Comment on above: Performed By: #### M G ####[id number] [place] [address] Magnesium [Mass/Vol] 2.12 mg/dL Normal 1.60 - 2.40 [facility] Comment on above: Performed By: #### M G ####[id number] [place] [address] Magnesium, Serumon Magnesium [Mass/Vol] 2.01 mg/dL See Below MG-S urgery[address] Work Phone: Comment on above: Reference Range: 1.6 0 - 2.40 Magnesium [Mass/Vol] 2.12 mg/dL See Below MG-S urgery-[address] Work Phone: Comment on above: Reference Range: 1.6 0 - 2.40 No Panel Informationon 03-30 Please click on the link to view the study images Normal HH-Ypbahes-C [address] Work Phone: -4.7 mmol/L below low threshold -2.0 - 3.0 OU-Skerawr-E[address] Work Phone: 100 % 94 - 100 KG-Viettpd-O [address] Work Phone: [phone] {degrees_C} MG-Surge ry[address] Work Phone: Comment on above: NOTE: PATIENT RESULT S ARE NOT CORRECTED FOR TEMPERATURE. 0.0 {/100_WBC} 0.0-0.0 MG-Surgery [address] Work Phone: Canceled QI-Ulyvgxx-W[address] Work Phone: RENAL FUNCTION PANELon 03-30 Albumin [Mass/Vol] 3.9 g/dL Normal 3.4 - 5.0 [facility] Comment on above: Performed By: #### R ENAL ####[id number] [place] [address] Albumin [Mass/Vol] 3.9 g/dL Normal 3.4 - 5.0 [facility] Comment on above: Performed By: #### R ENAL ####[id number] [place] [address] Anion gap [Moles/Vol] 19 mmol/L Normal 10 - 20 [facility] Comment on above: Performed By: #### R ENAL ####[id number] [place] [address] Anion gap [Moles/Vol] 22 mmol/L High 10 - 20 [facility] Comment on above: Performed By: #### R ENAL ####[id number] [place] [address] Calcium [Mass/Vol] 8.5 mg/dL Low 8.6 - 10.6 [facility] Comment on above: Performed By: #### R ENAL ####[id number] [place] [address] Calcium [Mass/Vol] 8.8 mg/dL Normal 8.6 - 10.6 [facility] Comment on above: Performed By: #### R ENAL ####[id number] [place] [address] Chloride [Moles/Vol] 102 mmol/L Normal 98 - 107 [facility] Comment on above: Performed By: #### R ENAL ####[id number] [place] [address] Chloride [Moles/Vol] 100 mmol/L Normal 98 - 107 [facility] Comment on above: Performed By: #### R ENAL ####[id number] [place] [address] Creatinine [Mass/Vol] 0.73 mg/dL Normal 0.50 - 1.05 [facility] Comment on above: Performed By: #### R ENAL ####[id number] [place] [address] Creatinine [Mass/Vol] 0.67 mg/dL Normal 0.50 - 1.05 [facility] Comment on above: Performed By: #### R ENAL ####[id number] [place] [address] GFR- AM. >60 Normal >60 [facility] Comment on above: Result Comment: CALC ULATIONS OF ESTIMATED GFR ARE PERFORMED USING THE MDRD STUDY EQUATION FOR THE IDMS-TRACEABLE CREATININE METHODS. CLIN CHEM 2007;53:766-72 Performed By: #### R ENAL ####[id number] [place] [address] GFR- AM. >60 Normal >60 [facility] Comment on above: Result Comment: CALC ULATIONS OF ESTIMATED GFR ARE PERFORMED USING THE MDRD STUDY EQUATION FOR THE IDMS-TRACEABLE CREATININE METHODS. CLIN CHEM 2007;53:766-72 Performed By: #### R ENAL ####[id number] [place] [address] GFR-NON AM. >60 Normal >60 [facility] [place] Comment on above: Performed By: #### R ENAL ####[id number] [place] [address] GFR-NON AM. >60 Normal >60 [facility] [place] Comment on above: Performed By: #### R ENAL ####[id number] [place] [address] Glucose [Mass/Vol] 101 mg/dL High 74 - 99 [facility] Comment on above: Performed By: #### R ENAL ####[id number] [place] [address] Glucose [Mass/Vol] 103 mg/dL High 74 - 99 [facility] Comment on above: Performed By: #### R ENAL ####[id number] [place] [address] HCO3 (Bld) [Moles/Vol] 17 mmol/L Low 21 - 32 [facility] Comment on above: Performed By: #### R ENAL ####[id number] [place] [address] HCO3 (Bld) [Moles/Vol] 15 mmol/L Low 21 - 32 [facility] Comment on above: Performed By: #### R ENAL ####[id number] [place] [address] Phosphate [Mass/Vol] 4.1 mg/dL Normal 2.5 - 4.9 [facility] Comment on above: Result Comment: The performance characteristics of phosphorus testing in heparinized plasma have been validated by the individual laboratory site where testing is performed. Testing on heparinized plasma is not approved by the FDA; however, such approval is not necessary. Performed By: #### R ENAL ####[id number] [place] [address] Phosphate [Mass/Vol] 4.6 mg/dL Normal 2.5 - 4.9 [facility] Comment on above: Result Comment: The performance characteristics of phosphorus testing in heparinized plasma have been validated by the individual laboratory site where testing is performed. Testing on heparinized plasma is not approved by the FDA; however, such approval is not necessary.MILD HEMOLYSIS DETECTED. The result may be falsely elevated due tohemolysis or other interferents. Clinical correlation is recommended.Repeat testing may be considered. Performed By: #### R ENAL ####[id number] [place] [address] Potassium [Moles/Vol] 3.9 mmol/L Normal 3.5 - 5.3 [facility] Comment on above: Performed By: #### R ENAL ####[id number] [place] [address] Potassium [Moles/Vol] 4.4 mmol/L Normal 3.5 - 5.3 [facility] Comment on above: Result Comment: MILD HEMOLYSIS DETECTED. The result may be falsely elevated due tohemolysis or other interferents. Clinical correlation is recommended.Repeat testing may be considered. Performed By: #### R ENAL ####[id number] [place] [address] Sodium [Moles/Vol] 134 mmol/L Low 136 - 145 [facility] Comment on above: Performed By: #### R ENAL ####[id number] [place] [address] Sodium [Moles/Vol] 133 mmol/L Low 136 - 145 [facility] Comment on above: Performed By: #### R ENAL ####[id number] [place] [address] Urea nitrogen [Mass/Vol] 6 mg/dL Normal 6 - 23 [facility] Comment on above: Performed By: #### R ENAL ####[id number] [place] [address] Urea nitrogen [Mass/Vol] 6 mg/dL Normal 6 - 23 [facility] Comment on above: Performed By: #### R LIUDMILA ####[id number] DON [place] [address] Renal Function Panelon 03-30 Albumin BCP dye [Mass/Vol] 3.9 g/dL 3.4 - 5.0 CR-Zfvloor-B [address] Work Phone: [phone] Albumin BCP dye [Mass/Vol] 3.9 g/dL 3.4 - 5.0 TU-Kjvqumg-S [address] Work Phone: [phone] Anion gap [Moles/Vol] 19 mmol/L 10 - 20 LE-Pxhuhxj-L [address] Work Phone: [phone] Anion gap [Moles/Vol] 22 mmol/L above high threshold 10 - 20 BR-Orytsds-D [address] Work Phone: [phone] Calcium [Mass/Vol] 8.5 mg/dL below low threshold 8.6 - 10.6 GM-Ywtithw-H [address] Work Phone: [phone] Calcium [Mass/Vol] 8.8 mg/dL 8.6 - 10.6 MG-Nayeli marilynn-C [address] Work Phone: [phone] Chloride [Moles/Vol] 102 mmol/L 98 - 107 MG-S urgery-C [address] Work Phone: [phone] Chloride [Moles/Vol] 100 mmol/L 98 - 107 MG-S urgery-C [address] Work Phone: [phone] CO2 [Moles/Vol] 17 mmol/L below low threshold 21 - 32 XW-Lhaccgc-L [facility] [address] Work Phone: [phone] CO2 [Moles/Vol] 15 mmol/L below low threshold 21 - 32 KP-Zxkrwsv-H [address] Work Phone: [phone] Creatinine [Mass/Vol] 0.73 mg/dL See Below IK-Ncmjmxy-J [address] Work Phone: [phone] Comment on above: Reference Range: 0.5 0 - 1.05 Creatinine [Mass/Vol] 0.67 mg/dL See Below SQ-Ivruwoi-I [address] Work Phone: [phone] Comment on above: Reference Range: 0.5 0 - 1.05 Glucose [Mass/Vol] 101 mg/dL above high threshold 74 - 99 XA-Yhmeced-U[address] Work Phone: [phone] Glucose [Mass/Vol] 103 mg/dL above high threshold 74 - 99 HW-Pwzgxds-I[address] Work Phone: [phone] Phosphate [Mass/Vol] 4.1 mg/dL 2.5 - 4.9 MG-S [address] Work Phone: [phone] Comment on above: The performance leonel acteristics of phosphorus testing in heparinized plasma have been validated by the individual laboratory site where testing is performed. Testing on heparinized plasma is not approved by the FDA; however, such approval is not necessary. Phosphate [Mass/Vol] 4.6 mg/dL 2.5 - 4.9 MG-S [address] Work Phone: [phone] Comment on above: The performance leonel acteristics of phosphorus testing in heparinized plasma have been validated by the individual laboratory site where testing is performed. Testing on heparinized plasma is not approved by the FDA; however, such approval is not necessary.MILD HEMOLYSIS DETECTED. The result may be falsely elevated due tohemolysis or other interferents. Clinical correlation is recommended.Repeat testing may be considered. Potassium [Moles/Vol] 3.9 mmol/L 3.5 - 5.3 PQ-Jchizen-O [address] Work Phone: [phone] Potassium [Moles/Vol] 4.4 mmol/L 3.5 - 5.3 HX-Wnngzbw-C [address] Work Phone: Comment on above: MILD HEMOLYSIS DETEC DA. The result may be falsely elevated due tohemolysis or other interferents. Clinical correlation is recommended.Repeat testing may be considered. Sodium [Moles/Vol] 134 mmol/L below low threshold 136 - 145 SP-Zgyjzwa-U [address] Work Phone: Sodium [Moles/Vol] 133 mmol/L below low threshold 136 - 145 WU-Hcdhvxo-B [address] Work Phone: [phone] Urea nitrogen [Mass/Vol] 6 mg/dL 6 - 23 ES-Pxlgicb-O [address] Work Phone: Urea nitrogen [Mass/Vol] 6 mg/dL 6 - 23 BL-Qvdrtox-C[address] Work Phone: Renal Function Panel >60 >60 MG-S [facility] Work Phone: Comment on above: CALCULATIONS OF IZZY MATED GFR ARE PERFORMED USING THE MDRD STUDY EQUATION FOR THE IDMS-TRACEABLE CREATININE METHODS. CLIN CHEM 2007;53:766-72 Renal Function Panel >60 >60 MG-S urgery-[address] Work Phone: Comment on above: CALCULATIONS OF IZZY MATED GFR ARE PERFORMED USING THE MDRD STUDY EQUATION FOR THE IDMS-TRACEABLE CREATININE METHODS. CLIN CHEM 2007;53:766-72 Admission Risk Screen - Adul ton 03-29-2021 Admission Risk Screen - Adult Normal [facility] CBCon 03-29-2021 Erythrocyte distribution width (RBC) [Ratio] 16.0 % High 11.5 - 14.5 [facility] Comment on above: Performed By: #### C BC ####[id number] [place] [address] Hematocrit (Bld) [Volume fraction] 33.4 % Low 36.0 - 46.0 [facility] Comment on above: Performed By: #### C BC ####[id number] [place] [address] Hemoglobin (Bld) [Mass/Vol] 10.4 g/dL Low 12.0 - 16.0 [facility] Comment on above: Performed By: #### C BC ####[id number] [place] [address] MCHC (RBC) [Mass/Vol] 31.1 g/dL Low 32.0 - 36.0 [facility] Comment on above: Performed By: #### C BC ####[id number] [place] [address] MCV (RBC) [Entitic vol] 88 fL Normal 80 - 100 [facility] Comment on above: Performed By: #### C BC ####[id number] [place] [address] NUCLEATED RBC 0.0 /100 WBC Normal 0.0-0.0 [facility] Comment on above: Performed By: #### C BC ####[id number] [place] [address] Platelets (Bld) [#/Vol] 312 10*3/uL Normal 150 - 450 [facility] Comment on above: Performed By: #### C BC ####[id number] [place] [address] RBC 3.81 x10E12/L Low 4.00 - 5.20 [facility] Comment on above: Performed By: #### C BC ####[id number] [place] [address] WBC (Bld) [#/Vol] 9.2 10*3/uL Normal 4.4 - 11.3 [facility] Comment on above: Performed By: #### C BC ####[id number] [place] [address] CORONAVIRUS 2019, SCREEN ASY MPTOMATICon 03-29-2021 SARS-CoV-2 (COVID-19) RNA REGINA+probe Ql (Unsp spec) Not detected Normal Not Detected [facility] Comment on above: Result Comment: Leatha s test has received FDA Emergency Use Authorization (EUA) and has beenverified by [facility] ([facility]). This testis only authorized for the duration of time that circumstances exist tojustify the authorization of the emergency use of in vitro diagnostic testsfor the detection of SARS-CoV-2 virus and/or diagnosis of COVID-19 infectionunder section 564(b)(1) of the Act, 21 U.S.C. 360bbb-3(b)(1), unless theauthorization is terminated or revoked sooner.[facility] is certified under CLIA-88 asqualified to perform high complexity testing. Testing is performed in [facility] located at [address] [place] [address].SARS-CoV-2/Flu/RSV Multiplex Test:Fact sheet for providers: https://www.fda.gov/media/124158/downloadFact sheet for patients: https://www.fda.gov/media/521851/download Performed By: #### C OVSC ####[id number] [place] [address] Covid 19 Resultson 1 SARS-CoV-2 (COVID-19) RNA REGINA+probe Ql (Unsp spec) Normal [facility] Daily Progress Note-Surgeryo n 03-29-2021 Daily Progress Note-Surgery Normal [facility] Laboratory - Chemistry and C hemistry - challengeon 03-29-2021 Glucose [Mass/Vol] 104 mg/dL above high threshold 74 - 99 DP-Bfqmpph-X [facility] [address] [employer] Work Phone: Laboratory - Hematology and Cell countson 03-29-2021 Erythrocyte distribution width (RBC) [Ratio] 16.0 % above high threshold See Below HZ-Rqvnrui-O [facility] [address] [employer] Work Phone: Comment on above: Reference Range: 11. 5 - 14.5 Hematocrit (Bld) [Volume fraction] 33.4 % below low threshold See Below JV-Kyaqqil-C [address] Work Phone: [phone] Comment on above: Reference Range: 36. 0 - 46.0 Hemoglobin (Bld) [Mass/Vol] 10.4 g/dL below low threshold See Below LZ-Gecjqit-F[address] Work Phone: [phone] Comment on above: Reference Range: 12. 0 - 16.0 MCHC (RBC) [Mass/Vol] 31.1 g/dL below low threshold See Below TF-Rbibsak-J[address] Work Phone: [phone] Comment on above: Reference Range: 32. 0 - 36.0 MCV (RBC) [Entitic vol] 88 fL 80 - 100 AZ-Mfgcevp-A[address] Work Phone: [phone] Platelets (Bld) [#/Vol] 312 10*3/uL 150 - 450 LX-Nrfscic-L[address] Work Phone: [phone] RBC (Bld) [#/Vol] 3.81 {x10E12/L} below low threshold See Below KO-Gybauaz-L[address] Work Phone: [phone] Comment on above: Reference Range: 4.0 0 - 5.20 WBC (Bld) [#/Vol] 9.2 10*3/uL 4.4 - 11.3 MG-Nayeli marilynn[address] Work Phone: [phone] MAGNESIUMon 03-29-2021 Magnesium [Mass/Vol] 1.93 mg/dL Normal 1.60 - 2.40 [facility] Comment on above: Performed By: #### M G ####[id number] [place] [address] Magnesium, Serumon 1 Magnesium [Mass/Vol] 1.93 mg/dL See Below MG-S urgery[address] Work Phone: [phone] Comment on above: Reference Range: 1.6 0 - 2.40 No Panel Informationon 03-29 [email or web address] 1:[email or web address]?R etrieveTestByDateTime?Isabel nnjMA=[id number]&Date=11-01&Time=08%3a20%3a51%3a 00&TestType=ECG&Site=9&Out putType=PDF&Ext=PDF [place]-Stmschw-D [place] [address] [facility] Work Phone: [phone] Sinus rhythm with short [place]-Bdjdfis-S [address] Work Phone: [phone] Borderline Abnormal MG-Briseno rgery[address] Work Phone: [phone] OA-Nkxcqmr-H [address] Work Phone: [phone] MU-Okrnqkt-O [address] Work Phone: [phone] MW-Oeggero-K [address] Work Phone: [phone] AG-Ccxcztg-V [address] Work Phone: [phone] LJ-Xzpgntd-N [address] Work Phone: [phone] EZ-Jxdkeyf-C [address] Work Phone: [phone] MU-Ubizysn-H [address] Work Phone: [phone] WZ-Ynszctp-L [address] Work Phone: [phone] TG-Fjftese-U [address] Work Phone: [phone] PW-Bjajazp-Q [address] Work Phone: [phone] 442 1 SM-Kdvymjt-U [address] Work Phone: [phone] JU-Kxcklol-H [address] Work Phone: [phone] PA-Dczuffk-V [address] Work Phone: [phone] IO-Uhfagqc-A [address] Work Phone: [phone] 0.0 {/100_WBC} 0.0-0.0 MG-Surgery C [address] Work Phone: [email or web address] 1:[email or web address]?R etrieveTestByDateTime?Isabel vtcIV=[id number]&Date=11-01&Time=23%3a54%3a55%3a 00&TestType=ECG&Site=9&Out putType=PDF&Ext=PDF ZD-Tfjyrdg-O[address] Work Phone: [phone] Sinus rhythm with si nus arrhythmia with short UT XB-Gqqbvhh-J [address] Work Phone: [phone] Borderline Abnormal MG-Briseno ery[address] Work Phone: [phone] JP-Wsgghyd-I [address] Work Phone: [phone] SD-Lgulhuv-U [address] Work Phone: [phone] QF-Soxnldv-P [address] Work Phone: [phone] 1 OC-Qwpvylo-L [address] Work Phone: [phone] NK-Oosxqhr-Q [address] Work Phone: [phone] 1 NC-Ukkfmvv-C[address] Work Phone: [phone] II-Bmowxfp-T [facility] [address] Work Phone: [phone] YU-Obwbccn-K [facility] [address] Work Phone: [phone] EO-Texbvgy-L [facility] [address] Work Phone: [phone] CG-Wrlusvp-P [facility] [address] Work Phone: [phone] GC-Wadcjpe-R [facility] [address] Work Phone: [phone] EB-Ukmmkxg-Y [facility] [address] Work Phone: [phone] XZ-Dheiduo-M [facility] [address] Work Phone: [phone] IR-Nikkobt-K [facility] [address] [facility] Work Phone: Nutrition Therapy-Assessment on 03-29-2021 Nutrition Therapy-Assessment Normal [facility] Patient Profile - Adult v2on 03-29-2021 Patient Profile - Adult v2 Normal [facility] RENAL FUNCTION PANELon 03-29 Albumin [Mass/Vol] 3.4 g/dL Normal 3.4 - 5.0 [facility] Comment on above: Performed By: #### R ENAL ####[id number] [place] [address] Anion gap [Moles/Vol] 15 mmol/L Normal 10 - 20 [facility] Comment on above: Performed By: #### R ENAL ####[id number] [place] [address] Calcium [Mass/Vol] 8.4 mg/dL Low 8.6 - 10.6 [facility] Comment on above: Performed By: #### R ENAL ####[id number] [place] [address] Chloride [Moles/Vol] 105 mmol/L Normal 98 - 107 [facility] Comment on above: Performed By: #### R ENAL ####[id number] [place] [address] Creatinine [Mass/Vol] 0.75 mg/dL Normal 0.50 - 1.05 [facility] Comment on above: Performed By: #### R ENAL ####[id number] [place] [address] GFR- AM. >60 Normal >60 [facility] Comment on above: Result Comment: CALC ULATIONS OF ESTIMATED GFR ARE PERFORMED USING THE MDRD STUDY EQUATION FOR THE IDMS-TRACEABLE CREATININE METHODS. CLIN CHEM 2007;53:766-72 Performed By: #### R ENAL ####[id number] [place] [address] GFR-NON AM. >60 Normal >60 [facility] [place] Comment on above: Performed By: #### R ENAL ####[id number] [place] [address] Glucose [Mass/Vol] 77 mg/dL Normal 74 - 99 [facility] Comment on above: Performed By: #### R ENAL ####[id number] [place] [address] HCO3 (Bld) [Moles/Vol] 22 mmol/L Normal 21 - 32 [facility] Comment on above: Performed By: #### R ENAL ####[id number] [place] [address] Phosphate [Mass/Vol] 4.9 mg/dL Normal 2.5 - 4.9 [facility] Comment on above: Result Comment: The performance characteristics of phosphorus testing in heparinized plasma have been validated by the individual laboratory site where testing is performed. Testing on heparinized plasma is not approved by the FDA; however, such approval is not necessary. Performed By: #### R ENAL ####[id number] [place] [address] Potassium [Moles/Vol] 3.7 mmol/L Normal 3.5 - 5.3 [facility] Comment on above: Performed By: #### R ENAL ####[id number] [place] [address] Sodium [Moles/Vol] 138 mmol/L Normal 136 - 145 [facility] Comment on above: Performed By: #### R ENAL ####[id number] [place] [address] Urea nitrogen [Mass/Vol] 7 mg/dL Normal 6 - 23 [facility] Comment on above: Performed By: #### R ENAL ####[id number] [place] [address] Renal Function Panelon 03-29 Albumin BCP dye [Mass/Vol] 3.4 g/dL 3.4 - 5.0 VN-Lxtsfzg-F[address] Work Phone: Anion gap [Moles/Vol] 15 mmol/L 10 - 20 CK-Zwrijcg-I [address] Work Phone: [phone] Calcium [Mass/Vol] 8.4 mg/dL below low threshold 8.6 - 10.6 DB-Avkordz-K[address] Work Phone: [phone] Chloride [Moles/Vol] 105 mmol/L 98 - 107 MG[facility]S [facility] Work Phone: [phone] CO2 [Moles/Vol] 22 mmol/L 21 - 32 MG-Surger y-C [address] Work Phone: [phone] Creatinine [Mass/Vol] 0.75 mg/dL See Below PU-Pboctze-O [address] Work Phone: Comment on above: Reference Range: 0.5 0 - 1.05 Glucose [Mass/Vol] 77 mg/dL 74 - 99 MG-Nayeli marilynn-[address] Work Phone: Phosphate [Mass/Vol] 4.9 mg/dL 2.5 - 4.9 MG-S urgery-[address] Work Phone: Comment on above: The performance leonel acteristics of phosphorus testing in heparinized plasma have been validated by the individual laboratory site where testing is performed. Testing on heparinized plasma is not approved by the FDA; however, such approval is not necessary. Potassium [Moles/Vol] 3.7 mmol/L 3.5 - 5.3 KS-Tnlgwfv-F [facility] [address] [facility] Work Phone: Sodium [Moles/Vol] 138 mmol/L 136 - 145 [facility] [address] [facility] Work Phone: Urea nitrogen [Mass/Vol] 7 mg/dL 6 - 23 [facility] [address] [facility] Work Phone: Renal Function Panel >60 >60 MG-S urgery[address] Work Phone: Comment on above: CALCULATIONS OF IZZY MATED GFR ARE PERFORMED USING THE MDRD STUDY EQUATION FOR THE IDMS-TRACEABLE CREATININE METHODS. CLIN CHEM 2007;53:766-[address] ABDOMEN AND PELVIS W I V CONTRASTon 03-28-[address] ABDOMEN AND PELVIS W IV CONTRAST Normal [facility] CBC AND DIFFERENTIALon 03-28 % AUTOMATED IMMATURE GRAN 1.4 % High 0.0 - 0.9 [facility] Comment on above: Result Comment: Sheila ture Granulocyte Count (IG) includes promyelocytes, myelocytes and metamyelocytes but does not include bands. Percent differential counts (%) should be interpreted in the context of the absolute cell counts (cells/L). Performed By: #### C BCDF ####[id number] [place] [address] Basophils (Bld) [#/Vol] 0.02 10*3/uL Normal 0.00 - 0.10 [facility] Comment on above: Performed By: #### C BCDF ####[id number] [place] [address] Basophils/100 WBC (Bld) 0.2 % Normal 0.0 - 2.0 [facility] Comment on above: Performed By: #### C BCDF ####[id number] [place] [address] Eosinophils (Bld) [#/Vol] 0.01 10*3/uL Normal 0.00 - 0.70 [facility] Comment on above: Performed By: #### C BCDF ####[id number] [place] [address] Eosinophils/100 WBC (Bld) 0.1 % Normal 0.0 - 6.0 [facility] Comment on above: Performed By: #### C BCDF ####[id number] [place] [address] Erythrocyte distribution width (RBC) [Ratio] 15.8 % High 11.5 - 14.5 [facility] Comment on above: Performed By: #### C BCDF ####[id number] [place] [address] Hematocrit (Bld) [Volume fraction] 35.7 % Low 36.0 - 46.0 [facility] Comment on above: Performed By: #### C BCDF ####[id number] [place] [address] Hemoglobin (Bld) [Mass/Vol] 11.3 g/dL Low 12.0 - 16.0 [facility] Comment on above: Performed By: #### C BCDF ####[id number] [place] [address] Lymphocytes (Bld) [#/Vol] 1.13 10*3/uL Low 1.20 - 4.80 [facility] Comment on above: Performed By: #### C BCDF ####[id number] [place] [address] Lymphocytes/100 WBC (Bld) 10.4 % Normal 13.0 - 44.0 [facility] Comment on above: Performed By: #### C BCDF ####[id number] [place] [address] MCHC (RBC) [Mass/Vol] 31.7 g/dL Low 32.0 - 36.0 [facility] Comment on above: Performed By: #### C BCDF ####[id number] [place] [address] MCV (RBC) [Entitic vol] 87 fL Normal 80 - 100 [facility] Comment on above: Performed By: #### C BCDF ####[id number] [place] [address] Monocytes (Bld) [#/Vol] 0.72 10*3/uL Normal 0.10 - 1.00 [facility] Comment on above: Performed By: #### C BCDF ####[id number] [place] [address] Monocytes/100 WBC (Bld) 6.6 % Normal 2.0 - 10.0 [facility] Comment on above: Performed By: #### C BCDF ####[id number] [place] [address] Neutrophils (Bld) [#/Vol] 8.81 10*3/uL High 1.20 - 7.70 [facility] Comment on above: Performed By: #### C BCDF ####[id number] [place] [address] Neutrophils/100 WBC (Bld) 81.3 % Normal 40.0 - 80.0 [facility] Comment on above: Performed By: #### C BCDF ####[id number] [place] [address] NUCLEATED RBC 0.0 /100 WBC Normal 0.0-0.0 [facility] Comment on above: Performed By: #### C BCDF ####[id number] [place] [address] Platelets (Bld) [#/Vol] 308 10*3/uL Normal 150 - 450 [facility] Comment on above: Performed By: #### C BCDF ####[id number] [place] [address] RBC 4.11 x10E12/L Normal 4.00 - 5.20 [facility] Comment on above: Performed By: #### C BCDF ####[id number] [place] [address] WBC (Bld) [#/Vol] 10.8 10*3/uL Normal 4.4 - 11.3 [facility] [place] Comment on above: Performed By: #### C BCDF ####[id number] [place] [address] COMPREHENSIVE PANELon 2020 Albumin [Mass/Vol] 3.8 g/dL Normal 3.4 - 5.0 [facility] Comment on above: Performed By: #### C MP ####[id number] [place] [address] ALP [Catalytic activity/Vol] 114 U/L High 33 - 110 [facility] Comment on above: Performed By: #### C MP ####[id number] [place] [address] ALT [Catalytic activity/Vol] 13 U/L Normal 7 - 45 [facility] Comment on above: Result Comment: Isabel ents treated with Sulfasalazine may generate falsely decreased results for ALT. Performed By: #### C MP ####[id number] [place] [address] Anion gap [Moles/Vol] 18 mmol/L Normal 10 - 20 [facility] Comment on above: Performed By: #### C MP ####[id number] [place] [address] AST [Catalytic activity/Vol] 19 U/L Normal 9 - 39 [facility] Comment on above: Performed By: #### C MP ####[id number] [place] [address] Bilirubin [Mass/Vol] 0.8 mg/dL Normal 0.0 - 1.2 [facility] Comment on above: Performed By: #### C MP ####[id number] [place] [address] Calcium [Mass/Vol] 9.1 mg/dL Normal 8.6 - 10.6 [facility] Comment on above: Performed By: #### C MP ####[id number] [place] [address] Chloride [Moles/Vol] 107 mmol/L Normal 98 - 107 [facility] Comment on above: Performed By: #### C MP ####[id number] [place] [address] Creatinine [Mass/Vol] 0.79 mg/dL Normal 0.50 - 1.05 [facility] Comment on above: Performed By: #### C MP ####[id number] [place] [address] GFR- AM. >60 Normal >60 [facility] Comment on above: Result Comment: CALC ULATIONS OF ESTIMATED GFR ARE PERFORMED USING THE MDRD STUDY EQUATION FOR THE IDMS-TRACEABLE CREATININE METHODS. CLIN CHEM 2007;53:766-72 Performed By: #### C MP ####[id number] [place] [address] GFR-NON AM. >60 Normal >60 [facility] [place] Comment on above: Performed By: #### C MP ####[id number] [place] [address] Glucose [Mass/Vol] 139 mg/dL High 74 - 99 [facility] Comment on above: Performed By: #### C MP ####[id number] [place] [address] HCO3 (Bld) [Moles/Vol] 18 mmol/L Low 21 - 32 [facility] Comment on above: Performed By: #### C MP ####[id number] [place] [address] Potassium [Moles/Vol] 3.7 mmol/L Normal 3.5 - 5.3 [facility] Comment on above: Performed By: #### C MP ####[id number] [place] [address] Protein [Mass/Vol] 6.4 g/dL Normal 6.4 - 8.2 [facility] Comment on above: Performed By: #### C MP ####[id number] [place] [address] Sodium [Moles/Vol] 139 mmol/L Normal 136 - 145 [facility] Comment on above: Performed By: #### C MP ####[id number] [place] [address] Urea nitrogen [Mass/Vol] 7 mg/dL Normal 6 - 23 [facility] Comment on above: Performed By: #### C MP ####[id number] [place] [address] CORONAVIRUS 2019, SCREEN ASY MPTOMATICon 03-28-2021 Lab Specimen Source Nasal, Nasopharyngeal Normal [facility] Comment on above: Performed By: #### C OVSC ####[id number] [place] [address] CT Abdomen and Pelvis with I V Contraston 03-28-2021 CT Abdomen and Pelvis W contrast IV Normal [address] Work Phone: Complete Blood Count + Diffe rentialon 03-28-2021 Basophils/100 WBC (Bld) 0.2 % 0.0 - 2.[address] Work Phone: Erythrocyte distribution width (RBC) [Ratio] 15.8 % above high threshold See Below [address] Work Phone: Comment on above: Reference Range: 11. 5 - 14.5 Hematocrit (Bld) [Volume fraction] 35.7 % below low threshold See Below [address] Work Phone: Comment on above: Reference Range: 36. 0 - 46.0 Hemoglobin (Bld) [Mass/Vol] 11.3 g/dL below low threshold See Below [address] Work Phone: Comment on above: Reference Range: 12. 0 - 16.0 Lymphocytes/100 WBC (Bld) 10.4 % See Below [address] Work Phone: Comment on above: Reference Range: 13. 0 - 44.0 MCHC (RBC) [Mass/Vol] 31.7 g/dL below low threshold See Below [address] Work Phone: 65 Comment on above: Reference Range: 32. 0 - 36.0 MCV (RBC) [Entitic vol] 87 fL 80 - [address] Work Phone: 65 Monocytes/100 WBC (Bld) 6.6 % 2.0 - 10.[address] Work Phone: 65 Neutrophils/100 WBC (Bld) 81.3 % See Below [address] Work Phone: 65 Comment on above: Reference Range: 40. 0 - 80.0 Platelets (Bld) [#/Vol] 308 10*3/uL 150 - [address] Work Phone: 65 RBC (Bld) [#/Vol] 4.11 {x10E12/L} See Below [address] Work Phone: 65 Comment on above: Reference Range: 4.0 0 - 5.20 WBC (Bld) [#/Vol] 10.8 10*3/uL 4.4 - 11.3 [facility] TULSABriseno ery[address] Work Phone: 65 Complete Blood Count + Differential 0.02 {x10E9/L} See Below 29 [address] Work Phone: [phone] Comment on above: Reference Range: 0.0 0 - 0.10 Complete Blood Count + Differential 0.01 {x10E9/L} See Below [address] Work Phone: [phone] Comment on above: Reference Range: 0.0 0 - 0.70 Complete Blood Count + Differential 0.72 {x10E9/L} See Below [address] Work Phone: Comment on above: Reference Range: 0.1 0 - 1.00 Complete Blood Count + Differential 1.13 {x10E9/L} below low threshold See Below [address] Work Phone: Comment on above: Reference Range: 1.2 0 - 4.80 Complete Blood Count + Differential 8.81 {x10E9/L} above high threshold See Below [address] Work Phone: Comment on above: Reference Range: 1.2 0 - 7.70 Complete Blood Count + Differential 0.1 % 0.0 - 6.[address] Work Phone: Complete Blood Count + Differential 1.4 % above high threshold 0.0 - 0.[address] Work Phone: Comment on above: Immature Granulocyte Count (IG) includes promyelocytes, myelocytes and metamyelocytes but does not include bands. Percent differential counts (%) should be interpreted in the context of the absolute cell counts (cells/L). Complete Blood Count + Differential 0.0 {/100_WBC} 0.0-0.[address] Work Phone: Coronavirus 2019 RNA by PCR, Screening Asymptomticon 03-28-2021 Coronavirus 2019 RNA by PCR, Screening Asymptomtic Not detected Normal See Below [address] Work Phone: Comment on above: SOURCE: Nasal, Nasop haryngealReference Range: Not Detected.This test has received FDA Emergency Use Authorization (EUA) and has been verified by [facility] ([facility]). This test is only authorized for the duration of time that circumstances exist to justify the authorization of the emergency use of in vitro diagnostic tests for the detection of SARS-CoV-2 virus and/or diagnosis of COVID-19 infection under section 564(b)(1) of the Act, 21 U.S.C. 360bbb-3(b)(1), unless the authorization is terminated or revoked sooner. [facility] is certified under CLIA-88 as qualified to perform high complexity testing. Testing is performed in the [facility] located at [address] [place] [address].SARS-CoV-2/Flu/RSV Multiplex Test: Fact sheet for providers: https://www.fda.gov/media/097495/downloadFact sheet for patients: https://www.fda.gov/media/398700/download Laboratory - Chemistry and C hemistry - challengeon 03-28-2021 Albumin BCP dye [Mass/Vol] 3.8 g/dL 3.4 - 5.0 [place] [id number] Work Phone: ALP [Catalytic activity/Vol] 114 U/L above high threshold 33 - 110 WP-Unpuxsi-[place] [address] Q [facility] Work Phone: ALT With P-5'-P [Catalytic activity/Vol] 13 U/L 7 - 45 BD-Nzlayja-G[address] Work Phone: Comment on above: Patients treated wit h Sulfasalazine may generate falsely decreased results for ALT. Anion gap [Moles/Vol] 18 mmol/L 10 - 20 CK-Kquotga-B[address] Work Phone: AST With P-5'-P [Catalytic activity/Vol] 19 U/L 9 - 39 VH-Bwbossp-F[address] Work Phone: Bilirubin [Mass/Vol] 0.8 mg/dL 0.0 - 1.2 [facility] Work Phone: Calcium [Mass/Vol] 9.1 mg/dL 8.6 - 10.6 MG-Nayeli marilynn-C [address] Work Phone: [phone] Chloride [Moles/Vol] 107 mmol/L 98 - 107 MG-S urgery-C [address] Work Phone: [phone] CO2 [Moles/Vol] 18 mmol/L below low threshold 21 - 32 DV-Dibzsaq-U [address] Work Phone: [phone] Creatinine [Mass/Vol] 0.79 mg/dL See Below ZZ-Fvqxwkw-Y [address] Work Phone: [phone] Comment on above: Reference Range: 0.5 0 - 1.05 Glucose [Mass/Vol] 139 mg/dL above high threshold 74 - 99 WW-Onekcue-G [address] Work Phone: [phone] Potassium [Moles/Vol] 3.7 mmol/L 3.5 - 5.3 ZY-Mglbwux-H [address] Work Phone: [phone] Protein [Mass/Vol] 6.4 g/dL 6.4 - 8.2 MG-Nayeli marilynn-C [address] Work Phone: [phone] Sodium [Moles/Vol] 139 mmol/L 136 - 145 MG-Nayeli marilynn-C [address] Work Phone: [phone] Urea nitrogen [Mass/Vol] 7 mg/dL 6 - 23 UH-Aomkdqr-I [address] Work Phone: [phone] Laboratory - Coagulationon 1 05-29-2020 INR Coag (PPP) [Relative time] 1.1 {INR} 0.9 - 1.1 QP-Drdmhpl-D [address] Work Phone: [phone] PT Coag (PPP) [Time] 12.3 s 9.8 - 13.4 MG-S urgery-C [facility] [address] [facility] Work Phone: Comment on above: Note new reference r deon as of 03/22/2021 at 10:00am. No Panel Informationon 03-28 >60 >60 QL-Bfvtkjh-J [facility] [address] [facility] Work Phone: Comment on above: CALCULATIONS OF IZZY MATED GFR ARE PERFORMED USING THE MDRD STUDY EQUATION FOR THE IDMS-TRACEABLE CREATININE METHODS. CLIN CHEM 2007;53:766-72 Order Reconciliationon 03-28 Order Reconciliation Normal [facility] PT/INRon 03-28-2021 PT Coag (PPP) [Time] 12.3 s Normal 9.8 - 13.4 [facility] Comment on above: Result Comment: Note new reference range as of 03/22/2021 at 10:00am. Performed By: #### P TINR ####[id number] [place] [address] PT, INR 1.1 Normal 0.9 - 1.1 [facility] Comment on above: Performed By: #### P TINR ####[id number] [place] [address] Provider Note - ED v3on 12-0 Provider Note - ED v3 Normal [facility] Triage - EDon 03-28-2021 Triage - ED Normal [facility] Discharge Ycbqinh3xy 021 Discharge Profile2 Normal [facility] MAGNESIUMon 03-25-2021 Magnesium [Mass/Vol] 2.02 mg/dL Normal 1.60 - 2.40 [facility] Comment on above: Performed By: #### M G ####[id number] [place] [address] Magnesium, Serumon Magnesium [Mass/Vol] 2.02 mg/dL See Below MG-S omar-B [address] Work Phone: Comment on above: Reference Range: 1.6 0 - 2.40 Order Reconciliationon 03-25 Order Reconciliation Normal [facility] RENAL FUNCTION PANELon 03-25 Albumin [Mass/Vol] 3.5 g/dL Normal 3.4 - 5.0 [facility] Comment on above: Performed By: #### R ENAL ####[id number] [place] [address] Anion gap [Moles/Vol] 13 mmol/L Normal 10 - 20 [facility] Comment on above: Performed By: #### R ENAL ####[id number] [place] [address] Calcium [Mass/Vol] 8.6 mg/dL Normal 8.6 - 10.6 [facility] Comment on above: Performed By: #### R ENAL ####[id number] [place] [address] Chloride [Moles/Vol] 108 mmol/L High 98 - 107 [facility] Comment on above: Performed By: #### R ENAL ####[id number] [place] [address] Creatinine [Mass/Vol] 0.82 mg/dL Normal 0.50 - 1.05 [facility] Comment on above: Performed By: #### R ENAL ####[id number] [place] [address] GFR- AM. >60 Normal >60 [facility] Comment on above: Result Comment: CALC ULATIONS OF ESTIMATED GFR ARE PERFORMED USING THE MDRD STUDY EQUATION FOR THE IDMS-TRACEABLE CREATININE METHODS. CLIN CHEM 2007;53:766-72 Performed By: #### R ENAL ####[id number] [place] [address] GFR-NON AM. >60 Normal >60 [facility] [place] Comment on above: Performed By: #### R ENAL ####[id number] [place] [address] Glucose [Mass/Vol] 82 mg/dL Normal 74 - 99 [facility] Comment on above: Performed By: #### R ENAL ####[id number] [place] [address] HCO3 (Bld) [Moles/Vol] 21 mmol/L Normal 21 - 32 [facility] Comment on above: Performed By: #### R ENAL ####[id number] [place] [address] Phosphate [Mass/Vol] 4.2 mg/dL Normal 2.5 - 4.9 [facility] Comment on above: Result Comment: The performance characteristics of phosphorus testing in heparinized plasma have been validated by the individual laboratory site where testing is performed. Testing on heparinized plasma is not approved by the FDA; however, such approval is not necessary. Performed By: #### R ENAL ####[id number] [place] [address] Potassium [Moles/Vol] 3.7 mmol/L Normal 3.5 - 5.3 [facility] Comment on above: Performed By: #### R ENAL ####[id number] [place] [address] Sodium [Moles/Vol] 138 mmol/L Normal 136 - 145 [facility] Comment on above: Performed By: #### R ENAL ####[id number] [place] [address] Urea nitrogen [Mass/Vol] 9 mg/dL Normal 6 - 23 [facility] Comment on above: Performed By: #### R ENAL ####[id number] [place] [address] Renal Function Panelon 03-25 Albumin BCP dye [Mass/Vol] 3.5 g/dL 3.4 - 5.0 MT-Hjzhfww-Q [address] Work Phone: Anion gap [Moles/Vol] 13 mmol/L 10 - 20 UR-Nxvspip-K olExit[address] Work Phone: Calcium [Mass/Vol] 8.6 mg/dL 8.6 - 10.6 MG-Nayeli marilynn-B olExit41 [address] Work Phone: Chloride [Moles/Vol] 108 mmol/L above high threshold 98 - 107 KJ-Xfuhjkq-O [address] Work Phone: CO2 [Moles/Vol] 21 mmol/L 21 - 32 MG-Surger y-B [address] Work Phone: Creatinine [Mass/Vol] 0.82 mg/dL See Below UF-Broxqje-P [address] Work Phone: Comment on above: Reference Range: 0.5 0 - 1.05 Glucose [Mass/Vol] 82 mg/dL 74 - 99 MG-Nayeli marilynn-B [address] Work Phone: Phosphate [Mass/Vol] 4.2 mg/dL 2.5 - 4.9 MG-S urgery-B [address] Work Phone: Comment on above: The performance leonel acteristics of phosphorus testing in heparinized plasma have been validated by the individual laboratory site where testing is performed. Testing on heparinized plasma is not approved by the FDA; however, such approval is not necessary. Potassium [Moles/Vol] 3.7 mmol/L 3.5 - 5.3 XE-Izzdqtl-E [address] Work Phone: Sodium [Moles/Vol] 138 mmol/L 136 - 145 MG-Nayeli marilynn-B [address] Work Phone: Urea nitrogen [Mass/Vol] 9 mg/dL 6 - 23 ZR-Vlpaxvo-F [address] Work Phone: Renal Function Panel >60 >60 MG-S urgery-B [address] Work Phone: Comment on above: CALCULATIONS OF IZZY MATED GFR ARE PERFORMED USING THE MDRD STUDY EQUATION FOR THE IDMS-TRACEABLE CREATININE METHODS. CLIN CHEM 2007;53:766-72 CBCon 03-24-2021 Erythrocyte distribution width (RBC) [Ratio] 15.2 % High 11.5 - 14.5 [facility] Comment on above: Performed By: #### C BC ####[id number] [place] [address] Hematocrit (Bld) [Volume fraction] 35.7 % Low 36.0 - 46.0 [facility] Comment on above: Performed By: #### C BC ####[id number] [place] [address] Hemoglobin (Bld) [Mass/Vol] 11.4 g/dL Low 12.0 - 16.0 [facility] Comment on above: Performed By: #### C BC ####[id number] [place] [address] MCHC (RBC) [Mass/Vol] 31.9 g/dL Low 32.0 - 36.0 [facility] Comment on above: Performed By: #### C BC ####[id number] [place] [address] MCV (RBC) [Entitic vol] 85 fL Normal 80 - 100 [facility] Comment on above: Performed By: #### C BC ####[id number] [place] [address] NUCLEATED RBC 0.0 /100 WBC Normal 0.0-0.0 [facility] Comment on above: Performed By: #### C BC ####[id number] [place] [address] Platelets (Bld) [#/Vol] 236 10*3/uL Normal 150 - 450 [facility] Comment on above: Performed By: #### C BC ####[id number] [place] [address] RBC 4.18 x10E12/L Normal 4.00 - 5.20 [facility] Comment on above: Performed By: #### C BC ####[id number] [place] [address] WBC (Bld) [#/Vol] 9.4 10*3/uL Normal 4.4 - 11.3 [facility] Comment on above: Performed By: #### C BC ####[id number] [place] [address] Daily Progress Note-Surgeryo n 03-24-2021 Daily Progress Note-Surgery Normal [facility] HEPATIC FUNCTION PANELon ALT [Catalytic activity/Vol] 15 U/L Normal 7 - 45 [facility] Comment on above: Result Comment: Isabel ents treated with Sulfasalazine may generate falsely decreased results for ALT. Performed By: #### H EPFP ####[id number] [place] [address] AST [Catalytic activity/Vol] 24 U/L Normal 9 - 39 [facility] Comment on above: Performed By: #### H EPFP ####[id number] [place] [address] Bilirubin.indirect [Mass/Vol] 0.1 mg/dL Normal 0.0 - 0.3 [facility] Comment on above: Performed By: #### H EPFP ####[id number] [place] [address] Hepatic Function Panelon ALP [Catalytic activity/Vol] 130 U/L High 33 - 110 EX-Uhxvzhq-V [address] Work Phone: Comment on above: Performed By: #### H EPFP ####[id number] [place] [address] ALT With P-5'-P [Catalytic activity/Vol] 15 U/L 7 - 45 KE-Yosdsjq-D [address] Work Phone: Comment on above: Patients treated wit h Sulfasalazine may generate falsely decreased results for ALT. AST With P-5'-P [Catalytic activity/Vol] 24 U/L 9 - 39 SA-Bnkdauy-J [address] Work Phone: Bilirubin [Mass/Vol] 0.7 mg/dL Normal 0.0 - 1.2 MG-S urgery-B [address] Work Phone: Comment on above: Performed By: #### H EPFP ####[id number] [place] [address] Bilirubin.direct [Mass/Vol] 0.1 mg/dL 0.0 - 0.3 BP-Qwemruo-F [address] Work Phone: Protein [Mass/Vol] 5.7 g/dL Low 6.4 - 8.2 MG-Nayeli marliynn-B [address] Work Phone: Comment on above: Performed By: #### H EPFP ####[id number] [place] [address] Laboratory - Hematology and Cell countson 03-24-2021 Erythrocyte distribution width (RBC) [Ratio] 15.2 % above high threshold See Below WI-Kqvcmza-C [address] Work Phone: [phone] Comment on above: Reference Range: 11. 5 - 14.5 Hematocrit (Bld) [Volume fraction] 35.7 % below low threshold See Below KC-Igibsaw-A [address] Work Phone: [phone] Comment on above: Reference Range: 36. 0 - 46.0 Hemoglobin (Bld) [Mass/Vol] 11.4 g/dL below low threshold See Below WE-Sgzhbeg-G [address] Work Phone: [phone] Comment on above: Reference Range: 12. 0 - 16.0 MCHC (RBC) [Mass/Vol] 31.9 g/dL below low threshold See Below DW-Wleomlm-O [address] Work Phone: [phone] Comment on above: Reference Range: 32. 0 - 36.0 MCV (RBC) [Entitic vol] 85 fL 80 - 100 UI-Lxqulsj-C [address] Work Phone: [phone] Platelets (Bld) [#/Vol] 236 10*3/uL 150 - 450 XB-Btciqpz-T [address] Work Phone: [phone] RBC (Bld) [#/Vol] 4.18 {x10E12/L} See Below MG -Surgery-B [address] Work Phone: Comment on above: Reference Range: 4.0 0 - 5.20 WBC (Bld) [#/Vol] 9.4 10*3/uL 4.4 - 11.3 MG-Nayeli marilynn-B [address] Work Phone: Magnesium, Serumon Magnesium [Mass/Vol] 1.87 mg/dL Normal 1.60 - 2.40 MG- Surgery-B [address] Work Phone: Comment on above: Reference Range: 1.6 0 - 2.40 Performed By: #### M G ####[id number] [id number] No Panel Informationon 03-24 0.0 {/100_WBC} 0.0-0.0 MG-Surgery -B olExit41 [address] Work Phone: RENAL FUNCTION PANELon 03-24 Albumin [Mass/Vol] 3.5 g/dL Normal 3.4 - 5.0 [facility] Comment on above: Performed By: #### R ENAL ####[id number] [place] Performed By: #### H EPFP ####[id number] [id number] GFR- AM. >60 Normal >60 [facility] Comment on above: Result Comment: CALC ULATIONS OF ESTIMATED GFR ARE PERFORMED USING THE MDRD STUDY EQUATION FOR THE IDMS-TRACEABLE CREATININE METHODS. CLIN CHEM 2007;53:766-72 Performed By: #### R ENAL ####[id number] [id number] GFR-NON AM. >60 Normal >60 [facility] [place] Comment on above: Performed By: #### R ENAL ####[id number] [id number] HCO3 (Bld) [Moles/Vol] 20 mmol/L Low 21 - 32 [facility] Comment on above: Performed By: #### R ENAL ####[id number] Renal Function Panelon 03-24 Albumin BCP dye [Mass/Vol] 3.5 g/dL 3.4 - 5.0 TE-Bgaclkz-O olExit41 [address] Work Phone: Anion gap [Moles/Vol] 13 mmol/L Normal 10 - 20 BM-Docabpw-F olExit41 [address] Work Phone: Comment on above: Performed By: #### R ENAL ####[id number] [place] [address] Calcium [Mass/Vol] 8.8 mg/dL Normal 8.6 - 10.6 MG-Nayeli marilynn-B [address] Work Phone: Comment on above: Performed By: #### R ENAL ####[id number] [place] [address] Chloride [Moles/Vol] 107 mmol/L Normal 98 - 107 MG-S urgery-B [address] Work Phone: Comment on above: Performed By: #### R ENAL ####[id number] [place] [address] CO2 [Moles/Vol] 20 mmol/L below low threshold 21 - 32 ZH-Yubjawq-F [address] Work Phone: Creatinine [Mass/Vol] 0.77 mg/dL Normal 0.50 - 1.05 YF-Rkxcvwt-K [address] Work Phone: Comment on above: Reference Range: 0.5 0 - 1.05 Performed By: #### R ENAL ####[id number] [place] [address] Glucose [Mass/Vol] 132 mg/dL High 74 - 99 MG-Nayeli marilynn-B [address] Work Phone: Comment on above: Performed By: #### R ENAL ####[id number] [place] [address] Phosphate [Mass/Vol] 4.2 mg/dL Normal 2.5 - 4.9 MG-S urgery-B [address] Work Phone: Comment on above: The performance leonel acteristics of phosphorus testing in heparinized plasma have been validated by the individual laboratory site where testing is performed. Testing on heparinized plasma is not approved by the FDA; however, such approval is not necessary. Result Comment: The performance characteristics of phosphorus testing in heparinized plasma have been validated by the individual laboratory site where testing is performed. Testing on heparinized plasma is not approved by the FDA; however, such approval is not necessary. Performed By: #### R ENAL ####[id number] [place] [address] Potassium [Moles/Vol] 4.3 mmol/L Normal 3.5 - 5.3 YN-Jhunlvm-C [address] Work Phone: Comment on above: Performed By: #### R ENAL ####[id number] [place] [address] Sodium [Moles/Vol] 136 mmol/L Normal 136 - 145 MG-Nayeli marilynn-B [address] Work Phone: Comment on above: Performed By: #### R ENAL ####[id number] [place] [address] Urea nitrogen [Mass/Vol] 5 mg/dL Low 6 - 23 ET-Kjmpzcf-Z [address] Work Phone: Comment on above: Performed By: #### R ENAL ####[id number] [place] [address] Renal Function Panel >60 >60 MG-S urgery-B [address] Work Phone: Comment on above: CALCULATIONS OF IZZY MATED GFR ARE PERFORMED USING THE MDRD STUDY EQUATION FOR THE IDMS-TRACEABLE CREATININE METHODS. CLIN CHEM 2007;53:766-72 [facility] 03-23-2021 Erythrocyte distribution width (RBC) [Ratio] 15.3 % High 11.5 - 14.5 [facility] Comment on above: Performed By: #### C BC ####[id number] [place] [address] Hematocrit (Bld) [Volume fraction] 33.7 % Low 36.0 - 46.0 [facility] Comment on above: Performed By: #### C BC ####[id number] [place] [address] Hemoglobin (Bld) [Mass/Vol] 10.4 g/dL Low 12.0 - 16.0 [facility] Comment on above: Performed By: #### C BC ####[id number] [place] [address] MCHC (RBC) [Mass/Vol] 30.9 g/dL Low 32.0 - 36.0 [facility] Comment on above: Performed By: #### C BC ####[id number] [place] [address] MCV (RBC) [Entitic vol] 87 fL Normal 80 - 100 [facility] Comment on above: Performed By: #### C BC ####[id number] [place] [address] NUCLEATED RBC 0.0 /100 WBC Normal 0.0-0.0 [facility] Comment on above: Performed By: #### C BC ####[id number] [place] [address] Platelets (Bld) [#/Vol] 135 10*3/uL Low 150 - 450 [facility] Comment on above: Performed By: #### C BC ####[id number] [place] [address] RBC 3.86 x10E12/L Low 4.00 - 5.20 [facility] Comment on above: Performed By: #### C BC ####[id number] [place] [address] WBC (Bld) [#/Vol] 6.9 10*3/uL Normal 4.4 - 11.3 [facility] Comment on above: Performed By: #### C BC ####[id number] [place] [address] COAGULATION SCREENon 021 aPTT Coag (Bld) [Time] 24 s Low 26 - 39 [facility] Comment on above: Result Comment: Note new reference range as of 03/22/2021 at 10:00am. Performed By: #### C OAGS ####[id number] [place] [address] PT Coag (PPP) [Time] 12.7 s Normal 9.8 - 13.4 MG-S [employer] Work Phone: Comment on above: Note new reference r deon as of 03/22/2021 at 10:00am. Result Comment: Note new reference range as of 03/22/2021 at 10:00am. Performed By: #### C OAGS ####[id number] [place] [address] PT, INR 1.1 Normal 0.9 - 1.1 [facility] Comment on above: Performed By: #### C OAGS ####[id number] [place] [address] Clinical Event Note-Post op checkon 03-23-2021 Clinical Event Note-Post op check Normal [facility] Daily Progress Note-Surgeryo n 03-23-2021 Daily Progress Note-Surgery Normal [facility] Laboratory - Coagulationon 1 05-24-2020 aPTT Coag (PPP) [Time] 24 s below low threshold 26 - 39 LU-Yikyrrh-V [address] Work Phone: Comment on above: Note new reference r deon as of 03/22/2021 at 10:00am. INR Coag (PPP) [Relative time] 1.1 {INR} 0.9 - 1.1 TV-Itmytbk-A [address] Work Phone: Laboratory - Hematology and Cell countson 03-23-2021 Erythrocyte distribution width (RBC) [Ratio] 15.3 % above high threshold See Below IE-Gkmpswp-H [address] Work Phone: Comment on above: Reference Range: 11. 5 - 14.5 Hematocrit (Bld) [Volume fraction] 33.7 % below low threshold See Below UN-Qwynxfp-H [address] Work Phone: Comment on above: Reference Range: 36. 0 - 46.0 Hemoglobin (Bld) [Mass/Vol] 10.4 g/dL below low threshold See Below SC-Rryhzti-H [address] Work Phone: Comment on above: Reference Range: 12. 0 - 16.0 MCHC (RBC) [Mass/Vol] 30.9 g/dL below low threshold See Below MM-Mzsxxyh-Q [address] Work Phone: Comment on above: Reference Range: 32. 0 - 36.0 MCV (RBC) [Entitic vol] 87 fL 80 - 100 UQ-Wvwhlbt-L [address] Work Phone: Platelets (Bld) [#/Vol] 135 10*3/uL below low threshold 150 - 450 VO-Jbbvkhm-M [address] Work Phone: [phone] RBC (Bld) [#/Vol] 3.86 {x10E12/L} below low threshold See Below ZF-Igjcjha-E [address] Work Phone: Comment on above: Reference Range: 4.0 0 - 5.20 WBC (Bld) [#/Vol] 6.9 10*3/uL 4.4 - 11.3 MG-Nayeli marilynn-B [address] Work Phone: MAGNESIUMon 03-23-2021 Magnesium [Mass/Vol] 1.94 mg/dL Normal 1.60 - 2.40 [facility] Comment on above: Performed By: #### M G ####[id number] [place] [address] Magnesium, Serumon Magnesium [Mass/Vol] 1.94 mg/dL See Below MG-S urgery-B [address] Work Phone: Comment on above: Reference Range: 1.6 0 - 2.40 No Panel Informationon 03-23 0.0 {/100_WBC} 0.0-0.0 MG-Surgery -B [address] Work Phone: [email or web address] [id number] PR-Uozfrda-L [address] Work Phone: SU-Tjymnzw-X [address] Work Phone: RENAL FUNCTION PANELon 03-23 Albumin [Mass/Vol] 3.3 g/dL Low 3.4 - 5.0 [facility] Comment on above: Performed By: #### R ENAL ####[id number] [place] [address] Anion gap [Moles/Vol] 14 mmol/L Normal 10 - 20 [facility] Comment on above: Performed By: #### R ENAL ####[id number] [place] [address] Calcium [Mass/Vol] 8.4 mg/dL Low 8.6 - 10.6 [facility] Comment on above: Performed By: #### R ENAL ####[id number] [place] [address] Chloride [Moles/Vol] 105 mmol/L Normal 98 - 107 [facility] Comment on above: Performed By: #### R ENAL ####[id number] [place] [address] Creatinine [Mass/Vol] 0.84 mg/dL Normal 0.50 - 1.05 [facility] Comment on above: Performed By: #### R ENAL ####[id number] [place] [address] GFR- AM. >60 Normal >60 [facility] Comment on above: Result Comment: CALC ULATIONS OF ESTIMATED GFR ARE PERFORMED USING THE MDRD STUDY EQUATION FOR THE IDMS-TRACEABLE CREATININE METHODS. CLIN CHEM 2007;53:766-72 Performed By: #### R ENAL ####[id number] [place] [address] GFR-NON AM. >60 Normal >60 [facility] [place] Comment on above: Performed By: #### R ENAL ####[id number] [place] [address] Glucose [Mass/Vol] 88 mg/dL Normal 74 - 99 [facility] Comment on above: Performed By: #### R ENAL ####[id number] [place] [address] HCO3 (Bld) [Moles/Vol] 19 mmol/L Low 21 - 32 [facility] Comment on above: Performed By: #### R ENAL ####[id number] [place] [address] Phosphate [Mass/Vol] 3.4 mg/dL Normal 2.5 - 4.9 [facility] Comment on above: Result Comment: The performance characteristics of phosphorus testing in heparinized plasma have been validated by the individual laboratory site where testing is performed. Testing on heparinized plasma is not approved by the FDA; however, such approval is not necessary. Performed By: #### R ENAL ####[id number] [place] [address] Potassium [Moles/Vol] 3.7 mmol/L Normal 3.5 - 5.3 [facility] Comment on above: Performed By: #### R ENAL ####[id number] [place] [address] Sodium [Moles/Vol] 134 mmol/L Low 136 - 145 [facility] Comment on above: Performed By: #### R ENAL ####[id number] [place] [address] Urea nitrogen [Mass/Vol] 7 mg/dL Normal 6 - 23 [facility] Comment on above: Performed By: #### R ENAL ####[id number] [place] [address] Renal Function Panelon 03-23 Albumin BCP dye [Mass/Vol] 3.3 g/dL below low threshold 3.4 - 5.0 PS-Pauephl-S [place] 2100 Work Phone: Anion gap [Moles/Vol] 14 mmol/L 10 - 20 HH-Kxudhak-U [place] 2100 Work Phone: Calcium [Mass/Vol] 8.4 mg/dL below low threshold 8.6 - 10.6 QW-Nycsata-G [place] 2099 Work Phone: Chloride [Moles/Vol] 105 mmol/L 98 - 107 MG-S urgery-B [place] 2100 Work Phone: CO2 [Moles/Vol] 19 mmol/L below low threshold 21 - 32 SV-Dhwwaai-I [place] 2100 Work Phone: Creatinine [Mass/Vol] 0.84 mg/dL See Below IU-Jsiumtp-L olwell 2099 Work Phone: Comment on above: Reference Range: 0.5 0 - 1.05 Glucose [Mass/Vol] 88 mg/dL 74 - 99 MG-Nayeli marilynn-B [place] 2099 Work Phone: Phosphate [Mass/Vol] 3.4 mg/dL 2.5 - 4.9 MG-S urgery-B [place] 2099 Work Phone: Comment on above: The performance leonel acteristics of phosphorus testing in heparinized plasma have been validated by the individual laboratory site where testing is performed. Testing on heparinized plasma is not approved by the FDA; however, such approval is not necessary. Potassium [Moles/Vol] 3.7 mmol/L 3.5 - 5.3 GV-Aggtjar-P [place] 2099 Work Phone: Sodium [Moles/Vol] 134 mmol/L below low threshold 136 - 145 QN-Iysetqk-O [place] 2099 Work Phone: Urea nitrogen [Mass/Vol] 7 mg/dL 6 - 23 IC-Rvnsibb-X [place] 2099 Work Phone: Renal Function Panel >60 >60 MG-S urgery-B [place] 2099 Work Phone: Comment on above: CALCULATIONS OF IZZY MATED GFR ARE PERFORMED USING THE MDRD STUDY EQUATION FOR THE IDMS-TRACEABLE CREATININE METHODS. CLIN CHEM 2007;53:766-72 AMYLASE,FLUIDon 03-22-2021 AMYLASE,FLUID 21 U/L Normal [facility] Comment on above: Result Comment: REF VALUENOT ESTABLISHEDThe performance characteristics of this test have beenvalidated by the performing [facility] laboratory. This test has not been approved by theFDA; however, such approval is not necessary. Performed By: #### A MYFD ####[id number] [place] [address] Amylase, Body Fluidon 2020 Amylase (Body fld) [Catalytic activity/Vol] 21 U/L KU-Udsruml-L [place] 2100 Work Phone: Comment on above: SOURCE: Peritoneal f luid /ascitesREF VALUENOT ESTABLISHEDThe performance characteristics of this test have beenvalidated by the [facility] laboratory. This test has not been approved by the FDA; however, such approval is not necessary. CBCon 03-22-2021 Erythrocyte distribution width (RBC) [Ratio] 15.3 % High 11.5 - 14.5 [facility] Comment on above: Performed By: #### C BC ####[id number] [place] [address] Hematocrit (Bld) [Volume fraction] 31.9 % Low 36.0 - 46.0 [facility] Comment on above: Performed By: #### C BC ####[id number] [place] [address] Hemoglobin (Bld) [Mass/Vol] 10.4 g/dL Low 12.0 - 16.0 [facility] Comment on above: Performed By: #### C BC ####[id number] [place] [address] MCHC (RBC) [Mass/Vol] 32.6 g/dL Normal 32.0 - 36.0 [facility] Comment on above: Performed By: #### C BC ####[id number] [place] [address] MCV (RBC) [Entitic vol] 84 fL Normal 80 - 100 [facility] Comment on above: Performed By: #### C BC ####[id number] [place] [address] NUCLEATED RBC 0.0 /100 WBC Normal 0.0-0.0 [facility] Comment on above: Performed By: #### C BC ####[id number] [place] [address] Platelets (Bld) [#/Vol] 217 10*3/uL Normal 150 - 450 [facility] Comment on above: Performed By: #### C BC ####[id number] [place] [address] RBC 3.79 x10E12/L Low 4.00 - 5.20 [facility] Comment on above: Performed By: #### C BC ####[id number] WBC (Bld) [#/Vol] 7.1 10*3/uL Normal 4.4 - 11.3 [facility] Comment on above: Performed By: #### C BC ####[id number] [place] [address] Consult-Painon 03-22-2021 Consult-Pain Normal [facility] Cult, Body Fluid, + smearon 03-22-2021 Bacteria identified Cx Nom (Body fld) TA-Etthnuv-L olExit41 2100 Work Phone: Daily Progress Note-Surgeryo n 03-22-2021 Daily Progress Note-Surgery Normal [facility] FLUID CULTURE/SM.,BACTERIALo n 03-22-2021 FLUID CULTURE/SM.,BACTERIA L Normal [facility] Comment on above: Performed By: #### F LUID ####[id number] IMAGE GUIDED DRAIN COLLECTIO N PERITONEAL OR RETROPERITONEAL PERCUTANEOUSon 03-22-2021 IMAGE GUIDED DRAIN COLLECTION PERITONEAL OR RETROPERITONEAL PERCUTANEOUS Normal [facility] Image Guided Drain Collectio n Peritoneal Or Retroperitoneal Percutaneouson 03-22-2021 CT Guidance for drainage and placement of drainage catheter of Retroperitoneum Normal HP-Xbrfxoo-Z [place] 2100 Work Phone: Laboratory - Hematology and Cell countson 03-22-2021 Erythrocyte distribution width (RBC) [Ratio] 15.3 % above high threshold See Below SA-Nkazsvc-V [place] 2100 Work Phone: Comment on above: Reference Range: 11. 5 - 14.5 Hematocrit (Bld) [Volume fraction] 31.9 % below low threshold See Below DB-Zjevqbt-Y [place] 2100 Work Phone: Comment on above: Reference Range: 36. 0 - 46.0 Hemoglobin (Bld) [Mass/Vol] 10.4 g/dL below low threshold See Below DL-Dltyxul-J [place] 2100 Work Phone: Comment on above: Reference Range: 12. 0 - 16.0 MCHC (RBC) [Mass/Vol] 32.6 g/dL See Below TI-Noxoyxs-F [place] 2100 Work Phone: Comment on above: Reference Range: 32. 0 - 36.0 MCV (RBC) [Entitic vol] 84 fL 80 - 100 HZ-Avfphyn-Z [place] 2100 Work Phone: [phone] Platelets (Bld) [#/Vol] 217 10*3/uL 150 - 450 MH-Soufpwt-O [place] 2100 Work Phone: [phone] RBC (Bld) [#/Vol] 3.79 {x10E12/L} below low threshold See Below CB-Rmonbcb-H [place] 2099 Work Phone: Comment on above: Reference Range: 4.0 0 - 5.20 WBC (Bld) [#/Vol] 7.1 10*3/uL 4.4 - 11.3 MG-Nayeli marilynn-B [place] 2099 Work Phone: No Panel Informationon 03-22 0.0 {/100_WBC} 0.0-0.0 MG-Surgery -B [place] 2100 Work Phone: 9.8 mg/dL UF-Mzsjkcm-M [place] 2100 Work Phone: Comment on above: SOURCE: Peritoneal f luid /ascitesREF VALUENOT ESTABLISHEDThe performance characteristics of this test have beenvalidated by the [facility] laboratory. This test has not been approved by the FDA; however, such approval is not necessary. Nutrition Therapy-Assessment on 03-22-2021 Nutrition Therapy-Assessment Normal [facility] RENAL FUNCTION PANELon 03-22 Albumin [Mass/Vol] 3.3 g/dL Low 3.4 - 5.0 [facility] Comment on above: Performed By: #### R ENAL ####[id number] [place] [address] Anion gap [Moles/Vol] 12 mmol/L Normal 10 - 20 [facility] Comment on above: Performed By: #### R ENAL ####[id number] [place] [address] Calcium [Mass/Vol] 8.3 mg/dL Low 8.6 - 10.6 [facility] Comment on above: Performed By: #### R ENAL ####[id number] [place] [address] Chloride [Moles/Vol] 107 mmol/L Normal 98 - 107 [facility] Comment on above: Performed By: #### R ENAL ####[id number] [place] [address] Creatinine [Mass/Vol] 0.74 mg/dL Normal 0.50 - 1.05 [facility] Comment on above: Performed By: #### R ENAL ####[id number] [place] [address] GFR- AM. >60 Normal >60 [facility] Comment on above: Result Comment: CALC ULATIONS OF ESTIMATED GFR ARE PERFORMED USING THE MDRD STUDY EQUATION FOR THE IDMS-TRACEABLE CREATININE METHODS. CLIN CHEM 2007;53:766-72 Performed By: #### R ENAL ####[id number] [place] [address] GFR-NON AM. >60 Normal >60 [facility] [place] Comment on above: Performed By: #### R ENAL ####[id number] [place] [address] Glucose [Mass/Vol] 98 mg/dL Normal 74 - 99 [facility] Comment on above: Performed By: #### R ENAL ####[id number] [place] [address] HCO3 (Bld) [Moles/Vol] 21 mmol/L Normal 21 - 32 [facility] Comment on above: Performed By: #### R ENAL ####[id number] [place] [address] Phosphate [Mass/Vol] 3.7 mg/dL Normal 2.5 - 4.9 [facility] Comment on above: Result Comment: The performance characteristics of phosphorus testing in heparinized plasma have been validated by the individual laboratory site where testing is performed. Testing on heparinized plasma is not approved by the FDA; however, such approval is not necessary. Performed By: #### R ENAL ####[id number] [place] [address] Potassium [Moles/Vol] 3.5 mmol/L Normal 3.5 - 5.3 [facility] Comment on above: Performed By: #### R ENAL ####[id number] [place] [address] Sodium [Moles/Vol] 136 mmol/L Normal 136 - 145 [facility] Comment on above: Performed By: #### R ENAL ####[id number] [place] [address] Urea nitrogen [Mass/Vol] 7 mg/dL Normal 6 - 23 [facility] Comment on above: Performed By: #### R ENAL ####[id number] [place] [address] Renal Function Panelon 03-22 Albumin BCP dye [Mass/Vol] 3.3 g/dL below low threshold 3.4 - 5.0 KV-Jaeuawa-L [place] 2100 Work Phone: Anion gap [Moles/Vol] 12 mmol/L 10 - 20 CF-Jeakbny-G [place] 2100 Work Phone: Calcium [Mass/Vol] 8.3 mg/dL below low threshold 8.6 - 10.6 GL-Atwmyzk-N [place] 2100 Work Phone: Chloride [Moles/Vol] 107 mmol/L 98 - 107 MG-S urgery-B [place] 2100 Work Phone: CO2 [Moles/Vol] 21 mmol/L 21 - 32 MG-Surger y-B [place] 2100 Work Phone: Creatinine [Mass/Vol] 0.74 mg/dL See Below AD-Rorfsul-O [place] 2100 Work Phone: Comment on above: Reference Range: 0.5 0 - 1.05 Glucose [Mass/Vol] 98 mg/dL 74 - 99 MG-Nayeli marilynn-B [place] 2100 Work Phone: Phosphate [Mass/Vol] 3.7 mg/dL 2.5 - 4.9 MG-S urgery-B [place] 2099 Work Phone: Comment on above: The performance leonel acteristics of phosphorus testing in heparinized plasma have been validated by the individual laboratory site where testing is performed. Testing on heparinized plasma is not approved by the FDA; however, such approval is not necessary. Potassium [Moles/Vol] 3.5 mmol/L 3.5 - 5.3 LI-Gbsddbo-V [place] 2099 Work Phone: Sodium [Moles/Vol] 136 mmol/L 136 - 145 MG-Nayeli marilynn-B [place] 2099 Work Phone: Urea nitrogen [Mass/Vol] 7 mg/dL 6 - 23 WJ-Hmlybcu-G [place] 2099 Work Phone: Renal Function Panel >60 >60 MG-S urgery-B [place] 2099 Work Phone: Comment on above: CALCULATIONS OF IZZY MATED GFR ARE PERFORMED USING THE MDRD STUDY EQUATION FOR THE IDMS-TRACEABLE CREATININE METHODS. CLIN CHEM 2007;53:766-72 TOTAL BILI, FLUIDon 03-22-20 21 Lab Specimen Source Peritoneal fluid /ascites Normal [facility] Comment on above: Performed By: #### T BFD ####[id number] [place] [address] Performed By: #### A MYFD ####[id number] [place] [address] TOTAL BILI, FLUID 9.8 mg/dL Normal [facility] Comment on above: Result Comment: REF VALUENOT ESTABLISHEDThe performance characteristics of this test have beenvalidated by the performing [facility] laboratory. This test has not been approved by theFDA; however, such approval is not necessary. Performed By: #### T BFD ####[id number] [place] [address] CBCon 03-21-2021 Erythrocyte distribution width (RBC) [Ratio] 15.0 % High 11.5 - 14.5 [facility] Comment on above: Performed By: #### C BC ####[id number] [place] [address] Hematocrit (Bld) [Volume fraction] 33.4 % Low 36.0 - 46.0 [facility] Comment on above: Performed By: #### C BC ####[id number] [place] [address] Hemoglobin (Bld) [Mass/Vol] 11.0 g/dL Low 12.0 - 16.0 [facility] Comment on above: Performed By: #### C BC ####[id number] [place] [address] MCHC (RBC) [Mass/Vol] 32.9 g/dL Normal 32.0 - 36.0 [facility] Comment on above: Performed By: #### C BC ####[id number] [place] [address] MCV (RBC) [Entitic vol] 84 fL Normal 80 - 100 [facility] Comment on above: Performed By: #### C BC ####[id number] [place] [address] NUCLEATED RBC 0.0 /100 WBC Normal 0.0-0.0 [facility] Comment on above: Performed By: #### C BC ####[id number] [place] [address] Platelets (Bld) [#/Vol] 235 10*3/uL Normal 150 - 450 [facility] Comment on above: Performed By: #### C BC ####[id number] [place] [address] RBC 3.97 x10E12/L Low 4.00 - 5.20 [facility] Comment on above: Performed By: #### C BC ####[id number] [place] [address] WBC (Bld) [#/Vol] 6.9 10*3/uL Normal 4.4 - 11.3 [facility] Comment on above: Performed By: #### C BC ####[id number] [place] [address] Daily Progress Note-Surgeryo n 03-21-2021 Daily Progress Note-Surgery Normal [facility] Discharge Planning Xrby3in 1 05-21-2020 Discharge Planning Note2 Normal [facility] GI ESOPHAGRAMon 03-21-2021 GI ESOPHAGRAM Normal [facility] HEPATIC FUNCTION PANELon Albumin [Mass/Vol] 3.4 g/dL Normal 3.4 - 5.0 [facility] Comment on above: Performed By: #### H EPFP ####[id number] [place] [address] Performed By: #### R ENAL ####[id number] [place] [address] ALP [Catalytic activity/Vol] 106 U/L Normal 33 - 110 [facility] Comment on above: Performed By: #### H EPFP ####[id number] [place] [address] ALT [Catalytic activity/Vol] 9 U/L Normal 7 - 45 [facility] Comment on above: Result Comment: Isabel ents treated with Sulfasalazine may generate falsely decreased results for ALT. Performed By: #### H EPFP ####[id number] [place] [address] AST [Catalytic activity/Vol] 16 U/L Normal 9 - 39 [facility] Comment on above: Performed By: #### H EPFP ####[id number] [place] [address] Bilirubin [Mass/Vol] 0.9 mg/dL Normal 0.0 - 1.2 [facility] Comment on above: Performed By: #### H EPFP ####[id number] [place] [address] Bilirubin.indirect [Mass/Vol] 0.2 mg/dL Normal 0.0 - 0.3 [facility] Comment on above: Performed By: #### H EPFP ####[id number] [place] [address] Protein [Mass/Vol] 5.6 g/dL Low 6.4 - 8.2 [facility] Comment on above: Performed By: #### H EPFP ####[id number] [place] [address] Hepatic Function Panelon ALP [Catalytic activity/Vol] 106 U/L 33 - 110 CE-Ssjpynl-V [place] 2099 Work Phone: [phone] ALT With P-5'-P [Catalytic activity/Vol] 9 U/L 7 - 45 ST-Qnmplwa-J olwell 2099 Work Phone: [phone] Comment on above: Patients treated wit h Sulfasalazine may generate falsely decreased results for ALT. AST With P-5'-P [Catalytic activity/Vol] 16 U/L 9 - 39 WH-Zawghim-F olwell 2099 Work Phone: [phone] Bilirubin [Mass/Vol] 0.9 mg/dL 0.0 - 1.2 MG-S urgery-B olwell 2099 Work Phone: [phone] Bilirubin.direct [Mass/Vol] 0.2 mg/dL 0.0 - 0.3 RX-Fjgqysv-H olwell 2099 Work Phone: [phone] Protein [Mass/Vol] 5.6 g/dL below low threshold 6.4 - 8.2 PO-Cqiwnjc-I olwell 2099 Work Phone: [phone] Laboratory - Hematology and Cell countson 03-21-2021 Erythrocyte distribution width (RBC) [Ratio] 15.0 % above high threshold See Below AL-Xzbrtwa-L olwell 2099 Work Phone: [phone] Comment on above: Reference Range: 11. 5 - 14.5 Hematocrit (Bld) [Volume fraction] 33.4 % below low threshold See Below PR-Eixjddx-A olwell 2099 Work Phone: Comment on above: Reference Range: 36. 0 - 46.0 Hemoglobin (Bld) [Mass/Vol] 11.0 g/dL below low threshold See Below XM-Nscqzcg-G olwell 2099 Work Phone: Comment on above: Reference Range: 12. 0 - 16.0 MCHC (RBC) [Mass/Vol] 32.9 g/dL See Below IN-Ktrstls-Q olwell 2100 Work Phone: [phone] Comment on above: Reference Range: 32. 0 - 36.0 MCV (RBC) [Entitic vol] 84 fL 80 - 100 NJ-Hbpkezx-F olwell 2100 Work Phone: [phone] Platelets (Bld) [#/Vol] 235 10*3/uL 150 - 450 MF-Siolncx-G olwell 2100 Work Phone: [phone] RBC (Bld) [#/Vol] 3.97 {x10E12/L} below low threshold See Below GW-Qywcxrd-N olwell 2099 Work Phone: Comment on above: Reference Range: 4.0 0 - 5.20 WBC (Bld) [#/Vol] 6.9 10*3/uL 4.4 - 11.3 MG-Nayeli marilynn-B olwell 2099 Work Phone: [phone] MAGNESIUMon 03-21-2021 Magnesium [Mass/Vol] 1.68 mg/dL Normal 1.60 - 2.40 [facility] Comment on above: Performed By: #### M G ####[id number] [place] [address] Magnesium, Serumon Magnesium [Mass/Vol] 1.68 mg/dL See Below MG-S urgery-B olwell 2099 Work Phone: [phone] Comment on above: Reference Range: 1.6 0 - 2.40 No Panel Informationon 03-21 0.0 {/100_WBC} 0.0-0.0 MG-Surgery -B olwell 2100 Work Phone: RENAL FUNCTION PANELon 03-21 Anion gap [Moles/Vol] 16 mmol/L Normal 10 - 20 [facility] Comment on above: Performed By: #### R ENAL ####[id number] [place] [address] Calcium [Mass/Vol] 8.6 mg/dL Normal 8.6 - 10.6 [facility] Comment on above: Performed By: #### R ENAL ####[id number] [place] [address] Chloride [Moles/Vol] 107 mmol/L Normal 98 - 107 [facility] Comment on above: Performed By: #### R ENAL ####[id number] [place] [address] Creatinine [Mass/Vol] 0.69 mg/dL Normal 0.50 - 1.05 [facility] Comment on above: Performed By: #### R ENAL ####[id number] [place] [address] GFR- AM. >60 Normal >60 [facility] Comment on above: Result Comment: CALC ULATIONS OF ESTIMATED GFR ARE PERFORMED USING THE MDRD STUDY EQUATION FOR THE IDMS-TRACEABLE CREATININE METHODS. CLIN CHEM 2007;53:766-72 Performed By: #### R ENAL ####[id number] [place] [address] GFR-NON AM. >60 Normal >60 [facility] [place] Comment on above: Performed By: #### R ENAL ####[id number] [place] [address] Glucose [Mass/Vol] 89 mg/dL Normal 74 - 99 [facility] Comment on above: Performed By: #### R ENAL ####[id number] [place] [address] HCO3 (Bld) [Moles/Vol] 19 mmol/L Low 21 - 32 [facility] Comment on above: Performed By: #### R ENAL ####[id number] [place] [address] Phosphate [Mass/Vol] 3.7 mg/dL Normal 2.5 - 4.9 [facility] Comment on above: Result Comment: The performance characteristics of phosphorus testing in heparinized plasma have been validated by the individual laboratory site where testing is performed. Testing on heparinized plasma is not approved by the FDA; however, such approval is not necessary. Performed By: #### R ENAL ####[id number] [place] [address] Potassium [Moles/Vol] 3.5 mmol/L Normal 3.5 - 5.3 [facility] Comment on above: Performed By: #### R ENAL ####[id number] [place] [address] Sodium [Moles/Vol] 138 mmol/L Normal 136 - 145 [facility] Comment on above: Performed By: #### R ENAL ####[id number] [place] [address] Urea nitrogen [Mass/Vol] 5 mg/dL Low 6 - 23 [facility] Comment on above: Performed By: #### R ENAL ####[id number] [place] [address] Radiologyon 03-21-2021 XR Esophagus Views W contrast PO Normal FS-Vshyhez-Y olwell 2099 Work Phone: Renal Function Panelon 03-21 Albumin BCP dye [Mass/Vol] 3.4 g/dL 3.4 - 5.0 KO-Aqgycks-S olwell 2099 Work Phone: Anion gap [Moles/Vol] 16 mmol/L 10 - 20 KP-Euayikr-K olwell 2099 Work Phone: Calcium [Mass/Vol] 8.6 mg/dL 8.6 - 10.6 MG-Nayeli marilynn-B olwell 2099 Work Phone: Chloride [Moles/Vol] 107 mmol/L 98 - 107 MG-S urgery-B olwell 2099 Work Phone: CO2 [Moles/Vol] 19 mmol/L below low threshold 21 - 32 FY-Wintity-G olwell 2099 Work Phone: Creatinine [Mass/Vol] 0.69 mg/dL See Below YW-Noyfcll-E olwell 2099 Work Phone: Comment on above: Reference Range: 0.5 0 - 1.05 Glucose [Mass/Vol] 89 mg/dL 74 - 99 MG-Nayeli marilynn-B olwell 2100 Work Phone: Phosphate [Mass/Vol] 3.7 mg/dL 2.5 - 4.9 MG-S urgery-B olwell 2100 Work Phone: Comment on above: The performance leonel acteristics of phosphorus testing in heparinized plasma have been validated by the individual laboratory site where testing is performed. Testing on heparinized plasma is not approved by the FDA; however, such approval is not necessary. Potassium [Moles/Vol] 3.5 mmol/L 3.5 - 5.3 EN-Cqsleeb-P olwell 2100 Work Phone: Sodium [Moles/Vol] 138 mmol/L 136 - 145 MG-Nayeli marilynn-B olwell 2100 Work Phone: Urea nitrogen [Mass/Vol] 5 mg/dL below low threshold 6 - 23 ZA-Avjebgb-N olwell 2100 Work Phone: Renal Function Panel >60 >60 MG-S urgery-B olwell 2099 Work Phone: Comment on above: CALCULATIONS OF IZZY MATED GFR ARE PERFORMED USING THE MDRD STUDY EQUATION FOR THE IDMS-TRACEABLE CREATININE METHODS. CLIN CHEM 2007;53:766-72 Admission Risk Screen - Adul ton 03-20-2021 Admission Risk Screen - Adult Normal [facility] BD CT CHEST ABDOMEN PELVIS W IV CONTRASTon 03-20-[address] CHEST ABDOMEN PELVIS W IV CONTRAST Normal [facility] CBC AND DIFFERENTIALon 03-20 % AUTOMATED IMMATURE GRAN 0.5 % Normal 0.0 - 0.9 [facility] Comment on above: Result Comment: Sheila ture Granulocyte Count (IG) includes promyelocytes, myelocytes and metamyelocytes but does not include bands. Percent differential counts (%) should be interpreted in the context of the absolute cell counts (cells/L). Performed By: #### C BCDF ####[id number] [place] [address] Basophils (Bld) [#/Vol] 0.04 10*3/uL Normal 0.00 - 0.10 [facility] Comment on above: Performed By: #### C BCDF ####[id number] [place] [address] Basophils/100 WBC (Bld) 0.4 % Normal 0.0 - 2.0 [facility] Comment on above: Performed By: #### C BCDF ####[id number] [place] [address] Eosinophils (Bld) [#/Vol] 0.12 10*3/uL Normal 0.00 - 0.70 [facility] Comment on above: Performed By: #### C BCDF ####[id number] [place] [address] Eosinophils/100 WBC (Bld) 1.3 % Normal 0.0 - 6.0 [facility] Comment on above: Performed By: #### C BCDF ####[id number] [place] [address] Erythrocyte distribution width (RBC) [Ratio] 14.6 % High 11.5 - 14.5 [facility] Comment on above: Performed By: #### C BCDF ####[id number] [place] [address] Hematocrit (Bld) [Volume fraction] 39.2 % Normal 36.0 - 46.0 [facility] Comment on above: Performed By: #### C BCDF ####[id number] [place] [address] Hemoglobin (Bld) [Mass/Vol] 12.1 g/dL Normal 12.0 - 16.0 [facility] Comment on above: Performed By: #### C BCDF ####[id number] [place] [address] Lymphocytes (Bld) [#/Vol] 1.42 10*3/uL Normal 1.20 - 4.80 [facility] Comment on above: Performed By: #### C BCDF ####[id number] [place] [address] Lymphocytes/100 WBC (Bld) 15.5 % Normal 13.0 - 44.0 [facility] Comment on above: Performed By: #### C BCDF ####[id number] [place] [address] MCHC (RBC) [Mass/Vol] 30.9 g/dL Low 32.0 - 36.0 [facility] Comment on above: Performed By: #### C BCDF ####[id number] [place] [address] MCV (RBC) [Entitic vol] 85 fL Normal 80 - 100 [facility] Comment on above: Performed By: #### C BCDF ####[id number] [place] [address] Monocytes (Bld) [#/Vol] 0.68 10*3/uL Normal 0.10 - 1.00 [facility] Comment on above: Performed By: #### C BCDF ####[id number] [place] [address] Monocytes/100 WBC (Bld) 7.4 % Normal 2.0 - 10.0 [facility] Comment on above: Performed By: #### C BCDF ####[id number] [place] [address] Neutrophils (Bld) [#/Vol] 6.88 10*3/uL Normal 1.20 - 7.70 [facility] Comment on above: Performed By: #### C BCDF ####[id number] [place] [address] Neutrophils/100 WBC (Bld) 74.9 % Normal 40.0 - 80.0 [facility] Comment on above: Performed By: #### C BCDF ####[id number] [place] [address] NUCLEATED RBC 0.0 /100 WBC Normal 0.0-0.0 [facility] Comment on above: Performed By: #### C BCDF ####[id number] [place] [address] Platelets (Bld) [#/Vol] 317 10*3/uL Normal 150 - 450 [facility] Comment on above: Performed By: #### C BCDF ####[id number] [place] [address] RBC 4.61 x10E12/L Normal 4.00 - 5.20 [facility] Comment on above: Performed By: #### C BCDF ####[id number] [place] [address] WBC (Bld) [#/Vol] 9.2 10*3/uL Normal 4.4 - 11.3 [facility] Comment on above: Performed By: #### C BCDF ####[id number] [place] [address] COMPREHENSIVE PANELon 2020 Albumin [Mass/Vol] 4.2 g/dL Normal 3.4 - 5.0 [facility] Comment on above: Performed By: #### C MP ####[id number] [place] [address] ALP [Catalytic activity/Vol] 133 U/L High 33 - 110 [facility] Comment on above: Performed By: #### C MP ####[id number] [place] [address] ALT [Catalytic activity/Vol] 10 U/L Normal 7 - 45 [facility] Comment on above: Result Comment: Isabel ents treated with Sulfasalazine may generate falsely decreased results for ALT. Performed By: #### C MP ####[id number] [place] [address] Anion gap [Moles/Vol] 22 mmol/L High 10 - 20 [facility] Comment on above: Performed By: #### C MP ####[id number] [place] [address] AST [Catalytic activity/Vol] 14 U/L Normal 9 - 39 [facility] Comment on above: Performed By: #### C MP ####[id number] [place] [address] Bilirubin [Mass/Vol] 1.2 mg/dL Normal 0.0 - 1.2 [facility] Comment on above: Performed By: #### C MP ####[id number] [place] [address] Calcium [Mass/Vol] 8.8 mg/dL Normal 8.6 - 10.6 [facility] Comment on above: Performed By: #### C MP ####[id number] [place] [address] Chloride [Moles/Vol] 106 mmol/L Normal 98 - 107 [facility] Comment on above: Performed By: #### C MP ####[id number] [place] [address] Creatinine [Mass/Vol] 0.72 mg/dL Normal 0.50 - 1.05 [facility] Comment on above: Performed By: #### C MP ####[id number] [place] [address] GFR- AM. >60 Normal >60 [facility] Comment on above: Result Comment: CALC ULATIONS OF ESTIMATED GFR ARE PERFORMED USING THE MDRD STUDY EQUATION FOR THE IDMS-TRACEABLE CREATININE METHODS. CLIN CHEM 2007;53:766-72 Performed By: #### C MP ####[id number] [place] [address] GFR-NON AM. >60 Normal >60 [facility] [place] Comment on above: Performed By: #### C MP ####[id number] [place] [address] Glucose [Mass/Vol] 107 mg/dL High 74 - 99 [facility] Comment on above: Performed By: #### C MP ####[id number] [place] [address] HCO3 (Bld) [Moles/Vol] 13 mmol/L Low 21 - 32 [facility] Comment on above: Performed By: #### C MP ####[id number] [place] [address] Potassium [Moles/Vol] 3.4 mmol/L Low 3.5 - 5.3 [facility] Comment on above: Performed By: #### C MP ####[id number] [place] [address] Protein [Mass/Vol] 6.6 g/dL Normal 6.4 - 8.2 [facility] Comment on above: Performed By: #### C MP ####[id number] [id number] Sodium [Moles/Vol] 138 mmol/L Normal 136 - 145 [facility] Comment on above: Performed By: #### C MP ####[id number] [id number] Urea nitrogen [Mass/Vol] 6 mg/dL Normal 6 - 23 [facility] Comment on above: Performed By: #### C MP ####[id number] [id number] CORONAVIRUS 2019 BY PCRon DATE OF SYMPTOM ONSET [YYYYMMDD]? [id number] Normal [facility] Comment on above: Performed By: #### C OV19 ####[id number] [place] [address] Lab Specimen Source Nasal, Nasopharyngeal Normal [facility] Comment on above: Performed By: #### C OV19 ####[id number] [place] [address] SARS-CoV-2 (COVID-19) RNA REGINA+probe Ql (Unsp spec) Not detected Normal Not Detected [facility] Comment on above: Result Comment: .Thi s test has received FDA Emergency Use Authorization (EUA) and has beenverified by [facility] ([facility]). This testis only authorized for the duration of time that circumstances exist tojustify the authorization of the emergency use of in vitro diagnostic testsfor the detection of SARS-CoV-2 virus and/or diagnosis of COVID-19 infectionunder section 564(b)(1) of the Act, 21 U.S.C. 360bbb-3(b)(1), unless theauthorization is terminated or revoked sooner.[facility] is certified under CLIA-88 asqualified to perform high complexity testing. Testing is performed in [facility] [place] [address] [place] [address].SARS-CoV-2/Flu/RSV Multiplex Test:Fact sheet for providers: https://www.fda.gov/media/026347/downloadFact sheet for patients: https://www.fda.gov/media/855564/download Performed By: #### C OV19 ####[id number] [place] [address] CT Chest Abdomen Pelvis with IV Contraston 03-20-2021 CT Chest and Abdomen and Pelvis W contrast IV Normal GK-Pghekyk-T [facility] [address] Work Phone: Clinical Event Note-Abdomina l Examson 03-20-2021 Clinical Event Note-Abdominal Exams Normal [facility] Complete Blood Count + Diffe rentialon 03-20-2021 Basophils/100 WBC (Bld) 0.4 % 0.0 - 2.0 UP-Dqyxuuh-S [facility] [address] Work Phone: Erythrocyte distribution width (RBC) [Ratio] 14.6 % above high threshold See Below HR-Amwhfpf-C [facility] [address] Work Phone: Comment on above: Reference Range: 11. 5 - 14.5 Hematocrit (Bld) [Volume fraction] 39.2 % See Below WV-Vggxsfh-I [facility] Work Phone: Comment on above: Reference Range: 36. 0 - 46.0 Hemoglobin (Bld) [Mass/Vol] 12.1 g/dL See Below VC-Eyyiroq-Y [facility] [address] Work Phone: Comment on above: Reference Range: 12. 0 - 16.0 Lymphocytes/100 WBC (Bld) 15.5 % See Below XK-Ryspgdx-S [facility] [address] Work Phone: Comment on above: Reference Range: 13. 0 - 44.0 MCHC (RBC) [Mass/Vol] 30.9 g/dL below low threshold See Below VG-Frzbiny-N [facility] [address] Work Phone: Comment on above: Reference Range: 32. 0 - 36.0 MCV (RBC) [Entitic vol] 85 fL 80 - 100 DG-Ctmshpd-Z [place] [address] Work Phone: Monocytes/100 WBC (Bld) 7.4 % 2.0 - 10.0 TD-Txancti-H [place] [address] Work Phone: Neutrophils/100 WBC (Bld) 74.9 % See Below NE-Xyblajh-P [facility] Work Phone: Comment on above: Reference Range: 40. 0 - 80.0 Platelets (Bld) [#/Vol] 317 10*3/uL 150 - 450 FM-Jkofpsl-U [place] [address] Work Phone: [phone] RBC (Bld) [#/Vol] 4.61 {x10E12/L} See Below MG -Surgery-B [place] [address] Work Phone: Comment on above: Reference Range: 4.0 0 - 5.20 WBC (Bld) [#/Vol] 9.2 10*3/uL 4.4 - 11.3 MG-Nayeli marilynn-B [place] [address] Work Phone: [phone] Complete Blood Count + Differential 0.04 {x10E9/L} See Below NA-Pjjfpyw-Q [facility] Work Phone: Comment on above: Reference Range: 0.0 0 - 0.10 Complete Blood Count + Differential 0.12 {x10E9/L} See Below VQ-Hcuqfzd-Z [facility] Work Phone: Comment on above: Reference Range: 0.0 0 - 0.70 Complete Blood Count + Differential 0.68 {x10E9/L} See Below EC-Pthiwsj-U [place] [address] Work Phone: Comment on above: Reference Range: 0.1 0 - 1.00 Complete Blood Count + Differential 1.42 {x10E9/L} See Below TF-Xrrxhib-T [place] [address] Work Phone: Comment on above: Reference Range: 1.2 0 - 4.80 Complete Blood Count + Differential 6.88 {x10E9/L} See Below TY-Pqjdnyi-Z [facility] Work Phone: Comment on above: Reference Range: 1.2 0 - 7.70 Complete Blood Count + Differential 1.3 % 0.0 - 6.0 RY-Bnghuas-V [facility] Work Phone: Complete Blood Count + Differential 0.5 % 0.0 - 0.9 LD-Xbgpkjr-I [facility] [employer] Work Phone: Comment on above: Immature Granulocyte Count (IG) includes promyelocytes, myelocytes and metamyelocytes but does not include bands. Percent differential counts (%) should be interpreted in the context of the absolute cell counts (cells/L). Complete Blood Count + Differential 0.0 {/100_WBC} 0.0-0.0 NR-Nyndtyl-W [place] [address] Work Phone: Coronavirus 2019 RNA by PCR, Symptomaticon 03-20-2021 Date and time of symptom onset [id number] JW-Krpvhza-X [employer] Work Phone: Coronavirus 2019 RNA by PCR, Symptomatic Not detected Normal See Below GB-Woioybc-A [facility] [employer] Work Phone: Comment on above: SOURCE: Nasal, Nasop haryngealReference Range: Not Detected.This test has received FDA Emergency Use Authorization (EUA) and has been verified by [facility] ([facility]). This test is only authorized for the duration of time that circumstances exist to justify the authorization of the emergency use of in vitro diagnostic tests for the detection of SARS-CoV-2 virus and/or diagnosis of COVID-19 infection under section 564(b)(1) of the Act, 21 U.S.C. 360bbb-3(b)(1), unless the authorization is terminated or revoked sooner. [facility] is certified under CLIA-88 as qualified to perform high complexity testing. Testing is performed in the [facility] located at [address] [place] [address].SARS-CoV-2/Flu/RSV Multiplex Test: Fact sheet for providers: https://www.fda.gov/media/381922/downloadFact sheet for patients: https://www.fda.gov/media/199700/download Covid 19 Resultson 1 SARS-CoV-2 (COVID-19) RNA REGINA+probe Ql (Unsp spec) Normal [facility] EMR ADDONon 03-20-2021 ADDON CONFIRMATION REQUEST REC'D Normal [facility] Comment on above: Performed By: #### E MRAD ####NO LOCATION NEEDED LIPASEon 03-20-2021 Lipase [Catalytic activity/Vol] 77 U/L Normal 9 - 82 [facility] Comment on above: Result Comment: Radha puncture immediately after or during the administration of Metamizole may lead to falsely low results. Testing should be performed immediately prior to Metamizole dosing. Y-fiqcgz-j-benzoquinone imine (metabolite of Acetaminophen) will generate erroneously low results in samples for patients that have taken toxic doses of acetaminophen. Performed By: #### L IPAS ####[id number] [place] [address] Laboratory - Chemistry and C hemistry - challengeon 03-20-2021 Albumin BCP dye [Mass/Vol] 4.2 g/dL 3.4 - 5.0 QM-Hfveoct-C [facility] Work Phone: ALP [Catalytic activity/Vol] 133 U/L above high threshold 33 - 110 CM-Xhrqlzn-L [facility] Work Phone: ALT With P-5'-P [Catalytic activity/Vol] 10 U/L 7 - 45 SR-Acvcvkm-U [facility] Work Phone: Comment on above: Patients treated wit h Sulfasalazine may generate falsely decreased results for ALT. Anion gap (Bld) [Moles/Vol] 19 mmol/L 10 - 25 SG-Grxjfjt-H [facility] Work Phone: Anion gap [Moles/Vol] 22 mmol/L above high threshold 10 - 20 FZ-Vtkuulf-W [facility] Work Phone: AST With P-5'-P [Catalytic activity/Vol] 14 U/L 9 - 39 EZ-Jmgfqce-P [facility] Work Phone: Bilirubin [Mass/Vol] 1.2 mg/dL 0.0 - 1.2 MG-S urgery-B [facility] Work Phone: Calcium [Mass/Vol] 8.8 mg/dL 8.6 - 10.6 MG-Nayeli marilynn-B [facility] Work Phone: Calcium.ionized (Bld) [Moles/Vol] 1.21 mmol/L See Below QN-Facxnwf-Q [facility] Work Phone: Comment on above: Reference Range: 1.1 0 - 1.33 Chloride [Moles/Vol] 105 mmol/L 98 - 107 MG-S urgery-B [facility] [address] Work Phone: Chloride [Moles/Vol] 106 mmol/L 98 - 107 MG-S urgery-B [place] 2099 Work Phone: CO2 (BldV) [Partial pressure] 28 mm[Hg] below low threshold 41 - 51 MX-Hnhqgvb-D [facility] 2099 Work Phone: CO2 [Moles/Vol] 13 mmol/L below low threshold 21 - 32 HM-Fkigvsu-K [facility] 2099 Work Phone: Creatinine [Mass/Vol] 0.72 mg/dL See Below FQ-Lhsnzpa-J [facility] Work Phone: Comment on above: Reference Range: 0.5 0 - 1.05 Glucose [Mass/Vol] 118 mg/dL above high threshold 74 - 99 TR-Jhqqcrh-G [facility] 20[facility] Work Phone: Glucose [Mass/Vol] 107 mg/dL above high threshold 74 - 99 XK-Mvwzbkg-Y [facility] Work Phone: HCO3 (Bld) [Moles/Vol] 15.5 mmol/L below low threshold See Below MA-Pbsdwcb-M [facility] [address] Work Phone: Comment on above: Reference Range: 22. 0 - 26.0 Lactate [Moles/Vol] 2.5 mmol/L above high threshold 0.4 - 2.0 YV-Dvyrcnl-A [facility] Work Phone: Oxygen (BldV) [Partial pressure] 21 mm[Hg] below low threshold 35 - 45 JY-Igbgpsf-Y [facility] 2099 Work Phone: pH (BldV) 7.35 [pH] See Below VH-Omcdrdk-S [facility] 2099 Work Phone: Comment on above: Reference Range: 7.3 3 - 7.43 Potassium [Moles/Vol] 3.4 mmol/L below low threshold 3.5 - 5.3 BN-Uhagmfn-U [facility] 2099 Work Phone: Protein [Mass/Vol] 6.6 g/dL 6.4 - 8.2 MG-Nayeli marilynn-B [place] [facility] Work Phone: Sodium [Moles/Vol] 136 mmol/L 136 - 145 MG-Nayeli marilynn-B [place] Work Phone: [phone] Sodium [Moles/Vol] 138 mmol/L 136 - 145 MG-Nayeli marilynn-B [facility] 2099 Work Phone: [phone] Urea nitrogen [Mass/Vol] 6 mg/dL 6 - 23 PG-Uthydpt-W [facility] 2099 Work Phone: Laboratory - Hematology and Cell countson 03-20-2021 Hematocrit (Bld) [Volume fraction] 39.0 % See Below HH-Lhvwcbn-B [place] [address] Work Phone: Comment on above: Reference Range: 36. 0 - 46.0 Hemoglobin (Bld) [Mass/Vol] 13.3 g/dL See Below JX-Lyfttky-I [facility] 2099 Work Phone: Comment on above: Reference Range: 12. 0 - 16.0 Lipase, Serumon 03-20-2021 Lipase [Catalytic activity/Vol] 77 U/L 9 - 82 JZ-Dlwaxqn-E [facility] 2099 Work Phone: Comment on above: Venipuncture immedia tely after or during the administration of Metamizole may lead to falsely low results. Testing should be performed immediately prior to Metamizole dosing. Z-xulwsi-x-benzoquinone imine (metabolite of Acetaminophen) will generate erroneously low results in samples for patients that have taken toxic doses of acetaminophen. No Panel Informationon 03-20 -8.7 mmol/L below low threshold -2.0 - 3.0 YP-Ubyzylm-J [facility] Work Phone: 35 % below low threshold 45 - 75 LI-Jglzmvd-G [facility] Work Phone: [phone] 37.0 {degrees_C} MG-Surge ry-B [facility] Work Phone: Comment on above: NOTE: PATIENT RESULT S ARE NOT CORRECTED FOR TEMPERATURE. [email or web address] 1:[email or web address]?R etrieveTestByDateTime?Isabel oavTL=[id number]&Date=&Time=03%3a44%3a42%3a 00&TestType=ECG&Site=1&Out putType=PDF&Ext=PDF HC-Pewtroz-J [facility] Work Phone: [phone] Please see ED Provid er Note for formal interpretation XL-Qcfhjhx-I [facility] Work Phone: [phone] Normal UL-Rqmvfqp-X [facility] Work Phone: [phone] YD-Gnqjddz-Y [facility] Work Phone: [phone] OV-Pzjtogm-V [facility] Work Phone: [phone] TX-Uhkkdel-A [facility] 2[address] Work Phone: [phone] OA-Yyetnoq-I [facility] 2[address] Work Phone: [phone] PI-Bndazxi-Z [facility] 2100 Work Phone: [phone] VB-Dkqauyb-V [facility] 2[address] Work Phone: [phone] FR-Svzebja-I [facility] 2100 Work Phone: [phone] ZT-Lexlyhw-P [facility] 2100 Work Phone: [phone] YK-Axwbshu-V [facility] 2100 Work Phone: [phone] OT-Uuxznpv-I [facility] 2100 Work Phone: [phone] AE-Nubtqpq-B [facility] 2[address] Work Phone: [phone] TX-Yxtlejt-M [facility] 2100 Work Phone: [phone] HY-Iqdntiv-N [facility] 2099 Work Phone: >[phone] KC-Jxbnjko-E [facility] 2099 Work Phone: Comment on above: CALCULATIONS OF IZZY MATED GFR ARE PERFORMED USING THE MDRD STUDY EQUATION FOR THE IDMS-TRACEABLE CREATININE METHODS. CLIN CHEM 2007;53:766-72 Order Reconciliationon 03-20 Order Reconciliation Normal [facility] PREALBUMINon 03-20-2021 Prealbumin [Mass/Vol] 4.7 mg/dL Low 18.0 - 40.0 [facility] Comment on above: Performed By: #### P REAL ####[id number] [place] [address] Patient Profile - Adult v2on 03-20-2021 Patient Profile - Adult v2 Normal [facility] Prealbumin, Serumon 03-20-20 21 Prealbumin Nephelometry [Mass/Vol] 4.7 mg/dL below low threshold See Below UE-Qgttnhw-B [facility] [address] Work Phone: Comment on above: Reference Range: 18. 0 - 40.0 Provider Note - ED Care Jackson sitionon 03-20-2021 Provider Note - ED Care Transition Normal [facility] Provider Note - ED v3on 02-22 Provider Note - ED v3 Normal [facility] Radiologyon 03-20-2021 XR Chest Single view Normal MG-S urgery-B [facility] Work Phone: TH CHEST 1 VIEWon 03-20-2021 TH CHEST 1 VIEW Normal [facility] TROPONIN Ion 03-20-2021 Troponin I.cardiac [Mass/Vol] ng/mL Normal 0.00 - 0.03 [facility] Comment on above: Result Comment: LESS THAN 0.04 NG/ML: NEGATIVEREPEAT TESTING IN THREE TO SIX HOURSIF CLINICALLY INDICATED.0.04 - 0.5 NG/ML: CONSISTENT WITH POSSIBLECARDIAC DAMAGE AND POSSIBLE INCREASEDCLINICAL RISK.SERIAL MEASUREMENTS MAY HELP ASSESS EXTENT OFMYOCARDIAL DAMAGE.>0.5 NG/ML: CONSISTENT WITH CARDIAC DAMAGE,INCREASED CLINICAL RISK AND MYOCARDIALINFARCTION. SERIAL MEASUREMENTS MAY HELPASSESS EXTENT OF MYOCARDIAL DAMAGE..Note: Troponin I testing is performed using differenttesting methodology at [facility] than [facility]. Direct result comparisons should onlybe made within the same method.. Biotin interference may cause falsely decreased results. Patients taking a Biotin dose of up to 5 mg/day should refrain from taking Biotin for 24 hours before sample collection. Providers may contact their laboratory for further information. Performed By: #### T ROP2 ####[id number] [place] [address] Triage - EDon 03-20-2021 Triage - ED Normal [facility] Troponin I, Serumon 03-20-20 21 Troponin I.cardiac [Mass/Vol] ng/mL See Below ML-Bfxkxwh-O [employer] Work Phone: Comment on above: Reference Range: 0.0 0 - 0.03LESS THAN 0.04 NG/ML: NEGATIVEREPEAT TESTING IN THREE TO SIX HOURSIF CLINICALLY INDICATED.0.04 - 0.5 NG/ML: CONSISTENT WITH POSSIBLECARDIAC DAMAGE AND POSSIBLE INCREASEDCLINICAL RISK.SERIAL MEASUREMENTS MAY HELP ASSESS EXTENT OFMYOCARDIAL DAMAGE.>0.5 NG/ML: CONSISTENT WITH CARDIAC DAMAGE,INCREASED CLINICAL RISK AND MYOCARDIALINFARCTION. SERIAL MEASUREMENTS MAY HELPASSESS EXTENT OF MYOCARDIAL DAMAGE..Note: Troponin I testing is performed using different testing methodology at [facility] than at [facility]. Direct result comparisons should only be made within the same method.. Biotin interference may cause falsely decreased results. Patients taking a Biotin dose of up to 5 mg/day should refrain from taking Biotin for 24 hours before sample collection. Providers may contact their laboratory for further information. UA MICROSCOPICon 03-20-2021 HYALINE CAST 2+ /LPF Abnormal [facility] Comment on above: Performed By: #### U AMIC ####[id number] [place] [address] Mucus Ql (Urine sed) 2+ /LPF Normal [facility] Comment on above: Performed By: #### U AMIC ####[id number] [place] [address] RBC 2 /HPF Normal 0-5 [facility] Comment on above: Performed By: #### U AMIC ####[id number] [place] [address] SQUAMOUS EPITH. CELLS 4 /HPF Normal [facility] Comment on above: Performed By: #### U AMIC ####[id number] [place] [address] WBC 3 /HPF Normal 0-5 [facility] Comment on above: Performed By: #### U AMIC ####[id number] [place] [address] URINALYSIS WITH CULTURE IF I NDICATEDon 03-20-2021 Appearance (U) CLEAR Normal CLEAR [facility] Comment on above: Performed By: #### U ARFX ####[id number] [place] [address] Bilirubin Ql (U) Negative Normal NEGATIVE [facility] Comment on above: Performed By: #### U ARFX ####[id number] [place] [address] Color (U) YELLOW See Below YS-Ujvuwly-O [facility] [address] Work Phone: Comment on above: Reference Range: STR AW,YELLOW Color (U) YELLOW Normal STRAW,YELLO W [facility] Comment on above: Performed By: #### U ARFX ####[id number] [place] [address] Glucose Ql (U) 50 (TRACE) Abnormal NEGATIVE MG-Surgery -B [facility] [address] Work Phone: Glucose Ql (U) 50 (TRACE) Abnormal NEGATIVE [facility] Comment on above: Performed By: #### U ARFX ####[id number] [place] [address] Hemoglobin Ql (U) Negative Normal NEGATIVE [facility] Comment on above: Performed By: #### U ARFX ####[id number] [place] [address] Ketones Ql (U) 80 (2+) Abnormal NEGATIVE MG-Surgery -B [facility] [address] Work Phone: [phone] Ketones Ql (U) 80 (2+) Abnormal NEGATIVE [facility] Comment on above: Performed By: #### U ARFX ####[id number] [place] [address] Leukocyte esterase Test strip Ql (U) Negative NEGATIVE LU-Emalewb-I [facility] [address] Work Phone: [phone] Leukocyte esterase Test strip Ql (U) Negative Normal NEGATIVE [facility] Comment on above: Performed By: #### U ARFX ####[id number] [place] [address] Nitrite Ql (U) Negative Normal NEGATIVE [facility] Comment on above: Performed By: #### U ARFX ####[id number] [place] [address] pH (U) 5.0 [pH] 5.0 - 8.0 NF-Bimlaew-N [facility] [address] Work Phone: [phone] pH (U) 5.0 [pH] Normal 5.0 - 8.0 [facility] Comment on above: Performed By: #### U ARFX ####[id number] [place] [address] Protein (U) [Mass/Vol] 30 (1+) Abnormal NEGATIVE BW-Yjsodzh-Z [facility] [address] Work Phone: [phone] Protein Ql (U) 30 (1+) Abnormal NEGATIVE [facility] Comment on above: Performed By: #### U ARFX ####[id number] [place] [address] RBC (U) [#/Vol] Negative NEGATIVE MG-Surger y-B [facility] [address] Work Phone: [phone] Specific gravity (U) [Rel density] 1.021 1 See Below QW-Nclgoqa-Z [facility] [address] Work Phone: [phone] Comment on above: Reference Range: 1.0 05 - 1.035 Specific gravity (U) [Rel density] 1.021 Normal 1.005 - 1.035 [facility] Comment on above: Performed By: #### U ARFX ####[id number] [place] [address] Urobilinogen (U) [Mass/Vol] mg/dL Normal 0.0 - 1.9 [facility] Comment on above: Performed By: #### U ARFX ####[id number] [place] [address] URINALYSIS WITH CULTURE IF INDICATED Negative NEGATIVE MG-Surgery- B [facility] [address] Work Phone: [phone] URINALYSIS WITH CULTURE IF INDICATED <2.0 0.0 - 1.9 MG-Surgery- B [place] [address] Work Phone: [phone] URINALYSIS WITH CULTURE IF INDICATED CLEAR CLEAR MG-Surgery- B [facility] [address] Work Phone: [phone] Urinalysis, Microscopicon Hyaline casts LM Ql (Urine sed) 2+ Abnormal QK-Qyklhoz-F [facility] Work Phone: [phone] Urinalysis, Microscopic 2+ SP-Tlfvwae-I [facility] [address] Work Phone: [phone] Urinalysis, Microscopic 4 {/HPF} BC-Lgxjxcm-R [facility] [address] Work Phone: [phone] Urinalysis, Microscopic 2 {/HPF} 0-5 VB-Fbvsvst-D [facility] Work Phone: [phone] Urinalysis, Microscopic 3 {/HPF} 0-5 XT-Khaifwb-Q [facility] [address] Work Phone: VENOUS FULL PANELon 03-20-20 21 Anion gap [Moles/Vol] 19 mmol/L Normal 10 - 25 [facility] Comment on above: Performed By: #### V FPA3 ####[id number] [place] [address] BASE EXCESS-BLOOD -8.7 mmol/L Low -2.0 - 3.0 [facility] Comment on above: Performed By: #### V FPA3 ####[id number] [place] [address] BICARB, CALCULATED 15.5 mmol/L Low 22.0 - 26.0 [facility] Comment on above: Performed By: #### V FPA3 ####[id number] [place] [address] CALCIUM,IONIZED 1.21 mmol/L Normal 1.10 - 1.33 [facility] Comment on above: Performed By: #### V FPA3 ####[id number] [place] [address] Chloride [Moles/Vol] 105 mmol/L Normal 98 - 107 [facility] [facility] Comment on above: Performed By: #### V FPA3 ####[id number] [place] [address] Glucose [Mass/Vol] 118 mg/dL High 74 - 99 [facility] Comment on above: Performed By: #### V FPA3 ####[id number] [place] [address] Hematocrit (Bld) [Volume fraction] 39.0 % Normal 36.0 - 46.0 [facility] Comment on above: Performed By: #### V FPA3 ####[id number] [place] [address] HGB,CALCULATED 13.3 g/dL Normal 12.0 - 16.0 [facility] Comment on above: Performed By: #### V FPA3 ####[id number] [place] [address] Lactate [Moles/Vol] 2.5 mmol/L High 0.4 - 2.0 [facility] [place] Comment on above: Performed By: #### V FPA3 ####[id number] [place] [address] Oxygen (Bld) [Partial pressure] 21 mm[Hg] Low 35 - 45 [facility] Comment on above: Performed By: #### V FPA3 ####[id number] [place] [address] PATIENT TEMPERATURE 37.0 degrees C Normal [facility] Comment on above: Result Comment: NOTE : PATIENT RESULTS ARE NOT CORRECTED FOR TEMPERATURE. Performed By: #### V FPA3 ####[id number] [place] [address] PCO2 28 mmHg Low 41 - 51 [facility] Comment on above: Performed By: #### V FPA3 ####[id number] [place] [address] pH (Bld) 7.35 [pH] Normal 7.33 - 7.43 [facility] Comment on above: Performed By: #### V FPA3 ####[id number] [place] [address] Potassium [Moles/Vol] 3.4 mmol/L Low 3.5 - 5.3 BU-Jakxgab-W [employer] Work Phone: Comment on above: Performed By: #### V FPA3 ####[id number] [place] [address] SO2 35 % Low 45 - 75 [facility] Comment on above: Performed By: #### V FPA3 ####[id number] [place] [address] Sodium [Moles/Vol] 136 mmol/L Normal 136 - 145 [facility] Comment on above: Performed By: #### V FPA3 ####[id number] [place] [address] AMYLASE,FLUIDon 03-08-2021 AMYLASE,FLUID 43 U/L Normal [facility] Comment on above: Result Comment: REF VALUENOT ESTABLISHED The performance characteristics of this method have not been validated for use with body fluids other than serum or plasma. The test result should be interpreted in conjunction with additional clinical and laboratory data. Performed By: #### A MYFD ####[id number] [place] [address] AMYLASE,FLUID 41 U/L Normal [facility] Comment on above: Result Comment: REF VALUENOT ESTABLISHED The performance characteristics of this method have not been validated for use with body fluids other than serum or plasma. The test result should be interpreted in conjunction with additional clinical and laboratory data. Performed By: #### A MYFD ####[id number] [place] [address] LIPASE,FLUIDon 03-08-2021 LIPASE,FLUID 42 U/L Normal [facility] Comment on above: Result Comment: REF VALUENOT ESTABLISHED The performance characteristics of this method have not been validated for use with body fluids other than serum or plasma. The test result should be interpreted in conjunction with additional clinical and laboratory data. Performed By: #### L IPFD ####[id number] [place] [address] LIPASE,FLUID 46 U/L Normal [facility] Comment on above: Result Comment: REF VALUENOT ESTABLISHED The performance characteristics of this method have not been validated for use with body fluids other than serum or plasma. The test result should be interpreted in conjunction with additional clinical and laboratory data. Performed By: #### L IPFD ####[id number] [place] [address] TOTAL BILI, FLUIDon 03-08-20 21 TOTAL BILI, FLUID 0.8 mg/dL Normal [facility] Comment on above: Result Comment: REF VALUENOT ESTABLISHED The performance characteristics of this method have not been validated for use with body fluids other than serum or plasma. The test result should be interpreted in conjunction with additional clinical and laboratory data. Performed By: #### T BFD ####[id number] [place] [address] Post Op (General Surgery)on 03-07-2021 Post Op (General Surgery) Diagnoses/Problems Dysphagia (787.20) (R13.10) GERD (gastroesophageal reflux disease) (530.81) (K21.9) Hiatal hernia (553.3) (K44.9) Orders Bile leak Amylase, Body Fluid; Status:Hold For - Specimen/Data Collection,Retrospective Authorization; Requested for:[id number]; Perform:Lab Services - Office to Draw (Non-Blood Test); Due:[id number]; Last Updated By:Alivia Israel; 03/07/2021 2:44:53 PM;Ordered; For:Bile leak; Ordered By:Jose Pena; Amylase, Body Fluid; Status:Hold For - Specimen/Data Collection,Retrospective Authorization; Requested for:[id number]; Perform:Lab Services - Office to Draw (Non-Blood Test); Due:[id number]; Last Updated By:Alivia Israel; 03/07/2021 2:49:35 PM;Ordered; For:Bile leak; Ordered By:Jose Pena; Lipase, Fluid; Status:Hold For - Specimen/Data Collection,Retrospective Authorization; Requested for:[id number]; Perform:Lab Services - Office to Draw (Non-Blood Test); Due:05Jun2021; Last Updated By:Aliiva Israel; 03/07/2021 2:44:53 PM;Ordered; For:Bile leak; Ordered By:Jose Pena; Lipase, Fluid; Status:Hold For - Specimen/Data Collection,Retrospective Authorization; Requested for:[id number]; Perform:Lab Services - Office to Draw (Non-Blood Test); Due:05Jun2021; Last Updated By:Alivia Israel; 03/07/2021 2:49:35 PM;Ordered; For:Bile leak; Ordered By:Jose Pena; Total Bili, Fluid; Status:Hold For - Specimen/Data Collection,Retrospective Authorization; Requested for:[id number]; Perform:Lab Services - Office to Draw (Non-Blood Test); Due:05Jun2021; Last Updated By:Alivia Israel; 03/07/2021 2:51:28 PM;Ordered; For:Bile leak; Ordered By:Jose Pena; Total Bili, Fluid; Status:Hold For - Specimen/Data Collection,Retrospective Authorization; Requested for:[id number]; Perform:Lab Services - Office to Draw (Non-Blood Test); Due:05Jun2021; Last Updated By:Alivia Israel; 03/07/2021 2:53:36 PM;Ordered; For:Bile leak; Ordered By:Jose Pena; Dysphagia, GERD (gastroesophageal reflux disease), Hiatal hernia Follow-up visit in 1 week Outpatient Follow-up Status: Hold For - Scheduling Requested for: [id number] Ordered Stat;For: Dysphagia, GERD (gastroesophageal reflux disease), Hiatal hernia; Ordered By: Jose Pena Performed: Due: [id number] Patient Discussion/Summary I recommended she continue to advance her diet and activity level as tolerated. We have sent drain fluid for amylase lipase and bili and if they are normal we will remove her drains next week. I have also explained that we will need to wait at least 1 to 2 months before proceeding with her incisional hernia repair. Overall, she is doing quite well following a complex revisional hiatal hernia repair. She will be seen in follow-up in 1 week. COVID-19 Risk Consent for: Provider has reviewed the risk of milton COVID-19 and the impact during the post-operative or post-procedure recovery process. Provider Impressions I recommended she continue to advance her diet and activity level as tolerated. We have sent drain fluid for amylase lipase and bili and if they are normal we will remove her drains next week. I have also explained that we will need to wait at least 1 to 2 months before proceeding with her incisional hernia repair. Overall, she is doing quite well following a complex revisional hiatal hernia repair. She will be seen in follow-up in 1 week. Chief Complaint POV History of Present IllnessMsSaira Carroll is here today s/p laparoscopic lysis of adhesions, laparoscopic reduction of incisional hernia, laparoscopic reduction of a paraesophageal hernia with Toupet fundoplication and EGD on 02/18/21. She reports marked improvement in her swallowing tolerating liquids and semisolid's. She has no reflux symptoms. She has no dysphagia. She does have slight upper abdominal pain. She is still draining a moderate amount of serous fluid from her drains. Active Problems Dysphagia (787.20) (R13.10) GERD (gastroesophageal reflux disease) (530.81) (K21.9) Hiatal hernia (553.3) (K44.9) Surgical History History of Ankle surgery History of Appendectomy History of Eye surgery History of Gallbladder surgery History of Hernia repair History of Knee surgery History of Liver surgery History of Wrist surgery Social History No tobacco/smoke exposure Allergies Ceclor Recorded By: Sully Garces; 12/16/2020 12:21:59 PM Penicillins Recorded By: Sully Garces; 12/16/2020 12:21:59 PM Valium Recorded By: Sully Garces; 12/16/2020 12:21:59 PM Current Meds Medication NameInstruction Euthyrox 150 MCG Oral Tablet Gabapentin 250 MG/5ML Oral Solution Hibiclens 4 % External LiquidUSE DIRECTED as preop shower Ibuprofen 100 MG/5ML Oral Suspension Mupirocin 2 % External OintmentUse intranasally twice daily 5 days prior to surgery. oxyCODONE HCl - 5 MG/5ML Oral Solution Pantoprazole Sodium 40 MG Oral Tablet Delayed Release SUMAtriptan Succinate 6 MG/0.5ML Subcutaneous Solution Auto-injector Vitals Vital Signs Rec (more content not included)... Normal [facility] TOTAL BILI, FLUIDon 03-07-20 Lab Specimen Source Source, Other Normal [facility] Comment on above: Performed By: #### T BFD ####[id number] [place] [address] Performed By: #### L IPFD ####[id number] [place] [address] Performed By: #### A MYFD ####[id number] [id number] Tobacco Screening.on 021 Fall risk assessment a) No falls within the last year JD-Tfvbajf-W [facility] [address] [facility] ([place]) DO NOT USE Work Phone: Tobacco use status CPHS b) No [facility] [address] [facility] ([place]) DO NOT USE Work Phone: CBCon 02-25-2021 Erythrocyte distribution width (RBC) [Ratio] 17.1 % High 11.5 - 14.5 [facility] Comment on above: Performed By: #### C BC ####[id number] [place] [address] Hematocrit (Bld) [Volume fraction] 31.3 % Low 36.0 - 46.0 [facility] Comment on above: Performed By: #### C BC ####[id number] [place] [address] Hemoglobin (Bld) [Mass/Vol] 9.8 g/dL Low 12.0 - 16.0 [facility] Comment on above: Performed By: #### C BC ####[id number] [place] [address] MCHC (RBC) [Mass/Vol] 31.3 g/dL Low 32.0 - 36.0 [facility] Comment on above: Performed By: #### C BC ####[id number] [place] [address] MCV (RBC) [Entitic vol] 87 fL Normal 80 - 100 [facility] Comment on above: Performed By: #### C BC ####[id number] [place] [address] NUCLEATED RBC 0.0 /100 WBC Normal 0.0-0.0 [facility] Comment on above: Performed By: #### C BC ####[id number] [place] [address] Platelets (Bld) [#/Vol] 246 10*3/uL Normal 150 - 450 [facility] Comment on above: Performed By: #### C BC ####[id number] [place] [address] RBC 3.60 x10E12/L Low 4.00 - 5.20 [facility] Comment on above: Performed By: #### C BC ####[id number] [place] [address] WBC (Bld) [#/Vol] 9.7 10*3/uL Normal 4.4 - 11.3 [facility] Comment on above: Performed By: #### C BC ####[id number] [place] [address] Laboratory - Hematology and Cell countson 02-25-2021 Erythrocyte distribution width (RBC) [Ratio] 17.1 % above high threshold See Below [facility] [address] [facility] ([place]) DO NOT USE Work Phone: Comment on above: Reference Range: 11. 5 - 14.5 Hematocrit (Bld) [Volume fraction] 31.3 % below low threshold See Below [facility] [address] [facility] ([place]) DO NOT USE Work Phone: Comment on above: Reference Range: 36. 0 - 46.0 Hemoglobin (Bld) [Mass/Vol] 9.8 g/dL below low threshold See Below DN-Enpaien-T [address] ([place]) DO NOT USE Work Phone: [phone] Comment on above: Reference Range: 12. 0 - 16.0 MCHC (RBC) [Mass/Vol] 31.3 g/dL below low threshold See Below LP-Gjsrtgj-D [address] ([place]) DO NOT USE Work Phone: [phone] Comment on above: Reference Range: 32. 0 - 36.0 MCV (RBC) [Entitic vol] 87 fL 80 - 100 XE-Vjhlpxc-L [address] ([place]) DO NOT USE Work Phone: [phone] Platelets (Bld) [#/Vol] 246 10*3/uL 150 - 450 SF-Czvptnz-R [address] ([place]) DO NOT USE Work Phone: [phone] RBC (Bld) [#/Vol] 3.60 {x10E12/L} below low threshold See Below ZV-Fjmfwtx-N [address] ([place]) DO NOT USE Work Phone: [phone] Comment on above: Reference Range: 4.0 0 - 5.20 WBC (Bld) [#/Vol] 9.7 10*3/uL 4.4 - 11.3 MG-Nayeli marilynn-C [address] ([place]) DO NOT USE Work Phone: [phone] MAGNESIUMon 02-25-2021 Magnesium [Mass/Vol] 1.65 mg/dL Normal 1.60 - 2.40 [facility] Comment on above: Performed By: #### M G ####[id number] [place] [address] Magnesium, Serumon Magnesium [Mass/Vol] 1.65 mg/dL See Below MG-S urgery-C [address]) DO NOT USE Work Phone: [phone] Comment on above: Reference Range: 1.6 0 - 2.40 No Panel Informationon 02-25 0.0 {/100_WBC} 0.0-0.0 MG-Surgery -C [facility] [address] [facility] ([place]) DO NOT USE Work Phone: RENAL FUNCTION PANELon 02-25 Albumin [Mass/Vol] 3.2 g/dL Low 3.4 - 5.0 [facility] Comment on above: Performed By: #### R ENAL ####[id number] [place] [address] Anion gap [Moles/Vol] 13 mmol/L Normal 10 - 20 [facility] Comment on above: Performed By: #### R ENAL ####[id number] [place] [address] Calcium [Mass/Vol] 8.3 mg/dL Low 8.6 - 10.6 [facility] Comment on above: Performed By: #### R ENAL ####[id number] [place] [address] Chloride [Moles/Vol] 105 mmol/L Normal 98 - 107 [facility] Comment on above: Performed By: #### R ENAL ####[id number] [place] [address] Creatinine [Mass/Vol] 0.71 mg/dL Normal 0.50 - 1.05 [facility] Comment on above: Performed By: #### R ENAL ####[id number] [place] [address] GFR- AM. >60 Normal >60 [facility] Comment on above: Result Comment: CALC ULATIONS OF ESTIMATED GFR ARE PERFORMED USING THE MDRD STUDY EQUATION FOR THE IDMS-TRACEABLE CREATININE METHODS. CLIN CHEM 2007;53:766-72 Performed By: #### R ENAL ####[id number] [place] [address] GFR-NON AM. >60 Normal >60 [facility] [place] Comment on above: Performed By: #### R ENAL ####[id number] [place] [address] Glucose [Mass/Vol] 88 mg/dL Normal 74 - 99 [facility] Comment on above: Performed By: #### R ENAL ####[id number] [place] [address] HCO3 (Bld) [Moles/Vol] 24 mmol/L Normal 21 - 32 [facility] Comment on above: Performed By: #### R ENAL ####[id number] [place] [address] Phosphate [Mass/Vol] 4.1 mg/dL Normal 2.5 - 4.9 [facility] Comment on above: Result Comment: The performance characteristics of phosphorus testing in heparinized plasma have been validated by the individual laboratory site where testing is performed. Testing on heparinized plasma is not approved by the FDA; however, such approval is not necessary. Performed By: #### R ENAL ####[id number] [place] [address] Potassium [Moles/Vol] 3.4 mmol/L Low 3.5 - 5.3 [facility] Comment on above: Performed By: #### R ENAL ####[id number] [place] [address] Sodium [Moles/Vol] 139 mmol/L Normal 136 - 145 [facility] Comment on above: Performed By: #### R ENAL ####[id number] [place] [address] Urea nitrogen [Mass/Vol] 8 mg/dL Normal 6 - 23 [facility] Comment on above: Performed By: #### R ENAL ####[id number] [place] [address] Renal Function Panelon 02-25 Albumin BCP dye [Mass/Vol] 3.2 g/dL below low threshold 3.4 - 5.0 [facility] [address] [facility] ([place]) DO NOT USE Work Phone: Anion gap [Moles/Vol] 13 mmol/L 10 - 20 TA-Ypspfia-H [address] ([place]) DO NOT USE Work Phone: [phone] Calcium [Mass/Vol] 8.3 mg/dL below low threshold 8.6 - 10.6 DF-Qcibvow-R [address] ([place]) DO NOT USE Work Phone: [phone] Chloride [Moles/Vol] 105 mmol/L 98 - 107 MG-S urgery-C [address] ([place]) DO NOT USE Work Phone: [phone] CO2 [Moles/Vol] 24 mmol/L 21 - 32 MG-Surger y-C [address] ([place]) DO NOT USE Work Phone: [phone] Creatinine [Mass/Vol] 0.71 mg/dL See Below SI-Zjfnrsm-U [address] ([place]) DO NOT USE Work Phone: [phone] Comment on above: Reference Range: 0.5 0 - 1.05 Glucose [Mass/Vol] 88 mg/dL 74 - 99 MG-Nayeli marilynn-C [address]) DO NOT USE Work Phone: [phone] Phosphate [Mass/Vol] 4.1 mg/dL 2.5 - 4.9 MG-S urgery-C [address] ([place]) DO NOT USE Work Phone: [phone] Comment on above: The performance leonel acteristics of phosphorus testing in heparinized plasma have been validated by the individual laboratory site where testing is performed. Testing on heparinized plasma is not approved by the FDA; however, such approval is not necessary. Potassium [Moles/Vol] 3.4 mmol/L below low threshold 3.5 - 5.3 ZH-Eixzexl-U [address] ([place]) DO NOT USE Work Phone: [phone] Sodium [Moles/Vol] 139 mmol/L 136 - 145 MG-Nayeli marilynn-C [address] ([place]) DO NOT USE Work Phone: [phone] Urea nitrogen [Mass/Vol] 8 mg/dL 6 - 23 IC-Typipss-C [facility] [address] [facility] ([place]) DO NOT USE Work Phone: Renal Function Panel >60 >60 MG-S urgery-[facility] [address] [facility] ([place]) DO NOT USE Work Phone: Comment on above: CALCULATIONS OF IZZY MATED GFR ARE PERFORMED USING THE MDRD STUDY EQUATION FOR THE IDMS-TRACEABLE CREATININE METHODS. CLIN CHEM 2007;53:766-72 Consult-Anesthesia - Painon 02-24-2021 Consult-Anesthesia - Pain Normal [facility] Daily Progress Note-Surgeryo n 02-24-2021 Daily Progress Note-Surgery Normal [facility] CBCon 02-23-2021 Erythrocyte distribution width (RBC) [Ratio] 17.0 % High 11.5 - 14.5 [facility] Comment on above: Performed By: #### C BC ####[id number] [place] [address] Hematocrit (Bld) [Volume fraction] 33.3 % Low 36.0 - 46.0 [facility] Comment on above: Performed By: #### C BC ####[id number] [place] [address] Hemoglobin (Bld) [Mass/Vol] 10.2 g/dL Low 12.0 - 16.0 [facility] Comment on above: Performed By: #### C BC ####[id number] [place] [address] MCHC (RBC) [Mass/Vol] 30.6 g/dL Low 32.0 - 36.0 [facility] Comment on above: Performed By: #### C BC ####[id number] [place] [address] MCV (RBC) [Entitic vol] 90 fL Normal 80 - 100 [facility] Comment on above: Performed By: #### C BC ####[id number] [place] [address] NUCLEATED RBC 0.0 /100 WBC Normal 0.0-0.0 [facility] Comment on above: Performed By: #### C BC ####[id number] [place] [address] Platelets (Bld) [#/Vol] 241 10*3/uL Normal 150 - 450 [facility] Comment on above: Performed By: #### C BC ####[id number] [place] [address] RBC 3.72 x10E12/L Low 4.00 - 5.20 [facility] Comment on above: Performed By: #### C BC ####[id number] [address], [place] WBC (Bld) [#/Vol] 11.6 10*3/uL High 4.4 - 11.3 [facility] [place] Comment on above: Performed By: #### C BC ####[id number] [place] [address], [place] Daily Progress Note-Surgeryo n 02-23-2021 Daily Progress Note-Surgery Normal [facility] EMR ADDONon 02-23-2021 ADDON CONFIRMATION REQUEST REC'D Normal [facility] Comment on above: Performed By: #### E MRAD ####NO LOCATION NEEDED HEPATIC FUNCTION PANELon Albumin [Mass/Vol] 3.3 g/dL Low 3.4 - 5.0 [facility] Comment on above: Performed By: #### H EPFP ####[id number] [place] [address] Performed By: #### R ENAL ####[id number] [place] [address] ALP [Catalytic activity/Vol] 153 U/L High 33 - 110 [facility] Comment on above: Performed By: #### H EPFP ####[id number] [place] [address] ALT [Catalytic activity/Vol] 59 U/L High 7 - 45 [facility] Comment on above: Result Comment: Isabel ents treated with Sulfasalazine may generate falsely decreased results for ALT. Performed By: #### H EPFP ####[id number] [place] [address] AST [Catalytic activity/Vol] 58 U/L High 9 - 39 [facility] Comment on above: Result Comment: MILD HEMOLYSIS DETECTED. The result may be falsely elevated due tohemolysis or other interferents. Clinical correlation is recommended.Repeat testing may be considered. Performed By: #### H EPFP ####[id number] [place] [address] Bilirubin [Mass/Vol] 1.6 mg/dL High 0.0 - 1.2 [facility] Comment on above: Performed By: #### H EPFP ####[id number] [place] [address] Bilirubin.indirect [Mass/Vol] 0.3 mg/dL Normal 0.0 - 0.3 [facility] Comment on above: Result Comment: MILD HEMOLYSIS DETECTED. The result may be falsely decreased due tohemolysis or other interferents. Clinical correlation is recommended.Repeat testing may be considered. Performed By: #### H EPFP ####[id number] [place] [address] Protein [Mass/Vol] 5.1 g/dL Low 6.4 - 8.2 [facility] Comment on above: Performed By: #### H EPFP ####[id number] [place] [address] Hepatic Function Panelon ALP [Catalytic activity/Vol] 153 U/L above high threshold 33 - 110 CF-Grjehyf-D [facility] [address] [facility] ([place]) DO NOT USE Work Phone: ALT With P-5'-P [Catalytic activity/Vol] 59 U/L above high threshold 7 - 45 BL-Tnxqnzy-T [facility] [address] ([place]) DO NOT USE Work Phone: Comment on above: Patients treated wit h Sulfasalazine may generate falsely decreased results for ALT. AST With P-5'-P [Catalytic activity/Vol] 58 U/L above high threshold 9 - 39 RS-Tlygvwe-T [address]) DO NOT USE Work Phone: Comment on above: MILD HEMOLYSIS DETEC DA. The result may be falsely elevated due tohemolysis or other interferents. Clinical correlation is recommended.Repeat testing may be considered. Bilirubin [Mass/Vol] 1.6 mg/dL above high threshold 0.0 - 1.2 RV-Rdzwwpf-[address]) DO NOT USE Work Phone: [phone] Bilirubin.direct [Mass/Vol] 0.3 mg/dL 0.0 - 0.[address]) DO NOT USE Work Phone: [phone] Comment on above: MILD HEMOLYSIS DETEC DA. The result may be falsely decreased due tohemolysis or other interferents. Clinical correlation is recommended.Repeat testing may be considered. Protein [Mass/Vol] 5.1 g/dL below low threshold 6.4 - 8.2 SH-Neowyyr-E [address] DO NOT USE Work Phone: [phone] Laboratory - Hematology and Cell countson 02-23-2021 Erythrocyte distribution width (RBC) [Ratio] 17.0 % above high threshold See Below MS-Rbunjsx-V [address]) DO NOT USE Work Phone: [phone] Comment on above: Reference Range: 11. 5 - 14.5 Hematocrit (Bld) [Volume fraction] 33.3 % below low threshold See Below CW-Hnawoba-Z [address]) DO NOT USE Work Phone: [phone] Comment on above: Reference Range: 36. 0 - 46.0 Hemoglobin (Bld) [Mass/Vol] 10.2 g/dL below low threshold See Below RQ-Kzmwaut-X [address]) DO NOT USE Work Phone: [phone] Comment on above: Reference Range: 12. 0 - 16.0 MCHC (RBC) [Mass/Vol] 30.6 g/dL below low threshold See Below SF-Ughzcqr-R [address] ([place]) DO NOT USE Work Phone: [phone] Comment on above: Reference Range: 32. 0 - 36.0 MCV (RBC) [Entitic vol] 90 fL 80 - 100 BC-Fyzweiz-H [address] ([place]) DO NOT USE Work Phone: [phone] Platelets (Bld) [#/Vol] 241 10*3/uL 150 - 450 IS-Cldpqtc-G [address] ([place]) DO NOT USE Work Phone: [phone] RBC (Bld) [#/Vol] 3.72 {x10E12/L} below low threshold See Below XC-Lribhly-Q [address] ([place]) DO NOT USE Work Phone: [phone] Comment on above: Reference Range: 4.0 0 - 5.20 WBC (Bld) [#/Vol] 11.6 10*3/uL above high threshold 4.4 - 11.3 RJ-Ymcnrsd-P [address] ([place]) DO NOT USE Work Phone: [phone] No Panel Informationon 02-23 0.0 {/100_WBC} 0.0-0.0 [facility] [facility] [address]) DO NOT USE Work Phone: [phone] RENAL FUNCTION PANELon 02-23 Anion gap [Moles/Vol] 18 mmol/L Normal 10 - 20 [facility] Comment on above: Performed By: #### R ENAL ####[id number] [place] [address] Calcium [Mass/Vol] 8.2 mg/dL Low 8.6 - 10.6 [facility] Comment on above: Performed By: #### R ENAL ####[id number] [place] [address] Chloride [Moles/Vol] 105 mmol/L Normal 98 - 107 [facility] Comment on above: Performed By: #### R ENAL ####[id number] [place] [address] Creatinine [Mass/Vol] 0.83 mg/dL Normal 0.50 - 1.05 [facility] Comment on above: Performed By: #### R ENAL ####[id number] [place] [address] GFR- AM. >60 Normal >60 [facility] Comment on above: Result Comment: CALC ULATIONS OF ESTIMATED GFR ARE PERFORMED USING THE MDRD STUDY EQUATION FOR THE IDMS-TRACEABLE CREATININE METHODS. CLIN CHEM 2007;53:766-72 Performed By: #### R ENAL ####[id number] [place] [address] GFR-NON AM. >60 Normal >60 [facility] [place] Comment on above: Performed By: #### R ENAL ####[id number] [place] [address] Glucose [Mass/Vol] 135 mg/dL High 74 - 99 [facility] Comment on above: Performed By: #### R ENAL ####[id number] [place] [address] HCO3 (Bld) [Moles/Vol] 17 mmol/L Low 21 - 32 [facility] Comment on above: Performed By: #### R ENAL ####[id number] [place] [address] Phosphate [Mass/Vol] 3.7 mg/dL Normal 2.5 - 4.9 [facility] Comment on above: Result Comment: The performance characteristics of phosphorus testing in heparinized plasma have been validated by the individual laboratory site where testing is performed. Testing on heparinized plasma is not approved by the FDA; however, such approval is not necessary. Performed By: #### R ENAL ####[id number] [place] [address] Potassium [Moles/Vol] 4.0 mmol/L Normal 3.5 - 5.3 [facility] Comment on above: Result Comment: MILD HEMOLYSIS DETECTED. The result may be falsely elevated due tohemolysis or other interferents. Clinical correlation is recommended.Repeat testing may be considered. Performed By: #### R ENAL ####[id number] [place] [address] Sodium [Moles/Vol] 136 mmol/L Normal 136 - 145 [facility] Comment on above: Performed By: #### R ENAL ####[id number] [place] [address] Urea nitrogen [Mass/Vol] 8 mg/dL Normal 6 - 23 [facility] Comment on above: Performed By: #### R ENAL ####[id number] [place] [address] Renal Function Panelon 02-23 Albumin BCP dye [Mass/Vol] 3.3 g/dL below low threshold 3.4 - 5.0 AK-Hmjcfpj-M [address]) DO NOT USE Work Phone: [phone] Anion gap [Moles/Vol] 18 mmol/L 10 - 20 GO-Hupaybk-M [address]) DO NOT USE Work Phone: [phone] Calcium [Mass/Vol] 8.2 mg/dL below low threshold 8.6 - 10.6 IT-Qkhcqwm-A [facility] [address]) DO NOT USE Work Phone: [phone] Chloride [Moles/Vol] 105 mmol/L 98 - 107 MG-S urgery-C [address]) DO NOT USE Work Phone: [phone] CO2 [Moles/Vol] 17 mmol/L below low threshold 21 - 32 EU-Fnltqwt-U [address]) DO NOT USE Work Phone: [phone] Creatinine [Mass/Vol] 0.83 mg/dL See Below XP-Ifajvpn-I [address]) DO NOT USE Work Phone: [phone] Comment on above: Reference Range: 0.5 0 - 1.05 Glucose [Mass/Vol] 135 mg/dL above high threshold 74 - 99 YI-Ewtchgs-G [address]) DO NOT USE Work Phone: Phosphate [Mass/Vol] 3.7 mg/dL 2.5 - 4.9 MG-S [address]) DO NOT USE Work Phone: Comment on above: The performance leonel acteristics of phosphorus testing in heparinized plasma have been validated by the individual laboratory site where testing is performed. Testing on heparinized plasma is not approved by the FDA; however, such approval is not necessary. Potassium [Moles/Vol] 4.0 mmol/L 3.5 - 5.3 ZG-Ovkvwtf-K [address]) DO NOT USE Work Phone: Comment on above: MILD HEMOLYSIS DETEC DA. The result may be falsely elevated due tohemolysis or other interferents. Clinical correlation is recommended.Repeat testing may be considered. Sodium [Moles/Vol] 136 mmol/L 136 - 145 MG-Nayeli marilynn[address]) DO NOT USE Work Phone: Urea nitrogen [Mass/Vol] 8 mg/dL 6 - 23 NH-Qamgnoe-F [address]) DO NOT USE Work Phone: Renal Function Panel >60 >60 [facility]) DO NOT USE Work Phone: Comment on above: CALCULATIONS OF IZZY MATED GFR ARE PERFORMED USING THE MDRD STUDY EQUATION FOR THE IDMS-TRACEABLE CREATININE METHODS. CLIN CHEM 2007;53:766-72 Daily Progress Note-Surgeryo n 02-22-2021 Daily Progress Note-Surgery Normal [facility] Daily Progress Note-Surgeryo n 02-21-2021 Daily Progress Note-Surgery Normal [facility] BASIC METABOLIC PANELon 10-3 Anion gap [Moles/Vol] 10 mmol/L Normal 10 - 20 [facility] Comment on above: Performed By: #### B MP ####[id number] [place] [address] Calcium [Mass/Vol] 8.4 mg/dL Low 8.6 - 10.6 [facility] Comment on above: Performed By: #### B MP ####[id number] [place] [address] Chloride [Moles/Vol] 108 mmol/L High 98 - 107 [facility] Comment on above: Performed By: #### B MP ####[id number] [place] [address] Creatinine [Mass/Vol] 0.78 mg/dL Normal 0.50 - 1.05 [facility] Comment on above: Performed By: #### B MP ####[id number] [place] [address] GFR- AM. >60 Normal >60 [facility] Comment on above: Result Comment: CALC ULATIONS OF ESTIMATED GFR ARE PERFORMED USING THE MDRD STUDY EQUATION FOR THE IDMS-TRACEABLE CREATININE METHODS. CLIN CHEM 2007;53:766-72 Performed By: #### B MP ####[id number] [place] [address] GFR-NON AM. >60 Normal >60 [facility] [place] Comment on above: Performed By: #### B MP ####[id number] [place] [address] Glucose [Mass/Vol] 85 mg/dL Normal 74 - 99 [facility] Comment on above: Performed By: #### B MP ####[id number] [place] [address] HCO3 (Bld) [Moles/Vol] 26 mmol/L Normal 21 - 32 [facility] Comment on above: Performed By: #### B MP ####[id number] [place] [address] Potassium [Moles/Vol] 3.6 mmol/L Normal 3.5 - 5.3 [facility] Comment on above: Performed By: #### B MP ####[id number] [place] [address] Sodium [Moles/Vol] 140 mmol/L Normal 136 - 145 [facility] Comment on above: Performed By: #### B MP ####[id number] [place] [address] Urea nitrogen [Mass/Vol] 5 mg/dL Low 6 - 23 [facility] Comment on above: Performed By: #### B MP ####[id number] [place] [address] CBCon 02-20-2021 Erythrocyte distribution width (RBC) [Ratio] 16.6 % High 11.5 - 14.5 [facility] Comment on above: Performed By: #### C BC ####[id number] [place] [address] Hematocrit (Bld) [Volume fraction] 31.5 % Low 36.0 - 46.0 [facility] Comment on above: Performed By: #### C BC ####[id number] [place] [address] Hemoglobin (Bld) [Mass/Vol] 9.5 g/dL Low 12.0 - 16.0 [facility] Comment on above: Performed By: #### C BC ####[id number] [place] [address] MCHC (RBC) [Mass/Vol] 30.2 g/dL Low 32.0 - 36.0 [facility] Comment on above: Performed By: #### C BC ####[id number] [place] [address] MCV (RBC) [Entitic vol] 86 fL Normal 80 - 100 [facility] Comment on above: Performed By: #### C BC ####[id number] [place] [address] NUCLEATED RBC 0.0 /100 WBC Normal 0.0-0.0 [facility] Comment on above: Performed By: #### C BC ####[id number] [place] [address] Platelets (Bld) [#/Vol] 183 10*3/uL Normal 150 - 450 [facility] Comment on above: Performed By: #### C BC ####[id number] [place] [address] RBC 3.68 x10E12/L Low 4.00 - 5.20 [facility] Comment on above: Performed By: #### C BC ####[id number] [place] [address] WBC (Bld) [#/Vol] 8.3 10*3/uL Normal 4.4 - 11.3 [facility] Comment on above: Performed By: #### C BC ####[id number] [place] [address] Daily Progress Note-Surgeryo n 02-20-2021 Daily Progress Note-Surgery Normal [facility] Discharge Planning [id number] 1 Discharge Planning Note2 Normal [facility] Discharge Aiawqmy4gl 021 Discharge Profile2 Normal [facility] Laboratory - Chemistry and C hemistry - challengeon 02-20-2021 Anion gap [Moles/Vol] 10 mmol/L 10 - 20 RV-Ehaudbb-E [facility] [address]) DO NOT USE Work Phone: [phone] Calcium [Mass/Vol] 8.4 mg/dL below low threshold 8.6 - 10.6 BH-Swxsdoc-S [facility] [address]) DO NOT USE Work Phone: [phone] Chloride [Moles/Vol] 108 mmol/L above high threshold 98 - 107 SI-Llsspwb-K [facility] [address]) DO NOT USE Work Phone: [phone] CO2 [Moles/Vol] 26 mmol/L 21 - 32 MG-Surger y-C [facility] [address]) DO NOT USE Work Phone: [phone] Creatinine [Mass/Vol] 0.78 mg/dL See Below WZ-Dzfekzp-I hagrin [facility] [address] ([place]) DO NOT USE Work Phone: Comment on above: Reference Range: 0.5 0 - 1.05 Glucose [Mass/Vol] 85 mg/dL 74 - 99 MG-Nayeli marilynn-C [address]) DO NOT USE Work Phone: [phone] Potassium [Moles/Vol] 3.6 mmol/L 3.5 - 5.3 WS-Bduornz-U [address]) DO NOT USE Work Phone: [phone] Sodium [Moles/Vol] 140 mmol/L 136 - 145 MG-Nayeli marilynnC [address]) DO NOT USE Work Phone: [phone] Urea nitrogen [Mass/Vol] 5 mg/dL below low threshold 6 - 23 TU-Qwllaym-O [address]) DO NOT USE Work Phone: [phone] Laboratory - Hematology and Cell countson 02-20-2021 Erythrocyte distribution width (RBC) [Ratio] 16.6 % above high threshold See Below PE-Oycqrvp-R [address]) DO NOT USE Work Phone: [phone] Comment on above: Reference Range: 11. 5 - 14.5 Hematocrit (Bld) [Volume fraction] 31.5 % below low threshold See Below PZ-Akblbrz-G [address]) DO NOT USE Work Phone: [phone] Comment on above: Reference Range: 36. 0 - 46.0 Hemoglobin (Bld) [Mass/Vol] 9.5 g/dL below low threshold See Below VW-Ppdmbvp-M [address]) DO NOT USE Work Phone: [phone] Comment on above: Reference Range: 12. 0 - 16.0 MCHC (RBC) [Mass/Vol] 30.2 g/dL below low threshold See Below NC-Mhjujmm-R [address] DO NOT USE Work Phone: [phone] Comment on above: Reference Range: 32. 0 - 36.0 MCV (RBC) [Entitic vol] 86 fL 80 - 100 RQ-Pwabxgx-P [address]) DO NOT USE Work Phone: [phone] Platelets (Bld) [#/Vol] 183 10*3/uL 150 - 450 YV-Fcqugxm-T [address]) DO NOT USE Work Phone: [phone] RBC (Bld) [#/Vol] 3.68 {x10E12/L} below low threshold See Below TS-Hfrumgm-U [address]) DO NOT USE Work Phone: [phone] Comment on above: Reference Range: 4.0 0 - 5.20 WBC (Bld) [#/Vol] 8.3 10*3/uL 4.4 - 11.3 MG-Nayeli marilynn-C [address]) DO NOT USE Work Phone: MAGNESIUMon 02-20-2021 Magnesium [Mass/Vol] 1.95 mg/dL Normal 1.60 - 2.40 [facility] Comment on above: Performed By: #### M G ####[id number] [place] [address] Magnesium, Serumon Magnesium [Mass/Vol] 1.95 mg/dL See Below MG-S urgery-C [address]) DO NOT USE Work Phone: [phone] Comment on above: Reference Range: 1.6 0 - 2.40 No Panel Informationon 02-20 >60 >60 UJ-Krrdfjk-O [address]) DO NOT USE Work Phone: Comment on above: CALCULATIONS OF IZZY MATED GFR ARE PERFORMED USING THE MDRD STUDY EQUATION FOR THE IDMS-TRACEABLE CREATININE METHODS. CLIN CHEM 2007;53:766-72 0.0 {/100_WBC} 0.0-0.0 MG-Surgery -C [facility] [address] [facility] ([place]) DO NOT USE Work Phone: Order Reconciliationon 02-20 Order Reconciliation Normal [facility] PHOSPHORUSon 02-20-2021 Phosphate [Mass/Vol] 2.9 mg/dL Normal 2.5 - 4.9 [facility] Comment on above: Result Comment: The performance characteristics of phosphorus testing in heparinized plasma have been validated by the individual laboratory site where testing is performed. Testing on heparinized plasma is not approved by the FDA; however, such approval is not necessary. Performed By: #### P HOS ####[id number] [place] [address] Phosphorus, Serumon 02-21-20 21 Phosphate [Mass/Vol] 2.9 mg/dL 2.5 - 4.9 MG-S urgery-C [facility] [address] [facility] ([place]) DO NOT USE Work Phone: Comment on above: The performance leonel acteristics of phosphorus testing in heparinized plasma have been validated by the individual laboratory site where testing is performed. Testing on heparinized plasma is not approved by the FDA; however, such approval is not necessary. BASIC METABOLIC PANELon 01-23 Anion gap [Moles/Vol] 12 mmol/L Normal 10 - 20 [facility] Comment on above: Performed By: #### B MP ####[id number] [place] [address] Calcium [Mass/Vol] 8.7 mg/dL Normal 8.6 - 10.6 [facility] Comment on above: Performed By: #### B MP ####[id number] [place] [address] Chloride [Moles/Vol] 108 mmol/L High 98 - 107 [facility] Comment on above: Performed By: #### B MP ####[id number] [place] [address] Creatinine [Mass/Vol] 0.65 mg/dL Normal 0.50 - 1.05 [facility] Comment on above: Performed By: #### B MP ####[id number] [place] [address] GFR- AM. >60 Normal >60 [facility] Comment on above: Result Comment: CALC ULATIONS OF ESTIMATED GFR ARE PERFORMED USING THE MDRD STUDY EQUATION FOR THE IDMS-TRACEABLE CREATININE METHODS. CLIN CHEM 2007;53:766-72 Performed By: #### B MP ####[id number] [place] [address] GFR-NON AM. >60 Normal >60 [facility] [place] Comment on above: Performed By: #### B MP ####[id number] [place] [address] Glucose [Mass/Vol] 76 mg/dL Normal 74 - 99 [facility] Comment on above: Performed By: #### B MP ####[id number] [place] [address] HCO3 (Bld) [Moles/Vol] 24 mmol/L Normal 21 - 32 [facility] Comment on above: Performed By: #### B MP ####[id number] [place] [address] Potassium [Moles/Vol] 3.9 mmol/L Normal 3.5 - 5.3 [facility] Comment on above: Performed By: #### B MP ####[id number] [place] [address] Sodium [Moles/Vol] 140 mmol/L Normal 136 - 145 [facility] Comment on above: Performed By: #### B MP ####[id number] [place] [address] Urea nitrogen [Mass/Vol] 7 mg/dL Normal 6 - 23 [facility] Comment on above: Performed By: #### B MP ####[id number] [place] [address] CBCon 02-19-2021 Erythrocyte distribution width (RBC) [Ratio] 16.6 % High 11.5 - 14.5 [facility] Comment on above: Performed By: #### C BC ####[id number] [place] [address] Hematocrit (Bld) [Volume fraction] 31.2 % Low 36.0 - 46.0 [facility] Comment on above: Performed By: #### C BC ####[id number] [place] [address] Hemoglobin (Bld) [Mass/Vol] 9.6 g/dL Low 12.0 - 16.0 [facility] Comment on above: Performed By: #### C BC ####[id number] [place] [address] MCHC (RBC) [Mass/Vol] 30.8 g/dL Low 32.0 - 36.0 [facility] Comment on above: Performed By: #### C BC ####[id number] [place] [address] MCV (RBC) [Entitic vol] 85 fL Normal 80 - 100 [facility] Comment on above: Performed By: #### C BC ####[id number] [place] [address] NUCLEATED RBC 0.0 /100 WBC Normal 0.0-0.0 [facility] Comment on above: Performed By: #### C BC ####[id number] [place] [address] Platelets (Bld) [#/Vol] 195 10*3/uL Normal 150 - 450 [facility] Comment on above: Performed By: #### C BC ####[id number] [place] [address] RBC 3.68 x10E12/L Low 4.00 - 5.20 [facility] Comment on above: Performed By: #### C BC ####[id number] [place] [address] WBC (Bld) [#/Vol] 10.9 10*3/uL Normal 4.4 - 11.3 [facility] [place] Comment on above: Performed By: #### C BC ####[id number] [place] [address] Clinical Event Note-Post Op Checkon 02-19-2021 Clinical Event Note-Post Op Check Normal [facility] Daily Progress Note-Surgeryo n 02-19-2021 Daily Progress Note-Surgery Normal [facility] GI TRACT, UPPER W/KUBon 10-3 GI TRACT, UPPER W/KUB Normal [facility] Laboratory - Chemistry and C hemistry - challengeon 02-19-2021 Anion gap [Moles/Vol] 12 mmol/L 10 - 20 BN-Zwlwowi-E [place] [id number] [facility] ([place]) DO NOT USE Work Phone: Calcium [Mass/Vol] 8.7 mg/dL 8.6 - 10.6 MG-Nayeli marilynn-C [address] ([place]) DO NOT USE Work Phone: Chloride [Moles/Vol] 108 mmol/L above high threshold 98 - 107 DK-Xvcpsrv-D [address] ([place]) DO NOT USE Work Phone: [phone] CO2 [Moles/Vol] 24 mmol/L 21 - 32 MG-Surger y-C [address] ([place]) DO NOT USE Work Phone: [phone] Creatinine [Mass/Vol] 0.65 mg/dL See Below OV-Ctvnyte-H [address] ([place]) DO NOT USE Work Phone: [phone] Comment on above: Reference Range: 0.5 0 - 1.05 Glucose [Mass/Vol] 76 mg/dL 74 - 99 MG-Nayeli marilynn-C [address] ([place]) DO NOT USE Work Phone: Potassium [Moles/Vol] 3.9 mmol/L 3.5 - 5.3 YU-Hujxeyq-M [address] ([place]) DO NOT USE Work Phone: Sodium [Moles/Vol] 140 mmol/L 136 - 145 MG-Nayeli marilynn-C [facility] [address] ([place]) DO NOT USE Work Phone: [phone] Urea nitrogen [Mass/Vol] 7 mg/dL 6 - 23 PS-Yludncc-V[address]) DO NOT USE Work Phone: [phone] Laboratory - Hematology and Cell countson 02-19-2021 Erythrocyte distribution width (RBC) [Ratio] 16.6 % above high threshold See Below FJ-Gzhvtkq-U [address]) DO NOT USE Work Phone: [phone] Comment on above: Reference Range: 11. 5 - 14.5 Hematocrit (Bld) [Volume fraction] 31.2 % below low threshold See Below QV-Lsjrvdf-T [address]) DO NOT USE Work Phone: [phone] Comment on above: Reference Range: 36. 0 - 46.0 Hemoglobin (Bld) [Mass/Vol] 9.6 g/dL below low threshold See Below DX-Jmckguz-V[address]) DO NOT USE Work Phone: [phone] Comment on above: Reference Range: 12. 0 - 16.0 MCHC (RBC) [Mass/Vol] 30.8 g/dL below low threshold See Below WV-Fklulzf-Q [address]) DO NOT USE Work Phone: [phone] Comment on above: Reference Range: 32. 0 - 36.0 MCV (RBC) [Entitic vol] 85 fL 80 - [address]) DO NOT USE Work Phone: [phone] Platelets (Bld) [#/Vol] 195 10*3/uL 150 - 450 LX-Lybcywr-G[address]) DO NOT USE Work Phone: [phone] RBC (Bld) [#/Vol] 3.68 {x10E12/L} below low threshold See Below CA-Cyuxnlt-V[address] DO NOT USE Work Phone: [phone] Comment on above: Reference Range: 4.0 0 - 5.20 WBC (Bld) [#/Vol] 10.9 10*3/uL 4.4 - 11.3 MG-Briseno rgery-C [address]) DO NOT USE Work Phone: [phone] MAGNESIUMon 02-19-2021 Magnesium [Mass/Vol] 1.64 mg/dL Normal 1.60 - 2.40 [facility] Comment on above: Performed By: #### M G ####[id number] [place] [address] Magnesium, Serumon Magnesium [Mass/Vol] 1.64 mg/dL See Below MG-S urgery-C [address]) DO NOT USE Work Phone: [phone] Comment on above: Reference Range: 1.6 0 - 2.40 No Panel Informationon 02-19 >60 >60 MT-Zjncjmy-D [address]) DO NOT USE Work Phone: [phone] Comment on above: CALCULATIONS OF IZZY MATED GFR ARE PERFORMED USING THE MDRD STUDY EQUATION FOR THE IDMS-TRACEABLE CREATININE METHODS. CLIN CHEM 2007;53:766-72 0.0 {/100_WBC} 0.0-0.0 MG-Surgery -C [address]) DO NOT USE Work Phone: [phone] Normal WE-Ekybadd-L [address]) DO NOT USE Work Phone: ABO/RH GROUP TESTon 02-19-20 ABO TYPE O Normal [facility] Comment on above: Performed By: #### V ERAB ####[id number] [place] [address] RH TYPE Positive Normal [facility] Comment on above: Performed By: #### V ERAB ####[id number] [place] [address] ARTERIAL FULL PANELon 2020 Anion gap [Moles/Vol] 12 mmol/L Normal 10 - 25 [facility] Comment on above: Performed By: #### A FPA3 ####[id number] [place] [address] Anion gap [Moles/Vol] 9 mmol/L Low 10 - 25 [facility] Comment on above: Performed By: #### A FPA3 ####[id number] [place] [address] Anion gap [Moles/Vol] 11 mmol/L Normal 10 - 25 [facility] Comment on above: Performed By: #### A FPA3 ####[id number] [place] [address] Anion gap [Moles/Vol] 12 mmol/L Normal 10 - 25 [facility] Comment on above: Performed By: #### A FPA3 ####[id number] [place] [address] BASE EXCESS-BLOOD -7.1 mmol/L Low -2.0 - 3.0 [facility] Comment on above: Performed By: #### A FPA3 ####[id number] [place] [address] BASE EXCESS-BLOOD -5.9 mmol/L Low -2.0 - 3.0 [facility] Comment on above: Performed By: #### A FPA3 ####[id number] [place] [address] BASE EXCESS-BLOOD -7.1 mmol/L Low -2.0 - 3.0 [facility] Comment on above: Performed By: #### A FPA3 ####[id number] [place] [address] BASE EXCESS-BLOOD -6.9 mmol/L Low -2.0 - 3.0 [facility] Comment on above: Performed By: #### A FPA3 ####[id number] [place] [address] BASE EXCESS-BLOOD -6.2 mmol/L Low -2.0 - 3.0 [facility] Comment on above: Performed By: #### A FPA3 ####[id number] [place] [address] BICARB, CALCULATED 19.7 mmol/L Low 22.0 - 26.0 [facility] Comment on above: Performed By: #### A FPA3 ####[id number] [place] [address] BICARB, CALCULATED 20.2 mmol/L Low 22.0 - 26.0 [facility] Comment on above: Performed By: #### A FPA3 ####[id number] [place] [address] BICARB, CALCULATED 18.7 mmol/L Low 22.0 - 26.0 [facility] Comment on above: Performed By: #### A FPA3 ####[id number] [place] [address] BICARB, CALCULATED 19.7 mmol/L Low 22.0 - 26.0 [facility] Comment on above: Performed By: #### A FPA3 ####[id number] [place] [address] BICARB, CALCULATED 19.6 mmol/L Low 22.0 - 26.0 [facility] Comment on above: Performed By: #### A FPA3 ####[id number] [place] [address] CALCIUM,IONIZED 1.18 mmol/L Normal 1.10 - 1.33 [facility] Comment on above: Performed By: #### A FPA3 ####[id number] [place] [address] CALCIUM,IONIZED 1.15 mmol/L Normal 1.10 - 1.33 [facility] Comment on above: Performed By: #### A FPA3 ####[id number] [place] [address] CALCIUM,IONIZED 1.12 mmol/L Normal 1.10 - 1.33 [facility] Comment on above: Performed By: #### A FPA3 ####[id number] [place] [address] CALCIUM,IONIZED 1.14 mmol/L Normal 1.10 - 1.33 [facility] Comment on above: Performed By: #### A FPA3 ####[id number] [place] [address] CALCIUM,IONIZED 1.11 mmol/L Normal 1.10 - 1.33 [facility] Comment on above: Performed By: #### A FPA3 ####[id number] [place] [address] Chloride [Moles/Vol] 106 mmol/L Normal 98 - 107 [facility] Comment on above: Performed By: #### A FPA3 ####[id number] [place] [address] Chloride [Moles/Vol] 108 mmol/L High 98 - 107 [facility] Comment on above: Performed By: #### A FPA3 ####[id number] [place] [address] Chloride [Moles/Vol] 110 mmol/L High 98 - 107 [facility] Comment on above: Performed By: #### A FPA3 ####[id number] [place] [address] Chloride [Moles/Vol] 108 mmol/L High 98 - 107 [facility] Comment on above: Performed By: #### A FPA3 ####[id number] [place] [address] FIO2 35 % Normal [facility] Comment on above: Performed By: #### A FPA3 ####[id number] [place] [address] Glucose [Mass/Vol] 141 mg/dL High 74 - 99 [facility] Comment on above: Performed By: #### A FPA3 ####[id number] [place] [address] Glucose [Mass/Vol] 151 mg/dL High 74 - 99 [facility] Comment on above: Performed By: #### A FPA3 ####[id number] [place] [address] Glucose [Mass/Vol] 145 mg/dL High 74 - 99 [facility] Comment on above: Performed By: #### A FPA3 ####[id number] [place] [address] Glucose [Mass/Vol] 153 mg/dL High 74 - 99 [facility] Comment on above: Performed By: #### A FPA3 ####[id number] [place] [address] Glucose [Mass/Vol] 151 mg/dL High 74 - 99 [facility] Comment on above: Performed By: #### A FPA3 ####[id number] [place] [address] Hematocrit (Bld) [Volume fraction] 30.0 % Low 36.0 - 46.0 [facility] Comment on above: Performed By: #### A FPA3 ####[id number] [place] [address] Hematocrit (Bld) [Volume fraction] 33.0 % Low 36.0 - 46.0 [facility] Comment on above: Performed By: #### A FPA3 ####[id number] [place] [address] Hematocrit (Bld) [Volume fraction] 29.0 % Low 36.0 - 46.0 [facility] Comment on above: Performed By: #### A FPA3 ####[id number] [place] [address] Hematocrit (Bld) [Volume fraction] 30.0 % Low 36.0 - 46.0 [facility] Comment on above: Performed By: #### A FPA3 ####[id number] [place] [address] Hematocrit (Bld) [Volume fraction] 24.0 % Low 36.0 - 46.0 [facility] Comment on above: Performed By: #### A FPA3 ####[id number] [place] [address] HGB,CALCULATED 10.2 g/dL Low 12.0 - 16.0 [facility] Comment on above: Performed By: #### A FPA3 ####[id number] [place] [address] HGB,CALCULATED 11.2 g/dL Low 12.0 - 16.0 [facility] Comment on above: Performed By: #### A FPA3 ####[id number] [place] [address] HGB,CALCULATED 9.9 g/dL Low 12.0 - 16.0 [facility] Comment on above: Performed By: #### A FPA3 ####[id number] [place] [address] HGB,CALCULATED 10.2 g/dL Low 12.0 - 16.0 [facility] Comment on above: Performed By: #### A FPA3 ####[id number] [place] [address] HGB,CALCULATED 8.2 g/dL Low 12.0 - 16.0 [facility] Comment on above: Performed By: #### A FPA3 ####[id number] [place] [address] Lactate [Moles/Vol] 0.9 mmol/L Normal 0.4 - 2.0 MG-[address]) DO NOT USE Work Phone: Comment on above: Performed By: #### A FPA3 ####[id number] [place] [address] Lactate [Moles/Vol] 0.9 mmol/L Normal 0.4 - 2.[address] ([place]) DO NOT USE Work Phone: Comment on above: Performed By: #### A FPA3 ####[id number] [place] [address] Lactate [Moles/Vol] 0.9 mmol/L Normal 0.4 - 2.0 [facility] [place] Comment on above: Performed By: #### A FPA3 ####[id number] [place] [address] Lactate [Moles/Vol] 1.4 mmol/L Normal 0.4 - 2.0 [facility] [place] Comment on above: Performed By: #### A FPA3 ####[id number] [place] [address] Oxygen (Bld) [Partial pressure] 134 mm[Hg] High 85 - 95 [facility] Comment on above: Performed By: #### A FPA3 ####[id number] [place] [address] Oxygen (Bld) [Partial pressure] 147 mm[Hg] High 85 - 95 [facility] Comment on above: Performed By: #### A FPA3 ####[id number] [place] [address] Oxygen (Bld) [Partial pressure] 156 mm[Hg] High 85 - 95 [facility] Comment on above: Performed By: #### A FPA3 ####[id number] [place] [address] Oxygen (Bld) [Partial pressure] 154 mm[Hg] High 85 - 95 [facility] Comment on above: Performed By: #### A FPA3 ####[id number] [place] [address] Oxygen (Bld) [Partial pressure] 144 mm[Hg] High 85 - 95 [facility] Comment on above: Performed By: #### A FPA3 ####[id number] [place] [address] PATIENT TEMPERATURE 36.0 degrees C Normal [facility] Comment on above: Result Comment: NOTE : PATIENT RESULTS ARE NOT CORRECTED FOR TEMPERATURE. Performed By: #### A FPA3 ####[id number] [place] [address] PATIENT TEMPERATURE 37.0 degrees C Normal [facility] Comment on above: Result Comment: NOTE : PATIENT RESULTS ARE NOT CORRECTED FOR TEMPERATURE. Performed By: #### A FPA3 ####[id number] [place] [address] PATIENT TEMPERATURE 37.0 degrees C Normal [facility] Comment on above: Result Comment: NOTE : PATIENT RESULTS ARE NOT CORRECTED FOR TEMPERATURE. Performed By: #### A FPA3 ####[id number] [place] [address] PATIENT TEMPERATURE 37.0 degrees C Normal [facility] Comment on above: Result Comment: NOTE : PATIENT RESULTS ARE NOT CORRECTED FOR TEMPERATURE. Performed By: #### A FPA3 ####[id number] [place] [address] PCO2 44 mmHg High 38 - 42 [facility] Comment on above: Performed By: #### A FPA3 ####[id number] [place] [address] PCO2 41 mmHg Normal 38 - 42 [facility] Comment on above: Performed By: #### A FPA3 ####[id number] [place] [address] PCO2 38 mmHg Normal 38 - 42 [facility] Comment on above: Performed By: #### A FPA3 ####[id number] [place] [address] PCO2 43 mmHg High 38 - 42 [facility] Comment on above: Performed By: #### A FPA3 ####[id number] [place] [address] PCO2 39 mmHg Normal 38 - 42 [facility] Comment on above: Performed By: #### A FPA3 ####[id number] [place] [address] pH (Bld) 7.26 [pH] Low 7.38 - 7.42 [facility] Comment on above: Performed By: #### A FPA3 ####[id number] [place] [address] pH (Bld) 7.30 [pH] Low 7.38 - 7.42 IT-Xveksej-Y [facility] [address] ([place]) DO NOT USE Work Phone: Comment on above: Reference Range: 7.3 8 - 7.42 Performed By: #### A FPA3 ####[id number] [place] [address] pH (Bld) 7.30 [pH] Low 7.38 - 7.42 [facility] Comment on above: Performed By: #### A FPA3 ####[id number] [place] [address] pH (Bld) 7.27 [pH] Low 7.38 - 7.42 [facility] Comment on above: Performed By: #### A FPA3 ####[id number] [place] [address] pH (Bld) 7.31 [pH] Low 7.38 - 7.42 [facility] Comment on above: Performed By: #### A FPA3 ####[id number] [place] [address] Potassium [Moles/Vol] 3.6 mmol/L Normal 3.5 - 5.3 [facility] Comment on above: Performed By: #### A FPA3 ####[id number] [place] [address] Potassium [Moles/Vol] 3.7 mmol/L Normal 3.5 - 5.3 [facility] [address] [facility] ([place]) DO NOT USE Work Phone: Comment on above: Performed By: #### A FPA3 ####[id number] [place] [address] Potassium [Moles/Vol] 3.3 mmol/L Low 3.5 - 5.3 [facility] Comment on above: Performed By: #### A FPA3 ####[id number] [place] [address] Potassium [Moles/Vol] 3.7 mmol/L Normal 3.5 - 5.3 [facility] Comment on above: Performed By: #### A FPA3 ####[id number] [place] [address] Potassium [Moles/Vol] 3.6 mmol/L Normal 3.5 - 5.3 [facility] Comment on above: Performed By: #### A FPA3 ####[id number] [place] [address] SO2 98 % Normal 94 - 100 [facility] Comment on above: Performed By: #### A FPA3 ####[id number] [place] [address] SO2 99 % Normal 94 - 100 [facility] Comment on above: Performed By: #### A FPA3 ####[id number] [place] [address] SO2 99 % Normal 94 - 100 [facility] Comment on above: Performed By: #### A FPA3 ####[id number] [place] [address] SO2 99 % Normal 94 - 100 [facility] Comment on above: Performed By: #### A FPA3 ####[id number] [place] [address] Sodium [Moles/Vol] 134 mmol/L Low 136 - 145 [facility] Comment on above: Performed By: #### A FPA3 ####[id number] [place] [address] Sodium [Moles/Vol] 133 mmol/L Low 136 - 145 [facility] Comment on above: Performed By: #### A FPA3 ####[id number] [place] [address] Sodium [Moles/Vol] 136 mmol/L Normal 136 - 145 MG-Nayeli [facility] [address] ([place]) DO NOT USE Work Phone: Comment on above: Performed By: #### A FPA3 ####[id number] [place] [address] Sodium [Moles/Vol] 135 mmol/L Low 136 - 145 [facility] Comment on above: Performed By: #### A FPA3 ####[id number] [place] [address] Sodium [Moles/Vol] 136 mmol/L Normal 136 - 145 [facility] Comment on above: Performed By: #### A FPA3 ####[id number] [place] [address] BASIC METABOLIC PANELon 10-2 Anion gap [Moles/Vol] 14 mmol/L Normal 10 - 20 [facility] Comment on above: Performed By: #### B MP ####[id number] [place] [address] Calcium [Mass/Vol] 8.5 mg/dL Low 8.6 - 10.6 [facility] Comment on above: Performed By: #### B MP ####[id number] [place] [address] Chloride [Moles/Vol] 111 mmol/L High 98 - 107 [facility] Comment on above: Performed By: #### B MP ####[id number] [place] [address] Creatinine [Mass/Vol] 0.58 mg/dL Normal 0.50 - 1.05 [facility] Comment on above: Performed By: #### B MP ####[id number] [place] [address] GFR- AM. >60 Normal >60 [facility] Comment on above: Result Comment: CALC ULATIONS OF ESTIMATED GFR ARE PERFORMED USING THE MDRD STUDY EQUATION FOR THE IDMS-TRACEABLE CREATININE METHODS. CLIN CHEM 2007;53:766-72 Performed By: #### B MP ####[id number] [place] [address] GFR-NON AM. >60 Normal >60 [facility] [place] Comment on above: Performed By: #### B MP ####[id number] [place] [address] Glucose [Mass/Vol] 140 mg/dL High 74 - 99 [facility] Comment on above: Performed By: #### B MP ####[id number] [place] [address] HCO3 (Bld) [Moles/Vol] 20 mmol/L Low 21 - 32 [facility] Comment on above: Performed By: #### B MP ####[id number] [place] [address] Potassium [Moles/Vol] 3.8 mmol/L Normal 3.5 - 5.3 [facility] Comment on above: Performed By: #### B MP ####[id number] [place] [address] Sodium [Moles/Vol] 141 mmol/L Normal 136 - 145 [facility] Comment on above: Performed By: #### B MP ####[id number] [place] [address] Urea nitrogen [Mass/Vol] 8 mg/dL Normal 6 - 23 [facility] Comment on above: Performed By: #### B MP ####[id number] [place] [address] CBCon 02-18-2021 Erythrocyte distribution width (RBC) [Ratio] 16.4 % High 11.5 - 14.5 [facility] Comment on above: Performed By: #### C BC ####[id number] [place] [address] Hematocrit (Bld) [Volume fraction] 33.0 % Low 36.0 - 46.0 [facility] Comment on above: Performed By: #### C BC ####[id number] [place] [address] Hemoglobin (Bld) [Mass/Vol] 10.7 g/dL Low 12.0 - 16.0 [facility] Comment on above: Performed By: #### C BC ####[id number] [place] [address] MCHC (RBC) [Mass/Vol] 32.4 g/dL Normal 32.0 - 36.0 [facility] Comment on above: Performed By: #### C BC ####[id number] [place] [address] MCV (RBC) [Entitic vol] 83 fL Normal 80 - 100 [facility] Comment on above: Performed By: #### C BC ####[id number] [place] [address] NUCLEATED RBC 0.0 /100 WBC Normal 0.0-0.0 [facility] Comment on above: Performed By: #### C BC ####[id number] [place] [address] Platelets (Bld) [#/Vol] 205 10*3/uL Normal 150 - 450 [facility] Comment on above: Performed By: #### C BC ####[id number] [place] [address] RBC 3.99 x10E12/L Low 4.00 - 5.20 [facility] Comment on above: Performed By: #### C BC ####[id number] [place] [address] WBC (Bld) [#/Vol] 13.9 10*3/uL High 4.4 - 11.3 [facility] [place] Comment on above: Performed By: #### C BC ####[id number] [place] [address] COOX PANEL, ARTERIALon 02-18 CO HGB 1.1 % Normal [facility] Comment on above: Result Comment: REF VALUESNONSMOKERS 0.5-1.5%SMOKERS 0.5-10.0% Performed By: #### C OOXA ####[id number] [place] [address] DEOXY HGB 1.5 % Normal 0.0 - 5.0 [facility] Comment on above: Performed By: #### C OOXA ####[id number] [place] [address] Hemoglobin (Bld) [Mass/Vol] 9.9 g/dL Low 12.0 - 16.0 [facility] Comment on above: Performed By: #### C OOXA ####[id number] [place] [address] MET HGB 0.3 % Normal 0.0 - 1.5 [facility] Comment on above: Performed By: #### C OOXA ####[id number] [place] [address] OXY HGB 97.1 % Normal 94.0 - 98.0 [facility] Comment on above: Performed By: #### C OOXA ####[id number] [place] [address] GLUCOSE-POCTon 02-18-2021 Glucose [Mass/Vol] 131 mg/dL High 74 - 99 [facility] Comment on above: Performed By: #### Esmer JOSSELINE ####[id number] [place] [address] Laboratory - Chemistry and C hemistry - challengeon 02-18-2021 Anion gap (Bld) [Moles/Vol] 12 mmol/L 10 - 25 AQ-Qonagly-W [address] ([place]) DO NOT USE Work Phone: [phone] Anion gap (Bld) [Moles/Vol] 9 mmol/L below low threshold 10 - 25 CI-Elbdljt-G [address] ([place]) DO NOT USE Work Phone: [phone] Anion gap (Bld) [Moles/Vol] 11 mmol/L 10 - 25 LD-Ipuxvbl-E [address] ([place]) DO NOT USE Work Phone: [phone] Anion gap (Bld) [Moles/Vol] 12 mmol/L 10 - 25 KR-Ludmrtl-K [address] ([place]) DO NOT USE Work Phone: [phone] Anion gap [Moles/Vol] 14 mmol/L 10 - 20 AP-Tspxrmx-E [address] ([place]) DO NOT USE Work Phone: [phone] Calcium [Mass/Vol] 8.5 mg/dL below low threshold 8.6 - 10.6 OM-Czjivqx-J [address] ([place]) DO NOT USE Work Phone: [phone] Calcium.ionized (Bld) [Moles/Vol] 1.18 mmol/L See Below ZS-Qvsxtvr-F [address] ([place]) DO NOT USE Work Phone: [phone] Comment on above: Reference Range: 1.1 0 - 1.33 Calcium.ionized (Bld) [Moles/Vol] 1.15 mmol/L See Below JC-Btyutzf-P [address] ([place]) DO NOT USE Work Phone: [phone] Comment on above: Reference Range: 1.1 0 - 1.33 Calcium.ionized (Bld) [Moles/Vol] 1.12 mmol/L See Below NM-Snyifpr-H [address] ([place]) DO NOT USE Work Phone: [phone] Comment on above: Reference Range: 1.1 0 - 1.33 Calcium.ionized (Bld) [Moles/Vol] 1.14 mmol/L See Below WQ-Dfitqym-B [address] ([place]) DO NOT USE Work Phone: [phone] Comment on above: Reference Range: 1.1 0 - 1.33 Calcium.ionized (Bld) [Moles/Vol] 1.11 mmol/L See Below RL-Zovfrbz-S [address] ([place]) DO NOT USE Work Phone: [phone] Comment on above: Reference Range: 1.1 0 - 1.33 Carboxyhemoglobin (BldA) [Mass fraction] 1.1 % NA-Yylfvte-G [address]) DO NOT USE Work Phone: [phone] Comment on above: REF VALUESNONSMOKERS 0.5-1.5%SMOKERS 0.5-10.0% Chloride [Moles/Vol] 106 mmol/L 98 - 107 MG-S urgery-C [address] ([place]) DO NOT USE Work Phone: [phone] Chloride [Moles/Vol] 108 mmol/L above high threshold 98 - 107 DS-Nqownne-J [address] ([place]) DO NOT USE Work Phone: [phone] Chloride [Moles/Vol] 110 mmol/L above high threshold 98 - 107 NH-Irwgtyr-G [place] [address] [facility] ([place]) DO NOT USE Work Phone: Chloride [Moles/Vol] 108 mmol/L above high threshold 98 - 107 TB-Ejdrpbz-Y [place] [address] [facility] ([place]) DO NOT USE Work Phone: Chloride [Moles/Vol] 111 mmol/L above high threshold 98 - 107 IH-Hcxkiyu-E [place] [address] ([place]) DO NOT USE Work Phone: CO2 (Bld) [Partial pressure] 44 mm[Hg] above high threshold 38 - 42 WM-Egftgub-L [facility] [address] ([place]) DO NOT USE Work Phone: CO2 (Bld) [Partial pressure] 41 mm[Hg] 38 - 42 GF-Zurwfie-Z [facility] [address] ([place]) DO NOT USE Work Phone: CO2 (Bld) [Partial pressure] 38 mm[Hg] 38 - 42 XY-Coahudo-X [facility] [address] ([place]) DO NOT USE Work Phone: [phone] CO2 (Bld) [Partial pressure] 43 mm[Hg] above high threshold 38 - 42 DN-Yfagdew-S [facility] [address] ([place]) DO NOT USE Work Phone: CO2 (Bld) [Partial pressure] 39 mm[Hg] 38 - 42 DJ-Wqomaan-F [place] [address] ([place]) DO NOT USE Work Phone: CO2 [Moles/Vol] 20 mmol/L below low threshold 21 - 32 VB-Hcorosc-T [facility] [address] ([place]) DO NOT USE Work Phone: Creatinine [Mass/Vol] 0.58 mg/dL See Below XS-Hkbzfhz-X [place] [address] ([place]) DO NOT USE Work Phone: Comment on above: Reference Range: 0.5 0 - 1.05 Glucose [Mass/Vol] 141 mg/dL above high threshold 74 - 99 TG-Srxjjex-S [place] [id number] [facility] ([place]) DO NOT USE Work Phone: Glucose [Mass/Vol] 151 mg/dL above high threshold 74 - 99 PV-Jgyhzwc-Q [place] [address] [facility] ([place]) DO NOT USE Work Phone: Glucose [Mass/Vol] 145 mg/dL above high threshold 74 - 99 WW-Sfctzqh-W [facility] [address] ([place]) DO NOT USE Work Phone: Glucose [Mass/Vol] 153 mg/dL above high threshold 74 - 99 LV-Irxzvdt-V [facility] [address] ([place]) DO NOT USE Work Phone: [phone] Glucose [Mass/Vol] 151 mg/dL above high threshold 74 - 99 LD-Ebcrugm-U [facility] [address] ([place]) DO NOT USE Work Phone: Glucose [Mass/Vol] 140 mg/dL above high threshold 74 - 99 BN-Sroojac-B [address] ([place]) DO NOT USE Work Phone: [phone] Glucose [Mass/Vol] 131 mg/dL above high threshold 74 - 99 UH-Xetzcnd-T [address] ([place]) DO NOT USE Work Phone: [phone] HCO3 (Bld) [Moles/Vol] 19.7 mmol/L below low threshold See Below IC-Mvfknte-Y [facility] [address] ([place]) DO NOT USE Work Phone: [phone] Comment on above: Reference Range: 22. 0 - 26.0 HCO3 (Bld) [Moles/Vol] 20.2 mmol/L below low threshold See Below TF-Ybgosit-M [facility] [address] ([place]) DO NOT USE Work Phone: [phone] Comment on above: Reference Range: 22. 0 - 26.0 HCO3 (Bld) [Moles/Vol] 18.7 mmol/L below low threshold See Below DL-Qywkyfo-X [address]) DO NOT USE Work Phone: [phone] Comment on above: Reference Range: 22. 0 - 26.0 HCO3 (Bld) [Moles/Vol] 19.7 mmol/L below low threshold See Below NM-Vfnpspj-C [address] ([place]) DO NOT USE Work Phone: [phone] Comment on above: Reference Range: 22. 0 - 26.0 HCO3 (Bld) [Moles/Vol] 19.6 mmol/L below low threshold See Below LJ-Wsvlfqw-A [address] ([place]) DO NOT USE Work Phone: [phone] Comment on above: Reference Range: 22. 0 - 26.0 Lactate [Moles/Vol] 0.9 mmol/L 0.4 - 2.0 MG-Briseno rgeryC [address] ([place]) DO NOT USE Work Phone: [phone] Lactate [Moles/Vol] 1.4 mmol/L 0.4 - 2.0 MG-Briseno ery[address] ([place]) DO NOT USE Work Phone: [phone] Methemoglobin (BldA) [Mass fraction] 0.3 % 0.0 - 1.5 AY-Vlysygi-F [address] ([place]) DO NOT USE Work Phone: [phone] Oxygen (Bld) [Partial pressure] 134 mm[Hg] above high threshold 85 - 95 AW-Xhvumxy-Z [address]) DO NOT USE Work Phone: [phone] Oxygen (Bld) [Partial pressure] 147 mm[Hg] above high threshold 85 - 95 OX-Fwrvsjv-U [address] ([place]) DO NOT USE Work Phone: [phone] Oxygen (Bld) [Partial pressure] 156 mm[Hg] above high threshold 85 - 95 KT-Fqryskg-V [address] ([place]) DO NOT USE Work Phone: [phone] Oxygen (Bld) [Partial pressure] 154 mm[Hg] above high threshold 85 - 95 NL-Qifwdrv-U [address] ([place]) DO NOT USE Work Phone: [phone] Oxygen (Bld) [Partial pressure] 144 mm[Hg] above high threshold 85 - 95 OZ-Xqysemc-H [address] ([place]) DO NOT USE Work Phone: [phone] Oxyhemoglobin (BldA) [Mass fraction] 97.1 % See Below HN-Fwsxapz-M [address] ([place]) DO NOT USE Work Phone: [phone] Comment on above: Reference Range: 94. 0 - 98.0 pH (Bld) 7.26 [pH] below low threshold See Below JH-Wxqsaso-R [address] ([place]) DO NOT USE Work Phone: [phone] Comment on above: Reference Range: 7.3 8 - 7.42 pH (Bld) 7.30 [pH] below low threshold See Below BF-Antktcu-T [address] ([place]) DO NOT USE Work Phone: [phone] Comment on above: Reference Range: 7.3 8 - 7.42 pH (Bld) 7.27 [pH] below low threshold See Below TB-Shqmxep-L [address] ([place]) DO NOT USE Work Phone: [phone] Comment on above: Reference Range: 7.3 8 - 7.42 pH (Bld) 7.31 [pH] below low threshold See Below WZ-Eqcieqo-M [address] ([place]) DO NOT USE Work Phone: [phone] Comment on above: Reference Range: 7.3 8 - 7.42 Potassium [Moles/Vol] 3.6 mmol/L 3.5 - 5.3 ZZ-Cyiumgk-O [address] ([place]) DO NOT USE Work Phone: Potassium [Moles/Vol] 3.7 mmol/L 3.5 - 5.3 XV-Jabhjkx-A [address] ([place]) DO NOT USE Work Phone: Potassium [Moles/Vol] 3.3 mmol/L below low threshold 3.5 - 5.3 HW-Mamubsi-S [address] ([place]) DO NOT USE Work Phone: Potassium [Moles/Vol] 3.6 mmol/L 3.5 - 5.3 AF-Ruuqxqk-M [address] ([place]) DO NOT USE Work Phone: Potassium [Moles/Vol] 3.8 mmol/L 3.5 - 5.3 KG-Ylcqaeg-O [address] ([place]) DO NOT USE Work Phone: Sodium [Moles/Vol] 134 mmol/L below low threshold 136 - 145 GF-Vbalfcw-W [address] ([place]) DO NOT USE Work Phone: Sodium [Moles/Vol] 133 mmol/L below low threshold 136 - 145 ZQ-Yfubvau-W [address] ([place]) DO NOT USE Work Phone: Sodium [Moles/Vol] 136 mmol/L 136 - 145 MG-Nayeli marilynn-C [address] ([place]) DO NOT USE Work Phone: Sodium [Moles/Vol] 135 mmol/L below low threshold 136 - 145 FB-Hctezze-J [address] ([place]) DO NOT USE Work Phone: Sodium [Moles/Vol] 141 mmol/L 136 - 145 MG-Nayeli marilynn-C [address] ([place]) DO NOT USE Work Phone: Urea nitrogen [Mass/Vol] 8 mg/dL 6 - 23 DM-Envjgkk-V [address] ([place]) DO NOT USE Work Phone: Laboratory - Hematology and Cell countson 02-18-2021 Deoxyhemoglobin (BldA) [Mass fraction] 1.5 % 0.0 - 5.0 MA-Wyvklql-K [address] ([place]) DO NOT USE Work Phone: [phone] Erythrocyte distribution width (RBC) [Ratio] 16.4 % above high threshold See Below HK-Mfcsmnb-C [address]) DO NOT USE Work Phone: [phone] Comment on above: Reference Range: 11. 5 - 14.5 Hematocrit (Bld) [Volume fraction] 30.0 % below low threshold See Below VD-Uulrtlp-Z [address]) DO NOT USE Work Phone: [phone] Comment on above: Reference Range: 36. 0 - 46.0 Hematocrit (Bld) [Volume fraction] 33.0 % below low threshold See Below QG-Kxmaxzm-N [address]) DO NOT USE Work Phone: [phone] Comment on above: Reference Range: 36. 0 - 46.0 Hematocrit (Bld) [Volume fraction] 29.0 % below low threshold See Below WP-Qjbystt-J [address]) DO NOT USE Work Phone: [phone] Comment on above: Reference Range: 36. 0 - 46.0 Hematocrit (Bld) [Volume fraction] 30.0 % below low threshold See Below UH-Ludgtnm-K [address]) DO NOT USE Work Phone: [phone] Comment on above: Reference Range: 36. 0 - 46.0 Hematocrit (Bld) [Volume fraction] 24.0 % below low threshold See Below FC-Ioboffr-O [address]) DO NOT USE Work Phone: [phone] Comment on above: Reference Range: 36. 0 - 46.0 Hematocrit (Bld) [Volume fraction] 33.0 % below low threshold See Below [address]) DO NOT USE Work Phone: [phone] Comment on above: Reference Range: 36. 0 - 46.0 Hemoglobin (Bld) [Mass/Vol] 10.2 g/dL below low threshold See Below [address]) DO NOT USE Work Phone: [phone] Comment on above: Reference Range: 12. 0 - 16.0 Hemoglobin (Bld) [Mass/Vol] 11.2 g/dL below low threshold See Below [address]) DO NOT USE Work Phone: [phone] Comment on above: Reference Range: 12. 0 - 16.0 Hemoglobin (Bld) [Mass/Vol] 9.9 g/dL below low threshold See Below [address]) DO NOT USE Work Phone: [phone] Comment on above: Reference Range: 12. 0 - 16.0 Hemoglobin (Bld) [Mass/Vol] 10.2 g/dL below low threshold See Below [address]) DO NOT USE Work Phone: [phone] Comment on above: Reference Range: 12. 0 - 16.0 Hemoglobin (Bld) [Mass/Vol] 8.2 g/dL below low threshold See Below [address]) DO NOT USE Work Phone: [phone] Comment on above: Reference Range: 12. 0 - 16.0 Hemoglobin (Bld) [Mass/Vol] 10.7 g/dL below low threshold See Below [address]) DO NOT USE Work Phone: [phone] Comment on above: Reference Range: 12. 0 - 16.0 MCHC (RBC) [Mass/Vol] 32.4 g/dL See Below VH-Pxnrptd-E [address] ([place]) DO NOT USE Work Phone: [phone] Comment on above: Reference Range: 32. 0 - 36.0 MCV (RBC) [Entitic vol] 83 fL 80 - 100 JQ-Eyqdbij-S [address] ([place]) DO NOT USE Work Phone: [phone] Platelets (Bld) [#/Vol] 205 10*3/uL 150 - 450 XO-Ouqydwy-J [address] ([place]) DO NOT USE Work Phone: [phone] RBC (Bld) [#/Vol] 3.99 {x10E12/L} below low threshold See Below TB-Snnjujp-R [address]) DO NOT USE Work Phone: [phone] Comment on above: Reference Range: 4.0 0 - 5.20 WBC (Bld) [#/Vol] 13.9 10*3/uL above high threshold 4.4 - 11.3 IA-Xanvpzg-J [address]) DO NOT USE Work Phone: [phone] Panel Informationon 02-18 Inhaled oxygen concentration 35 % RD-Jxrmazk-Z [address]) DO NOT USE Work Phone: [phone] ORDER RECD DJ-Drowwzp-B [facility] [address]) DO NOT USE Work Phone: [phone] -7.1 mmol/L below low threshold -2.0 - 3.0 IA-Ooctgkm-C [facility] [address]) DO NOT USE Work Phone: [phone] 98 % 94 - 100 FF-Hicutue-I [address]) DO NOT USE Work Phone: [phone] 36.0 {degrees_C} MG-Surge ry-C [address] ([place]) DO NOT USE Work Phone: Comment on above: NOTE: PATIENT RESULT S ARE NOT CORRECTED FOR TEMPERATURE. -5.9 mmol/L below low threshold -2.0 - 3.0 UG-Pbuhiwj-G hagrin [address] ([place]) DO NOT USE Work Phone: [phone] 99 % 94 - 100 RR-Lfgzynr-U hagrin [address] ([place]) DO NOT USE Work Phone: [phone] 37.0 {degrees_C} MG-Surge ry-C [address] ([place]) DO NOT USE Work Phone: [phone] Comment on above: NOTE: PATIENT RESULT S ARE NOT CORRECTED FOR TEMPERATURE. -7.1 mmol/L below low threshold -2.0 - 3.0 RH-Pgooswh-Y [address]) DO NOT USE Work Phone: [phone] 99 % 94 - 100 KV-Upvblnb-W [facility] [place] [address]) DO NOT USE Work Phone: [phone] 37.0 {degrees_C} MG-Surge ry-C [address]) DO NOT USE Work Phone: [phone] Comment on above: NOTE: PATIENT RESULT S ARE NOT CORRECTED FOR TEMPERATURE. -6.9 mmol/L below low threshold -2.0 - 3.0 KZ-Pwqctau-T hagrin [address]) DO NOT USE Work Phone: [phone] -6.2 mmol/L below low threshold -2.0 - 3.0 HL-Weivuru-Q hagrin [address]) DO NOT USE Work Phone: [phone] 99 % 94 - 100 SY-Wbrtkvj-L [facility] [place] [address] ([place]) DO NOT USE Work Phone: [phone] 37.0 {degrees_C} MG-Surge ry-C [address]) DO NOT USE Work Phone: Comment on above: NOTE: PATIENT RESULT S ARE NOT CORRECTED FOR TEMPERATURE. >60 >60 TO-Befybyo-X [address] ([place]) DO NOT USE Work Phone: Comment on above: CALCULATIONS OF IZZY MATED GFR ARE PERFORMED USING THE MDRD STUDY EQUATION FOR THE IDMS-TRACEABLE CREATININE METHODS. CLIN CHEM 2007;53:766-72 0.0 {/100_WBC} 0.0-0.0 MG-Surgery -C [facility] [address] [facility] ([place]) DO NOT USE Work Phone: Operative Reports - CMCon Operative Reports - CMC Normal [facility] Order Reconciliationon 02-18 Order Reconciliation Normal [facility] Patient Profile - Preop v3on 02-18-2021 Patient Profile - Preop v3 Normal [facility] REQUEST-LEUKOREDUCED RED JESSE LSon 02-18-2021 REQUEST-LEUKOREDUCED RED CELLS ORDER RECD Normal [facility] Comment on above: Performed By: #### O IMPROVEMENT ENGINEER ####[id number] [place] [address] Radiologyon 02-18-2021 XR Chest Single view Normal MG-S urgery-C [facility] [address] ([place]) DO NOT USE Work Phone: TH CHEST; 1 VIEWon 1 TH CHEST; 1 VIEW Normal [facility] Covid-19 PCR (CVDTBH)on 01-22 SARS-CoV-2 (COVID-19) RNA REGINA+probe Ql (Unsp spec) Not detected Normal NOT DETECTED [facility] Comment on above: Result Comment: This test is not yet approved or cleared by the [place] FDA. When there are no FDA-approved or cleared tests available, and other criteria are met, FDA can make tests available under an emergency access mechanism called an Emergency Use Authorization (EUA). The EUA for this test is supported by the Temple of Health and Human Service's (HHS's) declaration that circumstances exist to justify the emergency use of in vitro diagnostics for the detection and/or diagnosis of the virus that causes COVID-19. This EUA will remain in effect (meaning this test can be used) for the duration of the COVID-19 declaration justifying emergency of IVDs, unless it is terminated or revoked by FDA (after which the test may no longer be used). When diagnostic testing is negative, the possibility of a false negative should be considered in the context of a patient's recent exposures and the presence of clinical signs and symptoms consistent with SARS-CoV-2. Performed By: #### B MP #### [facility] [address] [address] [address] Brandon Adams BASIC METABOLIC PANELon 01-22 Anion gap [Moles/Vol] 14 mmol/L Normal 10 - 20 [facility] Comment on above: Performed By: #### B MP ####[id number] [place] [address] Calcium [Mass/Vol] 9.0 mg/dL Normal 8.6 - 10.6 [facility] Comment on above: Performed By: #### B MP ####[id number] [place] [address] Chloride [Moles/Vol] 109 mmol/L High 98 - 107 [facility] Comment on above: Performed By: #### B MP ####[id number] [place] [address] Creatinine [Mass/Vol] 0.80 mg/dL Normal 0.50 - 1.05 [facility] Comment on above: Performed By: #### B MP ####[id number] [place] [address] GFR- AM. >60 Normal >60 [facility] Comment on above: Result Comment: CALC ULATIONS OF ESTIMATED GFR ARE PERFORMED USING THE MDRD STUDY EQUATION FOR THE IDMS-TRACEABLE CREATININE METHODS. CLIN CHEM 2007;53:766-72 Performed By: #### B MP ####[id number] [place] [address] GFR-NON AM. >60 Normal >60 [facility] [place] Comment on above: Performed By: #### B MP ####[id number] [place] [address] Glucose [Mass/Vol] 59 mg/dL Low 74 - 99 [facility] Comment on above: Performed By: #### B MP ####[id number] [place] [address] HCO3 (Bld) [Moles/Vol] 20 mmol/L Low 21 - 32 [facility] Comment on above: Performed By: #### B MP ####[id number] [place] [address] Potassium [Moles/Vol] 4.3 mmol/L Normal 3.5 - 5.3 [facility] Comment on above: Performed By: #### B MP ####[id number] [place] [address] Sodium [Moles/Vol] 139 mmol/L Normal 136 - 145 [facility] Comment on above: Performed By: #### B MP ####[id number] [place] [address] Urea nitrogen [Mass/Vol] 13 mg/dL Normal 6 - 23 [facility] Comment on above: Performed By: #### B MP ####[id number] [place] [address] CBCon 02-11-2021 Erythrocyte distribution width (RBC) [Ratio] 16.6 % High 11.5 - 14.5 [facility] Comment on above: Performed By: #### C BC ####[id number] [place] [address] Hematocrit (Bld) [Volume fraction] 41.2 % Normal 36.0 - 46.0 [facility] Comment on above: Performed By: #### C BC ####[id number] [place] [address] Hemoglobin (Bld) [Mass/Vol] 13.3 g/dL Normal 12.0 - 16.0 [facility] Comment on above: Performed By: #### C BC ####[id number] [place] [address] MCHC (RBC) [Mass/Vol] 32.3 g/dL Normal 32.0 - 36.0 [facility] Comment on above: Performed By: #### C BC ####[id number] [place] [address] MCV (RBC) [Entitic vol] 84 fL Normal 80 - 100 [facility] Comment on above: Performed By: #### C BC ####[id number] [place] [address] NUCLEATED RBC 0.0 /100 WBC Normal 0.0-0.0 [facility] Comment on above: Performed By: #### C BC ####[id number] [place] [address] Platelets (Bld) [#/Vol] 325 10*3/uL Normal 150 - 450 [facility] Comment on above: Performed By: #### C BC ####[id number] [place] [address] RBC 4.92 x10E12/L Normal 4.00 - 5.20 [facility] Comment on above: Performed By: #### C BC ####[id number] [place] [address] WBC (Bld) [#/Vol] 10.2 10*3/uL Normal 4.4 - 11.3 [facility] [place] Comment on above: Performed By: #### C BC ####[id number] [place] [address] Laboratory - Blood bankon ABO group Nom (Bld) O MG-Briseno rgery[address] ([place]) DO NOT USE Work Phone: Blood group antibody screen Ql Negative NG-Suyafph-M[address] ([place]) DO NOT USE Work Phone: Rh immune globulin screen (Bld) [Interp] Positive FD-Mradsjr-X[address]) DO NOT USE Work Phone: Laboratory - Chemistry and C hemistry - challengeon 02-11-2021 Anion gap [Moles/Vol] 14 mmol/L 10 - 20 JQ-Bgjswpm-T [address] ([place]) DO NOT USE Work Phone: [phone] Calcium [Mass/Vol] 9.0 mg/dL 8.6 - 10.6 MG-Nayeli marilynn-C [address] ([place]) DO NOT USE Work Phone: [phone] Chloride [Moles/Vol] 109 mmol/L above high threshold 98 - 107 HB-Lklmeby-P [address] ([place]) DO NOT USE Work Phone: [phone] CO2 [Moles/Vol] 20 mmol/L below low threshold 21 - 32 GS-Zfmtxas-N [address] ([place]) DO NOT USE Work Phone: [phone] Creatinine [Mass/Vol] 0.80 mg/dL See Below PZ-Iiwwjfn-N [address] ([place]) DO NOT USE Work Phone: [phone] Comment on above: Reference Range: 0.5 0 - 1.05 Glucose [Mass/Vol] 59 mg/dL below low threshold 74 - 99 SJ-Vtsbdzw-U [address] ([place]) DO NOT USE Work Phone: [phone] Potassium [Moles/Vol] 4.3 mmol/L 3.5 - 5.3 XI-Hrbhodf-W [address] ([place]) DO NOT USE Work Phone: [phone] Sodium [Moles/Vol] 139 mmol/L 136 - 145 MG-Nayeli marilynn-C [address] ([place]) DO NOT USE Work Phone: [phone] Urea nitrogen [Mass/Vol] 13 mg/dL 6 - 23 RH-Nbksiod-N [address] ([place]) DO NOT USE Work Phone: [phone] Laboratory - Hematology and Cell countson 02-11-2021 Erythrocyte distribution width (RBC) [Ratio] 16.6 % above high threshold See Below ZN-Jnktvta-E [address]) DO NOT USE Work Phone: [phone] Comment on above: Reference Range: 11. 5 - 14.5 Hematocrit (Bld) [Volume fraction] 41.2 % See Below JT-Moghlyr-J [address]) DO NOT USE Work Phone: [phone] Comment on above: Reference Range: 36. 0 - 46.0 Hemoglobin (Bld) [Mass/Vol] 13.3 g/dL See Below ZS-Uratuqc-C [address]) DO NOT USE Work Phone: Comment on above: Reference Range: 12. 0 - 16.0 MCHC (RBC) [Mass/Vol] 32.3 g/dL See Below TT-Iauzcyi-H [address]) DO NOT USE Work Phone: [phone] Comment on above: Reference Range: 32. 0 - 36.0 MCV (RBC) [Entitic vol] 84 fL 80 - 100 HP-Cydaryb-G [address]) DO NOT USE Work Phone: Platelets (Bld) [#/Vol] 325 10*3/uL 150 - 450 LQ-Cvidcvo-T[address]) DO NOT USE Work Phone: RBC (Bld) [#/Vol] 4.92 {x10E12/L} See Below [facility] [address]) DO NOT USE Work Phone: [phone] Comment on above: Reference Range: 4.0 0 - 5.20 WBC (Bld) [#/Vol] 10.2 10*3/uL 4.4 - 11.3 MG-Briseno rgery-C [address]) DO NOT USE Work Phone: [phone] MRSA Screenon 10-22-2021 Staphylococcus sp identified Org specific cx Nom (Unsp spec) TE-Ibrunza-A [address] ([place]) DO NOT USE Work Phone: No Panel Informationon 02-11 >60 >60 [facility] ([place]) DO NOT USE Work Phone: Comment on above: CALCULATIONS OF IZZY MATED GFR ARE PERFORMED USING THE MDRD STUDY EQUATION FOR THE IDMS-TRACEABLE CREATININE METHODS. CLIN CHEM 2007;53:766-72 0.0 {/100_WBC} 0.0-0.0 -Surgery -[address] ([place]) DO NOT USE Work Phone: STAPH/MRSA SCREENon 02-12-20 21 STAPH/MRSA SCREEN Normal [facility] Comment on above: Performed By: #### S TAPH ####[id number] [place] [address] TYPE + SCREENon 02-11-2021 ABO TYPE O Normal [facility] Comment on above: Performed By: #### T +S ####[id number] [place] [address] RH TYPE Positive Normal [facility] Comment on above: Performed By: #### T +S ####[id number] [id number] Falls Risk Screeningon 12-16 Fall risk assessment a) No falls within the last year TE-Jghmljk-K [place] [address] Work Phone: Tobacco use status [facility] b) No HI-Dzlsjhn-U [address] [address] Work Phone: Social History Date Type Detail Facility Start: 05-15-2023 Tobacco smoking status NHIS Ex-smoker (finding) [facility] Start: 1975 Sex Assigned At Female F [facility] No tobacco/smoke exposure No tobacco/smoke exposure NS-Azhixvg-Fgqmite 2100 Work Phone: Tobacco smoking consumption unknown [facility] Sex Assigned At Sex Assigned At Bir th [employer] [facility] [employer] Other Vital Signs Date Time Vital Sign Value Performing Clinician Facility 05-15-2023 11:45-0500 Diastolic blood pressure 82 mm[Hg] [facility] 05-15-2023 11:45-0500 Heart rate 76 /min [facility] 05-15-2023 11:45-0500 Respiratory rate 16 /min [facility] 05-15-2023 11:45-0500 SaO2% (BldA) [Mass fraction] 100 % [facility] 05-15-2023 11:45-0500 Systolic blood pressure 128 mm[Hg] [facility] 05-15-2023 10:18-0500 Body height 162.56 cm [facility] 05-15-2023 10:18-0500 Body weight 74.84 kg [facility] 04-03-2022 18:00-0500 Body height 162.56 cm Luiza Khan Other [facility] Other 04-03-2022 18:00-0500 Body mass index (BMI) [Ratio] 23.17 kg/m2 Luiza Khan Other [employer] [facility] [employer] Other 04-03-2022 18:00-0500 Body temperature 97.8 [degF] Luiza Khan Other [employer] Other 04-03-2022 18:00-0500 Body weight 61.24 kg Luiza Khan Other [employer] Other 04-03-2022 18:00-0500 Diastolic blood pressure 84 mm[Hg] Luiza Khan Other [employer] Other 04-03-2022 18:00-0500 Respiratory rate 16 /min Luiza Khan Other [facility] Other 04-03-2022 18:00-0500 SaO2% (BldA) [Mass fraction] 99 % Luiza Khan Other [facility] Other 04-03-2022 18:00-0500 Systolic blood pressure 137 mm[Hg] Luiza Khan Other [facility] [employer] Other 06-02-2021 13:05-0500 Body height 162.56 cm Abel Ice Work Phone: [facility] 1057 Work Phone: 06-02-2021 13:05-0500 Body mass index (BMI) [Ratio] 29.35 kg/m2 Abel Ice Work Phone: [facility] 1057 Work Phone: 06-02-2021 13:05-0500 Body surface area Derived from formula 1.83 m2 Abel Ice Work Phone: [facility] 1057 Work Phone: 06-02-2021 13:05-0500 Body temperature 97.8 [degF] Abel Ice Work Phone: [facility] 1057 Work Phone: 06-02-2021 13:05-0500 Body weight 77.57 kg Abel Ice Work Phone: [facility] 1057 Work Phone: 06-02-2021 13:05-0500 Diastolic blood pressure 80 mm[Hg] Abel Ice Work Phone: [facility] 1057 Work Phone: 06-02-2021 13:05-0500 Heart rate 90 /min Abel Ice Work Phone: [facility] 1057 Work Phone: 06-02-2021 13:05-0500 SaO2% (BldA) [Mass fraction] 98 % Abel Ice Work Phone: [facility] 1057 Work Phone: 06-02-2021 13:05-0500 Systolic blood pressure 124 mm[Hg] Abel Ice Work Phone: [facility] 1057 Work Phone: 05-24-2021 10:23-0500 Body temperature 96.98 [degF] Tariq Sánchez Other Phone: [facility] 05-24-2021 10:23-0500 Diastolic blood pressure 70 mm[Hg] Tariq Sánchez Other Phone: [facility] 05-24-2021 10:23-0500 Heart rate 102 /min Tariq Sánchez Other Phone: [facility] 05-24-2021 10:23-0500 Respiratory rate 16 /min Tariq Sánchez Other Phone: [facility] 05-24-2021 10:23-0500 SaO2% (BldA) [Mass fraction] 96 % Tariq Sánchez Other Phone: [facility] 05-24-2021 10:23-0500 Systolic blood pressure 129 mm[Hg] Tariq Sánchez Other Phone: [facility] 05-16-2021 12:07-0500 Body mass index (BMI) [Ratio] 30.58 kg/m2 Tariq Sánchez Work Phone: [facility] Work Phone: 05-16-2021 12:07-0500 Body surface area Derived from formula 1.86 m2 Tariq Sánchez Work Phone: [facility] Work Phone: 05-16-2021 12:07-0500 Body temperature 97.5 [degF] Tariq A Naderer Work Phone: [facility] Work Phone: 05-16-2021 12:07-0500 Body weight 80.8 kg Tariq A Naderer Work Phone: [facility] Work Phone: 05-16-2021 12:07-0500 Diastolic blood pressure 81 mm[Hg] Tariq A Naderer Work Phone: [facility] Work Phone: 05-16-2021 12:07-0500 Heart rate 70 /min Tariq A Naderer Work Phone: [facility] Work Phone: 05-16-2021 12:07-0500 Systolic blood pressure 132 mm[Hg] Tariq A Naderer Work Phone: [facility] Work Phone: 05-16-2021 12:07-0500 9 1 Tariq A Naderer Work Phone: [facility] Work Phone: Comment on above: [employer] 04-21-2021 14:55-0500 Body temperature 97.88 [degF] Tariq Caineresid Other Phone: [facility] 04-21-2021 14:55-0500 Diastolic blood pressure 74 mm[Hg] Tariq Caineresid Other Phone: [facility] 04-21-2021 14:55-0500 Heart rate 81 /min Tariq Caineresid Other Phone: [facility] 04-21-2021 14:55-0500 Respiratory rate 16 /min Tariq Caineresid Other Phone: [facility] 04-21-2021 14:55-0500 SaO2% (BldA) [Mass fraction] 100 % Tariq Sánchez Other Phone: [facility] 04-21-2021 14:55-0500 Systolic blood pressure 110 mm[Hg] Tariq Sánchez Other Phone: [facility] 04-18-2021 11:24-0500 Body height 162.56 cm Tariq Newellr Work Phone: NS[address]md[address] [address] [facility] Work Phone: 04-18-2021 11:24-0500 Body mass index (BMI) [Ratio] 28.32 kg/m2 Tariq Newellr Work Phone: WL-[address]ekxcsp[address] [address] [facility] Work Phone: 04-18-2021 11:24-0500 Body surface area Derived from formula 1.8 m2 Tariq Sánchez Work Phone: UE-[address]zgrquu[address] [address] [facility] Work Phone: 04-18-2021 11:24-0500 Body temperature 98.1 [degF] Tariq Newellr Work Phone: NL-Jpxmwnd[address] [address] [facility] Work Phone: 04-18-2021 11:24-0500 Body weight 74.84 kg Tariq Newellr Work Phone: VT-Almalhf[address] [address] [facility] Work Phone: 04-18-2021 11:24-0500 Diastolic blood pressure 87 mm[Hg] Tariq Newellr Work Phone: PY-Xwdkhji-[address] [address] [facility] Work Phone: 04-18-2021 11:24-0500 Heart rate 86 /min Tariq Newellr Work Phone: SW-Wasynmc[address] [address] [facility] Work Phone: 04-18-2021 11:24-0500 Systolic blood pressure 155 mm[Hg] Tariq Cainerer Work Phone: [facility] [address] [facility] Work Phone: 04-05-2021 18:43-0500 Body temperature 97.7 [degF] Tariq Naderer Other Phone: [facility] 04-05-2021 18:43-0500 Heart rate 63 /min Tariq Naderer Other Phone: [facility] 04-05-2021 18:43-0500 Respiratory rate 16 /min Tariq Naderer Other Phone: [facility] 04-05-2021 18:43-0500 SaO2% (BldA) [Mass fraction] 96 % Tariq Naderer Other Phone: [facility] 04-05-2021 18:43-0500 Systolic blood pressure 134 mm[Hg] Tariq Naderer Other Phone: [facility] 04-05-2021 11:06-0500 Diastolic blood pressure 76 mm[Hg] Tariq Naderer Other Phone: [facility] 03-25-2021 18:50-0500 Body temperature 96.98 [degF] Tariq Naderer Other Phone: [facility] 03-25-2021 18:50-0500 Diastolic blood pressure 75 mm[Hg] Tariq Naderer Other Phone: [facility] 03-25-2021 18:50-0500 Heart rate 73 /min Tariq Naderer Other Phone: [facility] 03-25-2021 18:50-0500 Respiratory rate 18 /min Tariq Naderer Other Phone: [facility] 03-25-2021 18:50-0500 SaO2% (BldA) [Mass fraction] 75 % Tariq Naderer Other Phone: [facility] 03-25-2021 18:50-0500 Systolic blood pressure 122 mm[Hg] Tariq Sánchez Other Phone: [facility] 03-25-2021 11:30-0500 Body height 162.5 cm Tariq Sánchez Other Phone: [facility] 03-25-2021 11:30-0500 Body weight 75 kg Tariq Sánchez Other Phone: [facility] 03-07-2021 14:16-0500 Body height 162.56 cm Tariq Cainerer Work Phone: AH-Meathwe[address] [address] [facility] ([place]) DO NOT USE Work Phone: 03-07-2021 14:16-0500 Body mass index (BMI) [Ratio] 31.07 kg/m2 Tariq Cainerer Work Phone: PI-Ibqqhlq-Rwudera[address] ([place]) DO NOT USE Work Phone: 03-07-2021 14:16-0500 Body surface area Derived from formula 1.87 m2 Tariq Cainerer Work Phone: CG-Lbkreix-[address] [address] [facility] ([place]) DO NOT USE Work Phone: 03-07-2021 14:16-0500 Body weight 82.1 kg Tariq Cainerer Work Phone: XU-Ocogrvn-Gfvggzk[address] ([place]) DO NOT USE Work Phone: 03-07-2021 14:16-0500 Diastolic blood pressure 83 mm[Hg] Tariq Cainerer Work Phone: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 Vomiting (throwing up) and not able to eat or drink for 12 hours. Any new concerning symptoms. * Home Care Face to Face Certification:Home Care Services Needed: yesHome Care Agency: Other (with phone number), Andre Reese skilled Disciplines Ordered: RN/LPNFace to Face Encounter Completed: yesDate of Encounter: [id number] Necessity for Homecare (based on clinical findings): Short-term drain care and tube feed/PEG care is needed to instruct patient/caregiver to perform drain recording and local wound care as well as tube feed administration and PEG tube care and to monitor for signs and symptoms of infection or adverse events.Homebound Status: homeboundHomebound Due to: Patient has interventional radiology placed drain and in addition is dependent on tube feeds forsupplemental nutrition given poor oral intake and leaving the home is medically contraindicated.Face to Face Completed and Home Care Orders Reviewed: I certify that this patient is under my care. I have reviewed the information included in the face to face and certify that the home care services ordered are medically necessary for this patient. * Home Care Skilled Service:Home Care Skilled Service: drain care, follow up teaching, tube feedDrainCare: First Home Care Visit: day after dischargeTeaching: First Home Care Visit: day after dischargeTube Feed: First Home Care Visit: day after discharge * Follow Up Appointment 1:Physician/Dept/Service: General Surgery --Dr. Jose Nieveseduled Date/Time: 14-Apr-2021 10:20Location: [place] [id number] Number: [phone]: Please wear a mask when entering the building. Please arrive 10-15 minutes early, bring photo ID, current list of medications & dosages, insurance cards and any copay that may apply. If unable to keep this appointment, please call to cancel at least 24 hrs prior to appointment. * Follow Up Appointment 2:Physician/Dept/Service: Psych--Dr. Avilescheduled Date/Time: 19-May-2021 08:30Location: [facility] 1st Floor [address] [place], [place] [address]Grmfw Number: [phone] [facility]* Activity:activity as tolerated. May shower. May return to school/work Instructions:. May not drive while taking narcotics. * Drain/Tube Care 1:Type: SHANTEL (Jose Foley)Site: SHANTEL drain, abdomen and G-tube, abdomenSuction: SHANTEL tobulb suction, G-tube to gravityCleanse With: soap and waterDress With: open to airFrequency: daily * Home Care Face to Face Certification:[facility] (with phone number[facility] [phone] to Face Encounter Completed: yesDate of Encounter: [id number] Necessity for Homecare (based on clinical findings): Patient will resume previous home care.Homebound Status: homeboundHomebound Due to: Post-operative bile leak following paraesophageal hernia repair.Face to Face Completed and Home Care Orders Reviewed: I certify that this patient is under my care. I have reviewed the information included in the face to face and certify that the home care services ordered are medically necessary for this patient. * Home Care Skilled Service:Home Care Skilled Service: other, patient to resume previous home care services * Follow Up Appointment 1:Physician/Dept/Service: Dr. Apodaca to Schedule in: 1 weekScheduled Date/Time: 28-Mar-2021 08:08Phone Number: [phone]: Please call number above to confirm appointment [facility] Discharge instructions* Activity:activity as tolerated. * Drain/Tube Care 1:Type: GT (Gastrostomy Tube)Site: AbdomenCleanse With: soap and waterDress With: open to airOther Instructions: Flush with 15 cc of water three times a day so that it does not clog up * Additional Orders:Additional Instructions: Take Carafate (can add to tube feeds) for five days after your discharge. * Call Provider If:Temperature is greater than 102 degrees. Drinking less than normal. Vomiting (throwing up) and not able to eat or drink for 12 hours. Any new concerning symptoms. * Call Physician If:- Loss of movement or feeling, unusual tingling, coolness or changes in the skin color of your legs. - Immediately for neck swelling or bleeding from the surgical incision. - If youhave bleeding, bad smelling drainage or increased swelling at the incisional site. - Abdominal bloating, trouble urinating or trouble with bowel movements. - Fever greater than 100 degrees Fahrenheit. * Follow-Up with Vascular Surgeon:Physician/Dept./Service: Vascular Surgeon * Home Care Face to Face Certification:Home Care Services Needed: yesSkilled Disciplines Ordered: PTFace to Face Encounter Completed: yesDate of Encounter: [id number] Necessity for Homecare (based on clinical findings): Patient has decreased strength and endurance, requiring twice weekly homePT servicesHomebound Status: homeboundHomebound Due to: Patient has decreased strength and endurance, requiring twice weekly home PT servicesFace to Face Completed and Home Care Orders Reviewed: I certify that this patient is under my care. I have reviewed the information included in the face to face and certify that the home care services ordered are medically necessary for this patient. * Follow Up Appointment 1:Physician/Dept/Service: Dr. Pena / Sydnee for Referral: Post-op checkCall to Schedule in: 2 weeksPhone Number: [phone]: Call to make appointment for follow up if you do not hear from our advertising assistant manager service within 1 week * Follow Up Appointment 2:Physician/Dept/Service: Primary Care Corey for Referral: rash on armPhone Number: [facility] Additional Instructions DISCHARGE INSTRUCTIONS FOR ENDOSCOPY FOR COLONOSCOPY: -Expect a gassy or full feeling after a colonoscopy. Report any NEW abdominal pain or vomiting. -Watch for rectal bleeding if you have a polyp removed. You may have oozing, but notify the doctor if you pass clots. -Avoid aspirin for 2 days IF a polyp is removed. -It is important to keep your appointments for follow up examinations because polyps can grow back. FOR KAPLAN/EGD/ERCP/PEG: -Your throat may feel sore today from the scope that the doctor passed through your throat to visualize your stomach. Take a throat lozenge or suck on ice to ease the discomfort. -Do NOT smoke. -You may notice some streaks of blood in your sputum if the doctor has taken a biopsy. Notify the doctor if you cough up large amounts of blood. -Expect a gassy or full feeling after esophagoscopy. Report any persistent pain or vomiting. -Take it easy today. You need not stay in bed, but avoid strenuous activities such as jogging. FOR SEDATION FOR 24 HOURS: -NO driving -Do NOT operate machinery such as power tools, lawn mowers, snow blowers, sewing machines, etc. -Avoid alcoholic beverages and drugs for allergies, nerves, or sleep. -Do NOT stay alone. Do NOT leave your child unattended. -Do NOT make important personal or business decisions or sign any legal documents. -Eat solid foods and drink liquids in smaller amounts than usual until normal appetite returns. If you should experience an upset stomach, liquids high in sugar content (soda, Alek-aid, non-acid juices) are recommended. -You can resume normal activities tomorrow. FOLLOW UP Please call the office and make a follow up appointment to see me in 6-8 weeks. Soft diet today. Resume normal diet tomorrow. -Notify the doctor if you have any problems. -Office number [phone] Work Phone: Reason for referral (narrative)* Reason for Referral: s/p EGD, laparoscopic repair of recurrent paraesophageal hernia with Toupet [facility] Reason for Referral: Pt admitted for worsening abdominal pain with emesis. [facility] Chief Complaint [id number] pt est care with pcp* Face - To - Face Visit. * NPV post admission with psych consult * A telephone visit (audio only) between the patient (at the originating site) and the provider (at the distant site) was utilized to provide this telehealth service. * Verbal consent was requested and obtained from HARINDER CARROLL on this date, 10/21/2021 10:30 AM , for a telehealth visit. * FUV for PTSD, insomnia Reason for Referral * bile leak s/p para-esophageal hernia repair * bile leak s/p para-esophageal hernia repair * bile leak s/p para-esophageal hernia repair * Post up follow up No Information Summary Purpose Family History No Family History Records Found Relationship Condition Age at Onset Recorded Date/T donte Not Specified Malignant neoplasm of breast Unknown father Sepsis Unknown Advance Directives No Advanced Directives Records Found Advance Directive Response Recorded Date/ Time Advance Directives No June 29 12:37pm Chief Complaint and Reason for Visit Chief Complaint Dysphagia Additional Source Comments <item><item><item><item><item><item><item> Privacy Markings (unrecogniz ed section and content) Section Author: Adina Rao PROHIBITION ON REDISCLOSURE OF CONFIDENTIAL INFORMATION This notice accompanies a disclosure of information concerning a client made to you with the consent of such client. Section Author: Adina Rao PROHIBITION ON REDISCLOSURE OF CONFIDENTIAL INFORMATION This notice accompanies a disclosure of information concerning a client made to you with the consent of such client. Section Author: Adina Rao PROHIBITION ON REDISCLOSURE OF CONFIDENTIAL INFORMATION This notice accompanies a disclosure of information concerning a client made to you with the consent of such client. Section Author: Adina Rao PROHIBITION ON REDISCLOSURE OF CONFIDENTIAL INFORMATION This notice accompanies a disclosure of information concerning a client made to you with the consent of such client. Section Author: Adina Rao PROHIBITION ON REDISCLOSURE OF CONFIDENTIAL INFORMATION This notice accompanies a disclosure of information concerning a client made to you with the consent of such client. Section Author: Adina Rao PROHIBITION ON REDISCLOSURE OF CONFIDENTIAL INFORMATION This notice accompanies a disclosure of information concerning a client made to you with the consent of such client. Section Author: Adina Rao PROHIBITION ON REDISCLOSURE OF CONFIDENTIAL INFORMATION This notice accompanies a disclosure of information concerning a client made to you with the consent of such client. INFORMATION SOURCE (unrecogn ized section and content) DATE CREATED AUTHOR 11/30/2021 [facility] DATE CREATED AUTHOR AUTHOR'S ORGANIZ ATION 01/22/2022 [facility] DATE CREATED AUTHOR AUTHOR'S ORGANIZ ATION 02/14/2022 [employer] DATE CREATED AUTHOR AUTHOR'S ORGANIZ ATION 04/13/2023 [facility] EPIC DATE CREATED AUTHOR AUTHOR'S ORGANIZ ATION 05/17/2023 [facility] REASON FOR VISIT (unrecogniz ed section and content) RIGHT HEEL LACERATION S/P FA LL ON TABLE AND BROKE SOME GLASS, POSS FB Care Teams (unrecognized sec tion and content) Team Status: Active Member Role Status Dates Tariq Sánchez MD Primary Care Provider Active Team Status: Active Member Role Status Dates Tariq Sánchez MD Primary Care Provider Active S tart: May 15, 2023 Lionel Figueroa MD Attending [facility] ider, Other Provider Active Start: May 15, 2023 Goals (unrecognized section and content) Goals may be documented in a n alternate section FOR RECORDS PERTAINING TO PATIENTS WHO ARE OR HAVE BEEN ENROLLED IN A CHEMICAL DEPENDENCY/SUBSTANCEABUSE PROGRAM, SOME INFORMATION MAY BE OMITTED. This clinical summary was aggregated from multiple sources. Caution should be exercised in using it in the provision of clinical care. This summary normalizes information from multiple sources, and as a consequence, information in this document may materially change the coding, format and clinical context of patient data. In addition, data may be omitted in some cases. CLINICAL DECISIONS SHOULD BE BASED ON THE PRIMARY CLINICAL RECORDS. [employer] provides no warranty or guarantee of the accuracy or completeness of information in this document.
--- NOTE | 2023-10-14 02:30 | XR_ITS ---
[facility] [place] [id number] Patient Name: HARINDER CARROLL MRN: [id number] date: 1975 Sex: F Assigned Patient Location: ER Current Patient Location: ER Accession/Order Number: [id number] Exam Date: 10/14/2023 20:42 Report Date: 10/14/2023 03:59 At the request of: GILL HAMMER Procedure: XR ankle LT min 3V XR ankle LT min 3V 10/14/2023 8:42 PM EDT CLINICAL INDICATION: Rolling injury COMPARISON: None. TECHNIQUE: 3 views of the left ankle. FINDINGS: Calcific densities are seen inferior to the distal fibula. Ankle mortise appears symmetric. There is lateral malleolar soft tissue swelling. XR/XR ankle LT min 3V IMPRESSION: Findings suggesting a fibular avulsion fracture. Electronically authenticated by: KAREN TINEO Date: 10/14/2023 03:59
--- NOTE | 2023-10-14 02:30 | ED_ITS ---
HPI HPI - Extremity Injury (Lower) General Chief Complaint: Extremity Injury, Lower Stated Complaint: LE INJURY Time Seen by Provider: 10/14/23 02:21 Source: patient Mode of arrival: Wheelchair Limitations: no limitations History of Present Illness HPI Narrative: tripped over limb 2 days ago and injured left ankle. Now presents for continued pain. denies numbness of foot/ankle weakness Related Data Allergies Allergy/AdvReac Type Severity Reaction Status Date / Time cefaclor [From Ceclor] Allergy Anxiety Verified 10/14/23 02:27 penicillin Allergy Anaphylaxis Uncoded 10/14/23 02:27 valium Allergy Anaphylaxis Uncoded 10/14/23 02:27 Opioid HPI Opioid Management Most Recent Pain and Opioid Data: No Data to Display Review of Systems ROS Status of ROS 10 or more systems reviewed and unremark able except as noted in history and below Exam Constitutional Vital Signs, click to edit/add: Last Vital Signs Temp 98.1 F 10/14/23 02:27 Pulse 99 H 10/14/23 02:27 Resp 17 10/14/23 02:27 BP 154/74 H 10/14/23 02:27 Pulse Ox 100 10/14/23 02:27 O2 Del Method Room Air 10/14/23 02:27 Common normals: no apparent distress, average body habitus, oriented x3, no limitations, healthy appearing, alert and well nourished [facility] Common normals: normocephalic Respiratory Common normals: normal respiratory effort, no retractions, no use of accessory muscles and clear to auscultation bilaterally Cardio Common normals: regular rate, regular rhythm, S1 normal heart sound and S2 normal heart sound Extremity Other: mild swelling left lateral ankle Neuro Common normals: oriented x3, CN's II-XII intact bilaterally, moves all extremities and no focal motor deficits Psych Appearance: grossly normal Course Vital Signs Vital signs: Vital Signs Temperature 98.1 F 10/14/23 02:27 Pulse Rate 99 H 10/14/23 02:27 Respiratory Rate 17 10/14/23 02:27 Blood Pressure 154/74 H 10/14/23 02:27 Pulse Oximetry 100 10/14/23 02:27 Oxygen Delivery Method Room Air 10/14/23 02:27 Temperature 98.1 F 10/14/23 02:27 Pulse Rate 99 H 10/14/23 02:27 Respiratory Rate 17 10/14/23 02:27 Blood Pressure 154/74 H 10/14/23 02:27 Pulse Oximetry 100 10/14/23 02:27 Oxygen Delivery Method Room Air 10/14/23 02:27 MDM - Extremity Injury (Lower) MDM Narrative Medical decision making narrative: patient presents complaining of left ankle injury after she tripped over a limb. xray reveals avulsion chip fracture. Patient provided aircast and crutches and discharged home to follow up with her orthopedic surgeon Imaging Data Chest x-ray: Radiologist's impression: ITS Impressions Ankle X-Ray 10/14/23 02:30 IMPRESSION: Findings suggesting a fibular avulsion fracture. Electronically authenticated by: KAREN TINEO Date: 10/14/2023 03:59 Discharge Plan Discharge Stand Alone Forms: Portal Instructions Chief Complaint: Extremity Injury, Lower Clinical Impression: Ankle fracture Patient Disposition: Home, Self-Care Print Language: Upper Sorbian Instructions: Ankle Fracture (ED) Additional Instructions: follow up with your orthopedic surgeon next week. Continue motrin for home Referrals: Tariq Willett MD [Primary Care Provider] - 1 week
[2023-10-14] MEDS: IBUPROFEN 400 MG TABLET 800 MG PO (04:48)
== END 2023-10-14 05:03 | disposition home or self-care (01) ==
PROVIDERS: Emergency Provider Internal Medicine; PCP Family Medicine
DX: S82.402A Unspecified fracture of shaft of left fibula, initial encounter for closed fracture (principal); W22.8XXA Striking against or struck by other objects, initial encounter
CPT/HCPCS: 73610; 99283

== ENCOUNTER 2024-07-04 12:39 | Emergency (ER) | payer MEDICARE, OTHER, SELFPAY ==
[2024-07-04 13:06] VITALS: BP 146/95; PULSE 100; TEMP 36.9; O2SAT 99; BMI 28.3
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
[2024-07-04 14:27] LABS: Basophils Absolute Auto 0.1 10^3/uL (0.0-0.1); Basophils Percent Auto 0.4 % (0.2-2.0); Eosinophils Percent Auto 0.2 % (0.9-7.0); Hematocrit 42.7 % (36.0-48.0); Hemoglobin 13.9 g/dL (12.0-16.0); Immature Granulocytes Abs Auto 0.15 10^3/uL (0.00-0.03); Immature Granulocytes Pct Auto 0.8 % (0.0-0.5); Lymphocytes Absolute Auto 2.1 10^3/uL (1.2-3.8); Lymphocytes Percent Auto 11.4 % (20.5-60.0); Mean Corpuscular HGB Conc 32.6 g/dL (29.9-35.2); Mean Corpuscular Hemoglobin 26.5 pg (26.7-34.0); Mean Corpuscular Volume 81.5 fL (81.0-99.0); Mean Platelet Volume 9.3 fL (9.5-13.5); Monocytes Absolute Auto 1.4 10^3/uL (0.3-0.8); Monocytes Percent Auto 7.5 % (1.7-12.0); Neutrophils Absolute Auto 14.4 10^3/uL (1.4-6.5); Neutrophils Percent Auto 79.7 % (43.0-75.0); Platelet Count 305 10^3/uL (150-450); Red Blood Count 5.24 10^6/uL (4.20-5.40); Red Cell Distribution Width 15.2 % (11.0-15.0)
[2024-07-04] MEDS: ONDANSETRON PF 4 MG/2 ML VIAL IV (14:35)
[2024-07-04 14:36] LABS: INR 0.97; Prothrombin Time 10.3 sec (9.0-11.6)
[2024-07-04] MEDS: HYDROMORPHONE HCL 1 MG/ML CARTRIDGE IVP (14:36)
[2024-07-04] MEDS: ORPHENADRINE 60 MG/ 2 ML VIAL IV (14:36)
[2024-07-04 14:48] LABS: Alanine Aminotransferase 27 U/L (14-59); Albumin Globulin Ratio 0.9; Albumin Level 3.6 g/dL (3.4-5.0); Alkaline Phosphatase 172 U/L (46-116); Anion Gap 17.1; Aspartate Amino Transferase 26 U/L (15-37); BUN Creatinine Ratio 15.3; Bilirubin Total 0.6 mg/dL (0.2-1.0); Chloride 106 mmol/L (98-107); Estimated GFR (African America >60 (>=60 mL/min/1.73m^2); Estimated GFR (Non-African Ame >60 (>=60 mL/min/1.73m^2); Globulin 3.8 g/dL; Glucose 103 mg/dL (74-106); Potassium 4.1 mmol/L (3.5-5.1); Sodium 138 mmol/L (136-145); Total Protein 7.4 g/dL (6.4-8.2)
[2024-07-04 15:43] VITALS: BP 129/79; PULSE 67; O2SAT 100
== END 2024-07-04 17:31 | disposition home or self-care (01) ==
PROVIDERS: Physician Assistant; Emergency Provider Emergency Medicine; PCP Family Medicine
DX: S22.089A Unspecified fracture of T11-T12 vertebra, initial encounter for closed fracture (principal); V80.010A Animal-rider injured by fall from or being thrown from horse in noncollision accident, initial encounter; M54.50 Low back pain, unspecified
CPT/HCPCS: 36415; 70450; 71250; 72125; 72131; 73610; 74176; 80053; 85025; 85610; 96374; 96375; 99285; J1171; J2360; J2405